=== PATIENT | male | born 1960 | race Hispanic/Latino ===

== ENCOUNTER 2017-07-08 11:55 | Inpatient (IN) | payer BC ==
[2017-07-08 12:07] VITALS: BMI 37.5
[2017-07-08 13:12] LABS: BASO # 0.02 K/mm3 (0.0-2.0); BASO % 0.4 % (0.0-3.0); EOS # 0.1 (0.0-0.7); EOS % 1.9 % (1.5-5.0); GRAN # 3.9 (1.4-6.5); GRAN % 72.6 % (50.0-68.0); HEMATOCRIT 33.8 % (42.0-52.0); LYMPH # 0.7 (1.2-3.4); LYMPH % 12.8 % (22.0-35.0); MEAN CELL VOLUME 90.1 fl (80.0-105.0); MEAN CORPUSCULAR HEMOGLOBIN 28.8 pg (25.0-35.0); MEAN PLATELET VOLUME 10.3 fl (7.0-11.0); MONO # 0.7 (0.1-0.6); MONO % 12.3 % (1.0-6.0); RED CELL DISTRIBUTION WIDTH 15.4 % (11.5-14.5); WHITE BLOOD COUNT 5.4 10^3/ul (4.5-11.0)
[2017-07-08 13:18] LABS: INR 1.24 (0.93-1.08); PARTIAL THROMBOPLASTIN TIME 30.9 Seconds (25.1-36.5)
[2017-07-08 13:22] LABS: ALB/GLOB RATIO 0.8 (1.1-1.8); ALKALINE PHOSPHATASE 95 U/L (38-126); ALT/SGPT 37 U/L (7-56); AST/SGOT 31 U/L (17-59); BILIRUBIN,TOTAL 0.4 mg/dL (0.2-1.3); BLOOD UREA NITROGEN 13 mg/dL (7-21); CALCIUM 8.8 mg/dL (8.4-10.5); CARBON DIOXIDE 28 mmol/L (21-33); CHLORIDE 97 mmol/L (98-107); GFR AFRICAN-AMERICAN > 60; GLUCOSE,RANDOM 161 mg/dL (70-110); POTASSIUM 4.6 mmol/L (3.6-5.0); SODIUM 134 mmol/L (132-148); TOTAL PROTEIN 7.9 g/dL (5.8-8.3)
[2017-07-08 13:33] LABS: TROPONIN I < 0.01 ng/mL
[2017-07-08] MEDS ORDERED: Lactated Ringer's 1,000 ML IV STA (14:41)
--- NOTE | 2017-07-08 15:41 | ED PDOC ---
Arrival/HPI - General Chief Complaint: Pain, Chronic Time Seen by Provider: 07/08/17 12:01 Historian: Patient, Spouse, Family - History of Present Illness Narrative History of Present Illness (Text): 57yoM, new dx of multiple myeloma, with recent pathologic fractures on radiation. now with generalized fatigue/myalgias. no fever/cough/n/v/wong/ dizziness/sob/chest pain/abdomen pain/numbness/pain with urination. had recent left back wound vac removed wo redness. 07/08/17 15:42 07/08/17 16:56 Time/Duration: 24 hours, Other (chronic) Symptom Onset: Gradual Symptom Course: Unchanged Activities at Onset: Rest Context: Sitting Past Medical History - Provider Review Nursing Documentation Reviewed: Yes - Travel History Have you recently traveled outside [place] w/in the past 3 mons?: No - Cardiac Hx Cardiac Disorders: No - Pulmonary Hx Respiratory Disorders: No - Neurological Hx Neurological Disorder: No - HEENT Hx HEENT Disorder: No - Renal Hx Renal Disorder: No - Endocrine/Metabolic Hx Endocrine Disorders: Yes Hx Diabetes Mellitus Type 2: Yes Hx Hypothyroidism: Yes - Hematological/Oncological Hx Blood Disorders: No - Integumentary Hx Dermatological Disorder: Yes Hx Melanoma: Yes Other/Comment: Multiple Melanoma Diagnosed April 2017 - Musculoskeletal/Rheumatological Hx Musculoskeletal Disorders: No - Gastrointestinal Hx Gastrointestinal Disorders: No - Genitourinary/Gynecological Hx Genitourinary Disorders: No - Psychiatric Hx Psychophysiologic Disorder: No Hx Substance Use: No - Surgical History Hx Orthopedic Surgery: Yes Other/Comment: Bilateral knee replacement, R hip replacement - Anesthesia Hx Anesthesia: Yes Family/Social History - Physician Review Nursing Documentation Reviewed: Yes Family/Social History: No Known Family HX Smoking Status: Never Smoked Hx Alcohol Use: No Hx Substance Use: No Allergies/Home Meds Allergies/Adverse Reactions: Allergies No Known Allergies Allergy (Verified 07/08/17 18:09) Home Medications: Home Meds Medication Instructions Recorded Confirmed ALPRAZolam [Xanax] 1.25 mg PO DAILY 07/08/17 07/08/17 Fentanyl [Fentanyl] 75 mg TOP PRN PRN 07/08/17 07/08/17 Review of Systems - Review of Systems Constitutional: Fatigue Eyes: Normal ENT: Normal Respiratory: Normal Cardiovascular: Normal Gastrointestinal: Normal Genitourinary Male: Normal Musculoskeletal: Myalgias Skin: Normal Neurological: Normal Endocrine: Normal Hemo/Lymphatic: Normal Psychiatric: Normal Physical Exam Vital Signs Reviewed: Yes Vital Signs Temp Pulse Resp BP Pulse Ox 07/08/17 17:20 90 18 101/64 98 07/08/17 16:53 86 18 125/63 98 07/08/17 15:13 91 H 18 127/65 98 07/08/17 13:56 99.3 F 124 H 18 104/71 95 07/08/17 12:06 99.7 F H 103 H 18 100/69 95 Temperature: Afebrile Blood Pressure: Hypertensive Pulse: Regular Respiratory Rate: Normal Appearance: Positive for: Well-Appearing Pain Distress: Mild Mental Status: Positive for: Alert and Oriented X 3 - Systems Exam Head: Present: Atraumatic, Normocephalic Pupils: Present: PERRL Extroacular Muscles: Present: EOMI Conjunctiva: Present: Normal Ears: Present: Normal Mouth: Present: Moist Mucous Membranes Pharnyx: Present: Normal Nose (External): Present: Atraumatic Nose (Internal): Present: Normal Inspection Neck: Present: Normal Range of Motion Respiratory/Chest: Present: Clear to Auscultation, Good Air Exchange Cardiovascular: Present: Regular Rate and Rhythm Abdomen: No: Tenderness, Distention, Normal Bowel Sounds, Peritoneal Signs, Rebound, Guarding, McBurney's Point Tender, Rovsing's Sign Present, Hernias, Feeding Tubes, Ostomy Tubes, Mass/Organomegaly, Scars, Other Upper Extremity: Present: Normal Inspection Lower Extremity: Present: Normal Inspection Neurological: Present: GCS=15, CN II-XII Intact, Speech Normal Skin: Present: Warm, Normal Color, Other (left lower back wound 8cm to muscle wo erythema;fluctuance/crepitus.) Psychiatric: Present: Alert, Oriented x 3, Normal Insight, Normal Concentration Medical Decision Making ED Course and Treatment: d/w Dr. Lafleur oncology who wants pt to be admitted. prior to admission for b/ l shoulder xrays, chest xray, and spinal thoracic and lumbar spinal to be followed by hospital/oncology team. 07/08/17 15:44 07/08/17 16:54 d/w Dr. Lafleur who had stated admit to hospitalist, d/w Dr. Sandhu and he stated he would consult if needed but if Dr. Lafleur wants hospitalist then can proceed. d/w Dr. Guzmán who will admit for pain, fatigue and plan for intravenous chemotherapy. CT Lumbar Spine without contrast Dictator : Bayron Olsen MD Report Date : 07/08/2017 17:11:03 IMPRESSION: Innumerable lytic lesions throughout the lumbar spine consistent with known multiple myeloma. There is a lesion in the right S2 sacral ala with cortical destruction but no neural foraminal encroachment. There is a lytic lesion in the posterior aspect of the T11 vertebra with cortical destruction but no clear epidural extension. There is a slightly atypical expansile lesion on the left side of the L1 vertebral body with associated cortical destruction. Degenerative disc disease and disc bulges as described. CT Thoracic Spine without contrast Dictator : Bayron Olsen MD Report Date : 07/08/2017 17:23:50 IMPRESSION: Extensive myelomatous change with lytic lesions throughout the thoracic spine and a confluent large expansile/destructive lytic lesion at T8-T9 with encroachment upon the central spinal canal from the left side and mild central spinal stenosis. Incidental 1.6 cm mass in the left lower lobe. Minor findings as above. Bilateral shoulders dated 07/08/2017 Creator : Bobby Botello MD Report Date : 07/08/2017 17:56:50 IMPRESSION: Old healed fracture deformities of the proximal and distal shaft left humerus. Degenerative changes both shoulder girdles. Multiple small lucencies seen throughout the osseous structures consistent with this patient's history multiple myeloma. 07/08/17 20:10 - Lab Interpretations Lab Results: 07/08/17 13:00 07/08/17 13:00 Lab Results 07/08/17 13:00: Sodium 134, Potassium 4.6, Chloride 97 L, Carbon Dioxide 28, Anion Gap 13, BUN 13, Creatinine 0.8, Est GFR ( Amer) > 60, Est GFR (Non- Af Amer) > 60, Random Glucose 161 H, Calcium 8.8, Total Bilirubin 0.4, AST 31, ALT 37, Alkaline Phosphatase 95, Total Creatine Kinase 30 L, Troponin I < 0.01, Total Protein 7.9, Albumin 3.6, Globulin 4.3, Albumin/Globulin Ratio 0.8 L 07/08/17 13:00: PT 13.7 H, INR 1.24 H, APTT 30.9 07/08/17 13:00: WBC 5.4, RBC 3.75, Hgb 10.8 L, Hct 33.8 L, MCV 90.1, MCH 28.8, MCHC 32.0, RDW 15.4 H, Plt Count 223, MPV 10.3, Gran % 72.6 H, Lymph % (Auto) 12.8 L, Jackson % (Auto) 12.3 H, Eos % (Auto) 1.9, Baso % (Auto) 0.4, Gran # 3.90, Lymph # 0.7 L, Jackson # 0.7 H, Eos # 0.1, Baso # 0.02 I have reviewed the lab results: Yes - RAD Interpretation Radiology Orders: 07/08/17 15:46 SHOULDER MIN 2 VIEWS BI [RAD] Stat 07/08/17 15:49 THORACIC SPINE W/O CONT [CT] Stat 07/08/17 15:50 LUMBAR SPINE W/O CONTRAST [CT] Stat - EKG Interpretation Interpreted by ED Physician: Yes (flipped t waves avr, v1, flattened avf) - Medication Orders Current Medication Orders: Acetaminophen (Tylenol 325mg Tab) 650 mg PO Q6H PRN PRN Reason: Fever >100.4 F Alprazolam (Xanax) 0.25 mg PO BID PRN; Protocol PRN Reason: Anxiety Stop: 07/15/17 18:22 Ascorbic Acid (Vitamin C 500 Mg Tab) 500 mg PO DAILY [facility] Diphenhydramine HCl (Benadryl) 25 mg PO Q6H PRN PRN Reason: Itching / Pruritus Docusate Sodium (Colace) 100 mg PO Q12 [facility] Enoxaparin Sodium (Lovenox) 40 mg SC DAILY [facility] PRN Reason: Protocol Famotidine (Pepcid) 20 mg IVP DAILY [facility] Fentanyl (Duragesic) 1 patch TD Q72H [facility] Insulin Human Lispro (Humalog Low) 0 units SC ACHS [facility] PRN Reason: Protocol Morphine Sulfate (Morphine) 2 mg IVP Q4H PRN PRN Reason: Pain, severe (8-10) Ondansetron HCl (Zofran Inj) 4 mg IVP Q4H PRN PRN Reason: Nausea/Vomiting Zinc Sulfate (Zinc Sulfate 220 Mg Cap) 220 mg PO DAILY [facility] Discontinued Medications Acetaminophen (Tylenol 325mg Tab) 650 mg PO Q6H PRN PRN Reason: Pain, Mild (1-3) Fentanyl (Duragesic) 1 patch TD Q72H [facility] Lactated Ringer's (Lactated Ringer's) 1,000 mls @ 999 mls/hr IV .Q1H1M STA Stop: 07/08/17 15:41 Last Admin: 07/08/17 14:51 Dose: 999 mls/hr eMAR Start Stop Document 07/08/17 14:51 OCS (Rec: 07/08/17 14:[address] [id number]) Intravenous Solution Start Date 07/08/17 Start Time 14:51 End Date 07/08/17 End time 15:52 Total Infusion Time 61 Multivitamins (Thera Tab) 1 tab PO STAT STA Stop: 07/08/17 17:51 Pneumococcal Polyvalent Vaccine (Pneumovax 23 Vaccine) 0.5 ml IM .ONCE ONE Stop: 07/08/17 19:43 Disposition/Present on Arrival - Present on Arrival Any Indicators Present on Arrival: No History of DVT/PE: No History of Uncontrolled Diabetes: No Urinary Catheter: No History of Decub. Ulcer: No History Surgical Site Infection Following: None - Disposition Have Diagnosis and Disposition been Completed?: Yes Diagnosis: Myalgia Disposition: HOSPITALIZED Disposition Time: 16:00 Patient Plan: Admission Condition: GOOD
--- NOTE | 2017-07-08 16:15 | CARD ---
APPROVED REPORT EKG Measurement Heart [id number] [id number] <Conclusion> Normal sinus rhythm Prolonged QT Abnormal ECG
--- NOTE | 2017-07-08 17:13 | CT ---
PROCEDURE: CT Lumbar Spine without contrast HISTORY: 57yoM, with multiple myeloma COMPARISON: None. TECHNIQUE: Axial computed tomography images were obtained of the lumbar spine without the use of intravenous contrast. Coronal and sagittal reformatted images were created and reviewed. Radiation dose: Total exam DLP = 1520.18 mGy-cm. This CT exam was performed using one or more of the following dose reduction techniques: Automated exposure control, adjustment of the mA and/or kV according to patient size, and/or use of iterative reconstruction technique. FINDINGS: VERTEBRAE: The vertebral bodies are maintained in height. There are innumerable lytic lesions seen throughout the lumbar spine, some of them sharply circumscribed and some ill-defined. There is a lytic lesion in the posterior aspect of the T11 vertebra with destruction of the cortex and no clear epidural extension of tumor. There is an expansile lesion in the left side of the L1 vertebral body with cortical destruction. Likely related to multiple myeloma both this is atypical behavior. There is a lytic lesion in the right S2 talar portion of the sacrum with cortical destruction but no evidence of encroachment upon the S2 neural foramen. DISCS/SPINAL CANAL/NEURAL FORAMINA: There is narrowing of the L1-2, L3-4, L4-5 and L5-S1 disc spaces consistent with degenerative disc disease. There is diffuse disc bulge at L3-4 and L4-5. There is moderate bilateral L3-4 neural foraminal stenosis. There is moderate right and severe left L4-5 neural foraminal stenosis. There is mild central spinal stenosis at L4-5. PARASPINAL SOFT TISSUES: Unremarkable. OTHER FINDINGS: None. IMPRESSION: Innumerable lytic lesions throughout the lumbar spine consistent with known multiple myeloma. There is a lesion in the right S2 sacral ala with cortical destruction but no neural foraminal encroachment. There is a lytic lesion in the posterior aspect of the T11 vertebra with cortical destruction but no clear epidural extension. There is a slightly atypical expansile lesion on the left side of the L1 vertebral body with associated cortical destruction. Degenerative disc disease and disc bulges as described.
--- NOTE | 2017-07-08 17:25 | CT ---
PROCEDURE: CT Thoracic Spine without contrast HISTORY: 57yoM, hx of multiple myeloma COMPARISON: None. TECHNIQUE: Axial computed tomography images were obtained of the thoracic spine without intravenous contrast. Coronal and sagittal reformatted images were created and reviewed. Radiation dose: Total exam DLP = 1496.47 mGy-cm. This CT exam was performed using one or more of the following dose reduction techniques: Automated exposure control, adjustment of the mA and/or kV according to patient size, and/or use of iterative reconstruction technique. FINDINGS: VERTEBRAE: There is mild anterior wedge compression deformity of the T8 vertebral body. The remaining vertebral bodies are maintained in height. There are innumerable small lytic lesions throughout thoracic spine, many of them ill-defined. There is a large expansile soft tissue mass with vertebral destruction extending into adjacent rib on the left side, at the T8 and T9 vertebral levels. There is epidural extension of soft tissue into the left anterior lateral aspect of the spinal canal at this level with mild spinal stenosis. There is gross destruction of the medial aspect of the posterior left 8th rib. There is a small circumscribed lesion with cortical destruction along the posterior aspect of the T11 vertebra with minimal epidural extension of soft tissue encroaching subtly upon the central spinal canal. This is difficult to gauge on the basis of this examination and if there is clinical concern regarding encroachment this level then evaluation with magnetic resonance imaging is advised.. DISCS/SPINAL CANAL/NEURAL FORAMINA: There is no evidence of disc herniation. There is mild narrowing of multiple intervertebral disc spaces in the thoracic spine, most prominently at T8-9 and T9-10.. PARASPINAL SOFT TISSUES: Unremarkable. OTHER FINDINGS: There is paraseptal emphysema in the lung apices. There is a bilobed soft tissue mass in the left lower lobe measuring roughly 0.9 x 1.6 cm.. IMPRESSION: Extensive myelomatous change with lytic lesions throughout the thoracic spine and a confluent large expansile/destructive lytic lesion at T8-T9 with encroachment upon the central spinal canal from the left side and mild central spinal stenosis. Incidental 1.6 cm mass in the left lower lobe. Minor findings as above.
[2017-07-08] MEDS ORDERED: Multivitamin Therapeutic Tab PO STA (17:50)
--- NOTE | 2017-07-08 17:58 | RAD ---
PROCEDURE: Bilateral shoulders dated 07/08/2017 HISTORY: Body pain in a patient with a history of multiple myeloma. Technologist notation indicates 7 fracture left humerus 4 months ago. COMPARISON: Correlation made with left shoulder radiograph dated 03/08/2015. FINDINGS: Left shoulder findings: Current study reveals a old healed fracture deformity of the proximal left humeral diaphysis. Additionally, there appears to be a 2nd old healed fracture deformity of the distal left humeral diaphysis as well. Clinical correlation recommended. Dedicated radiographs of the left humerus may be prudent to confirm. Degenerative changes left glenohumeral and acromioclavicular joints. Multiple of lucent changes are seen throughout the left humerus as well as the scapula and distal clavicle consistent with this patient's history of myeloma. There may also be changes in the left ribs. Right shoulder findings: No evidence of acute displaced fracture nor dislocation. The osseous structures appear intact. Degenerative changes right acromioclavicular joint. There are small calcific densities within the soft tissues adjacent to greater tuberosity consistent with calcific tendinitis. . Multiple tiny lucencies are seen within the proximal right humerus and probably within the scapula and ribs consistent with this patient's history of myeloma. There may also be lucent changes in the right clavicle as well. IMPRESSION: Old healed fracture deformities of the proximal and distal shaft left humerus. Degenerative changes both shoulder girdles. Multiple small lucencies seen throughout the osseous structures consistent with this patient's history multiple myeloma.
--- NOTE | 2017-07-08 17:58 | CP.PCM.HP ---
History of Present Illness - History of Present Illness History of Present Illness: 57 year old with a past medical history of tinnitus, new-onset diabetes mellitus , recently diagnosed multiple myeloma with pathologic fractures and immobility. On April 11, 2017 he underwent a bilateral knee replacement surgery that was followed by a left arm fracture, and right hip fracture, all within the span of a month. He was diagnosed with Multiple Myeloma and in th the past three months underwent orthopedic surgery for the right hip, left shoulder, and for debridement of a decubitus ulcer in his back with wound vacuum placement. He underwent 10 rounds of palliative radiation therapy and 3 round of chemotherapy. He has been living at home, bed-bound, since June 07 and requires assistance for nearly all of activities of daily living. [place] [facility] [place]ractable pain in below the knees, bilaterally, left shoulder and right hip. He admits to chills and fever, but denies, weight, loss, nausea, vomiting, diarrhea, weight loss, easy brusing or bleeding, night sweats or dyspnea on admission. He denies having any complications from his chemoradiation such as loss incontinence, diarrhea, changes in taste, dry mouth , etc. PMD: Listed as Dr. 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 Family History: Unremarkable Present on Admission - Present on Admission Any Indicators Present on Admission: Yes Decubitus Ulcer Present: Yes Review of Systems - EENT Eyes: absent: Change in Vision, Diplopia, Dry Eye Ears: Tinnitus Nose/Mouth/Throat: absent: Dry Mouth, Dysphagia, Sore Throat - Cardiovascular Cardiovascular: Pedal Edema. absent: Chest Pain at Rest, Dyspnea, Edema - Respiratory Respiratory: absent: Dyspnea, Pain on Inspiration, Excessive Mucous Production - Gastrointestinal Gastrointestinal: absent: Abdominal Pain, Belching, Constipation - Genitourinary Genitourinary: Change in Urinary Stream, Difficulty Urinating - Musculoskeletal Musculoskeletal: Arthralgias, Back Pain. absent: Abnormal Gait - Integumentary Integumentary: absent: Bleeding Lesions, Photosensitivity - Neurological Neurological: absent: Radicular Pain, Syncope, Weakness - Psychiatric Psychiatric: absent: Difficulty Concentrating, Irritability, Panic Attacks - Endocrine Endocrine: absent: Polydipsia, Polyphagia - Hematologic/Lymphatic Hematologic: absent: Easy Bleeding, Easy Bruising, Lymphadenopathy Past Patient History - Past Social History Smoking Status: Never Smoked - CARDIAC Hx Cardiac Disorders: No - PULMONARY Hx Respiratory Disorders: No - NEUROLOGICAL Hx Neurological Disorder: No - HEENT Hx HEENT Problems: No - RENAL Hx Chronic Kidney Disease: No - ENDOCRINE/METABOLIC Hx Endocrine Disorders: Yes Hx Diabetes Mellitus Type 2: Yes Hx Hypothyroidism: Yes - HEMATOLOGICAL/ONCOLOGICAL Hx Blood Disorders: No - INTEGUMENTARY Hx Dermatological Problems: Yes Hx Melanoma: Yes Other/Comment: Multiple Melanoma Diagnosed April 2017 - MUSCULOSKELETAL/RHEUMATOLOGICAL Hx Musculoskeletal Disorders: No - GASTROINTESTINAL Hx Gastrointestinal Disorders: No - GENITOURINARY/GYNECOLOGICAL Hx Genitourinary Disorders: No - PSYCHIATRIC Hx Psychophysiologic Disorder: No Hx Substance Use: No - SURGICAL HISTORY Hx Orthopedic Surgery: Yes Other/Comment: Bilateral knee replacement, R hip replacement - ANESTHESIA Hx Anesthesia: Yes Meds Allergies/Adverse Reactions: Allergies Allergy/AdvReac Type Severity Reaction Status Date / Time No Known Allergies Allergy Verified 07/08/17 18:09 Physical Exam - Constitutional Appears: Well, Non-toxic - Head Exam Head Exam: ATRAUMATIC, NORMOCEPHALIC - Eye Exam Eye Exam: EOMI, Normal appearance - ENT Exam ENT Exam: Mucous Membranes Moist, Normal Oropharynx - Neck Exam Neck exam: Positive for: Normal Inspection - Respiratory Exam Respiratory Exam: Clear to Auscultation Bilateral, NORMAL BREATHING PATTERN. absent: Wheezes - Cardiovascular Exam Cardiovascular Exam: RRR, +S1, +S2 - GI/Abdominal Exam GI & Abdominal Exam: Normal Bowel Sounds, Soft. absent: Guarding, Rebound - Extremities Exam Extremities exam: Positive for: pedal pulses present. Negative for: calf tenderness Additional comments: bilateral lower extremity swelling, non-pitting - Back Exam Back exam: absent: CVA tenderness (L), CVA tenderness (R) Additional comments: [id number] sacral decubitus ulcer. healthy granulations tissue present. no signs of necrosis. - Neurological Exam Neurological exam: Alert, CN II-XII Intact, Oriented x3 - Psychiatric Exam Psychiatric exam: Normal Affect, Normal Mood - Skin Skin Exam: Dry, Intact, Normal Color, Warm Results - Vital Signs Recent Vital Signs: Last Vital Signs Temp 99.3 F 07/08/17 13:56 Pulse 90 07/08/17 17:20 Resp 18 07/08/17 17:20 BP 101/64 07/08/17 17:20 Pulse Ox 98 07/08/17 17:20 - Labs Result Diagrams: 07/08/17 13:00 07/08/17 13:00 Assessment & Plan - Assessment and Plan (Free Text) Assessment: 57 year old with a multiple myeloma who presents with intractable pain, immobility, and fever. Plan: 1) Intractable pain secondary to Multiple Myeloma - Left shoulder X-ray, thoracic spine, lumbar spine show - Fentanyl patch 75 mcg/hr q72h - Morphine 2mg IVP q4h - Tylenol 650 mg for mild pain - Docusate 100 mg BID - Left shoulder X-ray, CT of the thoracic and lumbar spine shows stigmata of multiple myeloma, multiple lucencies and fractures (see reports for details). - Orthopedic consult, Dr. Varghese. - Hematology/Oncology consult, Dr. Lafleur. - Dr. Larsen 2) Fever - Blood culture - Wound culture of decubitus ulcer - Urine culture - Urine Analysis - Tylenol 650 mg PRN for fever greater than 100.4 F - Infectious disease consult to be considered 3) Anxiety - Xanax 0.25 mg BID 4) DM II - ISS Lispro (low) 5) Decubitus Ulcer - Wound culture consult - Zinc, Multivitamin, Vitamin C 6) Fluid, electrolytes, nutrition - Lactated Ringers - HHD and moderate consistency carbohydrates 7) Lower extremity swelling - Duplex US of bilateral lower extremities 8)DVT/GI prophylaxis - Lovenox 40 mg SC qday - pepcid 20 mg IVP daily - Date & Time Date: 07/08/17 Time: 19:41 Decision To Admit - Pt Status Changed To: Hospital Disposition Of: Inpatient Admission - Admit Certification Admit to Inpatient:: After my assessment, the patient will require hospitalization for at least two midnights. This is because of the severity of symptoms shown, intensity of services needed, and/or the medical risk in this patient being treated as an outpatient. - . Bed Request Type: Med/Surg Admitting Physician: Ranjit Guzmán
--- NOTE | 2017-07-08 18:47 | CP.PCM.CON ---
<Haroldo Bashir - Last Filed: 07/08/17 18:38> History of Present Illness - History of Present Illness History of Present Illness: Consult Note for Dr. William We are being consulted for a sacral decubitus ulcer HPI: Patient is a 57WM with a PMH of Multiple Myeloma who presents to the ED with a CC of whole body pain. In april of this year the patient went for bilateral knee replacements at [facility]. Further imaging revealed several lytic lesions consistent with a diagnoses of multiple myeloma for which he sees Dr. Lafleur. During his stay in rehab he developed a sacral decubitus ulcer. He has a visiting nurse that comes and takes care of the wound at home. He admits to having a wound vac on most days. He denies any fevers or chills. His only complaint is body pain. Denies nausea, vomiting, chest pain, SOB, Diarrhea, constipation. PMH: Multiple myeloma PSH: bilateral knee replacement, right hip ORIF, left shoulder ORIF FH: Unremarkable SH: Smoked 1 ppd for 30 years, quit 10 years ago; drank 6 beers per day for 10 years, quite 25 years ago Medications: Xanax 0.25 BID and Fentanyl patch 75 mcg/hr Q72h Allergies: NKDA Review of Systems - Review of Systems Review of Systems: per hpi Past Patient History - Past Social History Smoking Status: Never Smoked - CARDIAC Hx Cardiac Disorders: No - PULMONARY Hx Respiratory Disorders: No - NEUROLOGICAL Hx Neurological Disorder: No - HEENT Hx HEENT Problems: No - RENAL Hx Chronic Kidney Disease: No - ENDOCRINE/METABOLIC Hx Endocrine Disorders: Yes Hx Diabetes Mellitus Type 2: Yes Hx Hypothyroidism: Yes - HEMATOLOGICAL/ONCOLOGICAL Hx Blood Disorders: No - INTEGUMENTARY Hx Dermatological Problems: Yes Hx Melanoma: Yes Other/Comment: Multiple Melanoma Diagnosed April 2017 - MUSCULOSKELETAL/RHEUMATOLOGICAL Hx Musculoskeletal Disorders: No - GASTROINTESTINAL Hx Gastrointestinal Disorders: No - GENITOURINARY/GYNECOLOGICAL Hx Genitourinary Disorders: No - PSYCHIATRIC Hx Psychophysiologic Disorder: No Hx Substance Use: No - SURGICAL HISTORY Hx Orthopedic Surgery: Yes Other/Comment: Bilateral knee replacement, R hip replacement - ANESTHESIA Hx Anesthesia: Yes Meds Allergies/Adverse Reactions: Allergies Allergy/AdvReac Type Severity Reaction Status Date / Time No Known Allergies Allergy Verified 07/08/17 18:09 - Medications Medications: Current Medications Acetaminophen (Tylenol 325mg Tab) 650 mg PO Q6H PRN PRN Reason: Pain, Mild (1-3) Alprazolam (Xanax) 0.25 mg PO BID PRN; Protocol PRN Reason: Anxiety Stop: 07/15/17 18:22 Ascorbic Acid (Vitamin C 500 Mg Tab) 500 mg PO DAILY [facility] Diphenhydramine HCl (Benadryl) 25 mg PO Q6H PRN PRN Reason: Itching / Pruritus Docusate Sodium (Colace) 100 mg PO Q12 [facility] Enoxaparin Sodium (Lovenox) 40 mg SC DAILY [facility] PRN Reason: Protocol Famotidine (Pepcid) 20 mg IVP DAILY [facility] Fentanyl (Duragesic) 1 patch TD Q72H [facility] Insulin Human Lispro (Humalog Low) 0 units SC ACHS [facility] PRN Reason: Protocol Morphine Sulfate (Morphine) 2 mg IVP Q4H PRN PRN Reason: Pain, severe (8-10) Ondansetron HCl (Zofran Inj) 4 mg IVP Q4H PRN PRN Reason: Nausea/Vomiting Zinc Sulfate (Zinc Sulfate 220 Mg Cap) 220 mg PO DAILY [facility] Physical Exam - Constitutional Appears: Non-toxic, No Acute Distress - Head Exam Head Exam: ATRAUMATIC, NORMAL INSPECTION, NORMOCEPHALIC - Eye Exam Eye Exam: EOMI Pupil Exam: NORMAL ACCOMODATION - ENT Exam ENT Exam: Mucous Membranes Moist - Respiratory Exam Respiratory Exam: Clear to Auscultation Bilateral, NORMAL BREATHING PATTERN - Cardiovascular Exam Cardiovascular Exam: REGULAR RHYTHM - GI/Abdominal Exam GI & Abdominal Exam: Normal Bowel Sounds. absent: Distended, Soft, Tenderness - Extremities Exam Extremities exam: Negative for: joint swelling, tenderness - Back Exam Additional comments: [id number] sacral decubitus ulcer. healthy granulations tissue present. no signs of necrosis. Results - Vital Signs Recent Vital Signs: Last Vital Signs Temp 99.3 F 07/08/17 13:56 Pulse 90 07/08/17 17:20 Resp 18 07/08/17 17:20 BP 101/64 07/08/17 17:20 Pulse Ox 98 07/08/17 17:20 - Labs Result Diagrams: 07/08/17 13:00 07/08/17 13:00 Assessment & Plan - Assessment and Plan (Free Text) Assessment: 57M w/ sacral decubitus ulcer Plan: * turn q2 * wound care consult * possible wound vac * air mattress * medical management per primary team * further reccs per Dr. Nataliia Bashir PGY1 <Clay William - Last Filed: 07/11/17 00:22> Meds - Medications Medications: Current Medications Acetaminophen (Tylenol 325mg Tab) 650 mg PO Q6H PRN PRN Reason: Fever >100.4 F Last Admin: 07/09/17 21:57 Dose: 650 mg Alprazolam (Xanax) 0.25 mg PO BID PRN; Protocol PRN Reason: Anxiety Stop: 07/15/17 18:22 Ascorbic Acid (Vitamin C 500 Mg Tab) 500 mg PO DAILY [facility] Last Admin: 07/10/17 10:55 Dose: 500 mg Diphenhydramine HCl (Benadryl) 25 mg PO Q6H PRN PRN Reason: Itching / Pruritus Docusate Sodium (Colace) 100 mg PO Q12 [facility] Last Admin: 07/10/17 23:10 Dose: 100 mg Enoxaparin Sodium (Lovenox) 40 mg SC DAILY [facility] PRN Reason: Protocol Last Admin: 07/10/17 10:56 Dose: 40 mg Famotidine (Pepcid) 20 mg IVP DAILY [facility] Last Admin: 07/10/17 10:56 Dose: 20 mg Fentanyl (Duragesic) 1 patch TD Q72H [facility] Last Admin: 07/10/17 10:53 Dose: 1 patch Insulin Human Lispro (Humalog Low) 0 units SC [facility] PRN Reason: Protocol Last Admin: 07/10/17 22:19 Dose: Not Given Morphine Sulfate (Morphine) 2 mg IVP Q4H PRN PRN Reason: Pain, severe (8-10) Last Admin: 07/10/17 23:09 Dose: 2 mg Ondansetron HCl (Zofran Inj) 4 mg IVP Q4H PRN PRN Reason: Nausea/Vomiting Zinc Sulfate (Zinc Sulfate 220 Mg Cap) 220 mg PO DAILY [facility] Last Admin: 07/10/17 10:55 Dose: 220 mg Results - Vital Signs Recent Vital Signs: Last Vital Signs Temp 98.8 F 07/10/17 16:00 Pulse 107 H 07/10/17 16:00 Resp 20 07/10/17 16:00 BP 139/79 07/10/17 16:00 Pulse Ox 98 07/10/17 16:00 - Labs Result Diagrams: 07/10/17 07:00 07/10/17 07:00 Labs: Laboratory Results - last 24 hr 07/08/17 07/09/17 07/09/17 19:17 07:21 16:32 WBC RBC Hgb Hct MCV MCH MCHC RDW Plt Count MPV Gran % Lymph % (Auto) Isabela % (Auto) Eos % (Auto) Baso % (Auto) Gran # Lymph # Isabela # Eos # Baso # Sodium Potassium Chloride Carbon Dioxide Anion Gap BUN Creatinine Est GFR ( Amer) Est GFR (Non-Af Amer) POC Glucose (mg/dL) 101 183 H Random Glucose Hemoglobin A1c 6.7 H Calcium Total Bilirubin AST ALT Alkaline Phosphatase Total Protein Albumin Globulin Albumin/Globulin Ratio 07/10/17 07/10/17 07/10/17 07:00 07:00 07:43 WBC 4.0 L RBC 3.73 Hgb 10.5 L Hct 33.3 L MCV 89.3 MCH 28.2 MCHC 31.5 RDW 15.3 H Plt Count 236 MPV 10.9 Gran % 67.3 Lymph % (Auto) 17.1 L Isabela % (Auto) 11.7 H Eos % (Auto) 3.7 Baso % (Auto) 0.2 Gran # 2.71 Lymph # 0.7 L Isabela # 0.5 Eos # 0.2 Baso # 0.01 Sodium 138 Potassium 3.6 Chloride 103 Carbon Dioxide 25 Anion Gap 14 BUN 6 L Creatinine 0.6 L Est GFR ( Amer) > 60 Est GFR (Non-Af Amer) > 60 POC Glucose (mg/dL) 143 H Random Glucose 133 H Hemoglobin A1c Calcium 8.7 Total Bilirubin 0.4 AST 30 ALT 28 Alkaline Phosphatase 87 Total Protein 7.6 Albumin 3.5 Globulin 4.2 Albumin/Globulin Ratio 0.8 L 07/10/17 07/10/17 11:18 17:06 WBC RBC Hgb Hct MCV MCH MCHC RDW Plt Count MPV Gran % Lymph % (Auto) Isabela % (Auto) Eos % (Auto) Baso % (Auto) Gran # Lymph # Isabela # Eos # Baso # Sodium Potassium Chloride Carbon Dioxide Anion Gap BUN Creatinine Est GFR ( Amer) Est GFR (Non-Af Amer) POC Glucose (mg/dL) 124 H 124 H Random Glucose Hemoglobin A1c Calcium Total Bilirubin AST ALT Alkaline Phosphatase Total Protein Albumin Globulin Albumin/Globulin Ratio Assessment & Plan - Assessment and Plan (Free Text) Plan: Patient was seen and examined by me. I agree with assessment and plan as per resident's note. - Date & Time Date: 07/08/17 Time: 20:35
[2017-07-08 19:20] LABS: PH,URINE 6.5 (4.7-8.0); URINE BILIRUBIN NEGATIVE (NEGATIVE); URINE BLOOD NEGATIVE (NEGATIVE); URINE GLUCOSE (UA) NEGATIVE (NEGATIVE); URINE KETONE NEGATIVE (NEGATIVE); URINE LEUKOCYTE ESTERASE NEGATIVE Leu/uL (NEGATIVE); URINE PROTEIN NEGATIVE mg/dL (<30 mg/dL); URINE UROBILINOGEN 0.2 E.U./dL (<1 E.U./dL)
[2017-07-08 19:41] LABS: URINE APPEARANCE CLEAR (CLEAR); URINE COLOR YELLOW (YELLOW)
[2017-07-08] MEDS ORDERED: Pneumococcal 23-Valent Vaccine IM ONE (19:42)
[2017-07-08] MEDS ORDERED: Influenza Vaccine 60 mcg/0.5 mL SYR (4YR UP) IM ONE (19:42)
[2017-07-09] MEDS: Insulin Lispro (humaLOG) LOW Coverage SC SCH ×5 (00:33→21:55)
[2017-07-09 06:11] LABS: TOTAL PROTEIN, SERUM 7.3 g/dL (6.1-8.1)
[2017-07-09 07:58] LABS: BASO # 0.01 K/mm3 (0.0-2.0); BASO % 0.3 % (0.0-3.0); EOS # 0.1 (0.0-0.7); EOS % 3.3 % (1.5-5.0); GRAN # 2.53 (1.4-6.5); GRAN % 65.1 % (50.0-68.0); HEMATOCRIT 34.3 % (42.0-52.0); LYMPH # 0.7 (1.2-3.4); LYMPH % 17.2 % (22.0-35.0); MEAN CELL VOLUME 89.8 fl (80.0-105.0); MEAN CORPUSCULAR HGB CONC 31.2 g/dl (31.0-37.0); MEAN PLATELET VOLUME 10.6 fl (7.0-11.0); MONO # 0.6 (0.1-0.6); MONO % 14.1 % (1.0-6.0); RED CELL DISTRIBUTION WIDTH 15.6 % (11.5-14.5); WHITE BLOOD COUNT 3.9 10^3/ul (4.5-11.0)
[2017-07-09 08:25] LABS: ALB/GLOB RATIO 0.8 (1.1-1.8); ALKALINE PHOSPHATASE 82 U/L (38-126); ALT/SGPT 29 U/L (7-56); AST/SGOT 28 U/L (17-59); BILIRUBIN,TOTAL 0.5 mg/dL (0.2-1.3); BLOOD UREA NITROGEN 9 mg/dL (7-21); CALCIUM 8.8 mg/dL (8.4-10.5); CARBON DIOXIDE 27 mmol/L (21-33); CHLORIDE 102 mmol/L (98-107); CHOLESTEROL 136 mg/dL (130-200); GFR AFRICAN-AMERICAN > 60; GLUCOSE,RANDOM 117 mg/dL (70-110); MAGNESIUM 1.8 mg/dL (1.7-2.2); PHOSPHOROUS 3.9 mg/dL (2.5-4.5); POTASSIUM 3.8 mmol/L (3.6-5.0); SODIUM 137 mmol/L (132-148); TOTAL PROTEIN 7.6 g/dL (5.8-8.3)
--- NOTE | 2017-07-09 09:10 | CP.PCM.PN ---
Addendum entered and electronically signed by Vincent Canales DO 07/09/17 17:26 : A/P Patient cleans and packs wound by himself at home refused to have iodine wet to dry packing will call wound care no areas of debridement required no surgical intervention at this time Vincent Canales PGY1 Original Note: <Vincent Canales - Last Filed: 07/09/17 10:08> Subjective - Date & Time of Evaluation Date of Evaluation: 07/09/17 Time of Evaluation: 06:30 - Subjective Subjective: General Surgery- Dr. William Patient seen and examined at bedside this AM. Pt had 101 fever. has currently resolved. tolerating current diet. Denies Fevers, chills, chest pain, shortness of breath, nausea, vomiting, diarrhea Objective - Vital Signs/Intake and Output Vital Signs (last 24 hours): Temp Pulse Resp BP Pulse Ox 98.8 F 88 20 137/73 95 07/09/17 08:00 07/09/17 08:00 07/09/17 08:00 07/09/17 08:00 07/09/17 08:00 Intake and Output: 07/09/17 07/09/17 06:59 18:59 Intake Total 2000 Output Total 1800 Balance 200 - Medications Medications: Current Medications Acetaminophen (Tylenol 325mg Tab) 650 mg PO Q6H PRN PRN Reason: Fever >100.4 F Last Admin: 07/09/17 08:38 Dose: 650 mg Alprazolam (Xanax) 0.25 mg PO BID PRN; Protocol PRN Reason: Anxiety Stop: 07/15/17 18:22 Ascorbic Acid (Vitamin C 500 Mg Tab) 500 mg PO DAILY [facility] Diphenhydramine HCl (Benadryl) 25 mg PO Q6H PRN PRN Reason: Itching / Pruritus Docusate Sodium (Colace) 100 mg PO Q12 [facility] Last Admin: 07/08/17 22:53 Dose: 100 mg Enoxaparin Sodium (Lovenox) 40 mg SC DAILY [facility] PRN Reason: Protocol Famotidine (Pepcid) 20 mg IVP DAILY [facility] Fentanyl (Duragesic) 1 patch TD Q72H [facility] Insulin Human Lispro (Humalog Low) 0 units SC ACHS [facility] PRN Reason: Protocol Last Admin: 07/09/17 00:33 Dose: Not Given Morphine Sulfate (Morphine) 2 mg IVP Q4H PRN PRN Reason: Pain, severe (8-10) Ondansetron HCl (Zofran Inj) 4 mg IVP Q4H PRN PRN Reason: Nausea/Vomiting Zinc Sulfate (Zinc Sulfate 220 Mg Cap) 220 mg PO DAILY [facility] - Labs Labs: 07/09/17 07:30 07/09/17 07:30 PT 13.7 SECONDS (9.4-12.5) H 07/08/17 13:00 INR 1.24 (0.93-1.08) H 07/08/17 13:00 APTT 30.9 Seconds (25.1-36.5) 07/08/17 13:00 - Constitutional Appears: Non-toxic, No Acute Distress - Head Exam Head Exam: ATRAUMATIC - Eye Exam Eye Exam: EOMI. absent: Scleral icterus - ENT Exam ENT Exam: Mucous Membranes Moist - Respiratory Exam Respiratory Exam: NORMAL BREATHING PATTERN. absent: Accessory Muscle Use, Respiratory Distress - Cardiovascular Exam Cardiovascular Exam: +S1, +S2. absent: Bradycardia, Tachycardia - GI/Abdominal Exam GI & Abdominal Exam: Soft. absent: Firm, Guarding, Rigid, Tenderness - Rectal Exam Additional comments: stage 4 sacral decub. 6cm deep. no areas of necrosis - Neurological Exam Neurological Exam: Alert, Awake, Oriented x3 - Skin Skin Exam: Warm. absent: Intact Assessment and Plan - Assessment and Plan (Free Text) Assessment: 57M stage 4 sacral decub ulcer Plan: - wet to dry dressing w/ iodine - local wound care - will not put on wound vac due to patient seeing home wound care to place new wound vac on - discussed w/ Dr. William surgical attending Vincent Canales PGY1 <Clay William - Last Filed: 07/11/17 00:23> Objective - Vital Signs/Intake and Output Vital Signs (last 24 hours): Temp Pulse Resp BP Pulse Ox 98.8 F 107 H 20 139/79 98 07/10/17 16:00 07/10/17 16:00 07/10/17 16:00 07/10/17 16:00 07/10/17 16:00 Intake and Output: 07/10/17 07/11/17 18:59 06:59 Intake Total 480 680 Output Total 400 Balance 80 680 - Medications Medications: Current Medications Acetaminophen (Tylenol 325mg Tab) 650 mg PO Q6H PRN PRN Reason: Fever >100.4 F Last Admin: 07/09/17 21:57 Dose: 650 mg Alprazolam (Xanax) 0.25 mg PO BID PRN; Protocol PRN Reason: Anxiety Stop: 07/15/17 18:22 Ascorbic Acid (Vitamin C 500 Mg Tab) 500 mg PO DAILY [facility] Last Admin: 07/10/17 10:55 Dose: 500 mg Diphenhydramine HCl (Benadryl) 25 mg PO Q6H PRN PRN Reason: Itching / Pruritus Docusate Sodium (Colace) 100 mg PO Q12 [facility] Last Admin: 07/10/17 23:10 Dose: 100 mg Enoxaparin Sodium (Lovenox) 40 mg SC DAILY [facility] PRN Reason: Protocol Last Admin: 07/10/17 10:56 Dose: 40 mg Famotidine (Pepcid) 20 mg IVP DAILY [facility] Last Admin: 07/10/17 10:56 Dose: 20 mg Fentanyl (Duragesic) 1 patch TD Q72H [facility] Last Admin: 07/10/17 10:53 Dose: 1 patch Insulin Human Lispro (Humalog Low) [address] [facility] PRN Reason: Protocol Last Admin: 07/10/17 22:19 Dose: Not Given Morphine Sulfate (Morphine) 2 mg IVP Q4H PRN PRN Reason: Pain, severe (8-10) Last Admin: 07/10/17 23:09 Dose: 2 mg Ondansetron HCl (Zofran Inj) 4 mg IVP Q4H PRN PRN Reason: Nausea/Vomiting Zinc Sulfate (Zinc Sulfate 220 Mg Cap) 220 mg PO DAILY [facility] Last Admin: 07/10/17 10:55 Dose: 220 mg - Labs Labs: 07/10/17 07:00 07/10/17 07:00 PT 13.7 SECONDS (9.4-12.5) H 07/08/17 13:00 INR 1.24 (0.93-1.08) H 07/08/17 13:00 APTT 30.9 Seconds (25.1-36.5) 12/08/17 13:00 Assessment and Plan - Assessment and Plan (Free Text) Plan: Patient was seen and examined by me. I agree with assessment and plan as per resident's note.
--- NOTE | 2017-07-09 11:38 | CP.PCM.PN ---
<Ron Hong - Last Filed: 07/09/17 18:41> Subjective - Date & Time of Evaluation Date of Evaluation: 07/09/17 Time of Evaluation: 08:35 - Subjective Subjective: Patient seen and examined at bedside. Per nursing no acute events occurred overnight. The patient still reports lower back pain and bilateral lower extremity pain. The denies any chest pain, shortness of breath, nausea, vomiting, fevers, chills, lightheadedness, dizziness, changes in vision, abdominal pain, or any other complaints. Objective - Vital Signs/Intake and Output Vital Signs (last 24 hours): Temp Pulse Resp BP Pulse Ox 98.8 F 88 20 137/73 95 07/09/17 08:00 07/09/17 08:00 07/09/17 08:00 07/09/17 08:00 07/09/17 08:00 Intake and Output: 07/09/17 07/09/17 06:59 18:59 Intake Total 2000 Output Total 1800 Balance 200 - Medications Medications: Current Medications Acetaminophen (Tylenol 325mg Tab) 650 mg PO Q6H PRN PRN Reason: Fever >100.4 F Last Admin: 07/09/17 08:38 Dose: 650 mg Alprazolam (Xanax) 0.25 mg PO BID PRN; Protocol PRN Reason: Anxiety Stop: 07/15/17 18:22 Ascorbic Acid (Vitamin C 500 Mg Tab) 500 mg PO DAILY [facility] Last Admin: 07/09/17 10:39 Dose: 500 mg Diphenhydramine HCl (Benadryl) 25 mg PO Q6H PRN PRN Reason: Itching / Pruritus Docusate Sodium (Colace) 100 mg PO Q12 [facility] Last Admin: 07/09/17 10:38 Dose: 100 mg Enoxaparin Sodium (Lovenox) 40 mg SC DAILY [facility] PRN Reason: Protocol Famotidine (Pepcid) 20 mg IVP DAILY [facility] Last Admin: 07/09/17 10:39 Dose: 20 mg Fentanyl (Duragesic) 1 patch TD Q72H [facility] Insulin Human Lispro (Humalog Low) 0 units SC ACHS [facility] PRN Reason: Protocol Last Admin: 07/09/17 10:18 Dose: Not Given Morphine Sulfate (Morphine) 2 mg IVP Q4H PRN PRN Reason: Pain, severe (8-10) Ondansetron HCl (Zofran Inj) 4 mg IVP Q4H PRN PRN Reason: Nausea/Vomiting Zinc Sulfate (Zinc Sulfate 220 Mg Cap) 220 mg PO DAILY [facility] Last Admin: 07/09/17 10:39 Dose: 220 mg - Labs Labs: 07/09/17 07:30 07/09/17 07:30 PT 13.7 SECONDS (9.4-12.5) H 07/08/17 13:00 INR 1.24 (0.93-1.08) H 07/08/17 13:00 APTT 30.9 Seconds (25.1-36.5) 07/08/17 13:00 - Head Exam Head Exam: ATRAUMATIC, NORMAL INSPECTION, NORMOCEPHALIC - Eye Exam Eye Exam: EOMI, Normal appearance, PERRL. absent: Periorbital tenderness Pupil Exam: NORMAL ACCOMODATION, PERRL. absent: Irregular, Unequal - ENT Exam ENT Exam: Mucous Membranes Moist, Normal Oropharynx - Neck Exam Neck Exam: Normal Inspection. absent: Lymphadenopathy, Meningismus, Thyromegaly - Respiratory Exam Respiratory Exam: Clear to Ausculation Bilateral, NORMAL BREATHING PATTERN. absent: Chest Wall Tenderness, Prolonged Expiratory Phase, Respiratory Distress - Cardiovascular Exam Cardiovascular Exam: REGULAR RHYTHM, +S1, +S2. absent: Gallop, Rubs - GI/Abdominal Exam GI & Abdominal Exam: Soft, Normal Bowel Sounds. absent: Tenderness, Hyperactive Bowel Sounds - Extremities Exam Extremities Exam: absent: Pedal Edema, Tenderness - Back Exam Back Exam: NORMAL INSPECTION. absent: CVA tenderness (L), CVA tenderness (R), paraspinal tenderness Additional comments: sacral ulcer noted just above the kaylee cleft. - Neurological Exam Neurological Exam: Alert, Awake, Oriented x3 - Psychiatric Exam Psychiatric exam: Normal Affect, Normal Mood - Skin Skin Exam: Dry Assessment and Plan - Assessment and Plan (Free Text) Assessment: 57 year old with a multiple myeloma who presents with intractable pain, immobility, and fever. Plan: 1. Intractable pain secondary to Multiple Myeloma - Left shoulder X-ray shows old healed fracture deformities in the distal and proximal shaft left humerus and degenerative changes in both shoulder girdles and multiple small lucencies throughout the osseous structures consistent with history multiple myeloma. -Lumbar spine CT showed inumerable lytic lesions consistent with multiple myeloma. lesion in the right S2 sacral area with cortical destruction with no neural foraminal encroachment, lytic lesion of posterior aspect of T11, and atypical expansile lesion on the left side of L1 associated with cortical destruction. -Continue pain management. -Throracic spine Ct showed lytic lesions throughout thoracic spine, confluent large, expansile lytic lesions at T8-T9 with encroachment upon central spinal canal, and incidental 1.6mm mass in the left lower lobe found. - Orthopedic consult, Dr. Varghese. Rec's appreciated. - Hematology/Oncology consult, Dr. Lafleur. Will f/u with rec's - Dr. Larsen consulted. Rec's appreciated. -Patient expected to have debridement done at the ulcer site by the surgery team today. -Bone scan ordered. Will f/u with results. 2) Fever - Blood culture, Wound culture of decubitus ulcer, Urine culture still pending. Will f/u with results. - Urine Analysis negative. - Continue Tylenol 650 mg PRN for fever greater than 100.4 F - Infectious disease consult to be considered, Will f/u with rec's 3) Anxiety - Xanax 0.25 mg BID 4) DM II - ISS Lispro (low). Accuchecks. - Diabetic diet. 5) Decubitus Ulcer - Wound culture consult. Will f/u with rec's - ID consulted. Will f/u with rec's. - Zinc, Multivitamin, Vitamin C 6) Fluid, electrolytes, nutrition - Lactated Ringers - HHD and moderate consistency carbohydrates 7) Lower extremity swelling - Duplex US of bilateral lower extremities ordered. Will f/u with with results. 8)DVT/GI prophylaxis - Lovenox 40 mg SC qday - pepcid 20 mg IVP daily <Cristhian Mustafa - Last Filed: 07/10/17 12:56> Objective - Vital Signs/Intake and Output Vital Signs (last 24 hours): Temp Pulse Resp BP Pulse Ox 98.1 F 80 18 110/72 95 07/10/17 08:00 07/10/17 08:00 07/10/17 08:00 07/10/17 08:00 07/10/17 08:00 - Medications Medications: Current Medications Acetaminophen (Tylenol 325mg Tab) 650 mg PO Q6H PRN PRN Reason: Fever >100.4 F Last Admin: 07/09/17 21:57 Dose: 650 mg Alprazolam (Xanax) 0.25 mg PO BID PRN; Protocol PRN Reason: Anxiety Stop: 07/15/17 18:22 Ascorbic Acid (Vitamin C 500 Mg Tab) 500 mg PO DAILY [facility] Last Admin: 07/10/17 10:55 Dose: 500 mg Diphenhydramine HCl (Benadryl) 25 mg PO Q6H PRN PRN Reason: Itching / Pruritus Docusate Sodium (Colace) 100 mg PO Q12 [facility] Last Admin: 07/10/17 10:55 Dose: 100 mg Enoxaparin Sodium (Lovenox) 40 mg SC DAILY [facility] PRN Reason: Protocol Last Admin: 07/10/17 10:56 Dose: 40 mg Famotidine (Pepcid) 20 mg IVP DAILY [facility] Last Admin: 07/10/17 10:56 Dose: 20 mg Fentanyl (Duragesic) 1 patch TD Q72H [facility] Last Admin: 07/10/17 10:53 Dose: 1 patch Meropenem 250 mg/ Sodium (Chloride) 100 mls @ 100 mls/hr IVPB Q12H [facility] PRN Reason: Protocol Stop: 07/16/17 19:01 Last Admin: 07/10/17 08:23 Dose: 100 mls/hr Insulin Human Lispro (Humalog Low) 0 units SC ACHS [facility] PRN Reason: Protocol Last Admin: 07/10/17 12:31 Dose: Not Given Morphine Sulfate (Morphine) 2 mg IVP Q4H PRN PRN Reason: Pain, severe (8-10) Last Admin: 07/10/17 10:57 Dose: 2 mg Ondansetron HCl (Zofran Inj) 4 mg IVP Q4H PRN PRN Reason: Nausea/Vomiting Zinc Sulfate (Zinc Sulfate 220 Mg Cap) 220 mg PO DAILY [facility] Last Admin: 07/10/17 10:55 Dose: 220 mg - Labs Labs: 07/10/17 07:00 07/10/17 07:00 PT 13.7 SECONDS (9.4-12.5) H 07/08/17 13:00 INR 1.24 (0.93-1.08) H 07/08/17 13:00 APTT 30.9 Seconds (25.1-36.5) 07/08/17 13:00 Attending/Attestation - Attestation I have personally seen and examined this patient.: Yes I have fully participated in the care of the patient.: Yes I have reviewed all pertinent clinical information, including history, physical exam and plan: Yes Notes (Text): 07/10/17 12:42 attending note; Patient seen and examined With resident. Patient is a 57 year old with a past medical history of multiple myeloma with pathologic fractures, bilateral knee surgery, left arm pathological fracture, and right hip fracture, multiple lytic lesions in thoracic and lumbar spine, expansile withlytic lesion with mild encroachment at T8 and T9 level is admitted with intractable back pain. Patient was initially followed up at [facility]. Recently seen Dr. Lafleur oncologist as outpatient.Case discussed with Dr. Lafleur in detail. Patient had radiation and chemotherapy at [facility]. Current CT lumbar spine showed multiple lytic lesionsthroughout the lumbar spine , slightly atypical expansile lesion on the left side of L1 vertebrae. CT thoracic spine showed extensive myelomatous change with lytic lesions throughout the thoracic spine and confluent large expansile/distractive lytic lesion at T8-T9 with encroachment upon the central spinal canal from the left side. Incidental 1.6 cm mass in the left lower lobe. Patient was evaluated by orthopedics Dr. Amaya. Complete skeletal survey ordered. Neurology/neurosurgery evaluation requested. Currently no alarming symptoms. Patient was educated about alarming symptoms of spinal cord compression. Patient will need radiation oncology evaluation. Low-grade temperature; currently afebrile. Dc culture ordered. ID evaluation requested. Wound culture sent. sacral decubitus ulcer; patient had debridement done as outpatient. Patient uses Wound vac as outpatient. currently followed up by surgery/Wound Care. the diagnosis, follow-up plan discussed with patient and patient's in detail. Case discussed with neurology, oncology, infectious disease in detail. Upon discharge patient will follow-up with PMD of choice.
[2017-07-09] MEDS: Morphine 2 mg/ml ISec IVP PRN ×2 (12:11→18:15)
[2017-07-09] MEDS ORDERED: Vancomycin 1gm in NS 250ml 1 G/250 ML BAG IVPB SCH (12:15)
--- NOTE | 2017-07-09 16:40 | CON ---
DATE: 07/08/2017 HISTORY OF PRESENT ILLNESS: This is a 57-year-old white male, who was seen by us in the office on 07/06/2017. Initial presentation, the patient came into the office in the wheelchair with a diagnosis of advanced progressive multiple myeloma with multiple lytic lesions seen mainly in the long bones with recently operated hip fracture with total hip arthroplasty on the right hip and also noted to have a huge paraspinal mass in the T7 and T9 region while in the hospital at [facility], for which he had palliative radiation after the mass was biopsied and was consistent with multiple myeloma. The patient was in our office, at that time, he was complaining of significant pain, radiating on a pain scale of 0 to 10, being at least 9. He had run out of his Duragesic patches that had been given to him several weeks ago. Then, he was discharged from the hospital on 06/06/2017. The patient never had a chance to follow up with this local oncologist, who's office is 90 minutes away from where he lives in [place]. The patient was seen in the office and he advised admission soon after he was evaluated in the office. The patient had to make arrangements at home prior to admission and that is why he is admitted today on 07/08/2017 through the emergency room. PAST MEDICAL HISTORY: Significant for the fact in 04/11/2017, he had undergone bilateral knee replacement surgery, that was done at [facility]. Following the surgery while he was in the rehab, he developed left arm fracture, subsequent to that his right hip fracture requiring right hip arthroplasty. During the course of hospital events at that time, the patient was noted to have on workup multiple lytic lesions in the bones including lytic changes in the ribs, also showed changes in the femur, in the left iliac limb, left humerus, left femur, long bones, and multiple areas in the spine as well. The patient was seen by medical oncologist Dr. Hill at [facility] and she recommended the patient be started on a combination of Revlimid, Velcade, and dexamethasone. The patient was in the process of getting Revlimid as an outpatient, while they started on Velcade and dexamethasone. Unfortunately, after the second dose of the Velcade, which is usually given on day #1 and day #4, then day #8 and day #11, he had developed a reaction that was thought to be either the Velcade or the antibiotic vancomycin he was on and the treatments were interrupted. The patient did complete a palliative course of radiation through the past only. The patient during this hospital stay also developed a significant decubitus ulcer in the sacral area 10 x 7.5 x 7 cm, for which he had to undergo debridement and was sent home with a wound VAC with visiting nurses to follow up with him, and he was supposed to have followed up with his oncologist as an outpatient. The patient tells me he did not receive any radiation to the hip. He did not receive any bisphosphonate therapy, did not receive any radiation to the left femur or to the left humerus. The patient was told that he had a callus fracture secondary to the pathologic fracture and callus healing at the left humerus. The patient had been homebound since his discharge on 06/07/2017 and required assistance for all of his activities of daily living. He admits to chills and fever. Denies any history of weight loss, nausea, vomiting, diarrhea, easy bruising, night sweats, dyspnea on admission. He does not have any incontinence, any changes in his taste, no history of diarrhea as well. The pathology of the bone marrow is consistent with almost 90% replacement of the marrow with myeloma cells, it looks like we may be dealing with IgG myeloma based on the reports and a cytogenetic and hyperdiploidy, which is of a candid risk as far as myeloma is concerned and he may be a candidate for cytoreductive therapy followed by assessment of an autologous transplant. Past medical history is also significant for tinnitus, diabetes and hypertension. REVIEW OF SYSTEMS: Twelve-system review, all systems were done. All of them are negative except for what is mentioned in the HPI. PAST SURGICAL HISTORY: As I mentioned, the patient had bilateral knee replacement, then had to have right hip arthroplasty as per the patient. The information from the notes that I received do not indicate any surgery as far as the left shoulder is concerned. MEDICATIONS: The patient's medications currently just include Xanax and fentanyl patch, which is 25 mcg, it was increased to 75 mcg on the day I saw him as he was in a lot of pain. ALLERGIES: THE PATIENT HAS ALLERGIES TO ONE DRUG, WHICH HE LISTED DRUG CALLED AMRIX, WHICH APPEARS TO BE A PAIN MEDICATION. NO OTHER ALLERGIES ARE LISTED. SOCIAL HISTORY: The patient is . 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 According to him, he had fallen off a ladder 13 or 14 feet and since then has been on Worker's Comp Disability as he injured both his knees. He had arthroscopy that did not help him and that is why he had to go for a total knee replacement. Denies any history of alcohol or tobacco use or any illicit abuse. FAMILY HISTORY: Unremarkable. PHYSICAL EXAMINATION: VITAL SIGNS: Reveal T-max of 99, pulse is 90, respirations 18, blood pressure is 101/64, pulse ox is 98% on room air. GENERAL: Reveals the patient to be awake, alert and oriented, in no significant distress, but he is in a lot of pain, especially when he is sitting, more than when he is lying down. HEENT: Head is normocephalic, atraumatic. Conjunctivae pale. Sclerae are anicteric. Pupils are equally reactive to light and accommodation. Examination of the oropharynx reveals no oropharyngeal lesions. Tongue is moist. No ulcerations are noted. No lesions are noted. NECK: Supple. There is no adenopathy. No jugular venous distention noted. LUNGS: Clear to percussion and auscultation. CARDIOVASCULAR: Examination of the cardiovascular system reveals S1 and S2 to be normal. No gallop or murmur is heard. ABDOMEN: Soft, nontender. No rebound, rigidity, or guarding is noted. Liver and spleen are not palpable. EXTREMITIES: The patient definitely has a callus formation over the left upper humerus just below the shoulder, consistent with a pathologic fracture. The patient is unable to raise his arm significantly above the shoulder because of pain. He is able to raise his right shoulder; however, even though he has arthritic changes and may be even lytic changes in the right humerus as well. The patient is status post right hip arthroplasty and has bilateral lower extremity swelling, which is nonpitting. BACK: Reveals severe tenderness in the left lower side and severe tenderness in the right side as well, probably related to the multiple lytic lesions in the lumbar vertebrae as per the x-rays that were sent over with him from [facility]. The patient in addition to this, on examination of the sacral area, has a 10 x 6 x 5 sacral decubitus ulcer with healthy granulation tissue without any kind of necrosis. The patient has been using a wound VAC for the same with a visiting nurse seeing him. NEUROLOGIC EXAMINATION: Eye functions are normal. The patient is awake, alert and oriented, difficult to assess the strength of the right lower extremity because of the recent surgery. The patient is able to move the left leg, but again the movements were not tested to the fullest extent possible because of my concern of possible impending fracture till the x-rays are all done. PSYCHIATRIC: The patient has normal affect, and he is alert and oriented and very communicative and informative as far as his history is concerned. SKIN: Turgor is normal. No skin lesions are noted. LABORATORY DATA: Done in the emergency room reveals a white count of 5.4, hemoglobin 10.8, hematocrit 33.8, platelet count 223,000. Sodium is 134, K is 4.6, chloride is 97, CO2 is 28, BUN is 13, creatinine 0.8 and blood sugar is 161. ASSESSMENT NOTES AND PLAN: The patient has advanced multiple myeloma, who presents with intractable pain, immobility and low grade temperature and the background history of having had an arthroplasty on the right hip, lytic lesion with a hip fracture in the left humerus, paraspinal mass at T7 and T9 status post palliative radiation, large lytic lesion in the left iliac bone with multiple lytic lesions throughout the length of the left femur concerning for diffuse progressive multiple myeloma. The tumor burden based on just the x-rays alone looks like it is massive. It is unclear whether the myeloma was obvious prior to the knee replacement at this point in time. We will have to speak to the orthopedist who are involved in his care before making any judgment. In the meantime, I have spoken to the hospitalist Dr. Ranjit Guzmán, spoke to the ER physician as well and my recommendations are to get rapidly x-rays of the right hip, x-rays of the pelvis, left hip, both shoulders, get CAT scans of the thoracic, lumbar spine and sacral area as well so we have an idea of what we are doing at this point in time. Surgical consult with , Orthopedic consult with Dr. Varghese had been requested. We will get Infectious Disease consult as well to make further decisions. We will get Neurosurgical consult and opinion as well as far as the back is concerned once we have further delineation at this point in time. As far as the fever is concerned, blood cultures and wound cultures have already been done. We will get Infectious Disease consult as well. The patient's prognosis is guarded since the tumor burden is high once we have the issues with the orthopedic problems addressed to make sure there is nothing major going on. We will also make sure, as far as the back is concerned, there is no impending worsening of the pressure on the cord, specifically since he had pressure on the thecal sac on the prior x-rays. He may need to get an MRI and get radiation and Neurosurgical consult as well. Then, we will be on the safer side as far as initiation of chemotherapy is concerned. I believe with such a high tumor burden in order to cyto reduce the tumor before putting on standard therapy along with assessment of autologous transplant, it may be necessary in this young man with such extensive disease and such high tumor burden, to start off with a stronger combination such as DCEP chemotherapy regimen, which would be more appropriate at this point in time. The patient will also need IV bisphosphonate to control the disease in the bones as he has extensive areas whereas he can get more and more compression fractures or mechanical breaks in the weightbearing bones. I have discussed my findings in detail with the patient's , the patient, the patient's [id number]. I have also spoken to the treating Oncologist, Dr. Hill from [facility] as well. Time spent with the patient more than 2 hours in collating all the data, reviewing the papers, and also requesting various consultants and giving them the information as to what my concerns are in this patient. Seda Lafleur MD MTDD
--- NOTE | 2017-07-09 16:58 | CP.PCM.CON ---
History of Present Illness - History of Present Illness History of Present Illness: Mr. Harper is a 57-year-old man who was recently diagnosed with Multiple Myeloma and presented after being discharged from [facility] for bilateral knee replacements and sacral decubitus ulcer. He complained of body pains, and CT of the thoracic and lumbar spine showed relatively diffuse lytic lesions with some impingement on the central canal in the T9-T10 region. He now complains of back pain radiating to the buttocks, but is not sure if this is from the ulcer as well. He has difficulty in standing and states that he would like to have rehab to improve. Review of Systems - Review of Systems All systems: reviewed and no additional remarkable complaints except Past Patient History - Past Social History Smoking Status: Never Smoked - CARDIAC Hx Cardiac Disorders: No - PULMONARY Hx Respiratory Disorders: No - NEUROLOGICAL Hx Neurological Disorder: No - HEENT Hx HEENT Problems: No - RENAL Hx Chronic Kidney Disease: No - ENDOCRINE/METABOLIC Hx Endocrine Disorders: Yes Hx Diabetes Mellitus Type 2: Yes Hx Hypothyroidism: Yes - HEMATOLOGICAL/ONCOLOGICAL Hx Blood Disorders: No - INTEGUMENTARY Hx Dermatological Problems: Yes Hx Melanoma: Yes Other/Comment: Multiple Melanoma Diagnosed April 2017 - MUSCULOSKELETAL/RHEUMATOLOGICAL Hx Musculoskeletal Disorders: No - GASTROINTESTINAL Hx Gastrointestinal Disorders: No - GENITOURINARY/GYNECOLOGICAL Hx Genitourinary Disorders: No - PSYCHIATRIC Hx Psychophysiologic Disorder: No Hx Substance Use: No - SURGICAL HISTORY Hx Orthopedic Surgery: Yes Other/Comment: Bilateral knee replacement, R hip replacement - ANESTHESIA Hx Anesthesia: Yes Meds Allergies/Adverse Reactions: Allergies Allergy/AdvReac Type Severity Reaction Status Date / Time No Known Allergies Allergy Verified 07/08/17 18:09 - Medications Medications: Current Medications Acetaminophen (Tylenol 325mg Tab) 650 mg PO Q6H PRN PRN Reason: Fever >100.4 F Last Admin: 07/09/17 08:38 Dose: 650 mg Alprazolam (Xanax) 0.25 mg PO BID PRN; Protocol PRN Reason: Anxiety Stop: 07/15/17 18:22 Ascorbic Acid (Vitamin C 500 Mg Tab) 500 mg PO DAILY [facility] Last Admin: 07/09/17 10:39 Dose: 500 mg Diphenhydramine HCl (Benadryl) 25 mg PO Q6H PRN PRN Reason: Itching / Pruritus Docusate Sodium (Colace) 100 mg PO Q12 GOGO Last Admin: 07/09/17 10:38 Dose: 100 mg Enoxaparin Sodium (Lovenox) 40 mg SC DAILY [facility] PRN Reason: Protocol Famotidine (Pepcid) 20 mg IVP DAILY [facility] Last Admin: 07/09/17 10:39 Dose: 20 mg Fentanyl (Duragesic) 1 patch TD Q72H [facility] Piperacillin Sod/Tazobactam Sod (Zosyn 3.375 In Ns 100ml) 100 mls @ 200 mls/hr IVPB Q6 [facility] PRN Reason: Protocol Stop: 07/16/17 18:01 Insulin Human Lispro (Humalog Low) 0 units SC ACHS [facility] PRN Reason: Protocol Last Admin: 07/09/17 13:44 Dose: Not Given Morphine Sulfate (Morphine) 2 mg IVP Q4H PRN PRN Reason: Pain, severe (8-10) Last Admin: 07/09/17 12:11 Dose: 2 mg Ondansetron HCl (Zofran Inj) 4 mg IVP Q4H PRN PRN Reason: Nausea/Vomiting Zinc Sulfate (Zinc Sulfate 220 Mg Cap) 220 mg PO DAILY [facility] Last Admin: 07/09/17 10:39 Dose: 220 mg Physical Exam - Constitutional Appears: Well - Head Exam Head Exam: ATRAUMATIC, NORMAL INSPECTION, NORMOCEPHALIC - Eye Exam Eye Exam: EOMI, Normal appearance, PERRL - ENT Exam ENT Exam: Mucous Membranes Moist, Normal Exam - Neck Exam Neck exam: Positive for: Normal Inspection - Respiratory Exam Respiratory Exam: Clear to Auscultation Bilateral, NORMAL BREATHING PATTERN - Cardiovascular Exam Cardiovascular Exam: REGULAR RHYTHM - GI/Abdominal Exam GI & Abdominal Exam: Normal Bowel Sounds, Soft. absent: Tenderness - Rectal Exam Rectal Exam: Deferred - Extremities Exam Extremities exam: Positive for: normal inspection - Back Exam Back exam: NORMAL INSPECTION - Neurological Exam Neurological exam: Alert, CN II-XII Intact, Oriented x3, Reflexes Normal Additional comments: Unable to stand up without assistance. Strength is preserved in the upper extremities with no focal weakness or sensory changes. No sensory changes in the lower extremities. Reflexes were diminished possibly due to knee replacements at L4/L5. Hip flexors were 4/5 bilaterally, knee flexion was stronger than extension bilaterally. No focal weakness noted. Sensation was intact throughout. Plantar responses were down going. Results - Vital Signs Recent Vital Signs: Last Vital Signs Temp 98.8 F 07/09/17 08:00 Pulse 88 07/09/17 08:00 Resp 20 07/09/17 08:00 BP 137/73 07/09/17 08:00 Pulse Ox 95 07/09/17 08:00 - Labs Result Diagrams: 07/09/17 07:30 07/09/17 07:30 Labs: Laboratory Results - last 24 hr 07/08/17 07/08/17 07/09/17 19:10 19: 07:30 WBC 3.9 L D RBC 3.82 Hgb 10.7 L Hct 34.3 L MCV 89.8 MCH 28.0 MCHC 31.2 RDW 15.6 H Plt Count 213 MPV 10.6 Gran % 65.1 Lymph % (Auto) 17.2 L [place] % (Auto) 14.1 H Eos % (Auto) 3.3 Baso % (Auto) 0.3 Gran # 2.53 Lymph # 0.7 L [place] # 0.6 Eos # 0.1 Baso # 0.01 Sodium Potassium Chloride Carbon Dioxide Anion Gap BUN Creatinine Est GFR ( Amer) Est GFR (Non-Af Amer) Random Glucose Calcium Phosphorus Magnesium Total Bilirubin AST ALT Alkaline Phosphatase Total Protein Total Protein (PEP) 7.3 Albumin Globulin Albumin/Globulin Ratio Triglycerides Cholesterol LDL Cholesterol Direct HDL Cholesterol Urine Color Yellow Urine Appearance Clear Urine pH 6.5 Ur Specific [place] 1.010 Urine Protein Negative Urine Glucose (UA) Negative Urine Ketones Negative Urine Blood Negative Urine Nitrate Negative Urine Bilirubin Negative Urine Urobilinogen 0.2 Ur Leukocyte Esterase Negative 07/09/17 07:30 WBC RBC Hgb Hct MCV MCH MCHC RDW Plt Count MPV Gran % Lymph % (Auto) [place] % (Auto) Eos % (Auto) Baso % (Auto) Gran # Lymph # [place] # Eos # Baso # Sodium 137 Potassium 3.8 Chloride 102 Carbon Dioxide 27 Anion Gap 12 BUN 9 Creatinine 0.7 L Est GFR ( Amer) > 60 Est GFR (Non-Af Amer) > 60 Random Glucose 117 H Calcium 8.8 Phosphorus 3.9 Magnesium 1.8 Total Bilirubin 0.5 AST 28 ALT 29 Alkaline Phosphatase 82 Total Protein 7.6 Total Protein (PEP) Albumin 3.4 Globulin 4.2 Albumin/Globulin Ratio 0.8 L Triglycerides 84 Cholesterol 136 LDL Cholesterol Direct 83 HDL Cholesterol 33 Urine Color Urine Appearance Urine pH Ur Specific [place] Urine Protein Urine Glucose (UA) Urine Ketones Urine Blood Urine Nitrate Urine Bilirubin Urine Urobilinogen Ur Leukocyte Esterase Assessment & Plan (1) Spinal disease Assessment and Plan: There is radiographic evidence of instability that is most notable in the thoracic spine and could be a risk for compression fracture. The patient should undergo muscle strengthening exercises and a gradual rehab plan to avoid injury. However, he will need PT/OT for the recent knee replacements as well. Overall, his plan will need to be initiated by oncology and in collaboration with neurosurgery/spine surgery or neuroradiology for possible treatment to avoid compression fractures. Bone density test is recommended. MRI of the thoracic and lumbar spine with and without contrast may be more helpful than the CT. The pain he is having is bone pain, and not neuropathic pain. I do not recommend gabapentin at this time. Otherwise, continue conservative management and may initiate PT/OT slowly. Thank you. Status: Acute Priority: High
--- NOTE | 2017-07-09 17:04 | CON ---
DATE: 07/09/2017 ORTHOPEDIC CONSULTATION HISTORY OF PRESENT ILLNESS: Lucas Harper is a 57-year-old male in room 577, bed [address]leur. The patient was admitted to the hospital for weakness and pain. He has past history of multiple myeloma with recent past history of left proximal humerus fracture. His first fracture identified in April from the pathologic injury, which onto heal after radiation therapy. Many fractures in his right hip, he was in a bipolar hip prosthesis soon after that and he also had previous both of those instances of bilateral total knee replacement, which were doing fine and he is getting worked up at [facility] to make sure he does not have any pathologic fractures that are occult and not displaying itself, we are trying to catch him before they fracture. So Dr. Lafleur will be going over everything to see what has to be done. Usually, we will get a skeletal survey and physical therapy to ambulate with a walker and he has had a fall risk to protect him from any fall. we have to get a repeat x-ray to make sure there is no impending or pathologic fracture. He is on blood thinners right now, Lovenox for DVT prophylaxis and he should continue physical therapy to make his muscles as strong as possible if he does not all. FINAL DIAGNOSIS: Multiple myeloma with pathologic fractures of the left shoulder and the right hip. We will follow him closely. Carlin Varghese DO [id number]
[2017-07-09] MEDS: Enoxaparin 40 mg Syringe SC SCH (17:31)
--- NOTE | 2017-07-09 17:51 | CP.PCM.CON ---
History of Present Illness - History of Present Illness History of Present Illness: 57 year old male with PMH of DM, HTN, obesity with BM 38, multiple myeloma, S/P bilateral knee replacement 2016, S/P left arm fracture, S/P right hip fracture, decubitus ulcer on the back came in [place] [facility] [place] of pain in multiple parts of his body. He also developed fever and chills last night while admitted. He denies headache or dizziness, no chest pain, no SOB, no sore throat , no rhinorrhea, no abdominal pain, no dysuria, no diarrhea. Infectious Diseases consult is requested to further evaluate and manage. Review of Systems - Review of Systems All systems: reviewed and no additional remarkable complaints except (as per HPI ) Past Patient History - Past Social History Smoking Status: Never Smoked - CARDIAC Hx Cardiac Disorders: No - PULMONARY Hx Respiratory Disorders: No - NEUROLOGICAL Hx Neurological Disorder: No - HEENT Hx HEENT Problems: No - RENAL Hx Chronic Kidney Disease: No - ENDOCRINE/METABOLIC Hx Endocrine Disorders: Yes Hx Diabetes Mellitus Type 2: Yes Hx Hypothyroidism: Yes - HEMATOLOGICAL/ONCOLOGICAL Hx Blood Disorders: No - INTEGUMENTARY Hx Dermatological Problems: Yes Hx Melanoma: Yes Other/Comment: Multiple Melanoma Diagnosed April 2017 - MUSCULOSKELETAL/RHEUMATOLOGICAL Hx Musculoskeletal Disorders: No - GASTROINTESTINAL Hx Gastrointestinal Disorders: No - GENITOURINARY/GYNECOLOGICAL Hx Genitourinary Disorders: No - PSYCHIATRIC Hx Psychophysiologic Disorder: No Hx Substance Use: No - SURGICAL HISTORY Hx Orthopedic Surgery: Yes Other/Comment: Bilateral knee replacement, R hip replacement - ANESTHESIA Hx Anesthesia: Yes Meds Allergies/Adverse Reactions: Allergies Allergy/AdvReac Type Severity Reaction Status Date / Time No Known Allergies Allergy Verified 07/08/17 18:09 - Medications Medications: Current Medications Acetaminophen (Tylenol 325mg Tab) 650 mg PO Q6H PRN PRN Reason: Fever >100.4 F Last Admin: 07/09/17 08:38 Dose: 650 mg Alprazolam (Xanax) 0.25 mg PO BID PRN; Protocol PRN Reason: Anxiety Stop: 07/15/17 18:22 Ascorbic Acid (Vitamin C 500 Mg Tab) 500 mg PO DAILY [facility] Last Admin: 07/09/17 10:39 Dose: 500 mg Diphenhydramine HCl (Benadryl) 25 mg PO Q6H PRN PRN Reason: Itching / Pruritus Docusate Sodium (Colace) 100 mg PO Q12 [facility] Last Admin: 07/09/17 10:38 Dose: 100 mg Enoxaparin Sodium (Lovenox) 40 mg SC DAILY [facility] PRN Reason: Protocol Famotidine (Pepcid) 20 mg IVP DAILY [facility] Last Admin: 07/09/17 10:39 Dose: 20 mg Fentanyl (Duragesic) 1 patch TD Q72H [facility] Insulin Human Lispro (Humalog Low) 0 units SC ACHS [facility] PRN Reason: Protocol Last Admin: 07/09/17 10:18 Dose: Not Given Morphine Sulfate (Morphine) 2 mg IVP Q4H PRN PRN Reason: Pain, severe (8-10) Ondansetron HCl (Zofran Inj) 4 mg IVP Q4H PRN PRN Reason: Nausea/Vomiting Zinc Sulfate (Zinc Sulfate 220 Mg Cap) 220 mg PO DAILY [facility] Last Admin: 07/09/17 10:39 Dose: 220 mg Physical Exam - Constitutional Appears: Non-toxic - Head Exam Head Exam: NORMAL INSPECTION - Neck Exam Neck exam: Negative for: Meningismus - Respiratory Exam Respiratory Exam: Decreased Breath Sounds - Cardiovascular Exam Cardiovascular Exam: +S1, +S2 - GI/Abdominal Exam GI & Abdominal Exam: Soft. absent: Tenderness Results - Vital Signs Recent Vital Signs: Last Vital Signs Temp 98.8 F 07/09/17 08:00 Pulse 88 07/09/17 08:00 Resp 20 07/09/17 08:00 BP 137/73 07/09/17 08:00 Pulse Ox 95 07/09/17 08:00 - Labs Result Diagrams: 07/09/17 07:30 07/09/17 07:30 Labs: Laboratory Results - last 24 hr 07/08/17 07/08/17 07/09/17 19:10 19:17 07:30 WBC 3.9 L D RBC 3.82 Hgb 10.7 L Hct 34.3 L MCV 89.8 MCH 28.0 MCHC 31.2 RDW 15.6 H Plt Count 213 MPV 10.6 Gran % 65.1 Lymph % (Auto) 17.2 L [place] % (Auto) 14.1 H Eos % (Auto) 3.3 Baso % (Auto) 0.3 Gran # 2.53 Lymph # 0.7 L [place] # 0.6 Eos # 0.1 Baso # 0.01 Sodium Potassium Chloride Carbon Dioxide Anion Gap BUN Creatinine Est GFR ( Amer) Est GFR (Non-Af Amer) Random Glucose Calcium Phosphorus Magnesium Total Bilirubin AST ALT Alkaline Phosphatase Total Protein Total Protein (PEP) 7.3 Albumin Globulin Albumin/Globulin Ratio Triglycerides Cholesterol LDL Cholesterol Direct HDL Cholesterol Urine Color Yellow Urine Appearance Clear Urine pH 6.5 Ur Specific [place] 1.010 Urine Protein Negative Urine Glucose (UA) Negative Urine Ketones Negative Urine Blood Negative Urine Nitrate Negative Urine Bilirubin Negative Urine Urobilinogen 0.2 Ur Leukocyte Esterase Negative 07/09/17 07:30 WBC RBC Hgb Hct MCV MCH MCHC RDW Plt Count MPV Gran % Lymph % (Auto) [place] % (Auto) Eos % (Auto) Baso % (Auto) Gran # Lymph # [place] # Eos # Baso # Sodium 137 Potassium 3.8 Chloride 102 Carbon Dioxide 27 Anion Gap 12 BUN 9 Creatinine 0.7 L Est GFR ( Amer) > 60 Est GFR (Non-Af Amer) > 60 Random Glucose 117 H Calcium 8.8 Phosphorus 3.9 Magnesium 1.8 Total Bilirubin 0.5 AST 28 ALT 29 Alkaline Phosphatase 82 Total Protein 7.6 Total Protein (PEP) Albumin 3.4 Globulin 4.2 Albumin/Globulin Ratio 0.8 L Triglycerides 84 Cholesterol 136 LDL Cholesterol Direct 83 HDL Cholesterol 33 Urine Color Urine Appearance Urine pH Ur Specific [place] Urine Protein Urine Glucose (UA) Urine Ketones Urine Blood Urine Nitrate Urine Bilirubin Urine Urobilinogen Ur Leukocyte Esterase Assessment & Plan - Assessment and Plan (Free Text) Plan: Assessment Systemic Inflammatory response syndrome, R/O sepsis source to be determined DM HTN obesity with BM 38 multiple myeloma S/P bilateral knee replacement 2016 S/P left arm fracture S/P right hip fracture decubitus ulcer on the back Plan patient has had reactions to certain unrecalled antibiotics including Vancomycin - will check blood, urine cx, PCT, CXR and start low dose Merrem for now will monitor clinically
[2017-07-09] MEDS ORDERED: Piperacillin/Tazobact 3.375 gm 100 ML IVPB SCH (18:00)
[2017-07-10] MEDS: Morphine 2 mg/ml ISec IVP PRN ×5 (02:18→23:09)
--- NOTE | 2017-07-10 06:51 | CP.PCM.PN ---
Subjective - Date & Time of Evaluation Date of Evaluation: 07/10/17 Time of Evaluation: 06:47 - Subjective Subjective: Mr. Harper was seen and examined at the bedside. He is alert, oriented in all spheres. He denies any headache, but pain in the lumbar area radiating to his bilateral buttocks. He is currently on pain medication.He denies any nausea or vomiting. He states of inability to sleep last night due to roommates mental status. He is requesting to be transfer to another quiet room if possible. There was no untoward events overnight. Objective - Vital Signs/Intake and Output Vital Signs (last 24 hours): Temp Pulse Resp BP Pulse Ox 98.6 F 103 H 20 125/82 99 07/09/17 16:00 07/09/17 16:00 07/09/17 16:00 07/09/17 16:00 07/09/17 16:00 - Medications Medications: Current Medications Acetaminophen (Tylenol 325mg Tab) 650 mg PO Q6H PRN PRN Reason: Fever >100.4 F Last Admin: 07/09/17 21:57 Dose: 650 mg Alprazolam (Xanax) 0.25 mg PO BID PRN; Protocol PRN Reason: Anxiety Stop: 07/15/17 18:22 Ascorbic Acid (Vitamin C 500 Mg Tab) 500 mg PO DAILY [facility] Last Admin: 07/09/17 10:39 Dose: 500 mg Diphenhydramine HCl (Benadryl) 25 mg PO Q6H PRN PRN Reason: Itching / Pruritus Docusate Sodium (Colace) 100 mg PO Q12 [facility] Last Admin: 07/09/17 21:58 Dose: 100 mg Enoxaparin Sodium (Lovenox) 40 mg SC DAILY [facility] PRN Reason: Protocol Last Admin: 07/09/17 17:31 Dose: 40 mg Famotidine (Pepcid) 20 mg IVP DAILY [facility] Last Admin: 07/09/17 10:39 Dose: 20 mg Fentanyl (Duragesic) 1 patch TD Q72H [facility] Meropenem 250 mg/ Sodium (Chloride) 100 mls @ 100 mls/hr IVPB Q12H [facility] PRN Reason: Protocol Stop: 07/16/17 19:01 Last Admin: 07/09/17 19:06 Dose: 100 mls/hr Insulin Human Lispro (Humalog Low) 0 units SC ACHS [facility] PRN Reason: Protocol Last Admin: 07/09/17 21:55 Dose: Not Given Morphine Sulfate (Morphine) 2 mg IVP Q4H PRN PRN Reason: Pain, severe (8-10) Last Admin: 07/10/17 02:18 Dose: 2 mg Ondansetron HCl (Zofran Inj) 4 mg IVP Q4H PRN PRN Reason: Nausea/Vomiting Zinc Sulfate (Zinc Sulfate 220 Mg Cap) 220 mg PO DAILY [facility] Last Admin: 07/09/17 10:39 Dose: 220 mg - Labs Labs: 07/09/17 07:30 07/09/17 07:30 PT 13.7 SECONDS (9.4-12.5) H 07/08/17 13:00 INR 1.24 (0.93-1.08) H 07/08/17 13:00 APTT 30.9 Seconds (25.1-36.5) 07/08/17 13:00 - Constitutional Appears: No Acute Distress - Head Exam Head Exam: ATRAUMATIC - Neurological Exam Neurological Exam: Alert, Awake, Oriented x3 Neuro motor strength exam: Left Upper Extremity: 5, Right Upper Extremity: 5, Left Lower Extremity: 3, Right Lower Extremity: 3 Additional comments: Unable to stand up without assistance. Strength is preserved in the upper extremities with no focal weakness or sensory changes. No sensory changes in the lower extremities. Reflexes were diminished possibly due to knee replacements at L4/L5. Hip flexors were 4/5 bilaterally, knee flexion was stronger than extension bilaterally. No focal weakness noted. Sensation was intact throughout. Plantar responses were down going. Assessment and Plan (1) Spinal disease Assessment & Plan: Case discussed with Dr. Berry, continue all current medical regimen. Recommend slow PT/OT rehabilitation. Status: Acute
[2017-07-10 08:02] LABS: ALB/GLOB RATIO 0.8 (1.1-1.8); ALKALINE PHOSPHATASE 87 U/L (38-126); ALT/SGPT 28 U/L (7-56); AST/SGOT 30 U/L (17-59); BILIRUBIN,TOTAL 0.4 mg/dL (0.2-1.3); BLOOD UREA NITROGEN 6 mg/dL (7-21); CALCIUM 8.7 mg/dL (8.4-10.5); CARBON DIOXIDE 25 mmol/L (21-33); CHLORIDE 103 mmol/L (98-107); GFR AFRICAN-AMERICAN > 60; GLUCOSE,RANDOM 133 mg/dL (70-110); POTASSIUM 3.6 mmol/L (3.6-5.0); SODIUM 138 mmol/L (132-148); TOTAL PROTEIN 7.6 g/dL (5.8-8.3)
[2017-07-10] MEDS: Insulin Lispro (humaLOG) LOW Coverage SC SCH ×4 (08:03→22:19)
[2017-07-10 08:09] LABS: BASO # 0.01 K/mm3 (0.0-2.0); BASO % 0.2 % (0.0-3.0); EOS # 0.2 (0.0-0.7); EOS % 3.7 % (1.5-5.0); GRAN # 2.71 (1.4-6.5); GRAN % 67.3 % (50.0-68.0); HEMATOCRIT 33.3 % (42.0-52.0); LYMPH # 0.7 (1.2-3.4); LYMPH % 17.1 % (22.0-35.0); MEAN CELL VOLUME 89.3 fl (80.0-105.0); MEAN CORPUSCULAR HEMOGLOBIN 28.2 pg (25.0-35.0); MEAN CORPUSCULAR HGB CONC 31.5 g/dl (31.0-37.0); MEAN PLATELET VOLUME 10.9 fl (7.0-11.0); MONO # 0.5 (0.1-0.6); MONO % 11.7 % (1.0-6.0); RED CELL DISTRIBUTION WIDTH 15.3 % (11.5-14.5)
--- NOTE | 2017-07-10 10:55 | CP.PCM.CON ---
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 strongly recommend decompresion fixation and fusion Pt at high risk for spontaneous pathologic Fx/cord injury D/w PT and at length - understandedly hesistant should certainly have MRI will discus with Dr Velez Past Patient History - Past Social History Smoking Status: Never Smoked - CARDIAC Hx Cardiac Disorders: No - PULMONARY Hx Respiratory Disorders: No - NEUROLOGICAL Hx Neurological Disorder: No - HEENT Hx HEENT Problems: No - RENAL Hx Chronic Kidney Disease: No - ENDOCRINE/METABOLIC Hx Endocrine Disorders: Yes Hx Diabetes Mellitus Type 2: Yes Hx Hypothyroidism: Yes - HEMATOLOGICAL/ONCOLOGICAL Hx Blood Disorders: No - INTEGUMENTARY Hx Dermatological Problems: Yes Hx Melanoma: Yes Other/Comment: Multiple Melanoma Diagnosed April 2017 - MUSCULOSKELETAL/RHEUMATOLOGICAL Hx Musculoskeletal Disorders: No - GASTROINTESTINAL Hx Gastrointestinal Disorders: No - GENITOURINARY/GYNECOLOGICAL Hx Genitourinary Disorders: No - PSYCHIATRIC Hx Psychophysiologic Disorder: No Hx Substance Use: No - SURGICAL HISTORY Hx Orthopedic Surgery: Yes Other/Comment: Bilateral knee replacement, R hip replacement - ANESTHESIA Hx Anesthesia: Yes Meds Allergies/Adverse Reactions: Allergies Allergy/AdvReac Type Severity Reaction Status Date / Time No Known Allergies Allergy Verified 07/08/17 18:09 - Medications Medications: Current Medications Acetaminophen (Tylenol 325mg Tab) 650 mg PO Q6H PRN PRN Reason: Fever >100.4 F Last Admin: 07/09/17 21:57 Dose: 650 mg Alprazolam (Xanax) 0.25 mg PO BID PRN; Protocol PRN Reason: Anxiety Stop: 07/15/17 18:22 Ascorbic Acid (Vitamin C 500 Mg Tab) 500 mg PO DAILY [facility] Last Admin: 07/09/17 10:39 Dose: 500 mg Diphenhydramine HCl (Benadryl) 25 mg PO Q6H PRN PRN Reason: Itching / Pruritus Docusate Sodium (Colace) 100 mg PO Q12 [facility] Last Admin: 07/09/17 21:58 Dose: 100 mg Enoxaparin Sodium (Lovenox) 40 mg SC DAILY [facility] PRN Reason: Protocol Last Admin: 07/09/17 17:31 Dose: 40 mg Famotidine (Pepcid) 20 mg IVP DAILY [facility] Last Admin: 07/09/17 10:39 Dose: 20 mg Fentanyl (Duragesic) 1 patch TD Q72H [facility] Meropenem 250 mg/ Sodium (Chloride) 100 mls @ 100 mls/hr IVPB Q12H [facility] PRN Reason: Protocol Stop: 07/16/17 19:01 Last Admin: 07/10/17 08:23 Dose: 100 mls/hr Insulin Human Lispro (Humalog Low) 0 units SC ACHS [facility] PRN Reason: Protocol Last Admin: 07/10/17 08:03 Dose: Not Given Morphine Sulfate (Morphine) 2 mg IVP Q4H PRN PRN Reason: Pain, severe (8-10) Last Admin: 07/10/17 02:18 Dose: 2 mg Ondansetron HCl (Zofran Inj) 4 mg IVP Q4H PRN PRN Reason: Nausea/Vomiting Zinc Sulfate (Zinc Sulfate 220 Mg Cap) 220 mg PO DAILY [facility] Last Admin: 07/09/17 10:39 Dose: 220 mg Results - Vital Signs Recent Vital Signs: Last Vital Signs Temp 98.1 F 07/10/17 08:00 Pulse 80 07/10/17 08:00 Resp 18 07/10/17 08:00 BP 110/72 07/10/17 08:00 Pulse Ox 95 07/10/17 08:00 - Labs Result Diagrams: 07/10/17 07:00 07/10/17 07:00 Labs: Laboratory Results - last 24 hr 07/08/17 07/09/17 07/10/17 19:17 12:43 07:00 WBC 4.0 L RBC 3.73 Hgb 10.5 L Hct 33.3 L MCV 89.3 MCH 28.2 MCHC 31.5 RDW 15.3 H Plt Count 236 MPV 10.9 Gran % 67.3 Lymph % (Auto) 17.1 L [place] % (Auto) 11.7 H Eos % (Auto) 3.7 Baso % (Auto) 0.2 Gran # 2.71 Lymph # 0.7 L [place] # 0.5 Eos # 0.2 Baso # 0.01 Sodium Potassium Chloride Carbon Dioxide Anion Gap BUN Creatinine Est GFR ( Amer) Est GFR (Non-Af Amer) Random Glucose Hemoglobin A1c 6.7 H Calcium Total Bilirubin AST ALT Alkaline Phosphatase Total Protein Albumin Globulin Albumin/Globulin Ratio Procalcitonin < 0.05 L 07/10/17 07:00 WBC RBC Hgb Hct MCV MCH MCHC RDW Plt Count MPV Gran % Lymph % (Auto) [place] % (Auto) Eos % (Auto) Baso % (Auto) Gran # Lymph # [place] # Eos # Baso # Sodium 138 Potassium 3.6 Chloride 103 Carbon Dioxide 25 Anion Gap 14 BUN 6 L Creatinine 0.6 L Est GFR ( Amer) > 60 Est GFR (Non-Af Amer) > 60 Random Glucose 133 H Hemoglobin A1c Calcium 8.7 Total Bilirubin 0.4 AST 30 ALT 28 Alkaline Phosphatase 87 Total Protein 7.6 Albumin 3.5 Globulin 4.2 Albumin/Globulin Ratio 0.8 L Procalcitonin
[2017-07-10] MEDS: Enoxaparin 40 mg Syringe SC SCH (10:56)
--- NOTE | 2017-07-10 12:34 | CP.PCM.PN ---
<Jazzy Duran - Last Filed: 07/10/17 12:50> Subjective - Date & Time of Evaluation Date of Evaluation: 07/10/17 Time of Evaluation: 09:20 - Subjective Subjective: Jazzy Duran DO, PGY-1: Hospitalist Service Patient seen and examined at bedside. Patient denies having any fevers overnight. Patient states pain is well controlled. Nurse reports no events overnight. Patient's is at bedside. All questions answered satisfactorily. Objective - Vital Signs/Intake and Output Vital Signs (last 24 hours): Temp Pulse Resp BP Pulse Ox 98.1 F 80 18 110/72 95 07/10/17 08:00 07/10/17 08:00 07/10/17 08:00 07/10/17 08:00 07/10/17 08:00 - Medications Medications: Current Medications Acetaminophen (Tylenol 325mg Tab) 650 mg PO Q6H PRN PRN Reason: Fever >100.4 F Last Admin: 07/09/17 21:57 Dose: 650 mg Alprazolam (Xanax) 0.25 mg PO BID PRN; Protocol PRN Reason: Anxiety Stop: 07/15/17 18:22 Ascorbic Acid (Vitamin C 500 Mg Tab) 500 mg PO DAILY [facility] Last Admin: 07/10/17 10:55 Dose: 500 mg Diphenhydramine HCl (Benadryl) 25 mg PO Q6H PRN PRN Reason: Itching / Pruritus Docusate Sodium (Colace) 100 mg PO Q12 [facility] Last Admin: 07/10/17 10:55 Dose: 100 mg Enoxaparin Sodium (Lovenox) 40 mg SC DAILY [facility] PRN Reason: Protocol Last Admin: 07/10/17 10:56 Dose: 40 mg Famotidine (Pepcid) 20 mg IVP DAILY [facility] Last Admin: 07/10/17 10:56 Dose: 20 mg Fentanyl (Duragesic) 1 patch TD Q72H [facility] Last Admin: 07/10/17 10:53 Dose: 1 patch Meropenem 250 mg/ Sodium (Chloride) 100 mls @ 100 mls/hr IVPB Q12H [facility] PRN Reason: Protocol Stop: 07/16/17 19:01 Last Admin: 07/10/17 08:23 Dose: 100 mls/hr Insulin Human Lispro (Humalog Low) 0 units SC ACHS [facility] PRN Reason: Protocol Last Admin: 07/10/17 08:03 Dose: Not Given Morphine Sulfate (Morphine) 2 mg IVP Q4H PRN PRN Reason: Pain, severe (8-10) Last Admin: 07/10/17 10:57 Dose: 2 mg Ondansetron HCl (Zofran Inj) 4 mg IVP Q4H PRN PRN Reason: Nausea/Vomiting Zinc Sulfate (Zinc Sulfate 220 Mg Cap) 220 mg PO DAILY [facility] Last Admin: 07/10/17 10:55 Dose: 220 mg - Labs Labs: 07/10/17 07:00 07/10/17 07:00 PT 13.7 SECONDS (9.4-12.5) H 07/08/17 13:00 INR 1.24 (0.93-1.08) H 07/08/17 13:00 APTT 30.9 Seconds (25.1-36.5) 07/08/17 13:00 - Constitutional Appears: Well, No Acute Distress - Head Exam Head Exam: ATRAUMATIC, NORMOCEPHALIC - Eye Exam Eye Exam: EOMI - ENT Exam ENT Exam: Mucous Membranes Moist, Normal Oropharynx - Neck Exam Neck Exam: Normal Inspection - Respiratory Exam Respiratory Exam: NORMAL BREATHING PATTERN - Cardiovascular Exam Cardiovascular Exam: RRR, +S1, +S2 - GI/Abdominal Exam GI & Abdominal Exam: Soft, Normal Bowel Sounds - Extremities Exam Extremities Exam: Normal Capillary Refill, Normal Inspection - Back Exam Back Exam: NORMAL INSPECTION. absent: CVA tenderness (L), CVA tenderness (R) Additional comments: sacral decubitus ulcer noted, wound intact. - Neurological Exam Neurological Exam: Alert, CN II-XII Intact, Oriented x3 - Psychiatric Exam Psychiatric exam: Normal Affect, Normal Mood - Skin Skin Exam: Dry, Intact, Normal Color, Warm Assessment and Plan - Assessment and Plan (Free Text) Assessment: 57 year old with a multiple myeloma who presents with intractable pain, immobility, and fever. Plan: 1. Intractable pain secondary to Multiple Myeloma - Left shoulder X-ray shows old healed fracture deformities in the distal and proximal shaft left humerus and degenerative changes in both shoulder girdles and multiple small lucencies throughout the osseous structures consistent with history multiple myeloma. - Lumbar spine CT showed inumerable lytic lesions consistent with multiple myeloma. lesion in the right S2 sacral area with cortical destruction with no neural foraminal encroachment, lytic lesion of posterior aspect of T11, and atypical expansile lesion on the left side of L1 associated with cortical destruction. - Throracic spine Ct showed lytic lesions throughout thoracic spine, confluent large, expansile lytic lesions at T8-T9 with encroachment upon central spinal canal, and incidental 1.6mm mass in the left lower lobe found. - Fentanyl 75 mcg/hr and morphine 2 mg q4h for pain and break-through pain, respectively. - Orthopedic consult, Dr. Varghese recommends slow Physical and Occupational Therapy - Hematology/Oncology consult, Dr. Lafleur. - Dr. Larsen's and surgical team - Neurology and Neurosurgery both recommend MRI of thoracolumbar spine. - Bone scan performed, read pending 2) Fever - Preliminary blood culture negative x2 - Urine culture shows no growth. - Urine Analysis negative. - Continue Tylenol 650 mg PRN for fever greater than 100.4 F - Infectious disease consulted, low-dose Meropenem started empirically, patient afebrile without leukocytosis. 3) Anxiety - Xanax 0.25 mg BID 4) DM II - ISS Lispro (low). Accuchecks. - Diabetic diet. 5) Decubitus Ulcer - Wound culture consult - Preliminary wound culture shows few gram positive cocci - ID consulted - Zinc, Multivitamin, Vitamin C 6) Fluid, electrolytes, nutrition - HHD and moderate consistency carbohydrates 7) Lower extremity swelling - Duplex US of bilateral lower extremities negative. 8)DVT/GI prophylaxis - Lovenox 40 mg SC qday - Pepcid 20 mg IVP daily <Cristhian Mustafa - Last Filed: 07/11/17 15:55> Objective - Vital Signs/Intake and Output Vital Signs (last 24 hours): Temp Pulse Resp BP Pulse Ox 98.5 F 78 18 114/66 100 07/11/17 07:30 07/11/17 07:30 07/11/17 07:30 07/11/17 07:30 07/11/17 07:30 Intake and Output: 07/11/17 07/11/17 06:59 18:59 Intake Total 1120 480 Output Total 1100 175 Balance 20 305 - Medications Medications: Current Medications Acetaminophen (Tylenol 325mg Tab) 650 mg PO Q6H PRN PRN Reason: Fever >100.4 F Last Admin: 07/11/17 06:10 Dose: 650 mg Allopurinol (Zyloprim) 100 mg PO Q8 [facility] Last Admin: 07/11/17 14:18 Dose: Not Given Alprazolam (Xanax) 0.25 mg PO BID PRN; Protocol PRN Reason: Anxiety Stop: 07/15/17 18:22 Last Admin: 07/11/17 01:44 Dose: 0.25 mg Ascorbic Acid (Vitamin C 500 Mg Tab) 500 mg PO DAILY [facility] Last Admin: 07/11/17 12:36 Dose: 500 mg Diphenhydramine HCl (Benadryl) 25 mg PO Q6H PRN PRN Reason: Itching / Pruritus Docusate Sodium (Colace) 100 mg PO Q12 [facility] Last Admin: 07/11/17 12:37 Dose: 100 mg Enoxaparin Sodium (Lovenox) 40 mg SC DAILY [facility] PRN Reason: Protocol Last Admin: 07/11/17 12:35 Dose: 40 mg Famotidine (Pepcid) 20 mg PO HS [facility] Fentanyl (Duragesic) 1 patch TD Q72H [facility] Last Admin: 07/10/17 10:53 Dose: 1 patch Sodium Chloride (Sodium Chloride 0.9%) 1,000 mls @ 60 mls/hr IV .[id number] [facility] Stop: 07/12/17 02:24 Last Admin: 07/11/17 12:35 Dose: 60 mls/hr Insulin Human Lispro (Humalog Low) 0 units SC ACHS [facility] PRN Reason: Protocol Last Admin: 07/11/17 11:59 Dose: Not Given Levothyroxine Sodium (Synthroid) 25 mcg PO 0600 [facility] Morphine Sulfate (Morphine) 2 mg IVP Q4H PRN PRN Reason: Pain, severe (8-10) Last Admin: 07/10/17 23:09 Dose: 2 mg Ondansetron HCl (Zofran Inj) 4 mg IVP Q4H PRN PRN Reason: Nausea/Vomiting Zinc Sulfate (Zinc Sulfate 220 Mg Cap) 220 mg PO DAILY [facility] Last Admin: 07/11/17 12:46 Dose: 220 mg Zolpidem Tartrate (Ambien) 10 mg PO HS PRN; Protocol PRN Reason: Insomnia Zolpidem Tartrate (Ambien) 10 mg PO HS [facility] PRN Reason: Protocol - Labs Labs: 07/11/17 07:00 07/11/17 07:00 PT 13.7 SECONDS (9.4-12.5) H 07/08/17 13:00 INR 1.24 (0.93-1.08) H 07/08/17 13:00 APTT 30.9 Seconds (25.1-36.5) 07/08/17 13:00 Attending/Attestation - Attestation I have personally seen and examined this patient.: Yes I have fully participated in the care of the patient.: Yes I have reviewed all pertinent clinical information, including history, physical exam and plan: Yes Notes (Text): 07/11/17 15:53 attending note; Patient seen and examined With resident. Patient is a 57 year old with a past medical history of multiple myeloma with pathologic fractures, bilateral knee surgery, left arm pathological fracture, and right hip fracture, multiple lytic lesions in thoracic and lumbar spine, expansile withlytic lesion with mild encroachment at T8 and T9 level is admitted with intractable back pain. Patient was initially followed up at [facility]. Recently seen Dr. Lafleur oncologist as outpatient. Patient had palliative radiation and chemotherapy at [facility]. Current CT lumbar spine showed multiple lytic lesionsthroughout the lumbar spine , slightly atypical expansile lesion on the left side of L1 vertebrae. CT thoracic spine showed extensive myelomatous change with lytic lesions throughout the thoracic spine and confluent large expansile/distractive lytic lesion at T8-T9 with encroachment upon the central spinal canal from the left side. Incidental 1.6 cm mass in the left lower lobe. Patient was evaluated by orthopedics Dr. Amaya. Neurology/neurosurgery evaluation appreciated. Currently no alarming symptoms.denies any back pain. Patient will need radiation oncology evaluation. Low-grade temperature; currently afebrile. Dc culture is negative. ID evaluation appreciated. Off antibiotics. sacral decubitus ulcer; patient had debridement done as outpatient. Patient uses Wound vac as outpatient. currently followed up by surgery/Wound Care. MRI of the lumbar and thoracic spine ordered. Upon discharge patient will follow-up with PMD of choice.
[2017-07-10] MEDS ORDERED: Gadodiamide 287 MG/ML VIAL (15ML) IV ONE (15:27)
--- NOTE | 2017-07-10 15:56 | RAD ---
PROCEDURE: Bone survey dated 07/09/2017. HISTORY: Multiple myeloma. COMPARISON: Comparison made with prior CT scan thoracic and lumbar spine as well as both shoulders all dated 07/08/2017. TECHNIQUE: Standard bone survey of the axial and appendicular skeleton. FINDINGS: The current study reveals multiple varying sized lucencies scattered throughout the skull consistent with this patient's history of myeloma. Previously noted lytic lesions scattered throughout the thoracolumbar spine, the largest of which involves the T8 and T9 segments and multiple smaller lesions scattered throughout the remaining vertebral bodies less well seen on this study as compared to high-resolution CT scan. . Including. Lytic lesions are also seen scattered throughout the ribs bilaterally Diffuse small lytic lesions throughout the clavicles and both shoulders as well as both humeri. Old healed fracture deformity of the proximal left humeral shaft. . Multiple lytic lesions scattered throughout the pelvis and both femora. In situ right total hip and right total knee replacements. IMPRESSION: Diffuse lytic lesions scattered throughout all of the visualized osseous structures of the axial and appendicular skeleton. Note the lytic changes in the thoracic and lumbar spine however seen to much better advantage on prior CT scan of the thoracic and lumbar spine. Old healed fracture deformity proximal left humeral diaphysis. Right-sided total hip and total knee replacements.
--- NOTE | 2017-07-10 17:43 | CP.PCM.PN ---
Subjective - Date & Time of Evaluation Date of Evaluation: 07/10/17 Time of Evaluation: 12:25 - Subjective Subjective: Comfortable, no more fevers, still with pains all over. Objective - Vital Signs/Intake and Output Vital Signs (last 24 hours): Temp Pulse Resp BP Pulse Ox 98.1 F 80 18 110/72 95 07/10/17 08:00 07/10/17 08:00 07/10/17 08:00 07/10/17 08:00 07/10/17 08:00 Intake and Output: 07/10/17 07/10/17 06:59 18:59 Intake Total 480 Output Total 400 Balance 80 - Medications Medications: Current Medications Acetaminophen (Tylenol 325mg Tab) 650 mg PO Q6H PRN PRN Reason: Fever >100.4 F Last Admin: 07/09/17 21:57 Dose: 650 mg Alprazolam (Xanax) 0.25 mg PO BID PRN; Protocol PRN Reason: Anxiety Stop: 07/15/17 18:22 Ascorbic Acid (Vitamin C 500 Mg Tab) 500 mg PO DAILY [facility] Last Admin: 07/10/17 10:55 Dose: 500 mg Diphenhydramine HCl (Benadryl) 25 mg PO Q6H PRN PRN Reason: Itching / Pruritus Docusate Sodium (Colace) 100 mg PO Q12 [facility] Last Admin: 07/10/17 10:55 Dose: 100 mg Enoxaparin Sodium (Lovenox) 40 mg SC DAILY [facility] PRN Reason: Protocol Last Admin: 07/10/17 10:56 Dose: 40 mg Famotidine (Pepcid) 20 mg IVP DAILY [facility] Last Admin: 07/10/17 10:56 Dose: 20 mg Fentanyl (Duragesic) 1 patch TD Q72H [facility] Last Admin: 07/10/17 10:53 Dose: 1 patch Insulin Human Lispro (Humalog Low) 0 units SC ACHS [facility] PRN Reason: Protocol Last Admin: 07/10/17 12:31 Dose: Not Given Morphine Sulfate (Morphine) 2 mg IVP Q4H PRN PRN Reason: Pain, severe (8-10) Last Admin: 07/10/17 14:52 Dose: 2 mg Ondansetron HCl (Zofran Inj) 4 mg IVP Q4H PRN PRN Reason: Nausea/Vomiting Zinc Sulfate (Zinc Sulfate 220 Mg Cap) 220 mg PO DAILY [facility] Last Admin: 07/10/17 10:55 Dose: 220 mg - Labs Labs: 07/10/17 07:00 07/10/17 07:00 PT 13.7 SECONDS (9.4-12.5) H 07/08/17 13:00 INR 1.24 (0.93-1.08) H 07/08/17 13:00 APTT 30.9 Seconds (25.1-36.5) 07/08/17 13:00 - Constitutional Appears: Non-toxic, No Acute Distress - Head Exam Head Exam: NORMAL INSPECTION - ENT Exam ENT Exam: Mucous Membranes Moist - Neck Exam Neck Exam: absent: Meningismus - Respiratory Exam Respiratory Exam: Decreased Breath Sounds - Cardiovascular Exam Cardiovascular Exam: +S1, +S2 - GI/Abdominal Exam GI & Abdominal Exam: Soft. absent: Tenderness Assessment and Plan - Assessment and Plan (Free Text) Plan: Assessment Systemic Inflammatory response syndrome, R/O sepsis but so far no source has been identified DM HTN obesity with BM 38 multiple myeloma S/P bilateral knee replacement 2016 S/P left arm fracture S/P right hip fracture decubitus ulcer on the back Plan repeat blood cx are negative; urine cx are negative ; will d/c Merrem and observe
--- NOTE | 2017-07-10 17:47 | MRI ---
PROCEDURE: MRI of the lumbar spine dated 07/10/2017. HISTORY: Multiple myeloma COMPARISON: Comparison made with prior CT scan of the lumbar spine dated 07/08/2017. TECHNIQUE: Multiecho multiplanar sequences were performed through the lumbar spine without the use of intravenous contrast. Note that the patient refused intravenous contrast material and therefore postcontrast images not obtained. FINDINGS: The current study reveals no acute compression fractures no retropulsed fragments. Significant heterogeneous signal changes scattered throughout the lumbar and sacral segments consistent myelomatous infiltration and this patient's history of same. More discrete larger lytic lesions are seen to better advantage on prior CT scan. . There are no acute compression fractures nor retropulsed fragments. No evidence of epidural tumor extension. Multilevel degenerative spondylosis again noted. At the L5-S1 level, there is disc desiccation and disc space narrowing with cortical endplate irregularity and type 2 discogenic sclerosis involving L5 and to a lesser degree S1 endplates. Small broad-based though slightly asymmetric disc ridge complex larger on the left than right is seen extending into the proximal inferior margins of both exit foramina more so on the left side. There is flattening of the ventral surface of the thecal sac. Central canal appears adequate however. Facets are hypertrophic and flavum buckled. The exit foramina are marginal to slightly narrowed more so on the bilaterally left greater than right. At the L4-L5 level, there is mild age related disc desiccation and minor posterior disc space narrowing. Small asymmetric disc ridge complex extends into the proximal inferior margins of both exit foramina where on the left side there appears to be a proximal left foraminal herniation component. The disc flattens the ventral surface of the thecal sac. Central canal appears adequate despite encroaching disc. Facets are hypertrophic. Left-sided exit foraminal narrowing with mild compression of the left L4 foraminal nerve root. Right exit foramen is minimally narrowed. At the L3-L4 level, there is now more significant disc space narrowing. . There is disc desiccation and small osteophytic ridge disc complex that results in some flattening of the ventral surface of the thecal sac. The disc ridge complex also extends into the proximal inferior margins of both exit foramina more so on the left side where there appear to be tiny bilateral foraminal protrusion components. The facet joints are hypertrophic. Exit foramina are marginal to adequate despite encroaching disc and facet joint changes. At the L2-L3 level, there is mild age related disc desiccation. Disc space height maintained. No disc herniation however there is a small central and right parasagittal disc bulge larger . Facets are slightly hypertrophic. Exit foramina appear adequate. At the L1-L2 level, there is disc desiccation, disc space narrowing with small chronic appearing Schmorl's node formation. Small broad-based disc ridge complex minimally flattens the ventral surface of the thecal sac. The overall central canal appears adequate. Facets are mildly hypertrophic. Exit foramina also appear adequate IMPRESSION: Significant heterogeneous signal changes throughout the lumbosacral segments consistent with myelomatous infiltration and this patient's history of same. . Much more discrete larger lytic lesions are seen to better advantage on prior CT scan. No acute compression fractures no retropulsed fragments. No significant epidural tumor extension is identified at this time. Overall central bony canal and exit foramina appear adequate throughout. Multilevel degenerative spondylosis most notably affecting the L4-L5 level and in particular the exit foramina as detailed above.
--- NOTE | 2017-07-10 17:53 | MRI ---
PROCEDURE: MRI of the thoracic spine 07/10/2017. HISTORY: Multiple myeloma. COMPARISON: Correlation made with prior CT scan thoracic spine dated 07/08/2017 and prior MRI of the thoracic spine 01/30/2015. TECHNIQUE: Multiecho multiplanar sequences were performed through the thoracic spine without the use of intravenous contrast. Note that the patient refused to continue for the postcontrast sequences. Findings: The current study reveals marked heterogeneous signal change throughout all the thoracic vertebral bodies with numerous of small focal areas of increased T2 signal the scattered throughout the marrow consistent with myelomatous infiltration. Again noted are large infiltrating lesions within left lateral margins of the T8 and T9 vertebral body segments (that are lytic on CT scan) that extend into the left posterior elements at and adjacent left proximal ribs. The involve posterolateral cortices of both of these vertebral bodies appear intact. No significant cord compression seen at either of these 2 levels at this time. Mild chronic anterior stature loss of both of these segments T8 more so than T9 with mild chronic anterior wedging of the T10 segment. Multilevel degenerative spondylosis. There are varying degrees of disc desiccation and disc space narrowing with cortical endplate irregularity/subchondral cystic changes with small Schmorl's nodes. Small broad-based disc bulge ridge complexes are seen at the at T3-T4, T4-T5, T5-T6, T8-T9 and T9-T10 levels. Smaller disc bulge ridge complexes seen at the T10-T11 through the T12-L1 levels. No evidence of significant cord compression of. No definitive intrinsic signal changes are seen within the visualized spinal cord. Impression: Note this patient refused to continue the study and therefore postcontrast images not obtained as a result. . There are mild diffuse infiltration changes are seen throughout wall of the thoracic vertebral body segments consistent with this patient's history of multiple myeloma. Seen to better advantage are 2 large infiltrating lesions involving the left lateral margins of the T8 and T9 segments with extension into the posterior elements extending into the adjoining posterior ribs. No evidence of definitive epidural tumor extension seen. The posterior cortices of both of these segments do appear thin but intact. Mild chronic anterior stature loss of the T8, T9 and to a lesser degree T7 segments. Multilevel degenerative spondylosis of the thoracic spine as above.
--- NOTE | 2017-07-11 05:05 | PN ---
DATE: LOCATION: The patient is in room 577, bed 2. PROBLEM: This is a 57-year-old white male with progressive multiple myeloma, who is admitted to the hospital with progressively worsening pain with recent findings of multiple lytic lesions affecting the long bones and also several areas of the spine, status post fracture of the left humerus, status post arthroplasty and fracture of the neck of the right femur, status post discovery of a paraspinal mass between T7 and T9 region secondary to progressive multiple myeloma diagnosed by paraspinal biopsy, followed by palliative radiation, he is now admitted to the hospital with progressively worsening pain of the lower extremities. Pain scale is 0 to 10 being 8 to 9 upon admission. Concern was the patient could be having progressive pain from not just progressive disease in the long bones, but also from the paraspinal disease. He has not been treated for several weeks since 06/06/2017, he was discharged from [facility] [place]. PAST MEDICAL HISTORY: Significant for the fact that the patient had bilateral knee replacement for progressively worsening joint disease related to old injuries and subsequent to the knee replacement, the patient was noted to have spontaneous fracture of the left humerus and then developed fracture of the right femur, following which he had exhaustive evaluation and found to have paraspinal mass extending from T7 to T9 region along with multiple other lytic bone changes on the x-rays for which he was started 2 doses of systemic therapy with Velcade and dexamethasone. The patient had to be kept on hold because of the rash that developed secondary to high dose of drug or antibiotic vancomycin that he was on simultaneously for his infected decubitus ulcer. The patient has a large sacral decubitus ulcer, which is being treated with wound VAC and wound care at home prior to the admission. Currently, the patient is admitted to the hospital for failure to thrive, being bedridden, and progressively worsening pain with a plan to treat him once we establish the status of the spine disease, status of his hip disease and status of his left femoral fractures. The patient has been seen in the interim while in the hospital by ID, by Orthopedic, by Neurology, and this morning by Neurosurgery as well. SUBJECTIVE: The patient did not have any fevers overnight. He states his pain is reasonably well controlled and no acute events were noted at night. The patient is quite concerned about his discussion with Dr. Robbie Solano, the neurosurgeon that we have this morning along with his as Dr. Solano is quite concerned about the stability of the spine based on the CAT scan findings that he felt all these 3 columns as responsible for the stability this time could be affected by the myeloma and he was concerned that even though he has no issues right now, neurologically it could be prone for neurosurgical compromise in the near future as a threat for cord compression. The patient tells me that while he was in [facility], they were planning to do planned surgery on his spine, but they had to back off because of issues with his sacral decubitus and they planned to give him palliative radiation to see how he did on that. PHYSICAL EXAMINATION: GENERAL: The patient is awake and alert, sitting out of bed in the chair. The patient is examined by the bedside. VITAL SIGNS: T-max is 98.4, pulse is 80, respirations 18, blood pressure is 110/70, and pulse ox is 95%. HEENT: Head is normocephalic, atraumatic. Conjunctivae pale. Sclerae anicteric. Pupils are equally reactive to light and accommodation. Examination of the oropharynx reveals no oropharyngeal lesions. NECK: Supple. There is no adenopathy. LUNGS: Clear to percussion and auscultation. CARDIOVASCULAR: Reveals S1 and S2 to be normal. No gallop or murmur is heard. ABDOMEN: Soft, protuberant. No masses are felt. No rebound, rigidity or guarding is noted. EXTREMITIES: Reveals callus deformity of the upper aspect of his left arm where he has a fracture of the femur. The patient is able to raise both arms, but he has limited range of motion with the left arm because he is not able to raise his arm above the shoulder because of pain. The patient's right hip status post arthroplasty and left hip seems to okay at this time. The patient is able to move both lower extremities without significant discomfort at this point in time. The patient has non-pitting edema of both lower extremities. Venous Doppler done yesterday was negative. NEUROLOGIC: There are no gross focal deficits are discernable. The full neurologic examination could not be done because the patient was sitting, but from neurologic assessment by the neurologist, no major changes had been noted. GENITOURINARY AND RECTAL: Deferred. There is no evidence of adenopathy in the neck, axilla, or groin. MEDICATIONS: The patient's current medications include were reviewed. He is on Tylenol, he is on Xanax, he is on ascorbic acid, diphenhydramine 25 mg q. 6 h. p.r.n., Colace 100 q.12 hours, Lovenox 40 mg subcutaneous daily, 20 mg of famotidine IV piggyback daily, he is on fentanyl 75 mcg q. 72 hours, he is on meropenem 250 mg IV q.12 hours, he is on insulin coverage, morphine sulfate 2 mg IV q. 4 h. p.r.n. for pain, Zofran p.r.n. for nausea, and zinc sulfate p.o. daily. LABORATORY DATA: Reveals a white count of 4, hemoglobin 10.5, hematocrit 33.3, and platelet count 236. Sodium is 138, K is 3.6, chloride is 103, CO2 is 25, BUN is 6, creatinine is 0.6, and blood sugar is 133. PT/INR is within normal limits. ASSESSMENT NOTES AND PLAN: The patient's CAT scan of the thoracic and lumbar spine plus the x-rays were reviewed. They are all consistent with progressive metastatic disease with extensive disease in the paraspinal area at T8, T9, and T11 regions with extension into the canal for which MRI of the thoracic and lumbar spine were requested. The patient wanted to wait to discuss with me, so Dr. Mustafa, the hospitalist and I discussed with the patient the need for MRI, even though he was reluctant to go for any possible surgery as the surgeon had recommended earlier on when he had seen here this morning. I told the patient MRI, then I have a further discussion whether it is absolutely or imperatively necessary for him to undergo surgery that will put a stop on our plans for treatment. My information would be if the MRI does not show anything significant, I told him that he would have an Interventional Radiology also take a look at him to see there is role for any kyphoplasty. In the meantime, we will plan on initiating chemotherapy and bisphosphonate therapy regimen called DCEP along with IV Aredia as soon as it is feasible, so that the patient could benefit from the effects of steroid therapy. We could also try to see if we could get a thoracolumbar support with spinal support, with some sort of a belt so that could protect him while we are planning to give him systemic therapy, so that his back is protected while in the process of giving some form of modified physical therapy. We will get physiatry also on board to make some comments on this. In the meantime, we will get neurosurgical input after they had reviewed the MRI of the spine. I told the patient that if need be, we will get another surgical opinion as well. In the meantime, we are going to get surgical input for the sacral decubitus concern as it will be safe for us to continue systemic therapy. We are also going to check with Infectious Disease, so if patient's cultures are negative, we can proceed with systemic therapy. We have already given the clearance and we have cardiac workup within reasonable limits. Our plan is to start him on DCEP chemotherapy as soon as it is feasible as that is the only salvation the patient has in view of the extensive progressive myeloma that seems to be affecting every inch of his bone at this time. Fortunately, the kidney functions are stable and that is a good sign for the patient. I have spent a lot of time with the patient discussing with him my pros and cons. I asked him if I should speak to his . He said his is already scared after discussion with the neurosurgeon and that he would try to relay the message to her. He agreed to go for the MRI with and without contrast and depending on that we will decide further. Already put a call into Dr. Bayron Atkins to discuss with him the findings on the scans and get his input as far as one placement of a venous port and two is go for any form of kyphoplasty or Interventional Radiology at this point in time. Time spent with the patient is greater than 45 minutes. Discussed my findings in detail with the hospitalist under whose care the patient has been admitted. I answered all the questions of the patient has had. The patient's prognosis is guarded, but with the fact that we have on hand, it is best to start him on systemic therapy as soon as it is found feasible along with bisphosphonate therapy as well. The patient is fully cognizant of what we are involved with and we are going to proceed with the treatment as soon as it is feasible. Seda Lafleur MD
[2017-07-11 07:41] LABS: BASO # 0.01 K/mm3 (0.0-2.0); BASO % 0.2 % (0.0-3.0); EOS # 0.2 (0.0-0.7); EOS % 3.9 % (1.5-5.0); GRAN # 2.85 (1.4-6.5); GRAN % 68.7 % (50.0-68.0); HEMATOCRIT 34.3 % (42.0-52.0); LYMPH # 0.7 (1.2-3.4); LYMPH % 17.1 % (22.0-35.0); MEAN CELL VOLUME 89.8 fl (80.0-105.0); MEAN CORPUSCULAR HEMOGLOBIN 27.7 pg (25.0-35.0); MEAN CORPUSCULAR HGB CONC 30.9 g/dl (31.0-37.0); MEAN PLATELET VOLUME 10.5 fl (7.0-11.0); MONO # 0.4 (0.1-0.6); MONO % 10.1 % (1.0-6.0); RED CELL DISTRIBUTION WIDTH 15.3 % (11.5-14.5); WHITE BLOOD COUNT 4.2 10^3/ul (4.5-11.0)
[2017-07-11 08:03] LABS: ALB/GLOB RATIO 0.9 (1.1-1.8); ALKALINE PHOSPHATASE 85 U/L (38-126); ALT/SGPT 27 U/L (7-56); AST/SGOT 29 U/L (17-59); BILIRUBIN,TOTAL 0.4 mg/dL (0.2-1.3); BLOOD UREA NITROGEN 7 mg/dL (7-21); CALCIUM 9.1 mg/dL (8.4-10.5); CARBON DIOXIDE 28 mmol/L (21-33); CHLORIDE 100 mmol/L (98-107); GFR AFRICAN-AMERICAN > 60; GLUCOSE,RANDOM 133 mg/dL (70-110); POTASSIUM 4.4 mmol/L (3.6-5.0); SODIUM 137 mmol/L (132-148); TOTAL PROTEIN 7.8 g/dL (5.8-8.3)
[2017-07-11] MEDS: Insulin Lispro (humaLOG) LOW Coverage SC SCH ×3 (08:03→16:39)
--- NOTE | 2017-07-11 08:41 | CON ---
DATE; 07/10/2017 HISTORY OF PRESENT ILLNESS: This is a very unfortunate 57-year-old gentleman, who had a markedly stormy recent history. Apparently, back in the fall, he had work related bilateral knee replacement being performed down at [facility]. He was noted to have fractured his arm; subsequently, fractured his right hip. Ultimately, workup revealed that he was suffering with multiple myeloma. It appears that also at this time he was noted to have a very large left-sided thoracic mass. This was treated with 10 radiation therapy sessions, he has been on various chemo. He was recently discharged. [facility] did not really have much in the way of rehab. He was admitted here, it seems, for further treatment and predominantly treatment of low back pain and pain radiating in and around his knees. Interestingly, interviewing him today, he really complained only of some scattered low back pain as well as bilateral knee pain. He has difficulty walking, he felt, secondary to the knee problem. He very specifically denied any overt weakness, numbness, dysesthesias. Denies any bowel or bladder problem. He also denies actually pain in the thoracic area. PAST MEDICAL HISTORY: Basically, as above. Rest of his history, medications, allergies, social history reviewed in the chart. PHYSICAL EXAMINATION: EXTREMITIES: The patient does demonstrate 5/5 strength in all groups in the lower extremities. Sensory exam is intact to light touch and proprioception. Reflexes are muted in the feet and ankles. Plantars are mute bilaterally. I specifically did not test his gait. He did not really have any tenderness to palpation along the thoracic spine, very minimal down at the lumbosacral junction. LABORATORY DATA: Films of thoracolumbar spine demonstrate multiple areas of lytic involvement consistent with multiple myeloma. Far away, the most concerning is at the T9 level where there is a huge mass that has essentially eaten away the entire left hemivertebrae, pedicle, and lamina encroaching into the canal from the left side causing spinal cord compression. IMPRESSION AND PLAN: A very unusual case is that the patient is relatively asymptomatic; however, this is biomechanically a grossly unstable spine. It is, by definition, a three column injury, the entire left side of his spine has been eaten away at this level. He is at high risk for sudden fracture with neurologic compromise. He is obviously also at risk for more slowly progressive myelopathy as well. I had a long discussion with the patient and his . Unequivocally, the proper medical thing and the safest course would be a decompression, fixation, and fusion procedure. I explained to them what it would entail the rationale behind it, the details of the procedure itself. Understandably, he went through a lot including a fair amount of surgery very recently and on top of that, relatively asymptomatic, he is quite hesitant to consider this. I relayed to him the risk of not treating his unstable spine which he seems to understand. He is somewhat concerned about delaying chemotherapy which is something I can speak with Dr. Lafleur about. that he will consider it, I would certainly recommend obtaining an MRI which would give him a much better look at the extensive degree of his spinal cord compression as well as the degree of involvement of the vertebrae adjacent above and below, and I and the patient will speak with Dr. Lafleur. Robbie Solano MD
--- NOTE | 2017-07-11 08:56 | CP.PCM.PN ---
Subjective - Date & Time of Evaluation Date of Evaluation: 07/11/17 Time of Evaluation: 06:45 - Subjective Subjective: Heme/Onc consult note for Dr Lafleur's service. Patient in no acute distress. Patient admits to generalized pain, and fatigue. Denies fever, chills, nausea, vomiting or diarrhea. No overnight acute events. Objective - Vital Signs/Intake and Output Vital Signs (last 24 hours): Temp Pulse Resp BP Pulse Ox 98.5 F 78 18 114/66 100 07/11/17 07:30 07/11/17 07:30 07/11/17 07:30 07/11/17 07:30 07/11/17 07:30 Intake and Output: 07/11/17 07/11/17 06:59 18:59 Intake Total 1120 Output Total 1100 Balance 20 - Medications Medications: Current Medications Acetaminophen (Tylenol 325mg Tab) 650 mg PO Q6H PRN PRN Reason: Fever >100.4 F Last Admin: 07/11/17 06:10 Dose: 650 mg Alprazolam (Xanax) 0.25 mg PO BID PRN; Protocol PRN Reason: Anxiety Stop: 07/15/17 18:22 Last Admin: 07/11/17 01:44 Dose: 0.25 mg Ascorbic Acid (Vitamin C 500 Mg Tab) 500 mg PO DAILY [facility] Last Admin: 07/10/17 10:55 Dose: 500 mg Diphenhydramine HCl (Benadryl) 25 mg PO Q6H PRN PRN Reason: Itching / Pruritus Docusate Sodium (Colace) 100 mg PO Q12 [facility] Last Admin: 07/10/17 23:10 Dose: 100 mg Enoxaparin Sodium (Lovenox) 40 mg SC DAILY [facility] PRN Reason: Protocol Last Admin: 07/10/17 10:56 Dose: 40 mg Famotidine (Pepcid) 20 mg PO HS [facility] Fentanyl (Duragesic) 1 patch TD Q72H [facility] Last Admin: 07/10/17 10:53 Dose: 1 patch Insulin Human Lispro (Humalog Low) 0 units SC ACHS [facility] PRN Reason: Protocol Last Admin: 07/11/17 08:03 Dose: Not Given Morphine Sulfate (Morphine) 2 mg IVP Q4H PRN PRN Reason: Pain, severe (8-10) Last Admin: 07/10/17 23:09 Dose: 2 mg Ondansetron HCl (Zofran Inj) 4 mg IVP Q4H PRN PRN Reason: Nausea/Vomiting Zinc Sulfate (Zinc Sulfate 220 Mg Cap) 220 mg PO DAILY [facility] Last Admin: 07/10/17 10:55 Dose: 220 mg - Labs Labs: 07/11/17 07:00 07/11/17 07:00 PT 13.7 SECONDS (9.4-12.5) H 07/08/17 13:00 INR 1.24 (0.93-1.08) H 07/08/17 13:00 APTT 30.9 Seconds (25.1-36.5) 07/08/17 13:00 - Constitutional Appears: No Acute Distress, Older Than Stated Age, Chronically Ill - Head Exam Head Exam: ATRAUMATIC, NORMAL INSPECTION, NORMOCEPHALIC - Eye Exam Eye Exam: Normal appearance - ENT Exam ENT Exam: Mucous Membranes Moist - Neck Exam Neck Exam: Normal Inspection - Respiratory Exam Respiratory Exam: Clear to Ausculation Bilateral, NORMAL BREATHING PATTERN. absent: Rales, Rhonchi, Wheezes, Respiratory Distress, Stridor - Cardiovascular Exam Cardiovascular Exam: REGULAR RHYTHM, RRR, +S1, +S2. absent: Murmur - GI/Abdominal Exam GI & Abdominal Exam: Soft, Normal Bowel Sounds. absent: Distended, Firm, Guarding, Rigid, Tenderness - Extremities Exam Extremities Exam: Pedal Edema (+3). absent: Tenderness - Back Exam Back Exam: NORMAL INSPECTION - Neurological Exam Neurological Exam: Alert, Awake, Oriented x3 - Psychiatric Exam Psychiatric exam: Normal Affect, Normal Mood - Skin Skin Exam: Dry, Warm Additional comments: + Sacral decubitus ulcer, sherrell knee incision clean and intact. Assessment and Plan - Assessment and Plan (Free Text) Assessment: Patient is a 57 y/o with pmh of progressive multiple myeloma, hypothyroidism, anxiety, multiple lytic lesions of the spine, with fractures of the sherrell knees from old injuries s/p sherrell knee replacement, with spontaneous fractures of the left humerus and right hip, paraspinal mass extending from T7-19 region along with lytic lesions, was on velcade and dexamethasone while at [facility] , which was stopped due to large sacral decubitus ulcers requiring antibiotics. Patient is currently admitted due to failure to thrive, gait instability and worsening of the pain. Plan: 1) Extensive multiple myeloma lesions causing intractable generalized pain - Patient had X-rays, CT and MRI of the spine, consistent with lytic lesions with mass at the T9 region, with left humeral fracture, no cord compression - Patient was seen by Neurology, neurosurgery and orthopedic. - Neurosurgery recommending surgery, however patient is concerned this might delay his chemo. - Will consult PT for possibility of back brace - Continue with fentanyl patch for pain, and morphine prn - Will give a dose of aredia 90 mg IVPB once, will give NS while infusing the aredia. - Will start allopurinol 100 mg tid in preparation for chemo - Pending cardiac echo to evaluate LVF - Patient to likely be started on chemo tomorrow - Radiation oncology consulted for input - IR consulted for chemo port and possibility of kyphoplasty. 2) SIRS likely due to sacral decubitus ulcer and wound infection. - afebrile and no leukocytosis - Patient was on antibiotics for brief period - Wound culture growing corenybacterium, pending - Surgery is following for wound care - air mattress - ID is also following. - Patient is also on zinc for wound healing. 3) DM- on insulin sliding scale, on moderate carb diet. 4) Lower extremities edema- LE u/s negative for DVT. Continue with leg elevation. 5) DVT and Gi prophylaxis: Lovenox sc and Pepcid. Patient seen, examined and case discussed with Dr Lafleur.
[2017-07-11] MEDS ORDERED: Sodium Chloride 0.9% 1,000 ML IV SCH (09:45)
--- NOTE | 2017-07-11 10:37 | CP.PCM.PN ---
Subjective - Date & Time of Evaluation Date of Evaluation: 07/11/17 Time of Evaluation: 10:33 - Subjective Subjective: SPINE Pt seen on stretcher waiting for RT. Discussed his case again, as Dr. Solano had yesterday. Concern is for collapse at site of involvement in thoracic spine resulting in injury to spinal cord. However, pt is adamant at having treatment done first "for the areas that hurt" and then will revisit his back. Therefore will see again as needed. Thanks. Objective - Vital Signs/Intake and Output Vital Signs (last 24 hours): Temp Pulse Resp BP Pulse Ox 98.5 F 78 18 114/66 100 07/11/17 07:30 07/11/17 07:30 07/11/17 07:30 07/11/17 07:30 07/11/17 07:30 Intake and Output: 07/11/17 07/11/17 06:59 18:59 Intake Total 1120 Output Total 1100 Balance 20 - Medications Medications: Current Medications Acetaminophen (Tylenol 325mg Tab) 650 mg PO Q6H PRN PRN Reason: Fever >100.4 F Last Admin: 07/11/17 06:10 Dose: 650 mg Allopurinol (Zyloprim) 100 mg PO Q8 [facility] Alprazolam (Xanax) 0.25 mg PO BID PRN; Protocol PRN Reason: Anxiety Stop: 07/15/17 18:22 Last Admin: 07/11/17 01:44 Dose: 0.25 mg Ascorbic Acid (Vitamin C 500 Mg Tab) 500 mg PO DAILY [facility] Last Admin: 07/10/17 10:55 Dose: 500 mg Diphenhydramine HCl (Benadryl) 25 mg PO Q6H PRN PRN Reason: Itching / Pruritus Docusate Sodium (Colace) 100 mg PO Q12 [facility] Last Admin: 07/10/17 23:10 Dose: 100 mg Enoxaparin Sodium (Lovenox) 40 mg SC DAILY [facility] PRN Reason: Protocol Last Admin: 07/10/17 10:56 Dose: 40 mg Famotidine (Pepcid) 20 mg PO HS [facility] Fentanyl (Duragesic) 1 patch TD Q72H [facility] Last Admin: 07/10/17 10:53 Dose: 1 patch Pamidronate Disodium 90 mg/ (Sodium Chloride) 510 mls @ 127.5 mls/hr IVPB ONCE ONE Stop: 07/11/17 13:31 Sodium Chloride (Sodium Chloride 0.9%) 1,000 mls @ 60 mls/hr IV .[id number] [facility] Stop: 07/12/17 02:24 Insulin Human Lispro (Humalog Low) 0 units SC ACHS [facility] PRN Reason: Protocol Last Admin: 07/11/17 08:03 Dose: Not Given Morphine Sulfate (Morphine) 2 mg IVP Q4H PRN PRN Reason: Pain, severe (8-10) Last Admin: 07/10/17 23:09 Dose: 2 mg Ondansetron HCl (Zofran Inj) 4 mg IVP Q4H PRN PRN Reason: Nausea/Vomiting Zinc Sulfate (Zinc Sulfate 220 Mg Cap) 220 mg PO DAILY [facility] Last Admin: 07/10/17 10:55 Dose: 220 mg - Labs Labs: 07/11/17 07:00 07/11/17 07:00 PT 13.7 SECONDS (9.4-12.5) H 07/08/17 13:00 INR 1.24 (0.93-1.08) H 07/08/17 13:00 APTT 30.9 Seconds (25.1-36.5) 07/08/17 13:00
--- NOTE | 2017-07-11 10:48 | PN ---
DATE: LOCATION: The patient is in room 577, bed 2. PROBLEM: This is a 57-year-old male with advanced multiple myeloma with multiple lytic lesions involving the axial skeleton and the recurring long bones and multiple lytic lesions, status post parasternal biopsy for huge paraspinal mass affecting T7-T9 vertebral bodies with encroachment on thecal sac, status post right hip arthroplasty for right hip fracture, status post fracture of the left humerus, which has healed with a callus without any operative intervention, status post bilateral knee replacement, which triggered off this whole process of the patient being discovered to have advanced multiple myeloma, was in and out of [facility] and the acute rehab for about 2 months between April and June, discharged from that hospital in June around 06/07/2017, was at home for about a month, seen by us on 07/06/2017 and advised admission. The patient was in a wheelchair and was in a considerable amount of pain on pain scale of 0-10 was around 9, and the patient was advised to come to the ER, came to the emergency room, had a low-grade temperature, was up to 101 while in the ER and based on the evaluation, which was done rapidly including x-rays of the left humerus, chest x-ray, right humerus, pelvis. X-rays of the spine including CAT scans of the lumbar and thoracic spine. The evidence is clear-cut for severe and extensive lytic lesions throughout the imaged bone, but concern for what could be still pressure on the spinal cord and concern for whether the patient could be weightbearing at this point in time. Orthopedic evaluation has already been called. Dr. Varghese saw the patient early this morning and I have spoken to him and be dictated in my assessment and plan. The patient already has gone early this morning for tests on his lower extremities for venous Doppler and additional x-rays have been ordered at this point in time directed towards the lower back. SUBJECTIVE: The patient was examined at the bedside, he is sitting out of bed and no acute events were noted overnight. The patient states he is still having lower back pain, bilateral lower extremity pain, scale of 0-10, it is about 7.5. I checked with the nurse, he has not been getting his IV morphine, told her that he must get his IV morphine along with the past that he has been getting as the intensity of pain once the medication to be titrated as evidence on the x-rays. The patient is complaining of pain in the back and also pain in bilateral lower extremities as well. These pains are related to pain from the long bones and not necessarily neuropathy. He denies any chest pain, shortness of breath, nausea, vomiting, fever, chills, lightheadedness, dizziness, changes in the vision, abdominal pain, or any other complaints. PHYSICAL EXAMINATION: GENERAL: The patient is examined by the bedside. VITAL SIGNS: T-max is 98.8, pulse is 88, respirations 20, blood pressure 137/73, and pulse ox is 95% on room air. HEENT: Head is normocephalic and atraumatic. Conjunctivae pale. Sclerae are anicteric. Pupils are equally reactive to light and accommodation. Examination of the oropharynx reveals no oropharyngeal lesions. Tongue is moist. No ulcerations are noted. No other lesions are noted. NECK: Supple. There is no adenopathy. No jugular venous distention noted. LUNGS: Clear to percussion and auscultation. CARDIOVASCULAR SYSTEM: Reveals PMI to be in the fifth intercostal space inside the midclavicular line. S1 and S2 are normal. No gallop or murmur is heard. ABDOMEN: Protuberant. Liver and spleen not palpable. No other masses are felt. BACK: The patient has tenderness in the lower lumbar spine with paraspinal tenderness. The patient has a sacral ulcer, which is rather significant measuring 10 x 6.5 at least 7 cm with clear margins and healed healthy granulation tissue. The patient has been on wound VAC, but at this point in time *------* the wound VAC has been off. He is being followed by Surgery and will need to get input from them before prior initiation of therapy. NEUROLOGIC: The patient is awake, alert, and oriented. There are no gross focal deficits are discernible. The patient tells me that the orthopedic MD, Dr. Varghese had seen him and told him that he had reviewed the x-rays and said he could do at least exercises with physical therapy and weightbearing to see how he does. In the meantime, we want to make sure from the paraspinal point of view everything is okay before we let him go on to active physical therapy. There is no evidence of any neuropathy at this point in time. The patient is able to move all his four limbs without any significant issues, but he has considerable amount of pain involving his left shoulder. Also, he has considerable pain in both lower extremities involving the longer bones. PSYCHIATRIC: The patient has normal affect and had an intelligent conversation with him. SKIN: Dry. No skin lesions are noted. MEDICATIONS: The patient's medications were reviewed. He is on Tylenol, Xanax, ascorbic acid, Benadryl, Colace, Lovenox, Pepcid, Duragesic patch 75 mcg every 72 hours, insulin coverage, morphine sulfate, Zofran p.r.n., and zinc sulfate p.o. daily. LABORATORY DATA: Reviewed. Today, his white count is 3.9, hemoglobin 10.7, hematocrit 34.3, and platelet count is 213,000. Sodium is 137, K is 3.8, chloride 102, CO2 of 27, BUN is 9, creatinine is 0.7, and sugar is 117. ASSESSMENT NOTES AND PLAN: The patient has advanced myeloma with multiple lytic lesions involving the axial skeleton and the *------* long bones, will require intensive therapy initially to dig off the tumor before going on to regimen such as Revlimid, Velcade, and dexamethasone. There is a question of whether rash related to Velcade, I believe probably was interaction with the antibiotics and Velcade per se. We will have to re-challenge him to see how he does. Currently, we feel or at least I feel that the patient should be tried to reduce with a much stronger regimen such as TCEP. In the meantime, I have discussed my findings with the hospitalist, Dr. Mustafa. Plan is to get ID involved in view of the temperature, blood cultures have been drawn that the patient should empirically be given antibiotics. There is a question that we will leave it up to Infectious Disease specialist. The patient is also going to be seen by a neurologist to comment on the status of the back, but additional testing needs to be done prior to initiation of his chemotherapy. Also encouraged the doctor to get neurosurgical evaluation so that we know that the back is not having any issues at this point in time, may be we need to get Interventional Radiology also as the patient appears to have compression fractures of his thoracic spine that the patient would benefit from procedure such as hypoplasty in addition to getting the chemotherapy. This would stabilize the spine when the patient starts moving around. We will get radiation oncologist report as well to see if there is any targeted areas of radiation that may be necessary in conjunction with the chemotherapy. In fact, the patient on IV bisphosphonate therapy as soon as is feasible. Opinions from these doctors would have to be obtained prior to my initiation of any therapy. We are waiting input from all these doctors. In the meantime, I did speak to Dr. Varghese and I felt comfortable that the patient should be able to do weightbearing with caution and at least we can start rehabbing him while we are starting his chemotherapy most importantly to help him with his pressure ulcers in the sacrum, which had been caused by the fact that he has been almost bedbound or wheelchair-bound for the last six weeks. We will speak to the appropriate consultants as well in the meantime. Time spent with the patient is greater than 45 minutes. Seda Lafleur MD
--- NOTE | 2017-07-11 12:20 | CP.PCM.PN ---
Subjective - Date & Time of Evaluation Date of Evaluation: 07/11/17 Time of Evaluation: 12:16 - Subjective Subjective: Mr. Harper was seen and examined at the bedside. He is alert, oriented in all spheres. He states of experiencing continuous dull pain in the lumbar area. He states of able to stand up with assistance of any steady object/assistance. He also states of able to ambulate slowly to the bathroom with steady gait but wide base. He also states of inability to sleep for 2 nights in a row. There was no untoward events overnight. Objective - Vital Signs/Intake and Output Vital Signs (last 24 hours): Temp Pulse Resp BP Pulse Ox 98.5 F 78 18 114/66 100 07/11/17 07:30 07/11/17 07:30 07/11/17 07:30 07/11/17 07:30 07/11/17 07:30 Intake and Output: 07/11/17 07/11/17 06:59 18:59 Intake Total 1120 Output Total 1100 Balance 20 - Medications Medications: Current Medications Acetaminophen (Tylenol 325mg Tab) 650 mg PO Q6H PRN PRN Reason: Fever >100.4 F Last Admin: 07/11/17 06:10 Dose: 650 mg Allopurinol (Zyloprim) 100 mg PO Q8 [facility] Alprazolam (Xanax) 0.25 mg PO BID PRN; Protocol PRN Reason: Anxiety Stop: 07/15/17 18:22 Last Admin: 07/11/17 01:44 Dose: 0.25 mg Ascorbic Acid (Vitamin C 500 Mg Tab) 500 mg PO DAILY [facility] Last Admin: 07/10/17 10:55 Dose: 500 mg Diphenhydramine HCl (Benadryl) 25 mg PO Q6H PRN PRN Reason: Itching / Pruritus Docusate Sodium (Colace) 100 mg PO Q12 [facility] Last Admin: 07/10/17 23:10 Dose: 100 mg Enoxaparin Sodium (Lovenox) 40 mg SC DAILY [facility] PRN Reason: Protocol Last Admin: 07/10/17 10:56 Dose: 40 mg Famotidine (Pepcid) 20 mg PO HS [facility] Fentanyl (Duragesic) 1 patch TD Q72H [facility] Last Admin: 07/10/17 10:53 Dose: 1 patch Pamidronate Disodium 90 mg/ (Sodium Chloride) 510 mls @ 127.5 mls/hr IVPB ONCE ONE Stop: 07/11/17 13:31 Sodium Chloride (Sodium Chloride 0.9%) 1,000 mls @ 60 mls/hr IV .[id number] [facility] Stop: 07/12/17 02:24 Insulin Human Lispro (Humalog Low) 0 units SC ACHS [facility] PRN Reason: Protocol Last Admin: 07/11/17 11:59 Dose: Not Given Morphine Sulfate (Morphine) 2 mg IVP Q4H PRN PRN Reason: Pain, severe (8-10) Last Admin: 07/10/17 23:09 Dose: 2 mg Ondansetron HCl (Zofran Inj) 4 mg IVP Q4H PRN PRN Reason: Nausea/Vomiting Zinc Sulfate (Zinc Sulfate 220 Mg Cap) 220 mg PO DAILY [facility] Last Admin: 07/10/17 10:55 Dose: 220 mg Zolpidem Tartrate (Ambien) 10 mg PO HS PRN; Protocol PRN Reason: Insomnia - Labs Labs: 07/11/17 07:00 07/11/17 07:00 PT 13.7 SECONDS (9.4-12.5) H 07/08/17 13:00 INR 1.24 (0.93-1.08) H 07/08/17 13:00 APTT 30.9 Seconds (25.1-36.5) 07/08/17 13:00 - Constitutional Appears: No Acute Distress - Head Exam Head Exam: ATRAUMATIC - Neurological Exam Neurological Exam: Alert, Awake, Oriented x3 Neuro motor strength exam: Left Upper Extremity: 5, Right Upper Extremity: 5, Left Lower Extremity: 3, Right Lower Extremity: 3 Additional comments: neurological unchanged from previous examination. Assessment and Plan (1) Spinal disease Assessment & Plan: Case discussed with Dr. Carroll, continue all current medical regimen. PT eval and treat pending for the special brace. Recommend ambien 10 mg PO HS PRN for insomnia. Status: Acute
--- NOTE | 2017-07-11 12:28 | CP.PCM.CON ---
History of Present Illness - History of Present Illness History of Present Illness: Mr Harper is a 57 year old male with a newly diagnosed multiple myeloma. He was recently diagnosed with myeloma back in the fall of 2016. He had bilateral knee replacements on April 11. He was getting physical therapy when he developed a left humeral fracture. During his hospitalization, he stated that he then developed a decubitus ulcer which they ultimately had to treat with debridement. A few days after his debridement, he stated that he had severe pain in the right hip and told the inpatient nurse, however he did not have any further work-up. He was transferred to a subacute rehab and then sent to [facility] when they noticed a disfigured right hip. During his admission, he had an extensive work-up including a CT of the chest, abdomen and pelvis on April 19, 2017 which revealed a left proximal humeral fracture. There was a lesion in the right anterolateral 6th rib. There was destruction of the left 9th rib. There was cortical destruction of the T9-10 vertebral bodies on the left side. There was a large soft tissue mass encroaching in the thecal sac. The mass measured 8.4 x 3.8cm. There was lytic lesion in the left iliac wing. There was a lesion in the right proximal femur, left 5th rib, left lateral 11th rib, left anterolateral L1 and left lateral 9-10th rib. He had a bone scan which revealed diffuse lytic lesions throughout the skeleton. A bone marrow biopsy confirmed multiple myeloma. During his hospitalization there, he was also found to have an infected sacral decubitus. He had a right hip replacement. Byron received palliative radiation to the left paraspinal mass at [facility] as well as started on chemotherapy. He only received two doses of the chemotherapy due to a reaction. He was discharged on June 07. He then decided to transfer his oncologic care to [place] [facility]. He saw Dr Lafleur in consultation on July 06 as an outpatient, and was admitted to [facility] on July 08 with fevers and chills and bone pain. A CT of the thoracic and lumbar spine on July 08, 2017 revealed innumerable lesion in the lumbar spine with a lesion at the right S2 sacral ala. There was a lytic lesion At T11 with cortical destruction. There was a slight atypical lesion on the left L1 A MRI of the thoracic and lumbar spine on July 10, 2017 revealed extensive lytic lesions in the thoracic spine. There was a largeexpansile lesion at T8-9 with no definitive epidural tumor extension. He is referred to us for our input regarding palliative radiation therapy Review of Systems - Musculoskeletal Musculoskeletal: Back Pain Additional comments: lower lumbar back pain as well as left shoulder pain and stiffness in both knees Past Patient History - Past Social History Smoking Status: Former Smoker Alcohol: None Home Situation {Lives}: With Family - CARDIAC Hx Cardiac Disorders: No - PULMONARY Hx Respiratory Disorders: No - NEUROLOGICAL Hx Neurological Disorder: No - HEENT Hx HEENT Problems: No - RENAL Hx Chronic Kidney Disease: No - ENDOCRINE/METABOLIC Hx Endocrine Disorders: Yes Hx Diabetes Mellitus Type 2: Yes (borderline) Hx Hypothyroidism: Yes - HEMATOLOGICAL/ONCOLOGICAL Hx Blood Disorders: No Hx Cancer: Yes (Multiple Myeloma Diagnosed April 2017) - MUSCULOSKELETAL/RHEUMATOLOGICAL Hx Musculoskeletal Disorders: No - GASTROINTESTINAL Hx Gastrointestinal Disorders: No - GENITOURINARY/GYNECOLOGICAL Hx Genitourinary Disorders: No - PSYCHIATRIC Hx Psychophysiologic Disorder: No Hx Substance Use: No - SURGICAL HISTORY Hx Orthopedic Surgery: Yes Other/Comment: Bilateral knee replacement, R hip replacement - ANESTHESIA Hx Anesthesia: Yes Meds Allergies/Adverse Reactions: Allergies Allergy/AdvReac Type Severity Reaction Status Date / Time No Known Allergies Allergy Verified 07/08/17 18:09 - Medications Medications: Current Medications Acetaminophen (Tylenol 325mg Tab) 650 mg PO Q6H PRN PRN Reason: Fever >100.4 F Last Admin: 07/11/17 06:10 Dose: 650 mg Allopurinol (Zyloprim) 100 mg PO Q8 [facility] Alprazolam (Xanax) 0.25 mg PO BID PRN; Protocol PRN Reason: Anxiety Stop: 07/15/17 18:22 Last Admin: 07/11/17 01:44 Dose: 0.25 mg Ascorbic Acid (Vitamin C 500 Mg Tab) 500 mg PO DAILY [facility] Last Admin: 07/10/17 10:55 Dose: 500 mg Diphenhydramine HCl (Benadryl) 25 mg PO Q6H PRN PRN Reason: Itching / Pruritus Docusate Sodium (Colace) 100 mg PO Q12 [facility] Last Admin: 07/10/17 23:10 Dose: 100 mg Enoxaparin Sodium (Lovenox) 40 mg SC DAILY [facility] PRN Reason: Protocol Last Admin: 07/10/17 10:56 Dose: 40 mg Famotidine (Pepcid) 20 mg PO HS [facility] Fentanyl (Duragesic) 1 patch TD Q72H [facility] Last Admin: 07/10/17 10:53 Dose: 1 patch Pamidronate Disodium 90 mg/ (Sodium Chloride) 510 mls @ 127.5 mls/hr IVPB ONCE ONE Stop: 07/11/17 13:31 Sodium Chloride (Sodium Chloride 0.9%) 1,000 mls @ 60 mls/hr IV .[id number] [facility] Stop: 07/12/17 02:24 Insulin Human Lispro (Humalog Low) 0 units SC ACHS [facility] PRN Reason: Protocol Last Admin: 07/11/17 11:59 Dose: Not Given Morphine Sulfate (Morphine) 2 mg IVP Q4H PRN PRN Reason: Pain, severe (8-10) Last Admin: 07/10/17 23:09 Dose: 2 mg Ondansetron HCl (Zofran Inj) 4 mg IVP Q4H PRN PRN Reason: Nausea/Vomiting Zinc Sulfate (Zinc Sulfate 220 Mg Cap) 220 mg PO DAILY [facility] Last Admin: 07/10/17 10:55 Dose: 220 mg Zolpidem Tartrate (Ambien) 10 mg PO HS PRN; Protocol PRN Reason: Insomnia Physical Exam - Head Exam Head Exam: NORMAL INSPECTION - Eye Exam Eye Exam: EOMI - Respiratory Exam Respiratory Exam: Clear to Auscultation Bilateral - Cardiovascular Exam Cardiovascular Exam: REGULAR RHYTHM - GI/Abdominal Exam GI & Abdominal Exam: Normal Bowel Sounds - Back Exam Back exam: vertebral tenderness Additional comments: tenderness in the lower lumbar/sacral region - Neurological Exam Neurological exam: CN II-XII Intact, Oriented x3 Additional comments: left upper extremity strength is 4/5. Remainder of motor examination was 5/5 Results - Vital Signs Recent Vital Signs: Last Vital Signs Temp 98.5 F 07/11/17 07:30 Pulse 78 07/11/17 07:30 Resp 18 07/11/17 07:30 BP 114/66 07/11/17 07:30 Pulse Ox 100 07/11/17 07:30 - Labs Result Diagrams: 07/11/17 07:00 07/11/17 07:00 Labs: Laboratory Results - last 24 hr 07/09/17 07/09/17 07/10/17 07:21 16:32 07:43 WBC RBC Hgb Hct MCV MCH MCHC RDW Plt Count MPV Gran % Lymph % (Auto) [place] % (Auto) Eos % (Auto) Baso % (Auto) Gran # Lymph # [place] # Eos # Baso # Sodium Potassium Chloride Carbon Dioxide Anion Gap BUN Creatinine Est GFR ( Amer) Est GFR (Non-Af Amer) POC Glucose (mg/dL) 101 183 H 143 H Random Glucose Uric Acid Calcium Total Bilirubin AST ALT Alkaline Phosphatase Total Protein Albumin Globulin Albumin/Globulin Ratio 07/10/17 07/10/17 07/11/17 11:18 17:06 07:00 WBC 4.2 L RBC 3.82 Hgb 10.6 L Hct 34.3 L MCV 89.8 MCH 27.7 MCHC 30.9 L RDW 15.3 H Plt Count 247 MPV 10.5 Gran % 68.7 H Lymph % (Auto) 17.1 L [place] % (Auto) 10.1 H Eos % (Auto) 3.9 Baso % (Auto) 0.2 Gran # 2.85 Lymph # 0.7 L [place] # 0.4 Eos # 0.2 Baso # 0.01 Sodium Potassium Chloride Carbon Dioxide Anion Gap BUN Creatinine Est GFR ( Amer) Est GFR (Non-Af Amer) POC Glucose (mg/dL) 124 H 124 H Random Glucose Uric Acid Calcium Total Bilirubin AST ALT Alkaline Phosphatase Total Protein Albumin Globulin Albumin/Globulin Ratio 07/11/17 07/11/17 07:00 07:00 WBC RBC Hgb Hct MCV MCH MCHC RDW Plt Count MPV Gran % Lymph % (Auto) [place] % (Auto) Eos % (Auto) Baso % (Auto) Gran # Lymph # [place] # Eos # Baso # Sodium 137 Potassium 4.4 Chloride 100 Carbon Dioxide 28 Anion Gap 13 BUN 7 Creatinine 0.7 L Est GFR ( Amer) > 60 Est GFR (Non-Af Amer) > 60 POC Glucose (mg/dL) Random Glucose 133 H Uric Acid 6.0 Calcium 9.1 Total Bilirubin 0.4 AST 29 ALT 27 Alkaline Phosphatase 85 Total Protein 7.8 Albumin 3.6 Globulin 4.2 Albumin/Globulin Ratio 0.9 L Assessment & Plan - Assessment and Plan (Free Text) Assessment: Mr Harper is a 57 year old male with a newly diagnosed multiple myeloma. He had palliative radiatin therapy to the left paraspinal mass at [facility] at the end of May. He is scheduled to begin chemotherapy. We let him know that we would like to get a CT of the chest, abdomen and pelvis for better visualization of his disease. We would agree that he would benefit from palliative radiation to the left shoulder and right hip, however he does also have pain in the lower lumbar/sacral region which he could possible benefit from radiation. We will finalize a plan with him after the CT imaging studies.
[2017-07-11] MEDS: Enoxaparin 40 mg Syringe SC SCH (12:35)
--- NOTE | 2017-07-11 13:24 | CP.PCM.PN ---
<Ron Hong - Last Filed: 07/11/17 15:59> Subjective - Date & Time of Evaluation Date of Evaluation: 07/11/17 Time of Evaluation: 08:21 - Subjective Subjective: Patient seen and examined at bedside. Per nursing no acute events occurred overnight. Today the patient reports being tired and difficulty sleeping. The patient also reports lower back pain. The patient had one bowel movement yesterday and is tolerating the diet. The patient denies any chest pain, abdominal pain, nausea, vomiting, fevers, chills, or any other complaints. Objective - Vital Signs/Intake and Output Vital Signs (last 24 hours): Temp Pulse Resp BP Pulse Ox 98.5 F 78 18 114/66 100 07/11/17 07:30 07/11/17 07:30 07/11/17 07:30 07/11/17 07:30 07/11/17 07:30 Intake and Output: 07/11/17 07/11/17 06:59 18:59 Intake Total 1120 Output Total 1100 Balance 20 - Medications Medications: Current Medications Acetaminophen (Tylenol 325mg Tab) 650 mg PO Q6H PRN PRN Reason: Fever >100.4 F Last Admin: 07/11/17 06:10 Dose: 650 mg Allopurinol (Zyloprim) 100 mg PO Q8 [facility] Last Admin: 07/11/17 12:36 Dose: 100 mg Alprazolam (Xanax) 0.25 mg PO BID PRN; Protocol PRN Reason: Anxiety Stop: 07/15/17 18:22 Last Admin: 07/11/17 01:44 Dose: 0.25 mg Ascorbic Acid (Vitamin C 500 Mg Tab) 500 mg PO DAILY [facility] Last Admin: 07/11/17 12:36 Dose: 500 mg Diphenhydramine HCl (Benadryl) 25 mg PO Q6H PRN PRN Reason: Itching / Pruritus Docusate Sodium (Colace) 100 mg PO Q12 [facility] Last Admin: 07/11/17 12:37 Dose: 100 mg Enoxaparin Sodium (Lovenox) 40 mg SC DAILY [facility] PRN Reason: Protocol Last Admin: 07/11/17 12:35 Dose: 40 mg Famotidine (Pepcid) 20 mg PO HS [facility] Fentanyl (Duragesic) 1 patch TD Q72H [facility] Last Admin: 07/10/17 10:53 Dose: 1 patch Pamidronate Disodium 90 mg/ (Sodium Chloride) 510 mls @ 127.5 mls/hr IVPB ONCE ONE Stop: 07/11/17 13:31 Last Admin: 07/11/17 12:34 Dose: 127.5 mls/hr Sodium Chloride (Sodium Chloride 0.9%) 1,000 mls @ 60 mls/hr IV .[id number] [facility] Stop: 07/12/17 02:24 Last Admin: 07/11/17 12:35 Dose: 60 mls/hr Insulin Human Lispro (Humalog Low) 0 units SC ACHS [facility] PRN Reason: Protocol Last Admin: 07/11/17 11:59 Dose: Not Given Morphine Sulfate (Morphine) 2 mg IVP Q4H PRN PRN Reason: Pain, severe (8-10) Last Admin: 07/10/17 23:09 Dose: 2 mg Ondansetron HCl (Zofran Inj) 4 mg IVP Q4H PRN PRN Reason: Nausea/Vomiting Zinc Sulfate (Zinc Sulfate 220 Mg Cap) 220 mg PO DAILY [facility] Last Admin: 07/11/17 12:46 Dose: 220 mg Zolpidem Tartrate (Ambien) 10 mg PO HS PRN; Protocol PRN Reason: Insomnia - Labs Labs: 07/11/17 07:00 07/11/17 07:00 PT 13.7 SECONDS (9.4-12.5) H 07/08/17 13:00 INR 1.24 (0.93-1.08) H 07/08/17 13:00 APTT 30.9 Seconds (25.1-36.5) 07/08/17 13:00 - Head Exam Head Exam: ATRAUMATIC, NORMAL INSPECTION, NORMOCEPHALIC - Eye Exam Eye Exam: EOMI, Normal appearance, PERRL. absent: Periorbital tenderness Pupil Exam: NORMAL ACCOMODATION, PERRL. absent: Irregular, Unequal - ENT Exam ENT Exam: Mucous Membranes Moist, Normal Exam, Normal Oropharynx - Neck Exam Neck Exam: Normal Inspection. absent: Lymphadenopathy, Meningismus, Thyromegaly - Respiratory Exam Respiratory Exam: Clear to Ausculation Bilateral, NORMAL BREATHING PATTERN. absent: Chest Wall Tenderness, Prolonged Expiratory Phase, Respiratory Distress - Cardiovascular Exam Cardiovascular Exam: REGULAR RHYTHM, RRR, +S1, +S2. absent: Gallop, Rubs - GI/Abdominal Exam GI & Abdominal Exam: Soft, Normal Bowel Sounds. absent: Guarding, Rigid, Hernia , Hyperactive Bowel Sounds, Mass - Extremities Exam Extremities Exam: Full ROM. absent: Joint Swelling, Pedal Edema, Tenderness - Back Exam Back Exam: NORMAL INSPECTION. absent: CVA tenderness (L), CVA tenderness (R), paraspinal tenderness - Neurological Exam Neurological Exam: Alert, Awake, CN II-XII Intact, Normal Gait, Oriented x3 - Psychiatric Exam Psychiatric exam: Normal Affect, Normal Mood - Skin Skin Exam: Dry, Intact Additional comments: sacral ulcer just superior to the kaylee cleft. Assessment and Plan - Assessment and Plan (Free Text) Assessment: 57 year old with a multiple myeloma who presents with intractable pain, immobility, and fever. Plan: 1. Intractable pain secondary to Multiple Myeloma - Left shoulder X-ray shows old healed fracture deformities in the distal and proximal shaft left humerus and degenerative changes in both shoulder girdles and multiple small lucencies throughout the osseous structures consistent with history multiple myeloma. -Lumbar spine CT showed inumerable lytic lesions consistent with multiple myeloma. lesion in the right S2 sacral area with cortical destruction with no neural foraminal encroachment, lytic lesion of posterior aspect of T11, and atypical expansile lesion on the left side of L1 associated with cortical destruction. -Continue pain management. -Throracic spine Ct showed lytic lesions throughout thoracic spine, confluent large, expansile lytic lesions at T8-T9 with encroachment upon central spinal canal, and incidental 1.6mm mass in the left lower lobe found. -Lumbar spine MRI showed multiple myelomatous infiltration, large lytic lesions , central bony canal and exit foramina adequate, spondylosis at L4-L5, and heterogenous signal changes throughout lumboscaral segments -Thoracic MRI: mild diffuse infiltration changes throughout wall of thoracic and vertebral body, and 2 large infiltration lesions in left lateral margins of T8-T9. -Bone density showed diffuse lytic lesions throughout all osseous structures of the axial and appendicular skeleton. - Orthopedic consult, Dr. Varghese. Rec's appreciated. - Hematology/Oncology consult, Dr. Lafleur. Rec's appreciated. -Russ consulted. Rec's appreciated. - Dr. Larsen consulted. Rec's appreciated. -Patient expected to undergo chemotherapy tomorrow per Dr. Yanes's resident. 2) Fever 2/2 likely due to sacral ulcer. -SIRS upon admission.Resolved. - Blood culture (-)x48 hours, Urine culture negative. - Urine Analysis negative. -Rapid flu pending. Will f/u with results. - Continue Tylenol 650 mg PRN for fever greater than 100.4 F - Infectious disease consulted. Rec's appreciated. 3) Anxiety - Continue Xanax 0.25 mg BID 4) DM II - ISS Lispro (low). Accuchecks. - Diabetic diet. 5) Decubitus Ulcer - Wound culture grew Strep Agalactiae Group B and Corneybacterium species. - ID consulted. Rec's appreciated. - Continue Zinc, Vitamin C 6) Lower extremity swelling - Duplex US of bilateral lower extremities ordered. Will f/u with with results. 7) h/o Hypothyroidism -confirmed med's with Pharmacy. Restarted Levothyroxine 25mg Daily. DVT/GI prophylaxis - Lovenox 40 mg SC qday - pepcid 20 mg IVP daily <Cristhian Mustafa - Last Filed: 07/12/17 16:32> Objective - Vital Signs/Intake and Output Vital Signs (last 24 hours): Temp Pulse Resp BP Pulse Ox 98.0 F 98 H 20 141/74 96 07/12/17 12:58 07/12/17 12:58 07/12/17 12:58 07/12/17 12:58 07/12/17 12:58 Intake and Output: 07/12/17 07/12/17 06:59 18:59 Intake Total 720 1115 Output Total 1650 200 Balance -930 915 - Medications Medications: Current Medications Acetaminophen (Tylenol 325mg Tab) 650 mg PO Q6H PRN PRN Reason: Fever >100.4 F Last Admin: 07/12/17 16:06 Dose: 650 mg Allopurinol (Zyloprim) 100 mg PO Q8 [facility] Last Admin: 07/12/17 14:37 Dose: 100 mg Alprazolam (Xanax) 0.25 mg PO BID PRN; Protocol PRN Reason: Anxiety Stop: 07/15/17 18:22 Last Admin: 07/12/17 00:56 Dose: 0.25 mg Ascorbic Acid (Vitamin C 500 Mg Tab) 500 mg PO DAILY [facility] Last Admin: 07/12/17 11:21 Dose: Not Given Diphenhydramine HCl (Benadryl) 25 mg PO Q6H PRN PRN Reason: Itching / Pruritus Last Admin: 07/12/17 02:55 Dose: 25 mg Docusate Sodium (Colace) 100 mg PO Q12 [facility] Last Admin: 07/12/17 11:20 Dose: Not Given Enoxaparin Sodium (Lovenox) 40 mg SC DAILY [facility] PRN Reason: Protocol Last Admin: 07/12/17 11:20 Dose: Not Given Famotidine (Pepcid) 20 mg PO HS [facility] Last Admin: 07/11/17 22:26 Dose: 20 mg Sodium Chloride (Sodium Chloride 0.45%) 1,000 mls @ 80 mls/hr IV .[id number] [facility] Stop: 07/12/17 22:00 Insulin Human Lispro (Humalog Low) 0 units SC ACHS [facility] PRN Reason: Protocol Last Admin: 07/12/17 07:59 Dose: Not Given Levothyroxine Sodium (Synthroid) 25 mcg PO 0600 [facility] Last Admin: 07/12/17 05:46 Dose: 25 mcg Morphine Sulfate (Morphine) 2 mg IVP Q4H PRN PRN Reason: Pain, severe (8-10) Last Admin: 07/12/17 16:06 Dose: 2 mg Ondansetron HCl (Zofran Inj) 4 mg IVP Q4H PRN PRN Reason: Nausea/Vomiting Zinc Sulfate (Zinc Sulfate 220 Mg Cap) 220 mg PO DAILY [facility] Last Admin: 07/12/17 11:21 Dose: Not Given Zolpidem Tartrate (Ambien) 10 mg PO HS [facility] PRN Reason: Protocol Last Admin: 07/11/17 22:25 Dose: 10 mg - Labs Labs: 07/12/17 06:47 07/12/17 06:47 PT 13.7 SECONDS (9.4-12.5) H 07/08/17 13:00 INR 1.24 (0.93-1.08) H 07/08/17 13:00 APTT 30.9 Seconds (25.1-36.5) 07/08/17 13:00 Attending/Attestation - Attestation I have personally seen and examined this patient.: Yes I have fully participated in the care of the patient.: Yes I have reviewed all pertinent clinical information, including history, physical exam and plan: Yes Notes (Text): 07/12/17 16:30 attending note; Patient seen and examined With resident. Patient is a 57 year old with a past medical history of multiple myeloma with pathologic fractures, bilateral knee surgery, left arm pathological fracture, and right hip fracture, multiple lytic lesions in thoracic and lumbar spine, expansile withlytic lesion with mild encroachment at T8 and T9 level is admitted with intractable back pain. Patient was initially followed up at [facility]. Recently seen Dr. Lafleur oncologist as outpatient. Patient had palliative radiation and chemotherapy at [facility]. Current CT lumbar spine showed multiple lytic lesionsthroughout the lumbar spine , slightly atypical expansile lesion on the left side of L1 vertebrae. CT thoracic spine showed extensive myelomatous change with lytic lesions throughout the thoracic spine and confluent large expansile/distractive lytic lesion at T8-T9 with encroachment upon the central spinal canal from the left side. Incidental 1.6 cm mass in the left lower lobe. MRI of the thoracic and lumbar spine showed multiple myelomatous lesions. No compression. Acute fracture. Patient was evaluated by orthopedics Dr. Amaya. neurosurgery evaluation appreciated. patient refused neurosurgery. Patient will prefer chemotherapy first. Patient will get Port-A-Cath tomorrow by Dr. Bayron Atkins. radiation oncology evaluation appreciated. we will get outpatient radiation therapy. fever; resolved. currently afebrile. Dc culture is negative. ID evaluation appreciated. Off antibiotics. sacral decubitus ulcer; patient had debridement done as outpatient. Patient uses Wound vac as outpatient. currently followed up by surgery/Wound Care. Upon discharge patient will follow-up with PMD of choice.
--- NOTE | 2017-07-11 15:17 | CT ---
PROCEDURE: CT Chest, Abdomen and Pelvis with intravenous contrast HISTORY: newly diagnosed multiple myeloma w/ diffuse bone COMPARISON: None. TECHNIQUE: IV dose administered: 150 cc of Omni 350 Radiation dose: Total exam DLP = 1341 mGy-cm. This CT exam was performed using one or more of the following dose reduction techniques: Automated exposure control, adjustment of the mA and/or kV according to patient size, and/or use of iterative reconstruction technique. FINDINGS: CT CHEST WITH CONTRAST: LUNGS: Interstitial changes and multiple small bulla are seen at the periphery of both upper lobes. MEDIASTINUM: Unremarkable. Normal caliber aorta and pulmonary arterial trunk. No aortic dissection. Normal size heart. LYMPH NODES: Unremarkable. PLEURA: Unremarkable. No pneumothorax. No pleural fluid. BONES: Destructive bony lesions are seen on the left side of the T8 and T9 vertebral bodies. This also involves the adjacent ribs. This does not appear to invade the spinal canal. A small lesion is also seen on the left side of L1. There is a large lesion in the left iliac bone. OTHER FINDINGS: None. CT ABDOMEN AND PELVIS: LIVER: Unremarkable. No gross lesion or ductal dilatation. GALLBLADDER AND BILE DUCTS: Unremarkable. PANCREAS: Unremarkable. No gross lesion or ductal dilatation. SPLEEN: Unremarkable. ADRENALS: Unremarkable. No mass. KIDNEYS AND URETERS: Unremarkable. No hydronephrosis. No solid mass. VASCULATURE: Unremarkable. No aortic aneurysm. BOWEL: Unremarkable. No obstruction. No gross mural thickening. APPENDIX: Normal appendix. PERITONEUM: Unremarkable. No free fluid. No free air. LYMPH NODES: Unremarkable. No enlarged lymph nodes. BLADDER: Unremarkable. REPRODUCTIVE: Unremarkable. BONES: No acute fracture. OTHER FINDINGS: There is a collection of air adjacent to the sacrum consistent with a decubitus ulcer. There is also a fluid collection in the right gluteal region. These findings can be seen on image 220 of series 2 IMPRESSION: Destructive bony lesions are seen on the left side of the T8 and T9 vertebral bodies. This also involves the adjacent ribs. This does not appear to invade the spinal canal. A small lesion is also seen on the left side of L1. There is a large lesion in the left iliac bone.
--- NOTE | 2017-07-11 16:23 | CP.PCM.PN ---
Subjective - Date & Time of Evaluation Date of Evaluation: 07/11/17 Time of Evaluation: 11:55 - Subjective Subjective: Comfortable, no fevers, not in distress. Objective - Vital Signs/Intake and Output Vital Signs (last 24 hours): Temp Pulse Resp BP Pulse Ox 98.5 F 78 18 114/66 100 07/11/17 07:30 07/11/17 07:30 07/11/17 07:30 07/11/17 07:30 07/11/17 07:30 Intake and Output: 07/11/17 07/11/17 06:59 18:59 Intake Total 1120 Output Total 1100 Balance 20 - Medications Medications: Current Medications Acetaminophen (Tylenol 325mg Tab) 650 mg PO Q6H PRN PRN Reason: Fever >100.4 F Last Admin: 07/11/17 06:10 Dose: 650 mg Allopurinol (Zyloprim) 100 mg PO Q8 [facility] Alprazolam (Xanax) 0.25 mg PO BID PRN; Protocol PRN Reason: Anxiety Stop: 07/15/17 18:22 Last Admin: 07/11/17 01:44 Dose: 0.25 mg Ascorbic Acid (Vitamin C 500 Mg Tab) 500 mg PO DAILY [facility] Last Admin: 07/10/17 10:55 Dose: 500 mg Diphenhydramine HCl (Benadryl) 25 mg PO Q6H PRN PRN Reason: Itching / Pruritus Docusate Sodium (Colace) 100 mg PO Q12 [facility] Last Admin: 07/10/17 23:10 Dose: 100 mg Enoxaparin Sodium (Lovenox) 40 mg SC DAILY [facility] PRN Reason: Protocol Last Admin: 07/10/17 10:56 Dose: 40 mg Famotidine (Pepcid) 20 mg PO HS [facility] Fentanyl (Duragesic) 1 patch TD Q72H [facility] Last Admin: 07/10/17 10:53 Dose: 1 patch Pamidronate Disodium 90 mg/ (Sodium Chloride) 510 mls @ 127.5 mls/hr IVPB ONCE ONE Stop: 07/11/17 13:31 Sodium Chloride (Sodium Chloride 0.9%) 1,000 mls @ 60 mls/hr IV .[id number] [facility] Stop: 07/12/17 02:24 Insulin Human Lispro (Humalog Low) 0 units SC ACHS [facility] PRN Reason: Protocol Last Admin: 07/11/17 08:03 Dose: Not Given Morphine Sulfate (Morphine) 2 mg IVP Q4H PRN PRN Reason: Pain, severe (8-10) Last Admin: 07/10/17 23:09 Dose: 2 mg Ondansetron HCl (Zofran Inj) 4 mg IVP Q4H PRN PRN Reason: Nausea/Vomiting Zinc Sulfate (Zinc Sulfate 220 Mg Cap) 220 mg PO DAILY [facility] Last Admin: 07/10/17 10:55 Dose: 220 mg - Labs Labs: 07/11/17 07:00 07/11/17 07:00 PT 13.7 SECONDS (9.4-12.5) H 07/08/17 13:00 INR 1.24 (0.93-1.08) H 07/08/17 13:00 APTT 30.9 Seconds (25.1-36.5) 07/08/17 13:00 - Constitutional Appears: Non-toxic - Head Exam Head Exam: NORMAL INSPECTION - ENT Exam ENT Exam: Mucous Membranes Moist - Neck Exam Neck Exam: absent: Meningismus - Respiratory Exam Respiratory Exam: Decreased Breath Sounds - Cardiovascular Exam Cardiovascular Exam: +S1, +S2 - GI/Abdominal Exam GI & Abdominal Exam: Soft. absent: Tenderness Assessment and Plan - Assessment and Plan (Free Text) Plan: Assessment Systemic Inflammatory response syndrome, so far no source of sepsis identified; consider due to multiple myeloma DM HTN obesity with BM 38 multiple myeloma S/P bilateral knee replacement 2016 S/P left arm fracture S/P right hip fracture decubitus ulcer on the back Plan repeat blood cx are negative; urine cx are negative ; follow up CT C/A/P; will continue to monitor off antibiotics
[2017-07-11] MEDS: Morphine 2 mg/ml ISec IVP PRN (18:54)
--- NOTE | 2017-07-11 19:03 | US ---
HISTORY: Leg pain and swelling. Evaluate for DVT PHYSICIAN(S): Bayron Atkins MD. TECHNIQUE: Duplex sonography and color-flow Doppler with graded compression were used to evaluate the deep venous systems of both lower extremities. FINDINGS: The visualized deep venous systems of both lower extremities are sonographically normal and compressible. Normal wave forms and augmentation are seen. There is no sonographic evidence for deep venous thrombosis in the visualized segments of both lower extremities. IMPRESSION: No sonographic evidence for deep venous thrombosis in the visualized segments of both lower extremities.
[2017-07-11 19:10] LABS: ABNORMAL PROTEIN BAND 1 1.66 g/dL (None Detected); BETA 1 GLOBULIN 0.4 g/dL (0.4-0.6); BETA 2 GLOBULIN 1.9 g/dL (0.2-0.5); GAMMA GLOBULIN 0.5 g/dL (0.8-1.7)
--- NOTE | 2017-07-11 23:08 | CARD ---
APPROVED REPORT EXAM: Two-dimensional and M-mode echocardiogram with Doppler and color Doppler. INDICATION LV Function:SystolicDiastolic 2D DIMENSIONS Left Atrium (2D)4.9 (1.6-4.0cm)IVSd0.9 (0.7-1.1cm) LVDd5.9 (3.9-5.9cm)PWd1.2 (0.7-1.1cm) LVDs4.3 (2.5-4.0cm)FS (%) 26.6 % LVEF (%)51.4 (>50%) M-Mode DIMENSIONS Aortic Root3.50 (2.2-3.7cm)Aortic Cusp Exc.1.70 (1.5-2.0cm) Aortic Valve AoV Peak Rejbzbqq961.0cm/sAoV VTI55.7cmAO Peak GR.36mmHg LVOT Peak Hpzuwnvc274.0cm/sLVOT VTI24.90cmAO Mean GR.17mmHg AI P 1/2 Lyds507kk Mitral Valve MV E Lnelxlyg12.0cm/sMV A Myfwhmrz47.7cm/sE/A ratio0.8 TDI Lateral E' Peak V10.50cm/sMedial E' Peak V7.21cm/sE/Lateral E'7.4 E/Medial E'10.8 Pulmonary Valve PV Peak Ttrdpcdn87.3cm/sPV Peak Grad.3mmHg Tricuspid Valve TR Peak Cikjrkvm396fz/sRAP VDHHHGIU18aqUhFK Peak Gr.27mmHg PMOL43tdFb LEFT VENTRICLE The Left Ventricle is borderline dilated. There is normal left ventricular wall thickness. Left ventricle systolic function is borderline. There is normal LV segmental wall motion. Transmitral Doppler flow pattern is Grade I-abnormal relaxation pattern. RIGHT VENTRICLE The right ventricle is normal size. There is normal right ventricular wall thickness. The right ventricular systolic function is normal. ATRIA The left atrium is mildly dilated. The right atrium is mildly dilated. AORTIC VALVE The aortic valve is moderately thickened. There is moderate aortic regurgitation. MITRAL VALVE The mitral valve is mildly thickened. There is no mitral valve regurgitation noted. There is no mitral valve stenosis. TRICUSPID VALVE There is mild tricuspid regurgitation. There is mild pulmonary hypertension. GREAT VESSELS The aortic root is normal in size. The IVC is normal in size and collapses >50% with inspiration. PERICARDIAL EFFUSION There is no pericardial effusion. <Conclusion> The Left Ventricle is borderline dilated. There is normal left ventricular wall thickness. Left ventricle systolic function is borderline. There is normal LV segmental wall motion. Transmitral Doppler flow pattern is Grade I-abnormal relaxation pattern. There is moderate aortic regurgitation. There is mild pulmonary hypertension.
[2017-07-12] MEDS: Insulin Lispro (humaLOG) LOW Coverage SC SCH ×4 (03:50→21:30)
[2017-07-12] MEDS: Levothyroxine 25 MCG TAB PO SCH (05:46)
--- NOTE | 2017-07-12 06:53 | CP.PCM.PN ---
Subjective - Date & Time of Evaluation Date of Evaluation: 07/12/17 Time of Evaluation: 08:05 - Subjective Subjective: Heme/onc progress note for Dr Lafleur's service Patient with no events overnight. Patient was not able to get the port cath yesterday, scheduled for today. Patient admits to chronic fatigue. Able to ambulate from bed to chair using the chair as a walker. Denies fever, chills, n/ v/d. Denies abdominal pain. Admits to chronic body aches and pain. Objective - Vital Signs/Intake and Output Vital Signs (last 24 hours): Temp Pulse Resp BP Pulse Ox 98.5 F 93 H 20 92/66 L 97 07/11/17 16:00 07/11/17 16:00 07/11/17 16:00 07/11/17 16:00 07/11/17 16:00 Intake and Output: 07/11/17 07/12/17 18:59 06:59 Intake Total 480 720 Output Total 175 1650 Balance 305 -930 - Medications Medications: Current Medications Acetaminophen (Tylenol 325mg Tab) 650 mg PO Q6H PRN PRN Reason: Fever >100.4 F Last Admin: 07/12/17 02:55 Dose: 650 mg Allopurinol (Zyloprim) 100 mg PO Q8 [facility] Last Admin: 07/12/17 05:46 Dose: 100 mg Alprazolam (Xanax) 0.25 mg PO BID PRN; Protocol PRN Reason: Anxiety Stop: 07/15/17 18:22 Last Admin: 07/12/17 00:56 Dose: 0.25 mg Ascorbic Acid (Vitamin C 500 Mg Tab) 500 mg PO DAILY [facility] Last Admin: 07/11/17 12:36 Dose: 500 mg Diphenhydramine HCl (Benadryl) 25 mg PO Q6H PRN PRN Reason: Itching / Pruritus Last Admin: 07/12/17 02:55 Dose: 25 mg Docusate Sodium (Colace) 100 mg PO Q12 [facility] Last Admin: 07/11/17 22:25 Dose: 100 mg Enoxaparin Sodium (Lovenox) 40 mg SC DAILY [facility] PRN Reason: Protocol Last Admin: 07/11/17 12:35 Dose: 40 mg Famotidine (Pepcid) 20 mg PO HS [facility] Last Admin: 07/11/17 22:26 Dose: 20 mg Fentanyl (Duragesic) 1 patch TD Q72H [facility] Last Admin: 07/10/17 10:53 Dose: 1 patch Insulin Human Lispro (Humalog Low) 0 units SC ACHS [facility] PRN Reason: Protocol Last Admin: 07/12/17 03:50 Dose: Not Given Levothyroxine Sodium (Synthroid) 25 mcg PO 0600 [facility] Last Admin: 07/12/17 05:46 Dose: 25 mcg Morphine Sulfate (Morphine) 2 mg IVP Q4H PRN PRN Reason: Pain, severe (8-10) Last Admin: 07/11/17 18:54 Dose: 2 mg Ondansetron HCl (Zofran Inj) 4 mg IVP Q4H PRN PRN Reason: Nausea/Vomiting Zinc Sulfate (Zinc Sulfate 220 Mg Cap) 220 mg PO DAILY [facility] Last Admin: 07/11/17 12:46 Dose: 220 mg Zolpidem Tartrate (Ambien) 10 mg PO HS [facility] PRN Reason: Protocol Last Admin: 07/11/17 22:25 Dose: 10 mg - Labs Labs: 07/11/17 07:00 07/11/17 07:00 PT 13.7 SECONDS (9.4-12.5) H 07/08/17 13:00 INR 1.24 (0.93-1.08) H 07/08/17 13:00 APTT 30.9 Seconds (25.1-36.5) 07/08/17 13:00 - Constitutional Appears: No Acute Distress, Older Than Stated Age, Chronically Ill - Head Exam Head Exam: ATRAUMATIC, NORMAL INSPECTION, NORMOCEPHALIC - Eye Exam Eye Exam: Normal appearance Pupil Exam: NORMAL ACCOMODATION - ENT Exam ENT Exam: Normal Exam - Neck Exam Neck Exam: Normal Inspection - Respiratory Exam Respiratory Exam: Clear to Ausculation Bilateral, NORMAL BREATHING PATTERN. absent: Prolonged Expiratory Phase, Rales, Rhonchi, Wheezes, Respiratory Distress, Stridor - Cardiovascular Exam Cardiovascular Exam: REGULAR RHYTHM, +S1, +S2. absent: Bradycardia, Tachycardia - GI/Abdominal Exam GI & Abdominal Exam: Soft, Normal Bowel Sounds. absent: Distended, Firm, Guarding, Rigid, Tenderness, Diminished Bowel Sounds Additional comments: Obese abdomen. - Extremities Exam Extremities Exam: Pedal Edema (+2). absent: Tenderness - Back Exam Back Exam: NORMAL INSPECTION - Neurological Exam Neurological Exam: Alert, Awake - Psychiatric Exam Psychiatric exam: Flat Affect, Normal Mood - Skin Skin Exam: Dry Additional comments: + sacral wound with clean dressing. Healing sherrell knee old surgical scar. Assessment and Plan - Assessment and Plan (Free Text) Assessment: Patient is a 57 y/o with pmh of progressive multiple myeloma, hypothyroidism, anxiety, multiple lytic lesions of the spine, with fractures of the bilateral knees s/p sherrell knee replacement, with spontaneous fractures of the left humerus and right hip while getting physical therapy. 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 Patient also had radiation while at [facility] During hospitalization, patient developed large sacral decubitus ulcers requiring antibiotics. Patient also had replacement of his right hip. Patient saw Dr Lafleur in the office for the first time on 07/06/17 to establish care. Patient presented with worsening pain and is currently admitted with failure to thrive, gait instability and worsening of the pain. Plan: 1) Extensive multiple myeloma lesions causing intractable generalized pain - Patient had X-rays, CT and MRI of the spine, consistent with lytic lesions with mass at the T9 region, with left humeral fracture, no cord compression - Patient was seen by Neurology, neurosurgery and orthopedic. - Neurosurgery recommending surgery, however patient is concerned this might delay his chemo. - Patient to get fitted for bracing. - Continue with fentanyl patch for pain, and morphine prn - Patient was giving a dose of aredia yesterday - Continue with allopurinol 100 mg tid in preparation for chemo - cardiac echo done with borderline dilated LV and grade 1 diastolic disfunction. - Patient to get chemo port inserted today for possible chemo tomorrow - Myeloma work up pending for staging. - Will obtain bone marrow biopsy reports from [facility] - Pending for radiation oncology plan. -Will follow up with IR for possibility of kyphoplasty. 2) SIRS likely due to sacral decubitus ulcer and wound infection. - afebrile and no leukocytosis-> sirs resolved. - Patient was on antibiotics for brief period - Wound culture growing corenybacterium, and strep agalactea grp B. - Surgery is following for wound care - air mattress - ID is also following. - Patient is also on zinc for wound healing. 3) DM- on insulin sliding scale, on moderate carb diet. 4) Lower extremities edema- LE u/s negative for DVT. Continue with leg elevation. 5) DVT and Gi prophylaxis: Lovenox sc and Pepcid. Patient seen, examined and case discussed with Dr Lafleur.
[2017-07-12 07:59] LABS: BASO # 0.02 K/mm3 (0.0-2.0); BASO % 0.5 % (0.0-3.0); EOS # 0.2 (0.0-0.7); GRAN # 2.89 (1.4-6.5); GRAN % 71.7 % (50.0-68.0); HEMATOCRIT 33.7 % (42.0-52.0); LYMPH # 0.5 (1.2-3.4); LYMPH % 12.9 % (22.0-35.0); MEAN CELL VOLUME 89.6 fl (80.0-105.0); MEAN CORPUSCULAR HEMOGLOBIN 27.9 pg (25.0-35.0); MEAN CORPUSCULAR HGB CONC 31.2 g/dl (31.0-37.0); MEAN PLATELET VOLUME 10.3 fl (7.0-11.0); MONO # 0.4 (0.1-0.6); MONO % 9.9 % (1.0-6.0); RED CELL DISTRIBUTION WIDTH 15.4 % (11.5-14.5)
[2017-07-12] MEDS: Morphine 2 mg/ml ISec IVP PRN ×3 (07:59→20:21)
[2017-07-12 08:07] LABS: ALB/GLOB RATIO 0.8 (1.1-1.8); ALKALINE PHOSPHATASE 91 U/L (38-126); ALT/SGPT 30 U/L (7-56); AST/SGOT 33 U/L (17-59); BILIRUBIN,TOTAL 0.4 mg/dL (0.2-1.3); BLOOD UREA NITROGEN 6 mg/dL (7-21); CALCIUM 8.7 mg/dL (8.4-10.5); CARBON DIOXIDE 29 mmol/L (21-33); CHLORIDE 101 mmol/L (98-107); GFR AFRICAN-AMERICAN > 60; GLUCOSE,RANDOM 123 mg/dL (70-110); POTASSIUM 4.1 mmol/L (3.6-5.0); SODIUM 139 mmol/L (132-148)
--- NOTE | 2017-07-12 09:16 | PN ---
DATE: SUBJECTIVE: A 57-year-old male in room 577, bed 2. He feels better today and no bone pain after the bone survey was done. There is no evidence of impending fractures. At home, he could safely walk with help, but avoid any falls at home and can be followed up by Dr. Lafleur as an outpatient. If I need to see him, they could call me for any problems. Carlin Varghese DO
[2017-07-12] MEDS ORDERED: HEPARIN SODIUM/NS 1,000 ML IV ONE (09:20)
[2017-07-12] MEDS ORDERED: Lidocaine 2% Inj (20ml) ONE ×2 (09:20→09:25)
[2017-07-12] MEDS ORDERED: Midazolam 2 MG/2 ML VIAL ONE ×2 (10:08→10:28)
[2017-07-12] MEDS: Enoxaparin 40 mg Syringe SC SCH (11:20)
[2017-07-12 11:35] LABS: IMMUNOGLOBULIN A 61.7 mg/dL (70.0-400.0); IMMUNOGLOBULIN M < 25.0 mg/dL (40.0-230.0)
[2017-07-12 11:38] LABS: IMMUNOGLOBULIN G 2242.1 mg/dL (700.0-1600.0)
[2017-07-12] MEDS ORDERED: Sodium Chloride 0.45% 1,000 ML IV SCH (11:45)
--- NOTE | 2017-07-12 14:18 | PN ---
DATE: 07/12/2017 SUBJECTIVE: The patient is in bed, was seen early this morning. No fevers and no chills. PHYSICAL EXAMINATION: VITAL SIGNS: Temperature is 98, blood pressure is 102/60, respiratory rate of 18. HEENT: Unremarkable. NECK: Supple. LUNGS: Have decreased breath sounds. HEART: Normal S1, S2. ABDOMEN: Soft, nontender. No rebound. No guarding. LABORATORY DATA: Reveals a white count of 4, hemoglobin of 10, platelets of 249. Chemistries reveals a BUN of 6, creatinine of 0.7. Urinalysis noted. Influenza serology is negative. Microbiology reveals sacral cultures and group B strep agalactiae, Corynebacterium, the blood cultures are negative. Urine cultures are no growth. ASSESSMENT/PLAN: This is a 57-year-old male who was seen early this morning in room 577, bed 2 with a history of morbid obesity, BMI of 39.9, with SIRS (systemic inflammatory response syndrome) and the patient with multiple myeloma, diabetes mellitus, hypertension, obesity, status post bilateral knee replacements and decubitus ulcer on the back with cultures negative. Currently, off of antibiotics. The patient is at risk for developing nosocomial infections. Wilfredo Caraballo MD
--- NOTE | 2017-07-12 14:26 | CP.PCM.CON ---
History of Present Illness - History of Present Illness History of Present Illness: Palliative consult requested by Dr Neetu Lafleur Reason: Goals of care/advance care planning HPI: 57 year old male with history of progressive multiple myeloma who presented with body aches and back pain. The patient has multiple lytic lesions of the long bones,spine and is s/p ORIF's for fracture of the left humerus and right hip. He has difficulty standing and ambulating but attributes this to his recent knee replacement. He developed fever and chills on admission. He denies nausea, vomiting, diarrhea, constipation or headache. PMHx: advanced Multiple Myeloma,fracture of left humerus and right femur s/p OROF's, mass extending from T7 through T9, s/p chemo and radiation therapy, sacral decubiti,s/p bilateral knee replacement,DM. Social History: Former smoker and daily alcohol use but quit 25 years ago. Denies drug use. , lives with spouse. Family History:Non contributory Advance Care Planning: The patient does not have an Advanced Directive. Review of Systems: As per HPI, 12 point review negative. Past Patient History - Past Social History Smoking Status: Former Smoker Alcohol: None Home Situation {Lives}: With Family - CARDIAC Hx Cardiac Disorders: No - PULMONARY Hx Respiratory Disorders: No - NEUROLOGICAL Hx Neurological Disorder: No - HEENT Hx HEENT Problems: No - RENAL Hx Chronic Kidney Disease: No - ENDOCRINE/METABOLIC Hx Endocrine Disorders: Yes Hx Diabetes Mellitus Type 2: Yes (borderline) Hx Hypothyroidism: Yes - HEMATOLOGICAL/ONCOLOGICAL Hx Blood Disorders: No Hx Cancer: Yes (Multiple Myeloma Diagnosed April 2017) - INTEGUMENTARY Hx Dermatological Problems: Yes Hx Melanoma: Yes Other/Comment: Multiple Melanoma Diagnosed April 2017 - MUSCULOSKELETAL/RHEUMATOLOGICAL Hx Musculoskeletal Disorders: No - GASTROINTESTINAL Hx Gastrointestinal Disorders: No - GENITOURINARY/GYNECOLOGICAL Hx Genitourinary Disorders: No - PSYCHIATRIC Hx Psychophysiologic Disorder: No Hx Substance Use: No - SURGICAL HISTORY Hx Orthopedic Surgery: Yes Other/Comment: Bilateral knee replacement, R hip replacement - ANESTHESIA Hx Anesthesia: Yes Meds Allergies/Adverse Reactions: Allergies Allergy/AdvReac Type Severity Reaction Status Date / Time No Known Allergies Allergy Verified 07/08/17 18:09 - Medications Medications: Current Medications Acetaminophen (Tylenol 325mg Tab) 650 mg PO Q6H PRN PRN Reason: Fever >100.4 F Last Admin: 07/12/17 02:55 Dose: 650 mg Allopurinol (Zyloprim) 100 mg PO Q8 [facility] Last Admin: 07/12/17 05:46 Dose: 100 mg Alprazolam (Xanax) 0.25 mg PO BID PRN; Protocol PRN Reason: Anxiety Stop: 07/15/17 18:22 Last Admin: 07/12/17 00:56 Dose: 0.25 mg Ascorbic Acid (Vitamin C 500 Mg Tab) 500 mg PO DAILY [facility] Last Admin: 07/12/17 11:21 Dose: Not Given Diphenhydramine HCl (Benadryl) 25 mg PO Q6H PRN PRN Reason: Itching / Pruritus Last Admin: 07/12/17 02:55 Dose: 25 mg Docusate Sodium (Colace) 100 mg PO Q12 [facility] Last Admin: 07/12/17 11:20 Dose: Not Given Enoxaparin Sodium (Lovenox) 40 mg SC DAILY [facility] PRN Reason: Protocol Last Admin: 07/12/17 11:20 Dose: Not Given Famotidine (Pepcid) 20 mg PO HS [facility] Last Admin: 07/11/17 22:26 Dose: 20 mg Sodium Chloride (Sodium Chloride 0.45%) 1,000 mls @ 80 mls/hr IV .[id number] [facility] Stop: 07/12/17 22:00 Insulin Human Lispro (Humalog Low) 0 units SC ACHS [facility] PRN Reason: Protocol Last Admin: 07/12/17 07:59 Dose: Not Given Levothyroxine Sodium (Synthroid) 25 mcg PO 0600 [facility] Last Admin: 07/12/17 05:46 Dose: 25 mcg Morphine Sulfate (Morphine) 2 mg IVP Q4H PRN PRN Reason: Pain, severe (8-10) Last Admin: 07/12/17 07:59 Dose: 2 mg Ondansetron HCl (Zofran Inj) 4 mg IVP Q4H PRN PRN Reason: Nausea/Vomiting Zinc Sulfate (Zinc Sulfate 220 Mg Cap) 220 mg PO DAILY [facility] Last Admin: 07/12/17 11:21 Dose: Not Given Zolpidem Tartrate (Ambien) 10 mg PO HS [facility] PRN Reason: Protocol Last Admin: 07/11/17 22:25 Dose: 10 mg Physical Exam - Constitutional Appears: Chronically Ill - Head Exam Head Exam: NORMAL INSPECTION - Eye Exam Eye Exam: Normal appearance, PERRL - ENT Exam ENT Exam: Mucous Membranes Moist, Normal Oropharynx - Neck Exam Neck exam: Positive for: Normal Inspection - Respiratory Exam Respiratory Exam: Clear to Auscultation Bilateral, NORMAL BREATHING PATTERN - Cardiovascular Exam Cardiovascular Exam: REGULAR RHYTHM, +S1, +S2 - GI/Abdominal Exam GI & Abdominal Exam: Normal Bowel Sounds, Soft - Extremities Exam Extremities exam: Positive for: pedal edema, pedal pulses present - Back Exam Back exam: vertebral tenderness Additional comments: unstageable sacral decubiti - Neurological Exam Neurological exam: Alert, Oriented x3 - Skin Skin Exam: Dry, Warm - Additional Findings Additional findings: Palliative performance scale rating 60% Results - Vital Signs Recent Vital Signs: Last Vital Signs Temp 98.0 F 07/12/17 12:58 Pulse 98 H 07/12/17 12:58 Resp 20 07/12/17 12:58 BP 141/74 07/12/17 12:58 Pulse Ox 96 07/12/17 12:58 - Labs Result Diagrams: 07/12/17 06:47 07/12/17 06:47 Labs: Laboratory Results - last 24 hr 07/08/17 07/10/17 07/11/17 19:17 21:06 06:00 WBC RBC Hgb Hct MCV MCH MCHC RDW Plt Count MPV Gran % Lymph % (Auto) Jessamine % (Auto) Eos % (Auto) Baso % (Auto) Gran # Lymph # Jessamine # Eos # Baso # Sodium Potassium Chloride Carbon Dioxide Anion Gap BUN Creatinine Est GFR ( Amer) Est GFR (Non-Af Amer) POC Glucose (mg/dL) 158 H Random Glucose Calcium Total Bilirubin AST ALT Alkaline Phosphatase Total Protein Albumin Albumin (PEP) 2.9 L Globulin Albumin/Globulin Ratio Wamfl-7-Hjjauqwwj 0.5 H Kdbir-2-Kdallotme 1.0 H Feyy-4-Efqjukyq 0.4 Iywq-2-Nztfiedj 1.9 H Tque-0-Dpurfvjehhdrk 3.81 H Gamma Globulins 0.5 L Abnorm Protein Band 1 1.66 H Abnorm Protein Band 2 TEST NOT PERFORMED Abnorm Protein Band 3 TEST NOT PERFORMED IgG IgA IgM WHITNEY & SPEP Interp See note WB Flow Cytometry 07/11/17 07/11/17 07/11/17 07:10 11:31 16:31 WBC RBC Hgb Hct MCV MCH MCHC RDW Plt Count MPV Gran % Lymph % (Auto) Jessamine % (Auto) Eos % (Auto) Baso % (Auto) Gran # Lymph # Jessamine # Eos # Baso # Sodium Potassium Chloride Carbon Dioxide Anion Gap BUN Creatinine Est GFR ( Amer) Est GFR (Non-Af Amer) POC Glucose (mg/dL) 117 H 117 H 126 H Random Glucose Calcium Total Bilirubin AST ALT Alkaline Phosphatase Total Protein Albumin Albumin (PEP) Globulin Albumin/Globulin Ratio Jzgza-9-Opfwkowqb Ydavg-4-Obcurixls Fjcg-1-Echdmzoj Mjwo-1-Agcoleyl Qnlo-6-Jzookkotbuxgi Gamma Globulins Abnorm Protein Band 1 Abnorm Protein Band 2 Abnorm Protein Band 3 IgG IgA IgM WHITNEY & SPEP Interp WB Flow Cytometry 07/11/17 07/12/17 07/12/17 21:33 06:47 06:47 WBC 4.0 L RBC 3.76 Hgb 10.5 L Hct 33.7 L MCV 89.6 MCH 27.9 MCHC 31.2 RDW 15.4 H Plt Count 249 MPV 10.3 Gran % 71.7 H Lymph % (Auto) 12.9 L Jessamine % (Auto) 9.9 H Eos % (Auto) 5.0 Baso % (Auto) 0.5 Gran # 2.89 Lymph # 0.5 L Jessamine # 0.4 Eos # 0.2 Baso # 0.02 Sodium 139 Potassium 4.1 Chloride 101 Carbon Dioxide 29 Anion Gap 13 BUN 6 L Creatinine 0.7 L Est GFR ( Amer) > 60 Est GFR (Non-Af Amer) > 60 POC Glucose (mg/dL) 141 H Random Glucose 123 H Calcium 8.7 Total Bilirubin 0.4 AST 33 ALT 30 Alkaline Phosphatase 91 Total Protein 8.0 Albumin 3.7 Albumin (PEP) Globulin 4.3 Albumin/Globulin Ratio 0.8 L Giqko-3-Pldstsdfh Opxta-7-Buxffiriz Tzer-5-Idkjjhar Yheg-1-Mcttfusj Zqbv-9-Ggxuhmztzfzza Gamma Globulins Abnorm Protein Band 1 Abnorm Protein Band 2 Abnorm Protein Band 3 IgG IgA IgM WHITNEY & SPEP Interp WB Flow Cytometry 07/12/17 07/12/17 07/12/17 07:00 07:00 07:05 WBC RBC Hgb Hct MCV MCH MCHC RDW Plt Count MPV Gran % Lymph % (Auto) Jessamine % (Auto) Eos % (Auto) Baso % (Auto) Gran # Lymph # Jessamine # Eos # Baso # Sodium Potassium Chloride Carbon Dioxide Anion Gap BUN Creatinine Est GFR ( Amer) Est GFR (Non-Af Amer) POC Glucose (mg/dL) 104 Random Glucose Calcium Total Bilirubin AST ALT Alkaline Phosphatase Total Protein Albumin Albumin (PEP) Globulin Albumin/Globulin Ratio Ketea-8-Sfrpctfnr Gbxiv-8-Qhgckvtcc Oeqc-9-Zesceksx Djiw-5-Jzpsxeny Vobx-7-Mfjcsuqjrsuok Gamma Globulins Abnorm Protein Band 1 Abnorm Protein Band 2 Abnorm Protein Band 3 IgG 2242.1 H IgA 61.7 L IgM < 25.0 L WHITNEY & SPEP Interp WB Flow Cytometry Reference test Assessment & Plan - Assessment and Plan (Free Text) Assessment: 57 year old male with history of advanced multiple myeloma, s/p LISA of right hip and left humerus, s/p bilateral knee replacement who was admitted with back pain, The patient is alert and oriented. He complains of difficulty standing and walking and attributes this to recent bilateral knee replacement. He denies difficulty with having bowel movements or urinating. He also denies numbness in his extremities or pain. Mr. Harper is somewhat agitated, he feels that there is a constant barrage of "medical people" in and out of his room. He is frustrated because he is asked the same questions repeatedly and feels there is a lack of communication on the part of the medical team. Palliative services introduced as supportive resource for patients with serious illness. Mr. Harper states he understands but is not feeling open to much discussion at this time. He has just had a port placed and intends to start radiation and chemotherapy in the near future. Acknowledged patients feeling of frustration. Reassured that I will continue to follow along with him so that we can continue conversations regarding goals of care and advance care planning. Patient is agreeable to further visits. Psychosocial support given. Plan: Psychosocial distress. Palliative support in establishing goals of care and advance care planning
--- NOTE | 2017-07-12 14:53 | CP.PCM.PN ---
<Ron Hogn - Last Filed: 07/12/17 16:28> Subjective - Date & Time of Evaluation Date of Evaluation: 07/12/17 Time of Evaluation: 14:53 - Subjective Subjective: Patient seen and examined at bedside. Per nursing no acute events occurred overnight. The patient still reports some lower back pain. The patient reports tolerating the food and had one normal bowel movement yesterday. The patient denies any chest pain, shortness of breath, fevers, chills, nausea, vomiting, or any other complaints. Objective - Vital Signs/Intake and Output Vital Signs (last 24 hours): Temp Pulse Resp BP Pulse Ox 98.0 F 98 H 20 141/74 96 07/12/17 12:58 07/12/17 12:58 07/12/17 12:58 07/12/17 12:58 07/12/17 12:58 Intake and Output: 07/12/17 07/12/17 06:59 18:59 Intake Total 720 240 Output Total 1650 200 Balance -930 40 - Medications Medications: Current Medications Acetaminophen (Tylenol 325mg Tab) 650 mg PO Q6H PRN PRN Reason: Fever >100.4 F Last Admin: 07/12/17 02:55 Dose: 650 mg Allopurinol (Zyloprim) 100 mg PO Q8 [facility] Last Admin: 07/12/17 14:37 Dose: 100 mg Alprazolam (Xanax) 0.25 mg PO BID PRN; Protocol PRN Reason: Anxiety Stop: 07/15/17 18:22 Last Admin: 07/12/17 00:56 Dose: 0.25 mg Ascorbic Acid (Vitamin C 500 Mg Tab) 500 mg PO DAILY [facility] Last Admin: 07/12/17 11:21 Dose: Not Given Diphenhydramine HCl (Benadryl) 25 mg PO Q6H PRN PRN Reason: Itching / Pruritus Last Admin: 07/12/17 02:55 Dose: 25 mg Docusate Sodium (Colace) 100 mg PO Q12 [facility] Last Admin: 07/12/17 11:20 Dose: Not Given Enoxaparin Sodium (Lovenox) 40 mg SC DAILY [facility] PRN Reason: Protocol Last Admin: 07/12/17 11:20 Dose: Not Given Famotidine (Pepcid) 20 mg PO HS [facility] Last Admin: 07/11/17 22:26 Dose: 20 mg Sodium Chloride (Sodium Chloride 0.45%) 1,000 mls @ 80 mls/hr IV .[id number] [facility] Stop: 07/12/17 22:00 Insulin Human Lispro (Humalog Low) 0 units SC ACHS [facility] PRN Reason: Protocol Last Admin: 07/12/17 07:59 Dose: Not Given Levothyroxine Sodium (Synthroid) 25 mcg PO 0600 [facility] Last Admin: 07/12/17 05:46 Dose: 25 mcg Morphine Sulfate (Morphine) 2 mg IVP Q4H PRN PRN Reason: Pain, severe (8-10) Last Admin: 07/12/17 07:59 Dose: 2 mg Ondansetron HCl (Zofran Inj) 4 mg IVP Q4H PRN PRN Reason: Nausea/Vomiting Zinc Sulfate (Zinc Sulfate 220 Mg Cap) 220 mg PO DAILY [facility] Last Admin: 07/12/17 11:21 Dose: Not Given Zolpidem Tartrate (Ambien) 10 mg PO [facility] PRN Reason: Protocol Last Admin: 07/11/17 22:25 Dose: 10 mg - Labs Labs: 07/12/17 06:47 07/12/17 06:47 PT 13.7 SECONDS (9.4-12.5) H 07/08/17 13:00 INR 1.24 (0.93-1.08) H 07/08/17 13:00 APTT 30.9 Seconds (25.1-36.5) 07/08/17 13:00 - Head Exam Head Exam: ATRAUMATIC, NORMAL INSPECTION, NORMOCEPHALIC - Eye Exam Eye Exam: EOMI, Normal appearance, PERRL. absent: Periorbital tenderness Pupil Exam: NORMAL ACCOMODATION, PERRL. absent: Irregular, Unequal - ENT Exam ENT Exam: Mucous Membranes Moist, Normal Exam, Normal Oropharynx. absent: TM's Normal Bilaterally - Neck Exam Neck Exam: Normal Inspection. absent: Lymphadenopathy, Meningismus, Thyromegaly - Respiratory Exam Respiratory Exam: Clear to Ausculation Bilateral, NORMAL BREATHING PATTERN. absent: Chest Wall Tenderness, Prolonged Expiratory Phase, Respiratory Distress - Cardiovascular Exam Cardiovascular Exam: REGULAR RHYTHM, +S1, +S2. absent: RRR, Rubs - GI/Abdominal Exam GI & Abdominal Exam: Soft, Normal Bowel Sounds. absent: Tenderness, Hyperactive Bowel Sounds, Organomegaly - Extremities Exam Extremities Exam: Full ROM. absent: Joint Swelling, Pedal Edema, Tenderness - Back Exam Back Exam: NORMAL INSPECTION. absent: CVA tenderness (L), CVA tenderness (R), paraspinal tenderness - Neurological Exam Neurological Exam: Abnormal Gait, Alert, Awake, CN II-XII Intact - Psychiatric Exam Psychiatric exam: Normal Affect, Normal Mood. absent: Anxious, Depressed - Skin Skin Exam: Dry Additional comments: sacral ulcer just superior to the kaylee cleft. Assessment and Plan - Assessment and Plan (Free Text) Assessment: 57 year old with a multiple myeloma who presents with intractable pain, immobility, and fever Plan: 1. Intractable pain secondary to Multiple Myeloma Imaging: - Left shoulder X-ray shows old healed fracture deformities in the distal and proximal shaft left humerus and degenerative changes in both shoulder girdles and multiple small lucencies throughout the osseous structures consistent with history multiple myeloma. -Lumbar spine CT showed inumerable lytic lesions consistent with multiple myeloma. lesion in the right S2 sacral area with cortical destruction with no neural foraminal encroachment, lytic lesion of posterior aspect of T11, and atypical expansile lesion on the left side of L1 associated with cortical destruction. -Continue pain management. -Throracic spine Ct showed lytic lesions throughout thoracic spine, confluent large, expansile lytic lesions at T8-T9 with encroachment upon central spinal canal, and incidental 1.6mm mass in the left lower lobe found. -Lumbar spine MRI showed multiple myelomatous infiltration, large lytic lesions , central bony canal and exit foramina adequate, spondylosis at L4-L5, and heterogenous signal changes throughout lumboscaral segments -Thoracic MRI: mild diffuse infiltration changes throughout wall of thoracic and vertebral body, and 2 large infiltration lesions in left lateral margins of T8-T9. -Bone density showed diffuse lytic lesions throughout all osseous structures of the axial and appendicular skeleton. -Chest abdomen and pelvis CT: showed destructive bony lesion of T8 &t9 and involves the adjacent ribs, small lesion on left side of L1, and large lesion of left ilac bone. - Orthopedic consult, Dr. Varghese. Rec's appreciated. - Hematology/Oncology consult, Dr. Lafleur. Rec's appreciated. -Russ consulted. Rec's appreciated. - Dr. Larsen consulted. Rec's appreciated. -Palliative care consulted. Rec's appreciated. -Patient had Port cath placed. today. Will f/u with IR and [facility] for upcoming chemotherapy. 2) Fever 2/2 likely due to sacral ulcer. -SIRS upon admission.Resolved. - Blood culture (-)x72 hours, Urine culture negative. - Urine Analysis negative. -Rapid flu negative - Continue Tylenol 650 mg PRN for fever greater than 100.4 F - Infectious disease consulted. Rec's appreciated. 3) Anxiety - Continue Xanax 0.25 mg BID 4) DM II - ISS Lispro (low). Accuchecks. - Diabetic diet. 5) Decubitus Ulcer - Wound culture grew Strep Agalactiae Group B and Corneybacterium species. - ID consulted. Rec's appreciated. - Continue Zinc, Vitamin C 6) Lower extremity swelling - Duplex US of bilateral lower extremities ordered. Will f/u with with results. 7) h/o Hypothyroidism -continue Levothyroxine 25mg Daily. DVT/GI prophylaxis - Lovenox 40 mg SC qday - pepcid 20 mg IVP daily <Cristhian Mustafa - Last Filed: 07/12/17 16:35> Objective - Vital Signs/Intake and Output Vital Signs (last 24 hours): Temp Pulse Resp BP Pulse Ox 98.0 F 98 H 20 141/74 96 07/12/17 12:58 07/12/17 12:58 07/12/17 12:58 07/12/17 12:58 07/12/17 12:58 Intake and Output: 07/12/17 07/12/17 06:59 18:59 Intake Total 720 1115 Output Total 1650 200 Balance -930 915 - Medications Medications: Current Medications Acetaminophen (Tylenol 325mg Tab) 650 mg PO Q6H PRN PRN Reason: Fever >100.4 F Last Admin: 07/12/17 16:06 Dose: 650 mg Allopurinol (Zyloprim) 100 mg PO Q8 [facility] Last Admin: 07/12/17 14:37 Dose: 100 mg Alprazolam (Xanax) 0.25 mg PO BID PRN; Protocol PRN Reason: Anxiety Stop: 07/15/17 18:22 Last Admin: 07/12/17 00:56 Dose: 0.25 mg Ascorbic Acid (Vitamin C 500 Mg Tab) 500 mg PO DAILY [facility] Last Admin: 07/12/17 11:21 Dose: Not Given Diphenhydramine HCl (Benadryl) 25 mg PO Q6H PRN PRN Reason: Itching / Pruritus Last Admin: 07/12/17 02:55 Dose: 25 mg Docusate Sodium (Colace) 100 mg PO Q12 [facility] Last Admin: 07/12/17 11:20 Dose: Not Given Enoxaparin Sodium (Lovenox) 40 mg SC DAILY [facility] PRN Reason: Protocol Last Admin: 07/12/17 11:20 Dose: Not Given Famotidine (Pepcid) 20 mg PO HS [facility] Last Admin: 07/11/17 22:26 Dose: 20 mg Sodium Chloride (Sodium Chloride 0.45%) 1,000 mls @ 80 mls/hr IV .[id number] [facility] Stop: 07/12/17 22:00 Insulin Human Lispro (Humalog Low) 0 units SC ACHS [facility] PRN Reason: Protocol Last Admin: 07/12/17 07:59 Dose: Not Given Levothyroxine Sodium (Synthroid) 25 mcg PO 0600 [facility] Last Admin: 07/12/17 05:46 Dose: 25 mcg Morphine Sulfate (Morphine) 2 mg IVP Q4H PRN PRN Reason: Pain, severe (8-10) Last Admin: 07/12/17 16:06 Dose: 2 mg Ondansetron HCl (Zofran Inj) 4 mg IVP Q4H PRN PRN Reason: Nausea/Vomiting Zinc Sulfate (Zinc Sulfate 220 Mg Cap) 220 mg PO DAILY [facility] Last Admin: 07/12/17 11:21 Dose: Not Given Zolpidem Tartrate (Ambien) 10 mg PO HS [facility] PRN Reason: Protocol Last Admin: 07/11/17 22:25 Dose: 10 mg - Labs Labs: 07/12/17 06:47 07/12/17 06:47 PT 13.7 SECONDS (9.4-12.5) H 07/08/17 13:00 INR 1.24 (0.93-1.08) H 07/08/17 13:00 APTT 30.9 Seconds (25.1-36.5) 07/08/17 13:00 Attending/Attestation - Attestation I have personally seen and examined this patient.: Yes I have fully participated in the care of the patient.: Yes I have reviewed all pertinent clinical information, including history, physical exam and plan: Yes Notes (Text): 07/12/17 16:33 attending note; Patient seen and examined With resident. Patient is a 57 year old with a past medical history of multiple myeloma with pathologic fractures, bilateral knee surgery, left arm pathological fracture, and right hip fracture, multiple lytic lesions in thoracic and lumbar spine, expansile withlytic lesion with mild encroachment at T8 and T9 level is admitted with intractable back pain. Patient was initially followed up at [facility]. Recently seen Dr. Lafleur oncologist as outpatient. Patient had palliative radiation and chemotherapy at [facility] Current CT lumbar spine showed multiple lytic lesionsthroughout the lumbar spine , slightly atypical expansile lesion on the left side of L1 vertebrae. CT thoracic spine showed extensive myelomatous change with lytic lesions throughout the thoracic spine and confluent large expansile/distractive lytic lesion at T8-T9 with encroachment upon the central spinal canal from the left side. Incidental 1.6 cm mass in the left lower lobe. MRI of the thoracic and lumbar spine showed multiple myelomatous lesions. No compression. Acute fracture. and had Port-A-Cath placement today. plan for chemotherapy tomorrow. Patient already got IV Aredia 1 dose yesterday. Started on allopurinol. radiation oncology evaluation appreciated. we will get outpatient radiation therapy. sacral decubitus ulcer; patient had debridement done as outpatient. Patient uses Wound vac as outpatient. currently followed up by surgery/Wound Care. Upon discharge patient will follow-up with PMD of choice.
--- NOTE | 2017-07-12 15:34 | VASCULAR ---
PROCEDURE: Ultrasound and fluoroscopic right internal jugular venous access port. CLINICAL HISTORY: Multiple myeloma.Venous port for chemotherapy. PHYSICIAN(S): Bayron Atkins M.D. TECHNIQUE: The relative risks and indications of the procedure were explained to the patient and consent obtained. The patient was placed supine on the arteriogram table and the right neck and chest prepped and draped in the usual sterile fashion. Conscious sedation monitoring was provided throughout the procedure by a nurse. Antibiotics were given prior to the procedure. Under direct ultrasound guidance, the right internal jugular vein was punctured with a micro-puncture set. A 0.035 angled Glidewire was advanced into the IVC. A 4 cm incision was made below the right clavicle and the pocket blunted dissected. A 8 Micronesian single-lumen catheter, 26 cm long, was advanced to the SVC/RA junction. The catheter was trimmed and attached to the port. The port aspirates and injects easily. The port was placed in the pocket and closed in 2 layers. The patient tolerated the procedure well. IMPRESSION: Ultrasound and fluoroscopically placed right internal jugular venous access port.
[2017-07-13] MEDS: Morphine 2 mg/ml ISec IVP PRN ×3 (05:23→14:54)
[2017-07-13] MEDS: Levothyroxine 25 MCG TAB PO SCH (05:23)
[2017-07-13 06:22] LABS: BASO # 0.01 K/mm3 (0.0-2.0); BASO % 0.2 % (0.0-3.0); EOS # 0.2 (0.0-0.7); EOS % 3.7 % (1.5-5.0); GRAN # 3.01 (1.4-6.5); GRAN % 69.7 % (50.0-68.0); HEMATOCRIT 32.8 % (42.0-52.0); LYMPH # 0.7 (1.2-3.4); LYMPH % 16.7 % (22.0-35.0); MEAN CELL VOLUME 89.6 fl (80.0-105.0); MEAN CORPUSCULAR HEMOGLOBIN 27.9 pg (25.0-35.0); MEAN CORPUSCULAR HGB CONC 31.1 g/dl (31.0-37.0); MEAN PLATELET VOLUME 10.2 fl (7.0-11.0); MONO # 0.4 (0.1-0.6); MONO % 9.7 % (1.0-6.0); RED CELL DISTRIBUTION WIDTH 15.6 % (11.5-14.5); WHITE BLOOD COUNT 4.3 10^3/ul (4.5-11.0)
[2017-07-13 06:42] LABS: ALB/GLOB RATIO 0.8 (1.1-1.8); ALKALINE PHOSPHATASE 92 U/L (38-126); ALT/SGPT 24 U/L (7-56); AST/SGOT 27 U/L (17-59); BILIRUBIN,TOTAL 0.5 mg/dL (0.2-1.3); BLOOD UREA NITROGEN 5 mg/dL (7-21); CALCIUM 8.4 mg/dL (8.4-10.5); CARBON DIOXIDE 30 mmol/L (21-33); CHLORIDE 102 mmol/L (98-107); GFR AFRICAN-AMERICAN > 60; GLUCOSE,RANDOM 120 mg/dL (70-110); POTASSIUM 3.9 mmol/L (3.6-5.0); SODIUM 138 mmol/L (132-148); TOTAL PROTEIN 7.7 g/dL (5.8-8.3)
--- NOTE | 2017-07-13 06:45 | CP.PCM.PN ---
Subjective - Date & Time of Evaluation Date of Evaluation: 07/13/17 Time of Evaluation: 06:42 - Subjective Subjective: Mr. Harper was seen and examined at the bedside. He is alert, but sleepy. He remains oriented in all spheres. He denies any headache, dizziness, lightheadedness, nausea, or vomiting. He states of being uncomfortable in any position. However, he states of changing position alleviates some of his back pain. There was no untoward events overnight. Objective - Vital Signs/Intake and Output Vital Signs (last 24 hours): Temp Pulse Resp BP Pulse Ox 98.4 F 93 H 20 117/78 98 07/12/17 16:01 07/12/17 16:01 07/12/17 16:01 07/12/17 16:01 07/12/17 16:01 Intake and Output: 07/12/17 07/13/17 18:59 06:59 Intake Total 1115 1320 Output Total 200 2100 Balance 915 -780 - Medications Medications: Current Medications Acetaminophen (Tylenol 325mg Tab) 650 mg PO Q6H PRN PRN Reason: Fever >100.4 F Last Admin: 07/12/17 16:06 Dose: 650 mg Allopurinol (Zyloprim) 100 mg PO Q8 [facility] Last Admin: 07/13/17 05:23 Dose: 100 mg Alprazolam (Xanax) 0.25 mg PO BID PRN; Protocol PRN Reason: Anxiety Stop: 07/15/17 18:22 Last Admin: 07/12/17 00:56 Dose: 0.25 mg Ascorbic Acid (Vitamin C 500 Mg Tab) 500 mg PO DAILY [facility] Last Admin: 07/12/17 11:21 Dose: Not Given Diphenhydramine HCl (Benadryl) 25 mg PO Q6H PRN PRN Reason: Itching / Pruritus Last Admin: 07/12/17 02:55 Dose: 25 mg Docusate Sodium (Colace) 100 mg PO Q12 [facility] Last Admin: 07/12/17 21:27 Dose: 100 mg Enoxaparin Sodium (Lovenox) 40 mg SC DAILY [facility] PRN Reason: Protocol Last Admin: 07/12/17 11:20 Dose: Not Given Famotidine (Pepcid) 20 mg PO HS [facility] Last Admin: 12/12/17 21:28 Dose: 20 mg Insulin Human Lispro (Humalog Low) 0 units SC ACHS [facility] PRN Reason: Protocol Last Admin: 07/12/17 21:30 Dose: Not Given Levothyroxine Sodium (Synthroid) 25 mcg PO 0600 [facility] Last Admin: 07/13/17 05:23 Dose: 25 mcg Morphine Sulfate (Morphine) 2 mg IVP Q4H PRN PRN Reason: Pain, severe (8-10) Last Admin: 07/13/17 05:23 Dose: 2 mg Ondansetron HCl (Zofran Inj) 4 mg IVP Q4H PRN PRN Reason: Nausea/Vomiting Zinc Sulfate (Zinc Sulfate 220 Mg Cap) 220 mg PO DAILY [facility] Last Admin: 07/12/17 11:21 Dose: Not Given Zolpidem Tartrate (Ambien) 10 mg PO HS [facility] PRN Reason: Protocol Last Admin: 07/12/17 23:30 Dose: 10 mg - Labs Labs: 07/13/17 05:40 07/13/17 05:40 PT 13.7 SECONDS (9.4-12.5) H 07/08/17 13:00 INR 1.24 (0.93-1.08) H 07/08/17 13:00 APTT 30.9 Seconds (25.1-36.5) 07/08/17 13:00 - Constitutional Appears: No Acute Distress - Head Exam Head Exam: ATRAUMATIC - Neurological Exam Neurological Exam: Alert, Awake Neuro motor strength exam: Left Upper Extremity: 5, Right Upper Extremity: 5, Left Lower Extremity: 3, Right Lower Extremity: 3 Additional comments: Neurological unchanged from previous examination. Assessment and Plan (1) Spinal disease Assessment & Plan: Case discussed with Dr. Carroll, continue all current medical regimen. Pending the arrival of back brace for physical therapy to start. The patient should undergo muscle strengthening exercises and a gradual rehab plan to avoid injury. However, he will need PT/OT for the recent knee replacements as well. Status: Acute
--- NOTE | 2017-07-13 07:06 | CP.PCM.PN ---
Subjective - Date & Time of Evaluation Date of Evaluation: 07/13/17 Time of Evaluation: 07:20 - Subjective Subjective: Heme/onc progress note for Dr Lafleur's service Patient with no acute events overnight. Had chemo port placed by Dr Bayron Atkins yesterday. Remains afebrile. Patient denies fever, chills, nausea, vomiting or diarrhea. Admits to chronic body aches and pain. Objective - Vital Signs/Intake and Output Vital Signs (last 24 hours): Temp Pulse Resp BP Pulse Ox 98.4 F 93 H 20 117/78 98 07/12/17 16:01 07/12/17 16:01 07/12/17 16:01 07/12/17 16:01 07/12/17 16:01 Intake and Output: 07/13/17 07/13/17 06:59 18:59 Intake Total 1320 Output Total 2100 Balance -780 - Medications Medications: Current Medications Acetaminophen (Tylenol 325mg Tab) 650 mg PO Q6H PRN PRN Reason: Fever >100.4 F Last Admin: 07/12/17 16:06 Dose: 650 mg Allopurinol (Zyloprim) 100 mg PO Q8 [facility] Last Admin: 07/13/17 05:23 Dose: 100 mg Alprazolam (Xanax) 0.25 mg PO BID PRN; Protocol PRN Reason: Anxiety Stop: 07/15/17 18:22 Last Admin: 07/12/17 00:56 Dose: 0.25 mg Ascorbic Acid (Vitamin C 500 Mg Tab) 500 mg PO DAILY [facility] Last Admin: 07/12/17 11:21 Dose: Not Given Diphenhydramine HCl (Benadryl) 25 mg PO Q6H PRN PRN Reason: Itching / Pruritus Last Admin: 07/12/17 02:55 Dose: 25 mg Docusate Sodium (Colace) 100 mg PO Q12 [facility] Last Admin: 07/12/17 21:27 Dose: 100 mg Enoxaparin Sodium (Lovenox) 40 mg SC DAILY [facility] PRN Reason: Protocol Last Admin: 07/12/17 11:20 Dose: Not Given Famotidine (Pepcid) 20 mg PO HS [facility] Last Admin: 07/12/17 21:28 Dose: 20 mg Insulin Human Lispro (Humalog Low) 0 units SC ACHS [facility] PRN Reason: Protocol Last Admin: 07/12/17 21:30 Dose: Not Given Levothyroxine Sodium (Synthroid) 25 mcg PO 0600 [facility] Last Admin: 07/13/17 05:23 Dose: 25 mcg Morphine Sulfate (Morphine) 2 mg IVP Q4H PRN PRN Reason: Pain, severe (8-10) Last Admin: 07/13/17 05:23 Dose: 2 mg Ondansetron HCl (Zofran Inj) 4 mg IVP Q4H PRN PRN Reason: Nausea/Vomiting Zinc Sulfate (Zinc Sulfate 220 Mg Cap) 220 mg PO DAILY [facility] Last Admin: 07/12/17 11:21 Dose: Not Given Zolpidem Tartrate (Ambien) 10 mg PO HS [facility] PRN Reason: Protocol Last Admin: 07/12/17 23:30 Dose: 10 mg - Labs Labs: 07/13/17 05:40 07/13/17 05:40 PT 13.7 SECONDS (9.4-12.5) H 07/08/17 13:00 INR 1.24 (0.93-1.08) H 07/08/17 13:00 APTT 30.9 Seconds (25.1-36.5) 07/08/17 13:00 - Constitutional Appears: No Acute Distress, Older Than Stated Age, Chronically Ill - Head Exam Head Exam: ATRAUMATIC, NORMAL INSPECTION, NORMOCEPHALIC - Eye Exam Eye Exam: Normal appearance - ENT Exam ENT Exam: Mucous Membranes Moist - Neck Exam Neck Exam: Normal Inspection - Respiratory Exam Respiratory Exam: Clear to Ausculation Bilateral, NORMAL BREATHING PATTERN. absent: Rales, Rhonchi, Wheezes, Respiratory Distress, Stridor - Cardiovascular Exam Cardiovascular Exam: REGULAR RHYTHM, +S1, +S2. absent: Bradycardia, Tachycardia , Murmur - GI/Abdominal Exam GI & Abdominal Exam: Soft, Normal Bowel Sounds. absent: Distended, Firm, Guarding, Rigid, Tenderness - Extremities Exam Extremities Exam: Pedal Edema (+3). absent: Tenderness - Back Exam Back Exam: NORMAL INSPECTION - Neurological Exam Neurological Exam: Alert, Awake, Oriented x3 - Psychiatric Exam Psychiatric exam: Normal Affect, Normal Mood - Skin Skin Exam: Dry, Normal Color, Warm Additional comments: + surgical in sherrell knees intact. Assessment and Plan - Assessment and Plan (Free Text) Assessment: Patient is a 57 y/o with pmh of progressive multiple myeloma, hypothyroidism, anxiety, multiple lytic lesions of the spine, with fractures of the bilateral knees s/p sherrell knee replacement, with spontaneous fractures of the left humerus and right hip while getting physical therapy. Patient had extensive work up while at [facility] and was found to have paraspinal mass extending from T7-19 region along with lytic lesions on the ribs, was on velcade and dexamethasone, which was discontinued due to development of rash from the chemo. Patient also had radiation while at [facility]. During hospitalization, patient developed large sacral decubitus ulcers requiring antibiotics. Patient also had replacement of his right hip. Patient saw Dr Lafleur in the office for the first time on 07/06/17 to establish care. Patient presented with worsening pain and is currently admitted with failure to thrive, gait instability and worsening of the pain. On admission, patient underwent extensive work up, including x-rays, CT and MRI which were consistent with sherrell knees replacement and right hip replacement, left humeral fractures, Innumerable lytic lesions throughout the lumbar spine consistent with known multiple myeloma, in addition to lesions in the thoracic spine and mass in the S2 region. Patient was evaluated by neurosurgery, recommended patient have surgery to repair the bony destruction at the thoracic spine, however patient opted not to have surgery at this moment to avoid delaying his chemo. Spoke to neurosurgeron Dr Solano on Tuesday, recommended although the best plan for the patient is to have surgery, its ok for the patient to get TLSO brace. Patient was also seen by ID due to transient SIRS, patient had antibiotics for brief period of time which was discontinued. Patient was seen by surgery for sacral decubitus wound care, recommended no wound vac, and to continue routine wound care. Patient was evaluated by radiation oncologist, recommended radiation to the left humerus, right femur and pelvis starting 07/13/17 to July 28. Patient had his chemo port inserted. Patient is consented to began chemotherapy today. Will be getting velcade injection and cytoxan infusion. Patient will be pre medicated with dexamethasone, zofran, Benadryl and Tylenol. Plan: - Will increase insulin sliding scale dose to high dose. - Endocrinology consulted as we anticipate fingerstick to worsen. - Will need to monitor for tumor lysis syndrome. - daily LDH and uric acid level, liver and renal function. - Nephrology consulted - Will hydrate with NS@ 100cc/hr to avoid hemorrhagic cystitis. - Monitor for any reaction to chemo - Will start IVP protonix, continue allopurinol 100 mg tid - Since patient will be getting velcade, started Prophylaxis against HSV and pcp with acyclovir 400 mg bid, and bactrim 1 tab M,W,. - Continue with morphine prn for pain and fentanyl patch. - Flow cytometry pending, beta 2 microglobulin 3.81, free light chain pending. Patient seen, examined and case discussed with Dr Lafleur.
[2017-07-13] MEDS: Insulin Lispro (humaLOG) LOW Coverage SC SCH (08:35)
[2017-07-13] MEDS: Enoxaparin 40 mg Syringe SC SCH (10:26)
--- NOTE | 2017-07-13 10:47 | PN ---
DATE: 07/13/2017 SUBJECTIVE: The patient is in bed, in no acute distress, nontoxic. No fevers or chills. PHYSICAL EXAMINATION: VITAL SIGNS: Temperature is 98, blood pressure is 117/70, respiratory rate of 18. HEENT: Unremarkable. NECK: Supple. LUNGS: Decreased breath sounds. HEART: Normal S1 and S2. ABDOMEN: Soft, nontender. LABORATORY DATA: Reveals a white count of 4.3, hemoglobin of 10. BUN of 5, creatinine of 0.6. Sacral cultures are noted. Review of orders, reveals the patient to be off of antibiotics. The blood cultures are no growth. ASSESSMENT AND PLAN: A 57-year-old male, history of morbid obesity with body mass index of 40 with systemic inflammatory response syndrome with multiple myeloma, diabetes mellitus, hypertension, obesity, status post bilateral knee replacements and decubitus ulcer on the back with cultures . Currently, off of antibiotics, afebrile. The patient is at risk for developing nosocomial infections. Any Ferguson's consultation is appreciated. We will follow with you. Wilfredo Caraballo MD
[2017-07-13 12:45] LABS: FREE KAPPA SERUM 54.9 mg/L (3.3-19.4)
[2017-07-13] MEDS ORDERED: [UNRECOGNIZED DRUG - OTHER] IVPB ONE (13:15)
[2017-07-13] MEDS ORDERED: SODIUM CHLORIDE 0.9% IV ONE (13:15)
[2017-07-13] MEDS ORDERED: ONDANSETRON IVPB ONE (13:15)
[2017-07-13] MEDS ORDERED: CYCLOPHOSPHAMIDE IV ONE (13:15)
[2017-07-13] MEDS ORDERED: FAMOTIDINE IVPB ONE (13:15)
[2017-07-13] MEDS ORDERED: DEXAMETHASONE IVPB ONE (13:15)
[2017-07-13] MEDS ORDERED: DIPHENHYDRAMINE IVPB ONE (13:15)
[2017-07-13 13:27] LABS: PHOSPHOROUS 3.3 mg/dL (2.5-4.5); URIC ACID 4.6 mg/dL (3.5-8.5)
[2017-07-13] MEDS: Tmp-Smz 800 mg-160 mg DS Tab PO SCH (14:01)
[2017-07-13] MEDS: Sodium Chloride 0.9% 1,000 ML IV SCH (14:39)
--- NOTE | 2017-07-13 14:57 | CP.PCM.PN ---
<Ron Hong - Last Filed: 07/13/17 20:29> Subjective - Date & Time of Evaluation Date of Evaluation: 07/13/17 Time of Evaluation: 06:56 - Subjective Subjective: Patient seen and examined at bedside. Per nursing no acute events occurred overnight. The patient reports lower extremity pain bilaterally from the knees down. The patient denies any chest pain, lightheadedness, dizziness, fevers, chills, abdominal pain, nausea, vomiting, syncopal episodes, or any other complaints. Objective - Vital Signs/Intake and Output Vital Signs (last 24 hours): Temp Pulse Resp BP Pulse Ox 98.7 F 97 H 18 113/77 95 07/13/17 06:00 07/13/17 06:00 07/13/17 06:00 07/13/17 06:00 07/13/17 06:00 Intake and Output: 07/13/17 07/13/17 06:59 18:59 Intake Total 1320 Output Total 2100 Balance -780 - Medications Medications: Current Medications Acetaminophen (Tylenol 325mg Tab) 650 mg PO Q6H PRN PRN Reason: Fever >100.4 F Last Admin: 07/13/17 14:01 Dose: 650 mg Acyclovir (Zovirax) 400 mg PO BID [facility] PRN Reason: Protocol Allopurinol (Zyloprim) 100 mg PO Q8 [facility] Last Admin: 07/13/17 05:23 Dose: 100 mg Alprazolam (Xanax) 0.25 mg PO BID PRN; Protocol PRN Reason: Anxiety Stop: 07/15/17 18:22 Last Admin: 07/12/17 00:56 Dose: 0.25 mg Ascorbic Acid (Vitamin C 500 Mg Tab) 500 mg PO DAILY [facility] Last Admin: 07/13/17 10:25 Dose: 500 mg Diphenhydramine HCl (Benadryl) 25 mg PO Q6H PRN PRN Reason: Itching / Pruritus Last Admin: 07/12/17 02:55 Dose: 25 mg Docusate Sodium (Colace) 100 mg PO Q12 [facility] Last Admin: 07/13/17 10:25 Dose: 100 mg Enoxaparin Sodium (Lovenox) 40 mg SC DAILY [facility] PRN Reason: Protocol Last Admin: 07/13/17 10:26 Dose: 40 mg Cyclophosphamide 669 mg/ (Sodium Chloride) 500 mls @ 250 mls/hr IV ONCE ONE Stop: 07/13/17 15:14 Sodium Chloride (Sodium Chloride 0.9%) 1,000 mls @ 100 mls/hr IV .Q10H [facility] Stop: 07/16/17 14:31 Last Admin: 07/13/17 14:39 Dose: 100 mls/hr Insulin Human Lispro (Humalog High) 0 units SC ACHS [facility] PRN Reason: Protocol Levothyroxine Sodium (Synthroid) 25 mcg PO 0600 [facility] Last Admin: 07/13/17 05:23 Dose: 25 mcg Morphine Sulfate (Morphine) 2 mg IVP Q4H PRN PRN Reason: Pain, severe (8-10) Last Admin: 07/13/17 10:25 Dose: 2 mg Ondansetron HCl (Zofran Inj) 4 mg IVP Q4H PRN PRN Reason: Nausea/Vomiting Pantoprazole Sodium (Protonix Inj) 40 mg IVP DAILY [facility] Trimethoprim/Sulfamethoxazole (Bactrim Ds Tab) 1 tab PO MWF@1000 [facility] PRN Reason: Protocol Last Admin: 07/13/17 14:01 Dose: 1 tab Zinc Sulfate (Zinc Sulfate 220 Mg Cap) 220 mg PO DAILY [facility] Last Admin: 07/13/17 10:25 Dose: 220 mg Zolpidem Tartrate (Ambien) 10 mg PO HS [facility] PRN Reason: Protocol Last Admin: 07/12/17 23:30 Dose: 10 mg - Labs Labs: 07/13/17 05:40 07/13/17 05:40 PT 13.7 SECONDS (9.4-12.5) H 07/08/17 13:00 INR 1.24 (0.93-1.08) H 07/08/17 13:00 APTT 30.9 Seconds (25.1-36.5) 07/08/17 13:00 - Head Exam Head Exam: ATRAUMATIC, NORMAL INSPECTION, NORMOCEPHALIC - Eye Exam Eye Exam: EOMI, Normal appearance, PERRL. absent: Periorbital tenderness Pupil Exam: NORMAL ACCOMODATION, PERRL. absent: Irregular, Unequal - ENT Exam ENT Exam: Mucous Membranes Moist, Normal Exam, Normal Oropharynx - Neck Exam Neck Exam: Normal Inspection. absent: Lymphadenopathy, Thyromegaly - Respiratory Exam Respiratory Exam: Clear to Ausculation Bilateral, NORMAL BREATHING PATTERN. absent: Chest Wall Tenderness, Prolonged Expiratory Phase, Respiratory Distress - Cardiovascular Exam Cardiovascular Exam: REGULAR RHYTHM, RRR, +S1, +S2. absent: Gallop, Rubs - GI/Abdominal Exam GI & Abdominal Exam: Soft, Normal Bowel Sounds. absent: Tenderness, Hyperactive Bowel Sounds - Extremities Exam Extremities Exam: Joint Swelling. absent: Full ROM, Pedal Edema - Back Exam Back Exam: NORMAL INSPECTION. absent: CVA tenderness (L), CVA tenderness (R), paraspinal tenderness - Neurological Exam Neurological Exam: Alert, Awake, Normal Gait, Oriented x3 - Psychiatric Exam Psychiatric exam: Normal Affect, Normal Mood. absent: Depressed - Skin Skin Exam: Dry Additional comments: Sacral ulcer just superior to kaylee cleft. Assessment and Plan - Assessment and Plan (Free Text) Assessment: 57 year old with a multiple myeloma who presents with intractable pain, immobility, and fever Plan: 1. Intractable pain secondary to Multiple Myeloma Imaging: - Left shoulder X-ray shows old healed fracture deformities in the distal and proximal shaft left humerus and degenerative changes in both shoulder girdles and multiple small lucencies throughout the osseous structures consistent with history multiple myeloma. -Lumbar spine CT showed inumerable lytic lesions consistent with multiple myeloma. lesion in the right S2 sacral area with cortical destruction with no neural foraminal encroachment, lytic lesion of posterior aspect of T11, and atypical expansile lesion on the left side of L1 associated with cortical destruction. -Continue pain management. -Throracic spine Ct showed lytic lesions throughout thoracic spine, confluent large, expansile lytic lesions at T8-T9 with encroachment upon central spinal canal, and incidental 1.6mm mass in the left lower lobe found. -Lumbar spine MRI showed multiple myelomatous infiltration, large lytic lesions , central bony canal and exit foramina adequate, spondylosis at L4-L5, and heterogenous signal changes throughout lumboscaral segments -Thoracic MRI: mild diffuse infiltration changes throughout wall of thoracic and vertebral body, and 2 large infiltration lesions in left lateral margins of T8-T9. -Bone density showed diffuse lytic lesions throughout all osseous structures of the axial and appendicular skeleton. -Chest abdomen and pelvis CT: showed destructive bony lesion of T8 &t9 and involves the adjacent ribs, small lesion on left side of L1, and large lesion of left ilac bone. - Orthopedic consult, Dr. Varghese. Rec's appreciated. - Hematology/Oncology consult, Dr. Lafleur. Rec's appreciated. -Russ consulted. Rec's appreciated. - Dr. Larsen consulted. Rec's appreciated. -Palliative care consulted. Rec's appreciated. -Patient had Port cath yesterday. Patient had radiation mapping done today. Scheduled to start chemotherapy today or tomorrow. 2) Fever secondary likely due to sacral ulcer. -SIRS upon admission.Resolved. - Blood culture (-)x4 hours, Urine culture negative. - Urine Analysis negative. -Rapid flu negative - Continue Tylenol 650 mg PRN for fever greater than 100.4 F - Infectious disease consulted. Rec's appreciated. 3) Anxiety - Continue Xanax 0.25 mg BID 4) Diabetes Type 2 - Insulin sliding scale Lispro (low). Accuchecks. - Diabetic diet. 5) Decubitus Ulcer - Wound culture grew Strep Agalactiae Group B and Corneybacterium species. - Infectious disease consulted. Recommendations appreciated. - Continue Zinc, Vitamin C 6) Lower extremity swelling - Duplex US of bilateral lower extremities negative. 7) Hypothyroidism -continue Levothyroxine 25mg Daily. DVT/GI prophylaxis - Lovenox 40 mg SC qday - pepcid 20 mg IVP daily <Cristhian Mustafa - Last Filed: 07/14/17 13:41> Objective - Vital Signs/Intake and Output Vital Signs (last 24 hours): Temp Pulse Resp BP Pulse Ox 98.0 F 95 H 20 101/59 L 95 07/14/17 06:00 07/14/17 06:00 07/14/17 06:00 07/14/17 06:00 07/14/17 06:00 Intake and Output: 07/14/17 07/14/17 06:59 18:59 Intake Total 2500 Output Total 450 Balance 2050 - Medications Medications: Current Medications Acetaminophen (Tylenol 325mg Tab) 650 mg PO Q6H PRN PRN Reason: Fever >100.4 F Last Admin: 07/14/17 09:41 Dose: 650 mg Acyclovir (Zovirax) 400 mg PO BID [facility] PRN Reason: Protocol Last Admin: 07/14/17 09:41 Dose: 400 mg Allopurinol (Zyloprim) 100 mg PO Q8 [facility] Last Admin: 07/14/17 05:22 Dose: 100 mg Alprazolam (Xanax) 0.25 mg PO BID PRN; Protocol PRN Reason: Anxiety Stop: 07/15/17 18:22 Last Admin: 07/14/17 01:51 Dose: 0.25 mg Ascorbic Acid (Vitamin C 500 Mg Tab) 500 mg PO DAILY [facility] Last Admin: 07/14/17 09:41 Dose: 500 mg Diphenhydramine HCl (Benadryl) 25 mg PO Q6H PRN PRN Reason: Itching / Pruritus Last Admin: 07/12/17 02:55 Dose: 25 mg Docusate Sodium (Colace) 100 mg PO Q12 [facility] Last Admin: 07/14/17 09:41 Dose: 100 mg Enoxaparin Sodium (Lovenox) 40 mg SC DAILY [facility] PRN Reason: Protocol Last Admin: 07/14/17 09:40 Dose: 40 mg Sodium Chloride (Sodium Chloride 0.9%) 1,000 mls @ 100 mls/hr IV .Q10H [facility] Stop: 07/16/17 14:31 Last Admin: 07/14/17 09:43 Dose: 100 mls/hr Insulin Human Lispro (Humalog Low) 0 units SC ACHS [facility] PRN Reason: Protocol Last Admin: 07/14/17 11:30 Dose: Not Given Levothyroxine Sodium (Synthroid) 25 mcg PO 0600 [facility] Last Admin: 07/14/17 05:22 Dose: 25 mcg Morphine Sulfate (Morphine) 4 mg IVP Q4H PRN PRN Reason: Pain, severe (8-10) Last Admin: 07/14/17 02:57 Dose: 4 mg Ondansetron HCl (Zofran Inj) 4 mg IVP Q4H PRN PRN Reason: Nausea/Vomiting Pantoprazole Sodium (Protonix Inj) 40 mg IVP DAILY [facility] Last Admin: 07/14/17 09:40 Dose: 40 mg Trimethoprim/Sulfamethoxazole (Bactrim Ds Tab) 1 tab PO MWF@1000 [facility] PRN Reason: Protocol Last Admin: 07/13/17 14:01 Dose: 1 tab Zinc Sulfate (Zinc Sulfate 220 Mg Cap) 220 mg PO DAILY [facility] Last Admin: 07/14/17 09:45 Dose: 220 mg Zolpidem Tartrate (Ambien) 10 mg PO HS [facility] PRN Reason: Protocol Last Admin: 07/13/17 21:43 Dose: 10 mg - Labs Labs: 07/14/17 06:45 07/14/17 06:45 PT 13.7 SECONDS (9.4-12.5) H 07/08/17 13:00 INR 1.24 (0.93-1.08) H 07/08/17 13:00 APTT 30.9 Seconds (25.1-36.5) 07/08/17 13:00 Attending/Attestation - Attestation I have personally seen and examined this patient.: Yes I have fully participated in the care of the patient.: Yes I have reviewed all pertinent clinical information, including history, physical exam and plan: Yes Notes (Text): 07/14/17 13:34 attending note; Patient seen and examined With resident. Patient is a 57 year old with a past medical history of multiple myeloma with pathologic fractures, bilateral knee surgery, left arm pathological fracture, and right hip fracture, multiple lytic lesions in thoracic and lumbar spine, expansile withlytic lesion with mild encroachment at T8 and T9 level is admitted with intractable back pain. MRI of the thoracic and lumbar spine showed multiple myelomatous lesions. No compression. Acute fracture. Neurosurgery evaluation appreciated. Patient was offered surgery. Patient refused neurosurgery. Patient decided to get chemotherapy and radiation therapy now. Patient had Port-A-Cath placement. Continue chemotherapy as per Dr. Lafleur. Patient already got IV Aredia 1 dose.Started on allopurinol. Continue Bactrim. radiation oncology evaluation appreciated. Continue radiation therapy as per Dr. Gray. sacral decubitus ulcer; patient had debridement done as outpatient. Patient uses Wound vac as outpatient. currently followed up by surgery/Wound Care. Patient and family educated about how to avoid falls in order to prevent pathological fractures. Patient was also educated about alarming symptoms of cord compression and advised to alert nursing staff of any new symptoms. Patient is at high risk for pathological fracture. Continue IV morphine for pain control. Continue Duragesic patch. Patient will get back brace per neurosurgery. Continue PT with extreme caution. Case discussed with gearcase assembler in detail. Possible transfer to TCU pending insurance authorization and bed availability. Upon discharge patient will follow-up with PMD of choice.
--- NOTE | 2017-07-13 15:21 | CP.PCM.PN ---
Subjective - Date & Time of Evaluation Date of Evaluation: 07/13/17 Time of Evaluation: 03:15 - Subjective Subjective: Mr Ward is known to our department. we have reviewed his CT scan findings from his chest, abdomen and pelvis to ascertain the extent of his disease and plan his radiation treatment. We will be treating his left humeral pathologic fracture as well as right hip/femur and left iliac bone. We simulated him this morning and will begin treatment tomorrow. Objective - Vital Signs/Intake and Output Vital Signs (last 24 hours): Temp Pulse Resp BP Pulse Ox 98.7 F 97 H 18 113/77 95 07/13/17 06:00 07/13/17 06:00 07/13/17 06:00 07/13/17 06:00 07/13/17 06:00 Intake and Output: 07/13/17 07/13/17 06:59 18:59 Intake Total 1320 1200 Output Total 2100 4000 Balance -780 -2800 - Medications Medications: Current Medications Acetaminophen (Tylenol 325mg Tab) 650 mg PO Q6H PRN PRN Reason: Fever >100.4 F Last Admin: 07/13/17 14:01 Dose: 650 mg Acyclovir (Zovirax) 400 mg PO BID [facility] PRN Reason: Protocol Allopurinol (Zyloprim) 100 mg PO Q8 [facility] Last Admin: 07/13/17 14:46 Dose: 100 mg Alprazolam (Xanax) 0.25 mg PO BID PRN; Protocol PRN Reason: Anxiety Stop: 07/15/17 18:22 Last Admin: 07/12/17 00:56 Dose: 0.25 mg Ascorbic Acid (Vitamin C 500 Mg Tab) 500 mg PO DAILY [facility] Last Admin: 07/13/17 10:25 Dose: 500 mg Diphenhydramine HCl (Benadryl) 25 mg PO Q6H PRN PRN Reason: Itching / Pruritus Last Admin: 07/12/17 02:55 Dose: 25 mg Docusate Sodium (Colace) 100 mg PO Q12 [facility] Last Admin: 07/13/17 10:25 Dose: 100 mg Enoxaparin Sodium (Lovenox) 40 mg SC DAILY [facility] PRN Reason: Protocol Last Admin: 07/13/17 10:26 Dose: 40 mg Sodium Chloride (Sodium Chloride 0.9%) 1,000 mls @ 100 mls/hr IV .Q10H [facility] Stop: 07/16/17 14:31 Last Admin: 07/13/17 14:39 Dose: 100 mls/hr Insulin Human Lispro (Humalog High) 0 units SC ACHS [facility] PRN Reason: Protocol Levothyroxine Sodium (Synthroid) 25 mcg PO 0600 [facility] Last Admin: 07/13/17 05:23 Dose: 25 mcg Morphine Sulfate (Morphine) 2 mg IVP Q4H PRN PRN Reason: Pain, severe (8-10) Last Admin: 07/13/17 14:54 Dose: 2 mg Ondansetron HCl (Zofran Inj) 4 mg IVP Q4H PRN PRN Reason: Nausea/Vomiting Pantoprazole Sodium (Protonix Inj) 40 mg IVP DAILY [facility] Trimethoprim/Sulfamethoxazole (Bactrim Ds Tab) 1 tab PO MWF@1000 [facility] PRN Reason: Protocol Last Admin: 07/13/17 14:01 Dose: 1 tab Zinc Sulfate (Zinc Sulfate 220 Mg Cap) 220 mg PO DAILY [facility] Last Admin: 07/13/17 10:25 Dose: 220 mg Zolpidem Tartrate (Ambien) 10 mg PO HS [facility] PRN Reason: Protocol Last Admin: 07/12/17 23:30 Dose: 10 mg - Labs Labs: 07/13/17 05:40 07/13/17 05:40 PT 13.7 SECONDS (9.4-12.5) H 07/08/17 13:00 INR 1.24 (0.93-1.08) H 07/08/17 13:00 APTT 30.9 Seconds (25.1-36.5) 07/08/17 13:00
[2017-07-13] MEDS ORDERED: Insulin Lispro (HUMAlog) HIGH Coverage SC SCH (16:30)
[2017-07-13] MEDS ORDERED: Morphine 4 mg/ml ISec IVP PRN (17:25)
[2017-07-13] MEDS ORDERED: Morphine 4 mg/ml ISec IVP STA (17:25)
[2017-07-13] MEDS ORDERED: Morphine 2 mg/ml ISec IVP PRN (22:05)
[2017-07-14 00:59] LABS: KAPPA/LAMBDA FREE RATIO 4.59 (0.26-1.65)
[2017-07-14] MEDS: Morphine 5 MG/ML SYRINGE IVP PRN ×4 (02:57→21:49)
[2017-07-14] MEDS: Sodium Chloride 0.9% 1,000 ML IV SCH ×3 (05:02→20:31)
[2017-07-14] MEDS: Levothyroxine 25 MCG TAB PO SCH (05:22)
[2017-07-14 05:56] LABS: CREATININE, 24 HOUR URINE 1.49 g/24 h (0.63-2.50)
--- NOTE | 2017-07-14 06:45 | CP.PCM.PN ---
Subjective - Date & Time of Evaluation Date of Evaluation: 07/14/17 Time of Evaluation: 07:30 - Subjective Subjective: Heme/Onc progress note for Dr Lafleur Patient had chemo yesterday with no reaction. Patient c/o hot flashes today. Slept well. Denies fever or chills. No nausea, vomiting or diarrhea. Voiding well. Patient is scheduled for radiation today. Objective - Vital Signs/Intake and Output Vital Signs (last 24 hours): Temp Pulse Resp BP Pulse Ox 97.9 F 105 H 20 113/82 97 07/14/17 00:00 07/14/17 00:00 07/14/17 00:00 07/14/17 00:00 07/14/17 00:00 Intake and Output: 07/13/17 07/14/17 18:59 06:59 Intake Total 1200 2500 Output Total 4000 450 Balance -2800 2050 - Medications Medications: Current Medications Acetaminophen (Tylenol 325mg Tab) 650 mg PO Q6H PRN PRN Reason: Fever >100.4 F Last Admin: 07/13/17 14:01 Dose: 650 mg Acyclovir (Zovirax) 400 mg PO BID [facility] PRN Reason: Protocol Last Admin: 07/13/17 18:20 Dose: 400 mg Allopurinol (Zyloprim) 100 mg PO Q8 [facility] Last Admin: 07/14/17 05:22 Dose: 100 mg Alprazolam (Xanax) 0.25 mg PO BID PRN; Protocol PRN Reason: Anxiety Stop: 07/15/17 18:22 Last Admin: 07/14/17 01:51 Dose: 0.25 mg Ascorbic Acid (Vitamin C 500 Mg Tab) 500 mg PO DAILY [facility] Last Admin: 07/13/17 10:25 Dose: 500 mg Diphenhydramine HCl (Benadryl) 25 mg PO Q6H PRN PRN Reason: Itching / Pruritus Last Admin: 07/12/17 02:55 Dose: 25 mg Docusate Sodium (Colace) 100 mg PO Q12 [facility] Last Admin: 07/13/17 21:40 Dose: 100 mg Enoxaparin Sodium (Lovenox) 40 mg SC DAILY [facility] PRN Reason: Protocol Last Admin: 07/13/17 10:26 Dose: 40 mg Sodium Chloride (Sodium Chloride 0.9%) 1,000 mls @ 100 mls/hr IV .Q10H [facility] Stop: 07/16/17 14:31 Last Admin: 07/14/17 05:02 Dose: 100 mls/hr Insulin Human Lispro (Humalog Low) 0 units SC ACHS [facility] PRN Reason: Protocol Levothyroxine Sodium (Synthroid) 25 mcg PO 0600 [facility] Last Admin: 07/14/17 05:22 Dose: 25 mcg Morphine Sulfate (Morphine) 4 mg IVP Q4H PRN PRN Reason: Pain, severe (8-10) Last Admin: 07/14/17 02:57 Dose: 4 mg Ondansetron HCl (Zofran Inj) 4 mg IVP Q4H PRN PRN Reason: Nausea/Vomiting Pantoprazole Sodium (Protonix Inj) 40 mg IVP DAILY [facility] Trimethoprim/Sulfamethoxazole (Bactrim Ds Tab) 1 tab PO MWF@1000 [facility] PRN Reason: Protocol Last Admin: 07/13/17 14:01 Dose: 1 tab Zinc Sulfate (Zinc Sulfate 220 Mg Cap) 220 mg PO DAILY [facility] Last Admin: 07/13/17 10:25 Dose: 220 mg Zolpidem Tartrate (Ambien) 10 mg PO HS [facility] PRN Reason: Protocol Last Admin: 07/13/17 21:43 Dose: 10 mg - Labs Labs: 07/13/17 05:40 07/13/17 05:40 PT 13.7 SECONDS (9.4-12.5) H 07/08/17 13:00 INR 1.24 (0.93-1.08) H 07/08/17 13:00 APTT 30.9 Seconds (25.1-36.5) 07/08/17 13:00 - Constitutional Appears: No Acute Distress, Older Than Stated Age, Chronically Ill - Head Exam Head Exam: ATRAUMATIC, NORMAL INSPECTION, NORMOCEPHALIC - Eye Exam Eye Exam: Normal appearance, PERRL. absent: Scleral icterus - ENT Exam ENT Exam: Mucous Membranes Moist - Neck Exam Neck Exam: Normal Inspection - Respiratory Exam Respiratory Exam: Clear to Ausculation Bilateral, NORMAL BREATHING PATTERN. absent: Rales, Rhonchi, Wheezes, Respiratory Distress, Stridor - Cardiovascular Exam Cardiovascular Exam: REGULAR RHYTHM, RRR, +S1, +S2 - GI/Abdominal Exam GI & Abdominal Exam: Soft, Normal Bowel Sounds. absent: Distended, Firm, Guarding, Rigid, Tenderness - Extremities Exam Extremities Exam: Pedal Edema - Back Exam Back Exam: NORMAL INSPECTION - Neurological Exam Neurological Exam: Alert, Awake, Oriented x3 - Psychiatric Exam Psychiatric exam: Normal Affect, Normal Mood - Skin Skin Exam: Dry, Intact, Normal Color, Warm Additional comments: Right sided chemo port in place, no signs of infection, no erythema or edema. Assessment and Plan - Assessment and Plan (Free Text) Assessment: Patient is a 57 y/o with pmh of progressive multiple myeloma, hypothyroidism, anxiety, multiple lytic lesions of the spine, with fractures of the bilateral knees s/p sherrell knee replacement, with spontaneous fractures of the left humerus and right hip while getting physical therapy. Patient had extensive work up while at [facility] and was found to have paraspinal mass extending from T7-19 region along with lytic lesions on the ribs, was on velcade and dexamethasone, which was discontinued due to development of rash from the chemo. Patient also had radiation while at [facility]. During hospitalization, patient developed large sacral decubitus ulcers requiring antibiotics. Patient also had replacement of his right hip. Patient saw Dr Lafleur in the office for the first time on 07/06/17 to establish care. Patient presented with worsening pain and is currently admitted with failure to thrive, gait instability and worsening of the pain. On admission, patient underwent extensive work up, including x-rays, CT and MRI which were consistent with sherrell knees replacement and right hip replacement, left humeral fractures, Innumerable lytic lesions throughout the lumbar spine consistent with known multiple myeloma, in addition to lesions in the thoracic spine and mass in the S2 region. Patient was evaluated by neurosurgery, recommended patient have surgery to repair the bony destruction at the thoracic spine, however patient opted not to have surgery at this moment to avoid delaying his chemo. Spoke to neurosurgeron Dr Solano on Tuesday, recommended although the best plan for the patient is to have surgery, its ok for the patient to get TLSO brace. Patient was also seen by ID due to transient SIRS, patient had antibiotics for brief period of time which was discontinued. Patient was seen by surgery for sacral decubitus wound care, recommended no wound vac, and to continue routine wound care. Patient was evaluated by radiation oncologist, recommended radiation to the left humerus, right femur and pelvis starting today, last dose will be July 28. Patient had chemo yesterday based on velcade injection and cytoxan infusion, with dexamethasone, zofran, Benadryl and Tylenol pre-medication. Next chemo dose will be next Tuesday07/20/17. Plan: - Labs reviewed, CBC, chem, liver and renal profile seems stable, uric acid low and normal LDH. - Will continue to monitor for tumor lysis syndrome. Nephro consulted. - Continue with IV hydration for 2 more days - Continue with allopurinol 100 mg tid. - Continue with glucose monitoring, on insulin sliding scale, endo consulted . - Continue with IV protonix. - On fentanyl patch, and morphine prn for pain - On prophylaxis against HSV and pcp with acyclovir 400 mg bid, and Bactrim 1 tab M,W,F. - Plan for tcu versus discharge home tomorrow. Patient seen, examined and case discussed with Dr Lafleur.
[2017-07-14 07:22] LABS: GRAN # 2.65 (1.4-6.5); GRAN % 81.1 % (50.0-68.0); HEMATOCRIT 32.7 % (42.0-52.0); LYMPH # 0.4 (1.2-3.4); LYMPH % 11.6 % (22.0-35.0); MEAN CELL VOLUME 89.1 fl (80.0-105.0); MEAN CORPUSCULAR HEMOGLOBIN 28.3 pg (25.0-35.0); MEAN CORPUSCULAR HGB CONC 31.8 g/dl (31.0-37.0); MEAN PLATELET VOLUME 10.9 fl (7.0-11.0); MONO # 0.2 (0.1-0.6); MONO % 7.3 % (1.0-6.0); RED CELL DISTRIBUTION WIDTH 15.4 % (11.5-14.5); WHITE BLOOD COUNT 3.3 10^3/ul (4.5-11.0)
--- NOTE | 2017-07-14 07:33 | CP.PCM.PN ---
<Vincent Canales - Last Filed: 07/14/17 14:53> Subjective - Date & Time of Evaluation Date of Evaluation: 07/14/17 Time of Evaluation: 06:50 - Subjective Subjective: General Surgery- Dr. William Patient seen and examined at bedside this AM. No acute events overnight. tolerating current diet. self caring for sacral wound. Denies current pain, nausea, vomiting, diarrhea, chest pain, shortness of breath Objective - Vital Signs/Intake and Output Vital Signs (last 24 hours): Temp Pulse Resp BP Pulse Ox 97.9 F 105 H 20 113/82 97 07/14/17 00:00 07/14/17 00:00 07/14/17 00:00 07/14/17 00:00 07/14/17 00:00 Intake and Output: 07/14/17 07/14/17 06:59 18:59 Intake Total 2500 Output Total 450 Balance 2050 - Medications Medications: Current Medications Acetaminophen (Tylenol 325mg Tab) 650 mg PO Q6H PRN PRN Reason: Fever >100.4 F Last Admin: 07/13/17 14:01 Dose: 650 mg Acyclovir (Zovirax) 400 mg PO BID [facility] PRN Reason: Protocol Last Admin: 07/13/17 18:20 Dose: 400 mg Allopurinol (Zyloprim) 100 mg PO Q8 [facility] Last Admin: 07/14/17 05:22 Dose: 100 mg Alprazolam (Xanax) 0.25 mg PO BID PRN; Protocol PRN Reason: Anxiety Stop: 07/15/17 18:22 Last Admin: 07/14/17 01:51 Dose: 0.25 mg Ascorbic Acid (Vitamin C 500 Mg Tab) 500 mg PO DAILY [facility] Last Admin: 07/13/17 10:25 Dose: 500 mg Diphenhydramine HCl (Benadryl) 25 mg PO Q6H PRN PRN Reason: Itching / Pruritus Last Admin: 07/12/17 02:55 Dose: 25 mg Docusate Sodium (Colace) 100 mg PO Q12 [facility] Last Admin: 07/13/17 21:40 Dose: 100 mg Enoxaparin Sodium (Lovenox) 40 mg SC DAILY [facility] PRN Reason: Protocol Last Admin: 07/13/17 10:26 Dose: 40 mg Sodium Chloride (Sodium Chloride 0.9%) 1,000 mls @ 100 mls/hr IV .Q10H [facility] Stop: 07/16/17 14:31 Last Admin: 07/14/17 05:02 Dose: 100 mls/hr Insulin Human Lispro (Humalog Low) 0 units SC ACHS [facility] PRN Reason: Protocol Levothyroxine Sodium (Synthroid) 25 mcg PO 0600 [facility] Last Admin: 07/14/17 05:22 Dose: 25 mcg Morphine Sulfate (Morphine) 4 mg IVP Q4H PRN PRN Reason: Pain, severe (8-10) Last Admin: 07/14/17 02:57 Dose: 4 mg Ondansetron HCl (Zofran Inj) 4 mg IVP Q4H PRN PRN Reason: Nausea/Vomiting Pantoprazole Sodium (Protonix Inj) 40 mg IVP DAILY [facility] Trimethoprim/Sulfamethoxazole (Bactrim Ds Tab) 1 tab PO MWF@1000 [facility] PRN Reason: Protocol Last Admin: 07/13/17 14:01 Dose: 1 tab Zinc Sulfate (Zinc Sulfate 220 Mg Cap) 220 mg PO DAILY [facility] Last Admin: 07/13/17 10:25 Dose: 220 mg Zolpidem Tartrate (Ambien) 10 mg PO HS [facility] PRN Reason: Protocol Last Admin: 07/13/17 21:43 Dose: 10 mg - Labs Labs: 07/14/17 06:45 07/13/17 05:40 PT 13.7 SECONDS (9.4-12.5) H 07/08/17 13:00 INR 1.24 (0.93-1.08) H 07/08/17 13:00 APTT 30.9 Seconds (25.1-36.5) 07/08/17 13:00 - Constitutional Appears: Non-toxic, No Acute Distress - Head Exam Head Exam: ATRAUMATIC - Eye Exam Eye Exam: EOMI. absent: Scleral icterus - ENT Exam ENT Exam: Mucous Membranes Moist - Respiratory Exam Respiratory Exam: NORMAL BREATHING PATTERN. absent: Accessory Muscle Use, Respiratory Distress - Cardiovascular Exam Cardiovascular Exam: +S1, +S2. absent: Bradycardia, Tachycardia - GI/Abdominal Exam GI & Abdominal Exam: Soft. absent: Distended, Firm, Guarding, Rigid, Tenderness - Extremities Exam Extremities Exam: Normal Inspection. absent: Calf Tenderness Additional comments: ambulates w/ walker - Back Exam Additional comments: sacral decub ulcer. wet to dry dressing. pt caring for it - Neurological Exam Neurological Exam: Alert, Awake, Oriented x3 - Psychiatric Exam Psychiatric exam: Normal Affect - Skin Skin Exam: Warm Assessment and Plan - Assessment and Plan (Free Text) Assessment: 57M w/ stage 4 sacral decub ulcer Plan: - patient does not wish for surgery to debride the wound any further - wound care and patient self caring for the wound wet to dry w/ NS - no need for surgical intervention - patient to receive palliative chemotherapy. ok to do so from surgical standpoint. will decrease the time for wound healing. - discussed with Dr. William surgical attending Vincent Canales PGY1 <Clay William - Last Filed: 07/14/17 22:58> Objective - Vital Signs/Intake and Output Vital Signs (last 24 hours): Temp Pulse Resp BP Pulse Ox 97.9 F 92 H 20 137/88 95 07/14/17 18:00 07/14/17 18:00 07/14/17 18:00 07/14/17 22:26 07/14/17 06:00 Intake and Output: 07/14/17 07/15/17 18:59 06:59 Intake Total 975 720 Output Total 1475 Balance 975 -755 - Medications Medications: Current Medications Acetaminophen (Tylenol 325mg Tab) 650 mg PO Q6H PRN PRN Reason: Fever >100.4 F Last Admin: 07/14/17 09:41 Dose: 650 mg Acyclovir (Zovirax) 400 mg PO BID [facility] PRN Reason: Protocol Last Admin: 07/14/17 18:17 Dose: 400 mg Allopurinol (Zyloprim) 100 mg PO Q8 [facility] Last Admin: 07/14/17 21:43 Dose: 100 mg Alprazolam (Xanax) 0.25 mg PO BID PRN; Protocol PRN Reason: Anxiety Stop: 07/15/17 18:22 Last Admin: 07/14/17 01:51 Dose: 0.25 mg Ascorbic Acid (Vitamin C 500 Mg Tab) 500 mg PO DAILY [facility] Last Admin: 07/14/17 09:41 Dose: 500 mg Diphenhydramine HCl (Benadryl) 25 mg PO Q6H PRN PRN Reason: Itching / Pruritus Last Admin: 07/12/17 02:55 Dose: 25 mg Docusate Sodium (Colace) 100 mg PO Q12 [facility] Last Admin: 07/14/17 21:43 Dose: 100 mg Enoxaparin Sodium (Lovenox) 40 mg SC DAILY [facility] PRN Reason: Protocol Last Admin: 07/14/17 09:40 Dose: 40 mg Fentanyl (Duragesic) 1 patch TD Q72H [facility] Last Admin: 07/14/17 16:36 Dose: 1 patch Sodium Chloride (Sodium Chloride 0.9%) 1,000 mls @ 60 mls/hr IV .[id number] [facility] Stop: 07/15/17 14:57 Insulin Detemir (Levemir) 6 unit SC HS [facility] Last Admin: 07/14/17 21:49 Dose: 6 unit Insulin Human Lispro (Humalog Low) 0 units SC ACHS [facility] PRN Reason: Protocol Last Admin: 07/14/17 22:25 Dose: Not Given Levothyroxine Sodium (Synthroid) 25 mcg PO 0600 [facility] Last Admin: 07/14/17 05:22 Dose: 25 mcg Morphine Sulfate (Morphine) 4 mg IVP Q4H PRN PRN Reason: Pain, severe (8-10) Last Admin: 07/14/17 21:49 Dose: 4 mg Ondansetron HCl (Zofran Inj) 4 mg IVP Q4H PRN PRN Reason: Nausea/Vomiting Pantoprazole Sodium (Protonix Inj) 40 mg IVP DAILY [facility] Last Admin: 07/14/17 09:40 Dose: 40 mg Trimethoprim/Sulfamethoxazole (Bactrim Ds Tab) 1 tab PO MWF@1000 [facility] PRN Reason: Protocol Last Admin: 07/13/17 14:01 Dose: 1 tab Zinc Sulfate (Zinc Sulfate 220 Mg Cap) 220 mg PO DAILY [facility] Last Admin: 07/14/17 09:45 Dose: 220 mg Zolpidem Tartrate (Ambien) 10 mg PO HS [facility] PRN Reason: Protocol Last Admin: 07/14/17 21:48 Dose: 10 mg - Labs Labs: 07/14/17 06:45 07/14/17 06:45 PT 13.7 SECONDS (9.4-12.5) H 07/08/17 13:00 INR 1.24 (0.93-1.08) H 07/08/17 13:00 APTT 30.9 Seconds (25.1-36.5) 07/08/17 13:00 Assessment and Plan - Assessment and Plan (Free Text) Plan: Patient was seen and examined by me. I agree with assessment and plan as per resident's note.
[2017-07-14 07:46] LABS: ALB/GLOB RATIO 0.9 (1.1-1.8); ALKALINE PHOSPHATASE 90 U/L (38-126); ALT/SGPT 24 U/L (7-56); AST/SGOT 27 U/L (17-59); BILIRUBIN,TOTAL 0.3 mg/dL (0.2-1.3); BLOOD UREA NITROGEN 8 mg/dL (7-21); CALCIUM 8.2 mg/dL (8.4-10.5); CARBON DIOXIDE 23 mmol/L (21-33); CHLORIDE 103 mmol/L (98-107); GFR AFRICAN-AMERICAN > 60; GLUCOSE,RANDOM 280 mg/dL (70-110); POTASSIUM 4.3 mmol/L (3.6-5.0); SODIUM 137 mmol/L (132-148); TOTAL PROTEIN 7.6 g/dL (5.8-8.3); URIC ACID 3.2 mg/dL (3.5-8.5)
[2017-07-14 07:50] LABS: FREE T4 0.66 ng/dL (0.78-2.19); T4 8.1 ug/dL (5.5-11.0)
[2017-07-14 08:03] LABS: THYROID STIMULATING HORMONE 1.67 mIU/mL (0.46-4.68)
[2017-07-14] MEDS: Insulin Lispro (humaLOG) LOW Coverage SC SCH ×4 (08:45→22:25)
[2017-07-14] MEDS: Enoxaparin 40 mg Syringe SC SCH (09:40)
--- NOTE | 2017-07-14 11:51 | CP.PCM.PN ---
<Ron Hong - Last Filed: 07/15/17 16:05> Subjective - Date & Time of Evaluation Date of Evaluation: 07/14/17 Time of Evaluation: 08:49 - Subjective Subjective: Patient seen and examined at bedside. Per nursing no acute events occurred overnight .The patient still reports some lower back pain and bilateral knee pain. The patient denies any chest pain, lightheadedness, dizziness, fevers, chills, nausea, vomiting, abdominal pain, syncopal episodes, dizziness, or any other complaints. Objective - Vital Signs/Intake and Output Vital Signs (last 24 hours): Temp Pulse Resp BP Pulse Ox 98.0 F 95 H 20 101/59 L 95 07/14/17 06:00 07/14/17 06:00 07/14/17 06:00 07/14/17 06:00 07/14/17 06:00 Intake and Output: 07/14/17 07/14/17 06:59 18:59 Intake Total 2500 Output Total 450 Balance 2050 - Medications Medications: Current Medications Acetaminophen (Tylenol 325mg Tab) 650 mg PO Q6H PRN PRN Reason: Fever >100.4 F Last Admin: 07/14/17 09:41 Dose: 650 mg Acyclovir (Zovirax) 400 mg PO BID [facility] PRN Reason: Protocol Last Admin: 07/14/17 09:41 Dose: 400 mg Allopurinol (Zyloprim) 100 mg PO Q8 [facility] Last Admin: 07/14/17 05:22 Dose: 100 mg Alprazolam (Xanax) 0.25 mg PO BID PRN; Protocol PRN Reason: Anxiety Stop: 07/15/17 18:22 Last Admin: 07/14/17 01:51 Dose: 0.25 mg Ascorbic Acid (Vitamin C 500 Mg Tab) 500 mg PO DAILY [facility] Last Admin: 07/14/17 09:41 Dose: 500 mg Diphenhydramine HCl (Benadryl) 25 mg PO Q6H PRN PRN Reason: Itching / Pruritus Last Admin: 07/12/17 02:55 Dose: 25 mg Docusate Sodium (Colace) 100 mg PO Q12 [facility] Last Admin: 07/14/17 09:41 Dose: 100 mg Enoxaparin Sodium (Lovenox) 40 mg SC DAILY [facility] PRN Reason: Protocol Last Admin: 07/14/17 09:40 Dose: 40 mg Sodium Chloride (Sodium Chloride 0.9%) 1,000 mls @ 100 mls/hr IV .Q10H [facility] Stop: 07/16/17 14:31 Last Admin: 07/14/17 09:43 Dose: 100 mls/hr Insulin Human Lispro (Humalog Low) 0 units SC ACHS [facility] PRN Reason: Protocol Last Admin: 07/14/17 08:45 Dose: Not Given Levothyroxine Sodium (Synthroid) 25 mcg PO 0600 [facility] Last Admin: 07/14/17 05:22 Dose: 25 mcg Morphine Sulfate (Morphine) 4 mg IVP Q4H PRN PRN Reason: Pain, severe (8-10) Last Admin: 07/14/17 02:57 Dose: 4 mg Ondansetron HCl (Zofran Inj) 4 mg IVP Q4H PRN PRN Reason: Nausea/Vomiting Pantoprazole Sodium (Protonix Inj) 40 mg IVP DAILY [facility] Last Admin: 07/14/17 09:40 Dose: 40 mg Trimethoprim/Sulfamethoxazole (Bactrim Ds Tab) 1 tab PO MWF@1000 [facility] PRN Reason: Protocol Last Admin: 07/13/17 14:01 Dose: 1 tab Zinc Sulfate (Zinc Sulfate 220 Mg Cap) 220 mg PO DAILY [facility] Last Admin: 07/14/17 09:45 Dose: 220 mg Zolpidem Tartrate (Ambien) 10 mg PO HS [facility] PRN Reason: Protocol Last Admin: 07/13/17 21:43 Dose: 10 mg - Labs Labs: 07/14/17 06:45 07/14/17 06:45 PT 13.7 SECONDS (9.4-12.5) H 07/08/17 13:00 INR 1.24 (0.93-1.08) H 07/08/17 13:00 APTT 30.9 Seconds (25.1-36.5) 07/08/17 13:00 - Head Exam Head Exam: ATRAUMATIC, NORMAL INSPECTION, NORMOCEPHALIC - Eye Exam Eye Exam: EOMI, Normal appearance, PERRL. absent: Periorbital tenderness Pupil Exam: NORMAL ACCOMODATION, PERRL. absent: Irregular, Unequal - ENT Exam ENT Exam: Mucous Membranes Moist, Normal Exam, Normal Oropharynx - Neck Exam Neck Exam: absent: Lymphadenopathy, Thyromegaly - Respiratory Exam Respiratory Exam: Clear to Ausculation Bilateral, NORMAL BREATHING PATTERN. absent: Chest Wall Tenderness, Prolonged Expiratory Phase, Respiratory Distress - Cardiovascular Exam Cardiovascular Exam: REGULAR RHYTHM, RRR, +S1, +S2. absent: Gallop, Rubs - GI/Abdominal Exam GI & Abdominal Exam: Soft, Normal Bowel Sounds. absent: Hyperactive Bowel Sounds - Back Exam Back Exam: NORMAL INSPECTION. absent: CVA tenderness (L), CVA tenderness (R), paraspinal tenderness - Neurological Exam Neurological Exam: Alert, Awake, Normal Gait, Oriented x3 - Psychiatric Exam Psychiatric exam: Normal Affect, Normal Mood. absent: Anxious, Depressed - Skin Skin Exam: Dry, Intact, Normal Color Assessment and Plan - Assessment and Plan (Free Text) Assessment: 57 year old with a multiple myeloma who presents with intractable pain, immobility, and fever Plan: 1. Intractable pain secondary to Multiple Myeloma Imaging: - Left shoulder X-ray shows old healed fracture deformities in the distal and proximal shaft left humerus and degenerative changes in both shoulder girdles and multiple small lucencies throughout the osseous structures consistent with history multiple myeloma. -Lumbar spine CT showed inumerable lytic lesions consistent with multiple myeloma. lesion in the right S2 sacral area with cortical destruction with no neural foraminal encroachment, lytic lesion of posterior aspect of T11, and atypical expansile lesion on the left side of L1 associated with cortical destruction. -Continue pain management. -Throracic spine Ct showed lytic lesions throughout thoracic spine, confluent large, expansile lytic lesions at T8-T9 with encroachment upon central spinal canal, and incidental 1.6mm mass in the left lower lobe found. -Lumbar spine MRI showed multiple myelomatous infiltration, large lytic lesions , central bony canal and exit foramina adequate, spondylosis at L4-L5, and heterogenous signal changes throughout lumboscaral segments -Thoracic MRI: mild diffuse infiltration changes throughout wall of thoracic and vertebral body, and 2 large infiltration lesions in left lateral margins of T8-T9. -Bone density showed diffuse lytic lesions throughout all osseous structures of the axial and appendicular skeleton. -Chest abdomen and pelvis CT: showed destructive bony lesion of T8 &t9 and involves the adjacent ribs, small lesion on left side of L1, and large lesion of left ilac bone. - Orthopedic consult, Dr. Varghese. Rec's appreciated. - Hematology/Oncology consult, Dr. Lafleur. Rec's appreciated. -Russ consulted. Rec's appreciated. - Dr. Larsen consulted. Rec's appreciated. -Palliative care consulted. Rec's appreciated. -Patient had chemotherapy yesterday. Scheduled to start radiation therapy today. 2) Fever secondary likely due to sacral ulcer. -SIRS upon admission.Resolved. - Blood culture (-)x4 hours, Urine culture negative. - Urine Analysis negative. -Rapid flu negative - Continue Tylenol 650 mg PRN for fever greater than 100.4 F - Infectious disease consulted. Rec's appreciated. 3) Anxiety - Continue Xanax 0.25 mg BID 4) Diabetes Type 2 - Insulin sliding scale Lispro (low). Accuchecks. - Diabetic diet. 5) Decubitus Ulcer - Wound culture grew Strep Agalactiae Group B and Corneybacterium species. - Infectious disease consulted. Recommendations appreciated. - Continue Zinc, Vitamin C 6) Lower extremity swelling - Duplex US of bilateral lower extremities negative. 7) Hypothyroidism -continue Levothyroxine 25mg Daily. DVT/GI prophylaxis - Lovenox 40 mg SC qday - pepcid 20 mg IVP daily <Cristhian Mustafa - Last Filed: 07/15/17 17:02> Objective - Vital Signs/Intake and Output Vital Signs (last 24 hours): Temp Pulse Resp BP Pulse Ox 98.3 F 89 18 106/71 96 07/15/17 06:00 07/15/17 06:00 07/15/17 06:00 07/15/17 14:12 07/15/17 06:00 Intake and Output: 07/15/17 07/15/17 06:59 18:59 Intake Total 1720 600 Output Total 4550 3 Balance -2830 597 - Labs Labs: 07/15/17 06:00 07/15/17 06:00 PT 13.7 SECONDS (9.4-12.5) H 07/08/17 13:00 INR 1.24 (0.93-1.08) H 07/08/17 13:00 APTT 30.9 Seconds (25.1-36.5) 07/08/17 13:00 Attending/Attestation - Attestation I have personally seen and examined this patient.: Yes I have fully participated in the care of the patient.: Yes I have reviewed all pertinent clinical information, including history, physical exam and plan: Yes Notes (Text): 07/15/17 16:52 attending note; Patient seen and examined With resident. Patient is a 57 year old with a past medical history of multiple myeloma with pathologic fractures, bilateral knee surgery, left arm pathological fracture, and right hip fracture, multiple lytic lesions in thoracic and lumbar spine, expansile with lytic lesion with mild encroachment at T8 and T9 level is admitted with intractable back pain. MRI of the thoracic and lumbar spine showed multiple myelomatous lesions. No compression. Acute fracture. Neurosurgery evaluation appreciated. Patient was offered surgery. Patient refused neurosurgery. Patient got chemotherapy with IV cyclophosphamide and Velcade . Patient already got IV Aredia 1 dose.Started on allopurinol. Continue Bactrim. radiation oncology evaluation appreciated. Continue radiation therapy as per Dr. Gray. sacral decubitus ulcer; continue local wound care. Patient and family educated about how to avoid falls in order to prevent pathological fractures. Patient was also educated about alarming symptoms of cord compression and advised to alert nursing staff of any new symptoms. Patient is at high risk for pathological fracture. Continue IV morphine for pain control. Continue Duragesic patch. Case discussed with case picker in detail. Possible transfer to TCU pending insurance authorization and bed availability. Upon discharge patient will follow-up with PMD of choice. 07/15/17 16:53
--- NOTE | 2017-07-14 14:10 | CP.PCM.PN ---
Subjective - Date & Time of Evaluation Date of Evaluation: 07/14/17 Time of Evaluation: 14:00 - Subjective Subjective: Awake, ambulating with some assistance. Offers no complaints Objective - Vital Signs/Intake and Output Vital Signs (last 24 hours): Temp Pulse Resp BP Pulse Ox 98.0 F 95 H 20 101/59 L 95 07/14/17 06:00 07/14/17 06:00 07/14/17 06:00 07/14/17 06:00 07/14/17 06:00 Intake and Output: 07/14/17 07/14/17 06:59 18:59 Intake Total 2500 Output Total 450 Balance 2050 - Medications Medications: Current Medications Acetaminophen (Tylenol 325mg Tab) 650 mg PO Q6H PRN PRN Reason: Fever >100.4 F Last Admin: 07/14/17 09:41 Dose: 650 mg Acyclovir (Zovirax) 400 mg PO BID [facility] PRN Reason: Protocol Last Admin: 07/14/17 09:41 Dose: 400 mg Allopurinol (Zyloprim) 100 mg PO Q8 [facility] Last Admin: 07/14/17 05:22 Dose: 100 mg Alprazolam (Xanax) 0.25 mg PO BID PRN; Protocol PRN Reason: Anxiety Stop: 07/15/17 18:22 Last Admin: 07/14/17 01:51 Dose: 0.25 mg Ascorbic Acid (Vitamin C 500 Mg Tab) 500 mg PO DAILY [facility] Last Admin: 07/14/17 09:41 Dose: 500 mg Diphenhydramine HCl (Benadryl) 25 mg PO Q6H PRN PRN Reason: Itching / Pruritus Last Admin: 07/12/17 02:55 Dose: 25 mg Docusate Sodium (Colace) 100 mg PO Q12 [facility] Last Admin: 07/14/17 09:41 Dose: 100 mg Enoxaparin Sodium (Lovenox) 40 mg SC DAILY [facility] PRN Reason: Protocol Last Admin: 07/14/17 09:40 Dose: 40 mg Sodium Chloride (Sodium Chloride 0.9%) 1,000 mls @ 100 mls/hr IV .Q10H [facility] Stop: 07/16/17 14:31 Last Admin: 07/14/17 09:43 Dose: 100 mls/hr Insulin Detemir (Levemir) 6 unit SC HS [facility] Insulin Human Lispro (Humalog Low) 0 units SC ACHS [facility] PRN Reason: Protocol Last Admin: 07/14/17 11:30 Dose: Not Given Levothyroxine Sodium (Synthroid) 25 mcg PO 0600 [facility] Last Admin: 07/14/17 05:22 Dose: 25 mcg Morphine Sulfate (Morphine) 4 mg IVP Q4H PRN PRN Reason: Pain, severe (8-10) Last Admin: 07/14/17 02:57 Dose: 4 mg Ondansetron HCl (Zofran Inj) 4 mg IVP Q4H PRN PRN Reason: Nausea/Vomiting Pantoprazole Sodium (Protonix Inj) 40 mg IVP DAILY [facility] Last Admin: 07/14/17 09:40 Dose: 40 mg Trimethoprim/Sulfamethoxazole (Bactrim Ds Tab) 1 tab PO MWF@1000 [facility] PRN Reason: Protocol Last Admin: 07/13/17 14:01 Dose: 1 tab Zinc Sulfate (Zinc Sulfate 220 Mg Cap) 220 mg PO DAILY [facility] Last Admin: 07/14/17 09:45 Dose: 220 mg Zolpidem Tartrate (Ambien) 10 mg PO [facility] PRN Reason: Protocol Last Admin: 07/13/17 21:43 Dose: 10 mg - Labs Labs: 07/14/17 06:45 07/14/17 06:45 PT 13.7 SECONDS (9.4-12.5) H 07/08/17 13:00 INR 1.24 (0.93-1.08) H 07/08/17 13:00 APTT 30.9 Seconds (25.1-36.5) 07/08/17 13:00 - Constitutional Appears: No Acute Distress - Head Exam Head Exam: NORMOCEPHALIC - Eye Exam Eye Exam: Normal appearance, PERRL - ENT Exam ENT Exam: Mucous Membranes Moist - Respiratory Exam Respiratory Exam: Clear to Ausculation Bilateral, NORMAL BREATHING PATTERN - GI/Abdominal Exam GI & Abdominal Exam: Soft, Normal Bowel Sounds - Extremities Exam Extremities Exam: Pedal Edema - Neurological Exam Neurological Exam: Alert, Oriented x3 - Skin Skin Exam: Dry, Warm Assessment and Plan - Assessment and Plan (Free Text) Assessment: 57 year old male with history of progressive multiple myeloma, pathological fracture of right hip and left humerus s/p ORIF's who was admitted with pain, weakness and pain. The patient has started palliative radiation therapy to left humerus and right iliac bone. He has discomfort in both knee when pain when ambulating secondary to bilateral knee replacement which were done this past April. The patient prefers to avoid conversation regarding goals of care and advance care planning. He states that he is going for treatment and will see "what happens". He is annoyed that multiple medical team members visit him through out the day. I explained that each of us have a different role and that we are all working towards treating his illness and providing him with support he may need. I explained that I will continue to visit him through out his stay in order to continue to provide support. Plan: Palliative support
[2017-07-14 14:16] LABS: PH,URINE 6.5 (4.7-8.0); URINE BILIRUBIN NEGATIVE (NEGATIVE); URINE BLOOD NEGATIVE (NEGATIVE); URINE GLUCOSE (UA) NEGATIVE (NEGATIVE); URINE KETONE NEGATIVE (NEGATIVE); URINE LEUKOCYTE ESTERASE NEGATIVE Leu/uL (NEGATIVE); URINE PROTEIN NEGATIVE mg/dL (<30 mg/dL); URINE UROBILINOGEN 0.2 E.U./dL (<1 E.U./dL)
[2017-07-14 14:17] LABS: URINE APPEARANCE CLEAR (CLEAR); URINE COLOR YELLOW (YELLOW)
--- NOTE | 2017-07-14 14:48 | CON ---
DATE: 07/13/2017 ENDOCRINOLOGY CONSULT LOCATION: Room 369. HISTORY OF PRESENT ILLNESS: This is a 57-year-old male with recent diagnosis of multiple myeloma with supervening pathologic fractures and currently bed-bound with intractable diffuse bony and joint pain, and is being referred now for diabetic evaluation related to intercurrent steroid therapy as given. PAST MEDICAL HISTORY: As mentioned above, history of recent diagnosis of multiple myeloma and received palliative radiation therapy and chemotherapy, history of hypertension and dyslipidemia, history of generalized anxiety and insomnia with intractable pain and currently on fentanyl patch given as 75 mcg every 72 hours with Xanax 0.25 b.i.d. No recent intake of any diabetic medications at this time, history of hypothyroidism, currently on levothyroxine given as 25 mcg daily. He underwent a recent bilateral knee replacement with supervening left arm fracture and right hip fracture as noted and underwent a right hip and left shoulder open reduction and internal fixation procedure as noted. FAMILY HISTORY: Positive for hypertension and heart disease. 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 No known substance use, otherwise. REVIEW OF SYSTEMS: As mentioned above, admits to generalized body weakness with easy fatigability and tiredness and suboptimal energy level with increasing hypersomnolence and lethargy with recent insomnia, and has been on Ambien therapy as given. No chest pains or palpitations, but admits to progressive shortness of breath with minimal exertion. His oral intake has been variable and suboptimal with nausea, dyspepsia, and episodic abdominal pain with no recent alterations of bowel and urinary patterns, otherwise. He admits to episodic fever and chills and rigors with polyarthralgias and myalgias and intractable bone pain in the lower back and also lower extremities. PHYSICAL EXAMINATION: GENERAL/VITAL SIGNS: This is an average-built male, in no apparent distress with a blood pressure of 140/80, pulse of 70 beats per minute and regular, temperature 98, respirations 20, height is 5 feet 7 inches, weight is 253 pounds. HEENT: Head normocephalic. Eyes anicteric with pink conjunctivae. Funduscopy not possible at this time. Ears, nose, and throat are otherwise normal. NECK: Supple. Thyroid gland is normal in size. No carotid bruits or cervical adenopathy. CARDIOPULMONARY: Adynamic precordium. S1, S2 is rapid and regular. LUNGS: Clear to auscultation. ABDOMEN: Flat, soft with positive bowel sounds. EXTREMITIES: No peripheral edema. Pulses are +2 bilaterally. He has also sacral decubiti as noted. LABORATORY DATA: WBC 4.2, hemoglobin of 10, hematocrit of 32, MCV 89, platelets 236. His chemistry showed a BUN of 5, sodium 138, potassium 3.9, chloride 102, CO2 of 30, glucose is 120, and creatinine 0.6. His glucose levels have ranged from 146 to 246 mg/dL. ASSESSMENT: This is a 57-year-old male with recent diagnosis of multiple myeloma and received radiation and chemotherapy and also intermittent boluses of steroids with supervening hyperglycemic accelerations and secondary diabetes as noted. PLAN OF MANAGEMENT: We will modify his coverage scale to a low dose algorithm because of the very variable and suboptimal meal portions as noted, and as hyperglycemic fluctuations supervene, then we will start him on a basal and bolus insulin regimen as indicated to optimize metabolic control. We will also obtain thyroid studies and adjust his levothyroxine dose accordingly. Serial chemistries will be obtained, and we will supplement accordingly as needed, and in the meantime, continue the IV hydration as ordered. We will follow with you. Zuleyka Foreman MD
--- NOTE | 2017-07-14 15:15 | PN ---
DATE: ENDOCRINOLOGY FOLLOWUP NOTE LOCATION: Room 369. SUBJECTIVE: This is a 57-year-old male with multiple myeloma and received radiation and chemotherapy prior to admission and currently on a monthly bolus doses of steroids with recent hyperglycemic accelerations as noted thereof. His glycemic levels are fluctuating and today's levels have ranged from 225-246 mg/dl. His A1c is 6.7%. LABORATORY DATA: The latest chemistry showed a BUN of 8, sodium 137, potassium 4.3, chloride 103, CO2 23, glucose 280 and creatinine 0.6. T4 is 8.1 with a TSH of 1.67 and a free T4 of 0.66 indicative of an optimal dosing of his thyroid medication at this time with superimposed component of acute sick euthyroid syndrome. PLAN: So at this time, we will add basal insulin with Levemir to be given as 6 units subcu at bedtime daily to start tonight. We will continue the low-dose correction scale using Humalog insulin as ordered. We will titrate incrementally as indicated to optimize metabolic control. We will obtain serial chemistries and supplement accordingly as needed. We will follow. Zuleyka Foreman MD
--- NOTE | 2017-07-14 15:22 | PN ---
DATE: 07/14/2017 SUBJECTIVE: The patient is seen sitting in bed. He is awake, he is alert. He is complaining of some swelling of his feet. PHYSICAL EXAMINATION: GENERAL: Obese young male sitting in bed. VITAL SIGNS: Blood pressure 101/59, heart rate 95, respiratory rate 20, and temperature 98. HEENT: Normocephalic, atraumatic. NECK: Supple, no JVD. LUNGS: Bilateral equal air entry, no rales. CARDIAC: S1 and S2, regular rate and rhythm, no murmur, no rub. ABDOMEN: Obese, distended, soft, and nontender, bowel sounds present. EXTREMITIES: Trace lower extremity edema. INTAKE AND OUTPUT: 3700/4450. LABORATORY DATA: WBC 3.3, hemoglobin 10, hematocrit 32.7, and platelets 254. Sodium 137, potassium 4.3, chloride 103, CO2 23, BUN 8, creatinine 0.6, glucose 280, and calcium 8.2. Uric acid 3.2. A1c 6.7. Phosphorus 3.3 yesterday, albumin 3.6. TSH 1.6. Urine creatinine 0.33. CURRENT MEDICATIONS: Ambien, Bactrim, Benadryl, Colace, insulin, Lovenox, morphine, Protonix, normal saline, Synthroid, Tylenol, Xanax, Zofran, Zovirax, and allopurinol. ASSESSMENT: 1. Advanced multiple myeloma with multiple lytic lesions. 2. Anemia. 3. Status post chemotherapy. 4. Hyperglycemia. PLAN: 1. No evidence of tumor lysis at this time. 2. Continue IV fluids, okay to discontinue after current bag. 3. Normal renal function. Nisha Talamantes MD
--- NOTE | 2017-07-14 18:30 | PN ---
DATE: 07/14/2017 SUBJECTIVE: The patient is in bed, in no acute distress. Nontoxic. No fevers. The patient was seen early this morning. PHYSICAL EXAMINATION: VITAL SIGNS: On exam, temperature is 98, blood pressure is 112/70, respiratory rate of 16. HEENT: Examination of the HEENT is unremarkable. NECK: Supple. LUNGS: Have decreased breath sounds. HEART: Exam normal S1, S2. ABDOMEN: Emanation is soft, nontender. LABORATORY EXAMINATION: Reveals a white count of 3.3, hemoglobin of 10, and chemistries are noted. Immunology is reviewed. Review of orders reveal that the patient to be on no antibiotics, and the patient is on p.o. Bactrim for prophylaxis and on p.o. acyclovir as discussed with the Oncology service yesterday. ASSESSMENT AND PLAN: This is a 57-year-old male with morbid obesity with BMI of 40 with SIRS (systemic inflammatory response syndrome) with multiple myeloma, diabetes mellitus, hypertension, obesity, status post bilateral knee replacement, and decubitus ulcer. Currently off of antibiotics, afebrile, and the patient is at risk for developing nosocomial infections. Wilfredo Caraballo MD
[2017-07-14] MEDS ORDERED: Insulin Detemir 100 units/ml Vial (Levemir) SC SCH (22:00)
[2017-07-14] MEDS ORDERED: Sodium Chloride 0.9% 1,000 ML IV STA (22:18)
--- NOTE | 2017-07-14 23:47 | CON ---
DATE: 07/13/2017 REASON FOR CONSULTATION: Multiple myeloma, chemotherapy to be started, monitor for tumor lysis. HISTORY OF PRESENT ILLNESS: A 57-year-old male, previously unknown to me, admitted on 07/08/2017. The patient was sent to the emergency room by Dr. Lafleur because of advanced progressive multiple myeloma with multiple lytic lesions in the long bones. The patient gave a history of being operated for a hip fracture and a total hip arthroplasty of the right hip early in June at [facility]. He was also found to have a huge paraspinal mass in the T7 and T9 region. The patient is scheduled to start chemotherapy today. He seems to have a huge tumor burden. PAST MEDICAL AND SURGICAL HISTORY: Bilateral knee replacement on 04/11/2017, left arm fracture, right hip fracture requiring arthroplasty, multiple lytic lesions in the bones. History of Revlimid, Velcade, and Decadron, 3 cycles radiation. Decubitus ulcer in the sacral area. FAMILY HISTORY: Noncontributory. SOCIAL HISTORY: Ex-smoker, ex-alcohol user, no drug use. ALLERGIES: AMRIX. CURRENT MEDICATIONS: Ambien, Bactrim 1 tablet Tuesday, Tuesday, Tuesday, Benadryl, Colace, insulin, Lovenox, morphine p.r.n., Protonix, normal saline to be started this afternoon, Synthroid, Tylenol, vitamin C, Xanax, zinc sulfate, Zofran, Zovirax, allopurinol 100 q.8 h. REVIEW OF SYSTEMS: The patient complains of severe pain in the lower back, he complains of pain in his right hip. He complains of pain in his left shoulder. He denies any chest pain. Denies any palpitations. Denies any abdominal pain, nausea, vomiting. All other systems are reviewed and are unremarkable. PHYSICAL EXAMINATION: GENERAL: Obese, middle-aged male, sitting in chair. VITAL SIGNS: Blood pressure 101/59, heart rate 95, respiratory rate 20, temperature 98. HEENT: Normocephalic, atraumatic, positive pallor, no icterus. NECK: Supple, no JVD. LUNGS: Bilateral equal air entry, bilateral equal expansion, no rales, no rhonchi. CARDIAC: S1, S2, regular rate and rhythm, no murmur, no rub. ABDOMEN: Obese, distended, soft, nontender, bowel sounds present. EXTREMITIES: 1+ pitting edema of the lower extremities. INTAKE AND OUTPUT: 2435/2300. LABORATORY DATA: WBC 4, hemoglobin 10, hematocrit 33, platelets 236. Sodium 138, potassium 3.9, chloride 102, CO2 30, BUN 5, creatinine 0.6, glucose 120, calcium 8.4, AST 27, ALT 24, albumin 3.5. Urinalysis: No protein, no leukocyte esterase. Serum IgG 2240, IgA 61, IgM less than 25. MRI of the thoracic spine, diffuse infiltration changes seen throughout the wall of the thoracic vertebral body segments consistent with multiple myeloma, multilevel DJD, no evidence of definitive epidural tumor extension. MRI of the lumbar spine, significant heterogenous signal changes throughout the lumbosacral segments consistent with myelomatous infiltration. ASSESSMENT: 1. Multiple myeloma with extensive bony and lytic lesions. 2. Severe degenerative joint disease. 3. History of bilateral knee replacement, right hip replacement, left shoulder fracture. 4. Hyperglycemia. 5. The patient to start chemotherapy today. PLAN: 1. Check uric acid and phosphorus levels. 2. Agree with plan for hydration with normal saline. 3. Follow up 24-hour urine. 4. Repeat urinalysis. 5. *------* urine as needed. Thank you for the courtesy of this consultation. We will follow this patient with you. Nisha Talamantes MD
[2017-07-15] MEDS: Morphine 5 MG/ML SYRINGE IVP PRN ×3 (01:55→09:52)
[2017-07-15] MEDS: Levothyroxine 25 MCG TAB PO SCH (05:40)
[2017-07-15] MEDS ORDERED: Benzocaine/Menthol (Cepacol) Lozenge MT PRN (06:24)
--- NOTE | 2017-07-15 06:29 | CP.PCM.PN ---
Subjective - Date & Time of Evaluation Date of Evaluation: 07/15/17 Time of Evaluation: 06:25 - Subjective Subjective: Mr. Ward was seen and examined at the bedside. He is alert, oriented in all spheres. He denies any headache, dizziness, lightheadedness, nause, or vomiting. He states of experiencing swollen lower extremities last night. Lasix was given and had a large urine output. He further claims of having the back brace for physical therapy and pain medications are being given to him as needed. At present, the lower extremities still with mild edema, encouraged patient to elevate as often, verbalizes understanding. Objective - Vital Signs/Intake and Output Vital Signs (last 24 hours): Temp Pulse Resp BP Pulse Ox 97.9 F 92 H 20 137/88 95 07/14/17 18:00 07/14/17 18:00 07/14/17 18:00 07/14/17 22:26 07/14/17 06:00 Intake and Output: 07/14/17 07/15/17 18:59 06:59 Intake Total 975 720 Output Total 1475 Balance 975 -755 - Medications Medications: Current Medications Acetaminophen (Tylenol 325mg Tab) 650 mg PO Q6H PRN PRN Reason: Fever >100.4 F Last Admin: 07/14/17 09:41 Dose: 650 mg Acyclovir (Zovirax) 400 mg PO BID [facility] PRN Reason: Protocol Last Admin: 07/14/17 18:17 Dose: 400 mg Allopurinol (Zyloprim) 100 mg PO Q8 [facility] Last Admin: 07/15/17 05:40 Dose: 100 mg Alprazolam (Xanax) 0.25 mg PO BID PRN; Protocol PRN Reason: Anxiety Stop: 07/15/17 18:22 Last Admin: 07/14/17 01:51 Dose: 0.25 mg Ascorbic Acid (Vitamin C 500 Mg Tab) 500 mg PO DAILY [facility] Last Admin: 07/14/17 09:41 Dose: 500 mg Diphenhydramine HCl (Benadryl) 25 mg PO Q6H PRN PRN Reason: Itching / Pruritus Last Admin: 07/12/17 02:55 Dose: 25 mg Docusate Sodium (Colace) 100 mg PO Q12 [facility] Last Admin: 07/14/17 21:43 Dose: 100 mg Enoxaparin Sodium (Lovenox) 40 mg SC DAILY [facility] PRN Reason: Protocol Last Admin: 07/14/17 09:40 Dose: 40 mg Fentanyl (Duragesic) 1 patch TD Q72H [facility] Last Admin: 07/14/17 16:36 Dose: 1 patch Sodium Chloride (Sodium Chloride 0.9%) 1,000 mls @ 60 mls/hr IV .[id number] STA Stop: 07/15/17 14:57 Last Admin: 07/14/17 22:50 Dose: 60 mls/hr Insulin Detemir (Levemir) 6 unit SC HS [facility] Last Admin: 07/14/17 21:49 Dose: 6 unit Insulin Human Lispro (Humalog Low) 0 units SC [facility] PRN Reason: Protocol Last Admin: 07/14/17 22:25 Dose: Not Given Levothyroxine Sodium (Synthroid) 25 mcg PO 0600 [facility] Last Admin: 07/15/17 05:40 Dose: 25 mcg Morphine Sulfate (Morphine) 4 mg IVP Q4H PRN PRN Reason: Pain, severe (8-10) Last Admin: 07/15/17 05:52 Dose: 4 mg Ondansetron HCl (Zofran Inj) 4 mg IVP Q4H PRN PRN Reason: Nausea/Vomiting Pantoprazole Sodium (Protonix Inj) 40 mg IVP DAILY [facility] Last Admin: 07/14/17 09:40 Dose: 40 mg Trimethoprim/Sulfamethoxazole (Bactrim Ds Tab) 1 tab PO MWF@1000 [facility] PRN Reason: Protocol Last Admin: 07/13/17 14:01 Dose: 1 tab Zinc Sulfate (Zinc Sulfate 220 Mg Cap) 220 mg PO DAILY [facility] Last Admin: 07/14/17 09:45 Dose: 220 mg Zolpidem Tartrate (Ambien) 10 mg PO HS [facility] PRN Reason: Protocol Last Admin: 07/14/17 21:48 Dose: 10 mg - Labs Labs: 07/14/17 06:45 07/14/17 06:45 PT 13.7 SECONDS (9.4-12.5) H 07/08/17 13:00 INR 1.24 (0.93-1.08) H 07/08/17 13:00 APTT 30.9 Seconds (25.1-36.5) 07/08/17 13:00 - Constitutional Appears: No Acute Distress - Head Exam Head Exam: ATRAUMATIC - Neurological Exam Neurological Exam: Alert, Awake, CN II-XII Intact, Oriented x3 Neuro motor strength exam: Left Upper Extremity: 5, Right Upper Extremity: 5, Left Lower Extremity: 4, Right Lower Extremity: 4 Additional comments: Neurological unchnaged from previous examination. Assessment and Plan (1) Spinal disease Assessment & Plan: Case discussed with Dr. Carroll, continue all current medical, physical, and occupational therapies. There is no new recommendations from neurology. Status: Acute
[2017-07-15 07:13] LABS: BASO # 0.01 K/mm3 (0.0-2.0); BASO % 0.2 % (0.0-3.0); EOS # 0.1 (0.0-0.7); EOS % 0.9 % (1.5-5.0); GRAN # 4.18 (1.4-6.5); GRAN % 76.5 % (50.0-68.0); HEMATOCRIT 33.5 % (42.0-52.0); LYMPH # 0.7 (1.2-3.4); LYMPH % 12.2 % (22.0-35.0); MEAN CELL VOLUME 89.6 fl (80.0-105.0); MEAN CORPUSCULAR HEMOGLOBIN 28.1 pg (25.0-35.0); MEAN CORPUSCULAR HGB CONC 31.3 g/dl (31.0-37.0); MEAN PLATELET VOLUME 10.5 fl (7.0-11.0); MONO # 0.6 (0.1-0.6); MONO % 10.2 % (1.0-6.0); RED CELL DISTRIBUTION WIDTH 15.9 % (11.5-14.5); WHITE BLOOD COUNT 5.5 10^3/ul (4.5-11.0)
--- NOTE | 2017-07-15 07:25 | CP.PCM.PN ---
Subjective - Date & Time of Evaluation Date of Evaluation: 07/15/17 Time of Evaluation: 07:05 - Subjective Subjective: Heme/onc progress note for Dr Lafleur's service Patient complained of worsening of lower extremities edema. Patient was giving laxis, with some improvement in the swelling. Patient requesting the IVF be discontinued. Patient admits to intermittent hot flashes. Denies fever, chills, nausea, vomiting or diarrhea. Objective - Vital Signs/Intake and Output Vital Signs (last 24 hours): Temp Pulse Resp BP Pulse Ox 97.9 F 92 H 20 137/88 95 07/14/17 18:00 07/14/17 18:00 07/14/17 18:00 07/14/17 22:26 07/14/17 06:00 Intake and Output: 07/15/17 07/15/17 06:59 18:59 Intake Total 1720 Output Total 4550 Balance -2830 - Medications Medications: Current Medications Acetaminophen (Tylenol 325mg Tab) 650 mg PO Q6H PRN PRN Reason: Fever >100.4 F Last Admin: 07/14/17 09:41 Dose: 650 mg Acyclovir (Zovirax) 400 mg PO BID [facility] PRN Reason: Protocol Last Admin: 07/14/17 18:17 Dose: 400 mg Allopurinol (Zyloprim) 100 mg PO Q8 [facility] Last Admin: 07/15/17 05:40 Dose: 100 mg Alprazolam (Xanax) 0.25 mg PO BID PRN; Protocol PRN Reason: Anxiety Stop: 07/15/17 18:22 Last Admin: 07/14/17 01:51 Dose: 0.25 mg Ascorbic Acid (Vitamin C 500 Mg Tab) 500 mg PO DAILY [facility] Last Admin: 07/14/17 09:41 Dose: 500 mg Benzocaine/Menthol (Cepacol Sore Throat) 1 avelino MT Q2H PRN PRN Reason: Sore Throat Last Admin: 07/15/17 07:02 Dose: 1 avelino Diphenhydramine HCl (Benadryl) 25 mg PO Q6H PRN PRN Reason: Itching / Pruritus Last Admin: 07/12/17 02:55 Dose: 25 mg Docusate Sodium (Colace) 100 mg PO Q12 [facility] Last Admin: 07/14/17 21:43 Dose: 100 mg Enoxaparin Sodium (Lovenox) 40 mg SC DAILY [facility] PRN Reason: Protocol Last Admin: 07/14/17 09:40 Dose: 40 mg Fentanyl (Duragesic) 1 patch TD Q72H [facility] Last Admin: 07/14/17 16:36 Dose: 1 patch Sodium Chloride (Sodium Chloride 0.9%) 1,000 mls @ 60 mls/hr IV .[id number] STA Stop: 07/15/17 14:57 Last Admin: 07/14/17 22:50 Dose: 60 mls/hr Insulin Detemir (Levemir) 6 unit SC HS [facility] Last Admin: 07/14/17 21:49 Dose: 6 unit Insulin Human Lispro (Humalog Low) 0 units SC [facility] PRN Reason: Protocol Last Admin: 07/14/17 22:25 Dose: Not Given Levothyroxine Sodium (Synthroid) 25 mcg PO 0600 [facility] Last Admin: 07/15/17 05:40 Dose: 25 mcg Morphine Sulfate (Morphine) 4 mg IVP Q4H PRN PRN Reason: Pain, severe (8-10) Last Admin: 07/15/17 05:52 Dose: 4 mg Ondansetron HCl (Zofran Inj) 4 mg IVP Q4H PRN PRN Reason: Nausea/Vomiting Pantoprazole Sodium (Protonix Inj) 40 mg IVP DAILY [facility] Last Admin: 07/14/17 09:40 Dose: 40 mg Trimethoprim/Sulfamethoxazole (Bactrim Ds Tab) 1 tab PO MWF@1000 [facility] PRN Reason: Protocol Last Admin: 07/13/17 14:01 Dose: 1 tab Zinc Sulfate (Zinc Sulfate 220 Mg Cap) 220 mg PO DAILY [facility] Last Admin: 07/14/17 09:45 Dose: 220 mg Zolpidem Tartrate (Ambien) 10 mg PO HS [facility] PRN Reason: Protocol Last Admin: 07/14/17 21:48 Dose: 10 mg - Labs Labs: 07/15/17 06:00 07/14/17 06:45 PT 13.7 SECONDS (9.4-12.5) H 07/08/17 13:00 INR 1.24 (0.93-1.08) H 07/08/17 13:00 APTT 30.9 Seconds (25.1-36.5) 07/08/17 13:00 - Constitutional Appears: No Acute Distress, Older Than Stated Age, Chronically Ill - Head Exam Head Exam: ATRAUMATIC, NORMAL INSPECTION, NORMOCEPHALIC - Eye Exam Eye Exam: Normal appearance. absent: Scleral icterus Pupil Exam: NORMAL ACCOMODATION - ENT Exam ENT Exam: Mucous Membranes Moist - Neck Exam Neck Exam: Normal Inspection - Respiratory Exam Respiratory Exam: Clear to Ausculation Bilateral, NORMAL BREATHING PATTERN. absent: Prolonged Expiratory Phase, Rales, Rhonchi, Wheezes, Respiratory Distress, Stridor - Cardiovascular Exam Cardiovascular Exam: REGULAR RHYTHM, RRR, +S1, +S2 - GI/Abdominal Exam GI & Abdominal Exam: Soft, Normal Bowel Sounds. absent: Distended, Firm, Guarding, Rigid, Tenderness - Extremities Exam Extremities Exam: Pedal Edema (+3). absent: Tenderness - Back Exam Back Exam: NORMAL INSPECTION - Neurological Exam Neurological Exam: Alert, Awake, Oriented x3 - Psychiatric Exam Psychiatric exam: Normal Affect, Normal Mood - Skin Skin Exam: Dry, Rash (1 erythematous rash on the right medial thigh, no prurutric. ), Warm Assessment and Plan - Assessment and Plan (Free Text) Assessment: Patient is a 57 y/o with pmh of progressive multiple myeloma, hypothyroidism, anxiety, multiple lytic lesions of the spine, with fractures of the bilateral knees s/p sherrell knee replacement, with spontaneous fractures of the left humerus and right hip while getting physical therapy. Patient had extensive work up while at [facility] and was found to have paraspinal mass extending from T7-19 region along with lytic lesions on the ribs, was on velcade and dexamethasone, which was discontinued due to development of rash from the chemo. Patient also had radiation while at [facility]. During hospitalization, patient developed large sacral decubitus ulcers requiring antibiotics. Patient also had replacement of his right hip. Patient saw Dr Lafleur in the office for the first time on 07/06/17 to establish care. Patient presented with worsening pain and is currently admitted with failure to thrive, gait instability and worsening of the pain. On admission, patient underwent extensive work up, including x-rays, CT and MRI which were consistent with sherrell knees replacement and right hip replacement, left humeral fractures, Innumerable lytic lesions throughout the lumbar spine consistent with known multiple myeloma, in addition to lesions in the thoracic spine and mass in the S2 region. Patient was evaluated by neurosurgery, recommended patient have surgery to repair the bony destruction at the thoracic spine, however patient opted not to have surgery at this moment to avoid delaying his chemo. Spoke to neurosurgeron Dr Solano on Tuesday, recommended although the best plan for the patient is to have surgery, its ok for the patient to get TLSO brace. Patient was also seen by ID due to transient SIRS, patient had antibiotics for brief period of time which was discontinued. Patient was seen by surgery for sacral decubitus wound care. Patient was evaluated by radiation oncologist, recommended radiation to the left humerus, right femur and pelvis starting today, last dose will be July 28. Patient had chemo on Tuesday based on velcade injection and cytoxan infusion, with dexamethasone, zofran, Benadryl and Tylenol pre-medication. Next chemo dose will be next Tuesday07/20/17. Patient c/o worsening of the lower extremities edema, lower extremities ultrasound on 07/08/17 with no DVT. Patient to be transferred to TCU for rehab and monitoring for tumor lysis syndrome. Plan: - Labs reviewed, CBC, chem, liver and renal profile, uric acid and LDH all seem stable. - Will discontinue IVF due to worsening in lower extremities edema - Keep legs elevated, compression stocking. - Will continue to monitor for tumor lysis syndrome - Continue with allopurinol 100 mg tid. - Continue with glucose monitoring, on insulin sliding scale, and basal insulin. Endocrinology on the case. - Continue with IV protonix. - On fentanyl patch, and morphine prn for pain - On prophylaxis against HSV and pcp with acyclovir 400 mg bid, and Bactrim 1 tab M,W,F. - Patient to be transferred to TCU today. - Lovenox was discontinued, re-started on home dose eliquis for DVT prevention. Patient seen, examined and case discussed with Dr Lafleur.
[2017-07-15 08:01] LABS: ALB/GLOB RATIO 0.9 (1.1-1.8); ALKALINE PHOSPHATASE 94 U/L (38-126); ALT/SGPT 40 U/L (7-56); AST/SGOT 36 U/L (17-59); BILIRUBIN,TOTAL 0.5 mg/dL (0.2-1.3); BLOOD UREA NITROGEN 9 mg/dL (7-21); CALCIUM 8.2 mg/dL (8.4-10.5); CARBON DIOXIDE 25 mmol/L (21-33); CHLORIDE 104 mmol/L (98-107); GFR AFRICAN-AMERICAN > 60; GLUCOSE,RANDOM 110 mg/dL (70-110); SODIUM 139 mmol/L (132-148); TOTAL PROTEIN 7.9 g/dL (5.8-8.3); URIC ACID 3.3 mg/dL (3.5-8.5)
[2017-07-15] MEDS: Insulin Lispro (humaLOG) LOW Coverage SC SCH ×2 (08:16→12:30)
[2017-07-15 08:57] VITALS: BP 106/71; PULSE 89; RESP 18; TEMP 98.3; O2SAT 96
--- NOTE | 2017-07-15 12:00 | PN ---
DATE: 07/15/2017 SUBJECTIVE: The patient is in bed, in no acute distress, and nontoxic. PHYSICAL EXAMINATION: VITAL SIGNS: Temperature is 98, blood pressure is 130/80, respiratory rate of 20, and heart rate of 92. HEENT: Examination of HEENT is unremarkable. NECK: Supple. LUNGS: Have decreased breath sounds. HEART: Normal S1 and S2. ABDOMEN: Soft. LABORATORY DATA: Laboratory examination reveals a white count of 5.5, hemoglobin of 10,and platelets of 257. BUN of 9, creatinine of 0.7 and procalcitonin is 0.05. The urinalysis is noted. ASSESSMENT AND PLAN: This is a 57-year-old male with morbid obesity and a body mass index of 40 with SIRS (systemic inflammatory response syndrome), multiple myeloma, diabetes, hypertension, obesity, status post bilateral knee replacement, decubitus ulcer, currently off of antibiotics, and afebrile. The patient is on Eliquis and we will follow with you. Wilfredo Caraballo MD
[2017-07-15] MEDS: Tmp-Smz 800 mg-160 mg DS Tab PO SCH (12:15)
--- NOTE | 2017-07-15 13:54 | CP.PCM.PN ---
<Adonis Bernabe Rolando - Last Filed: 07/15/17 13:50> Subjective - Date & Time of Evaluation Date of Evaluation: 07/15/17 Time of Evaluation: 13:51 - Subjective Subjective: Patient seen and examined at bedside. Patient states that he was not able to sleep all night because of pain, and that he is also in pain right now. Objective - Vital Signs/Intake and Output Vital Signs (last 24 hours): Temp Pulse Resp BP Pulse Ox 98.3 F 89 18 106/71 96 07/15/17 06:00 07/15/17 06:00 07/15/17 06:00 07/15/17 06:00 07/15/17 06:00 Intake and Output: 07/15/17 07/15/17 06:59 18:59 Intake Total 1720 Output Total 4550 Balance -2830 - Medications Medications: Current Medications Acetaminophen (Tylenol 325mg Tab) 650 mg PO Q6H PRN PRN Reason: Fever >100.4 F Last Admin: 07/14/17 09:41 Dose: 650 mg Acyclovir (Zovirax) 400 mg PO BID GOGO PRN Reason: Protocol Last Admin: 07/15/17 12:16 Dose: 400 mg Allopurinol (Zyloprim) 100 mg PO Q8 GOGO Last Admin: 07/15/17 05:40 Dose: 100 mg Alprazolam (Xanax) 0.25 mg PO BID PRN; Protocol PRN Reason: Anxiety Stop: 07/15/17 18:22 Last Admin: 07/14/17 01:51 Dose: 0.25 mg Apixaban (Eliquis) 2.5 mg PO BID GOGO PRN Reason: Protocol Last Admin: 07/15/17 12:16 Dose: 2.5 mg Ascorbic Acid (Vitamin C 500 Mg Tab) 500 mg PO DAILY GOGO Last Admin: 07/15/17 12:16 Dose: 500 mg Benzocaine/Menthol (Cepacol Sore Throat) 1 avelino MT Q2H PRN PRN Reason: Sore Throat Last Admin: 07/15/17 07:02 Dose: 1 avelino Diphenhydramine HCl (Benadryl) 25 mg PO Q6H PRN PRN Reason: Itching / Pruritus Last Admin: 07/12/17 02:55 Dose: 25 mg Docusate Sodium (Colace) 100 mg PO Q12 [facility] Last Admin: 07/14/17 21:43 Dose: 100 mg Fentanyl (Duragesic) 1 patch TD Q72H [facility] Last Admin: 07/14/17 16:36 Dose: 1 patch Furosemide (Lasix) 40 mg PO DAILY [facility] Hydromorphone HCl (Dilaudid) 2 mg PO Q6 PRN PRN Reason: Pain, severe (8-10) Insulin Detemir (Levemir) 6 unit SC HS [facility] Last Admin: 07/14/17 21:49 Dose: 6 unit Insulin Human Lispro (Humalog Low) 0 units SC ACHS [facility] PRN Reason: Protocol Last Admin: 07/15/17 12:30 Dose: Not Given Levothyroxine Sodium (Synthroid) 25 mcg PO 0600 [facility] Last Admin: 07/15/17 05:40 Dose: 25 mcg Morphine Sulfate (Morphine) 4 mg IVP Q4H PRN PRN Reason: Pain, severe (8-10) Last Admin: 07/15/17 09:52 Dose: 4 mg Ondansetron HCl (Zofran Inj) 4 mg IVP Q4H PRN PRN Reason: Nausea/Vomiting Pantoprazole Sodium (Protonix Inj) 40 mg IVP DAILY [facility] Last Admin: 07/15/17 12:16 Dose: 40 mg Trimethoprim/Sulfamethoxazole (Bactrim Ds Tab) 1 tab PO MWF@1000 [facility] PRN Reason: Protocol Last Admin: 07/15/17 12:15 Dose: 1 tab Zinc Sulfate (Zinc Sulfate 220 Mg Cap) 220 mg PO DAILY [facility] Last Admin: 07/15/17 12:16 Dose: 220 mg Zolpidem Tartrate (Ambien) 10 mg PO HS [facility] PRN Reason: Protocol Last Admin: 07/14/17 21:48 Dose: 10 mg - Labs Labs: 07/15/17 06:00 07/15/17 06:00 PT 13.7 SECONDS (9.4-12.5) H 07/08/17 13:00 INR 1.24 (0.93-1.08) H 07/08/17 13:00 APTT 30.9 Seconds (25.1-36.5) 07/08/17 13:00 - Constitutional Appears: Well - Head Exam Head Exam: ATRAUMATIC, NORMAL INSPECTION, NORMOCEPHALIC - Eye Exam Eye Exam: EOMI, Normal appearance, PERRL Pupil Exam: NORMAL ACCOMODATION, PERRL - ENT Exam ENT Exam: Mucous Membranes Moist, Normal Exam - Neck Exam Neck Exam: Full ROM, Normal Inspection. absent: Lymphadenopathy - Respiratory Exam Respiratory Exam: Clear to Ausculation Bilateral, NORMAL BREATHING PATTERN - Cardiovascular Exam Cardiovascular Exam: REGULAR RHYTHM, +S1, +S2. absent: Murmur - GI/Abdominal Exam GI & Abdominal Exam: Soft, Normal Bowel Sounds. absent: Tenderness - Rectal Exam Rectal Exam: NORMAL INSPECTION - Extremities Exam Extremities Exam: Full ROM, Normal Capillary Refill, Normal Inspection. absent : Joint Swelling, Pedal Edema - Back Exam Back Exam: NORMAL INSPECTION - Neurological Exam Neurological Exam: Alert, Awake, CN II-XII Intact, Normal Gait, Oriented x3 - Psychiatric Exam Psychiatric exam: Normal Affect, Normal Mood - Skin Skin Exam: Dry, Intact, Normal Color, Warm Assessment and Plan - Assessment and Plan (Free Text) Assessment: A/P 57 year old male with past medical history of Anxiety, Diabetes Type 2, Decubitus Ulcer, LE swelling, and Hypothyroidism, as well as multiple myeloma, presented with intractible pain, immobility, and a fever. Intractable pain secondary to Multiple Myeloma Imaging: - Left shoulder X-ray shows old healed fracture deformities in the distal and proximal shaft left humerus and degenerative changes in both shoulder girdles and multiple small lucencies throughout the osseous structures consistent with history multiple myeloma. - Lumbar spine CT showed inumerable lytic lesions consistent with multiple myeloma. lesion in the right S2 sacral area with cortical destruction with no neural foraminal encroachment, lytic lesion of posterior aspect of T11, and atypical expansile lesion on the left side of L1 associated with cortical destruction. - Continue pain management. - Throracic spine Ct showed lytic lesions throughout thoracic spine, confluent large, expansile lytic lesions at T8-T9 with encroachment upon central spinal canal, and incidental 1.6mm mass in the left lower lobe found. - Lumbar spine MRI showed multiple myelomatous infiltration, large lytic lesions , central bony canal and exit foramina adequate, spondylosis at L4-L5, and heterogenous signal changes throughout lumboscaral segments - Thoracic MRI: mild diffuse infiltration changes throughout wall of thoracic and vertebral body, and 2 large infiltration lesions in left lateral margins of T8-T9. - Bone density showed diffuse lytic lesions throughout all osseous structures of the axial and appendicular skeleton. - Chest abdomen and pelvis CT: showed destructive bony lesion of T8 &t9 and involves the adjacent ribs, small lesion on left side of L1, and large lesion of left ilac bone. - Orthopedic consult, Dr. Varghese. Rec's appreciated. - Hematology/Oncology consult, Dr. Lafleur. Rec's appreciated. * Patient should be started on bisphosphonate therapy as soon as is feasible. Will need intensive therapy to get rid of tumor initially before moving on to regimen such as Revlimid, Velcade, and Dexamethasone * Patient may have developed a rash secondary to Velcade and Antibiotics interaction. Dr. Lafleur would like to re-challenge the patient at some point * Patient also needs a much stronger regimen such as TCEP - Spine Surgery: Dr. Solano consulted. Rec's appreciated. * Patient has grossly unstable thoracic metastasis with overt spinal cord compression - strongly recommended decompression fixation and fusion * Recommended an MRI: showed multilevel degenerative spondylosis in L4-L5. No acute compression fracture or retropulsed fragments. Canal and exit foramina were adequate throughout - Palliative care consulted. Rec's appreciated. * Patient has started palliative radiation therapy to left humerus and right iliac bone - Patient had chemotherapy Tuesday. Scheduled for radiation therapy today. Fever likely secondary to sacral ulcer. - SIRS Resolved; Blood culture negative x 48 hours, Urine culture negative, but Sacral wound culture positive for Corynebacterium and Strep Agalactiae Group B, sensitive to ampicillin, clindamycin, penicillin, and vancomycin - UA negative; Rapid flu negative - Continue Tylenol 650 mg PRN for fever greater than 100.4 F - Infectious disease consulted. Rec's appreciated. * Currently off of antibiotics Anxiety - Continue Xanax 0.25 mg BID Diabetes Type 2 - Insulin sliding scale Lispro (low). Accuchecks. - Diabetic diet. Decubitus Ulcer - Wound culture grew Strep Agalactiae Group B and Corneybacterium species: Surgery and Infectious disease consulted. ID as above - Continue Zinc, Vitamin C - Surgery: Dr. Larsen consulted. Rec's appreciated * Patient does not wish for debridement at this time * No further surgical intervention right now Lower extremity swelling - Duplex US of bilateral lower extremities negative - ECHO: shows EF of 51.7%; LV is borderline dilated; Moderate AR; Mild Pulmonary hypertension Hypothyroidism - Continue Levothyroxine 25mg Daily. DVT/GI prophylaxis: Lovenox 40 mg SC qday; Pepcid 20 mg IVP daily <Cristhian Mustafa - Last Filed: 07/15/17 17:06> Objective - Vital Signs/Intake and Output Vital Signs (last 24 hours): Temp Pulse Resp BP Pulse Ox 98.3 F 89 18 106/71 96 07/15/17 06:00 07/15/17 06:00 07/15/17 06:00 07/15/17 14:12 07/15/17 06:00 Intake and Output: 07/15/17 07/15/17 06:59 18:59 Intake Total 1720 600 Output Total 4550 3 Balance -2830 597 - Labs Labs: 07/15/17 06:00 07/15/17 06:00 PT 13.7 SECONDS (9.4-12.5) H 07/08/17 13:00 INR 1.24 (0.93-1.08) H 07/08/17 13:00 APTT 30.9 Seconds (25.1-36.5) 07/08/17 13:00 Attending/Attestation - Attestation I have personally seen and examined this patient.: Yes I have fully participated in the care of the patient.: Yes I have reviewed all pertinent clinical information, including history, physical exam and plan: Yes Notes (Text): 07/15/17 17:02 attending note; Patient seen and examined With resident. Patient is a 57 year old with a past medical history of multiple myeloma with pathologic fractures, bilateral knee surgery, left arm pathological fracture, and right hip fracture, multiple lytic lesions in thoracic and lumbar spine, expansile with lytic lesion with mild encroachment at T8 and T9 level is admitted with intractable back pain. MRI of the thoracic and lumbar spine showed multiple myelomatous lesions. No compression. Acute fracture. Neurosurgery evaluation appreciated. Patient was offered surgery. Patient refused neurosurgery. Patient got chemotherapy with IV cyclophosphamide and Velcade. Treated with IVF to avoid tumor lysis syndrome. Nephrology evaluation appreciated. Patient is concerned about leg swelling. Leg edema secondary to post surgery/dependent edema/IV fluid hydration. Started on Lasix. Recent Doppler is negative for DVT. Patient already got IV Aredia 1 dose.Started on allopurinol. Continue Bactrim. radiation oncology evaluation appreciated. Continue radiation therapy as per Dr. Gray. sacral decubitus ulcer; continue local wound care. Continue IV morphine for pain control. Continue Duragesic patch. transfer to TCU today. Upon discharge patient will follow-up with PMD of choice. diagnosis; Advanced multiple myeloma status post Palliative chemotherapy. Status post palliative radiation Chronic leg edema Post bilateral knee surgery Post right hip surgery Sacral decubitus Expansile lytic lesion at T8-T9
--- NOTE | 2017-07-15 15:07 | PN ---
DATE: 07/15/2017 SUBJECTIVE: The patient is seen lying in recliner. He complains of severe back pain. He complains of lot of discomfort. He complains of swelling of his legs. PHYSICAL EXAMINATION: GENERAL: Obese, middle-aged male lying in recliner. VITAL SIGNS: Blood pressure 106/71, heart rate 89, respiratory rate 18, temperature 98.3. HEENT: Normocephalic, atraumatic, positive pallor. NECK: Supple, no JVD. LUNGS: Bilateral equal air entry, no rales. CARDIAC: S1, S2, regular rate and rhythm, no murmur, no rub. ABDOMEN: Obese, distended, soft, nontender, bowel sounds present. EXTREMITIES: 2+ pitting edema of the lower extremities. INTAKE AND OUTPUT: 2695/4550. LABORATORY DATA: WBC 5.5, hemoglobin 10.5, hematocrit 34, platelets 257. Sodium 139, potassium 4.0, chloride 104, CO2 25, BUN 9, creatinine 0.7, glucose 110, calcium 8.2, albumin 3.7, corrected calcium is at 8.3, uric acid 3.3. Urinalysis; pH 6.5, specific less than 1.005. CURRENT MEDICATIONS: Ambien, Bactrim, Benadryl, Cepacol, Colace 100 q. 12 h., Dilaudid, Duragesic, Eliquis 2.5 b.i.d., insulin, morphine, Protonix, Synthroid, Tylenol, vitamin C, Xanax, Zofran, Lasix 40 mg given IV push yesterday. ASSESSMENT: 1. Multiple myeloma with multiple bony lytic lesions. 2. Pathological fractures of left arm, right hip. 3. History of bilateral knee replacements. 4. Anemia. 5. Status post chemotherapy on 07/13/2017. 6. Edema. PLAN: 1. Currently, no evidence of tumor lysis syndrome. 2. Start Lasix 40 mg p.o. daily. 3. Continue radiation. 4. Continue chemotherapy as per Oncology. Nisha Talamantes MD
--- NOTE | 2017-07-15 17:33 | CP.PCM.DIS ---
Provider - Provider Date of Admission: 07/08/17 16:44 Attending physician: Cristhian Mustafa MD Primary care physician: Lonny Sandhu DO Consults: Dr. Lafleur - Heme/Onc Dr. Foreman - Endo Dr. Talamantes - Nephro Ms. Paramonte - Palliative Dr. Castillo - Surgery Dr. Taylorromonaco - Ortho Dr. Magallanes - ID Dr. Solano - Brain/Spine Dr. Carroll - Neuro Dr. Atkins - IR Dr. Gray - Rad/Onc Time Spent in preparation of Discharge (in minutes): 45 Hospital Course - Lab Results Lab Results: Micro Results 07/08/17 19:17 Blood-Venous Blood Culture - Final NO GROWTH AFTER 5 DAYS 07/08/17 19:17 Blood-Venous Gram Stain - Final TEST NOT PERFORMED 07/08/17 19:17 Blood-Venous Blood Culture - Final NO GROWTH AFTER 5 DAYS 07/08/17 19:17 Blood-Venous Gram Stain - Final TEST NOT PERFORMED 07/08/17 18:30 Sacral Gram Stain - Final 07/08/17 18:30 Sacral Wound Culture - Final Strep Agalactiae Group B Corynebacterium Species 07/08/17 19:10 Urine,Clean Catch Urine Culture - Final No Growth (<1,000 CFU/ML) Most Recent Lab Values WBC 5.5 10^3/ul (4.5-11.0) D 07/15/17 06:00 RBC 3.74 10^6/uL (3.5-6.1) 07/15/17 06:00 Hgb 10.5 g/dL (14.0-18.0) L 07/15/17 06:00 Hct 33.5 % (42.0-52.0) L 07/15/17 06:00 MCV 89.6 fl (80.0-105.0) 07/15/17 06:00 MCH 28.1 pg (25.0-35.0) 07/15/17 06:00 MCHC 31.3 g/dl (31.0-37.0) 07/15/17 06:00 RDW 15.9 % (11.5-14.5) H 07/15/17 06:00 Plt Count 257 10^3/uL (120.0-450.0) 07/15/17 06:00 MPV 10.5 fl (7.0-11.0) 07/15/17 06:00 Gran % 76.5 % (50.0-68.0) H 07/15/17 06:00 Lymph % (Auto) 12.2 % (22.0-35.0) L 07/15/17 06:00 Hale % (Auto) 10.2 % (1.0-6.0) H 07/15/17 06:00 Eos % (Auto) 0.9 % (1.5-5.0) L 07/15/17 06:00 Baso % (Auto) 0.2 % (0.0-3.0) 07/15/17 06:00 Gran # 4.18 (1.4-6.5) 07/15/17 06:00 Lymph # 0.7 (1.2-3.4) L 07/15/17 06:00 Hale # 0.6 (0.1-0.6) 07/15/17 06:00 Eos # 0.1 (0.0-0.7) 07/15/17 06:00 Baso # 0.01 K/mm3 (0.0-2.0) 07/15/17 06:00 PT 13.7 SECONDS (9.4-12.5) H 07/08/17 13:00 INR 1.24 (0.93-1.08) H 07/08/17 13:00 APTT 30.9 Seconds (25.1-36.5) 07/08/17 13:00 Sodium 139 mmol/L (132-148) 07/15/17 06:00 Potassium 4.0 mmol/L (3.6-5.0) 07/15/17 06:00 Chloride 104 mmol/L (98-107) 07/15/17 06:00 Carbon Dioxide 25 mmol/L (21-33) 07/15/17 06:00 Anion Gap 14 (10-20) 07/15/17 06:00 BUN 9 mg/dL (7-21) 07/15/17 06:00 Creatinine 0.7 mg/dl (0.8-1.5) L 07/15/17 06:00 Est GFR ( Amer) > 60 07/15/17 06:00 Est GFR (Non-Af Amer) > 60 07/15/17 06:00 POC Glucose (mg/dL) 124 mg/dL (65-110) H 07/15/17 15:58 Random Glucose 110 mg/dL (70-110) 07/15/17 06:00 Hemoglobin A1c 6.7 % (4.2-6.5) H 07/14/17 06:45 Uric Acid 3.3 mg/dL (3.5-8.5) L 07/15/17 06:00 Calcium 8.2 mg/dL (8.4-10.5) L 07/15/17 06:00 Phosphorus 3.3 mg/dL (2.5-4.5) 07/13/17 13:19 Magnesium 1.8 mg/dL (1.7-2.2) 07/09/17 07:30 Total Bilirubin 0.5 mg/dL (0.2-1.3) 07/15/17 06:00 AST 36 U/L (17-59) 07/15/17 06:00 ALT 40 U/L (7-56) 07/15/17 06:00 Alkaline Phosphatase 94 U/L (38-126) 07/15/17 06:00 Lactate Dehydrogenase 503 U/L (333-699) 07/15/17 06:00 Total Creatine Kinase 30 U/L (35-230) L 07/08/17 13:00 Troponin I < 0.01 ng/mL 07/08/17 13:00 Total Protein 7.9 g/dL (5.8-8.3) 07/15/17 06:00 Total Protein (PEP) 7.3 g/dL (6.1-8.1) 07/08/17 19:17 Albumin 3.7 g/dL (3.0-4.8) 07/15/17 06:00 Albumin (PEP) 2.9 g/dL (3.8-4.8) L 07/08/17 19:17 Globulin 4.2 gm/dL 07/15/17 06:00 Albumin/Globulin Ratio 0.9 (1.1-1.8) L 07/15/17 06:00 Tnqxn-7-Foirslllm 4.7 Relative % 07/13/17 15:00 Gjmia-7-Mrugyhhet 11.1 Relative % 07/13/17 15:00 Beta Globulins 57.2 Relative % 07/13/17 15:00 Xpnf-6-Uoaamzfz 0.4 g/dL (0.4-0.6) 07/08/17 19: Lqyb-9-Solnvdbk 1.9 g/dL (0.2-0.5) H 07/08/17 19:17 Ypdn-1-Kdxsxqonkgpnh 3.81 mg/L (<or= 2.51) H 07/11/17 06:00 Gamma Globulins 7.0 Relative % 07/13/17 15:00 Abnorm Protein Band 1 1.66 g/dL (None Detected) H 07/08/17 19:17 Abnorm Protein Band 2 TEST NOT PERFORMED 07/08/17 19: Abnorm Protein Band 3 TEST NOT PERFORMED 07/08/17 19:17 Triglycerides 84 mg/dL (35-160) 07/09/17 07:30 Cholesterol 136 mg/dL (130-200) 07/09/17 07:30 LDL Cholesterol Direct 83 mg/dL (0-129) 07/09/17 07:30 HDL Cholesterol 33 mg/dL (29-60) 07/09/17 07:30 Procalcitonin < 0.05 NG/ML (0.19-0.49) L 07/09/17 12:43 Free T4 0.66 ng/dL (0.78-2.19) L 07/14/17 06:45 Thyroxine (T4) 8.1 ug/dL (5.5-11.0) 07/14/17 06:45 TSH 3rd Generation 1.67 mIU/mL (0.46-4.68) 07/14/17 06:45 Urine Color Yellow (YELLOW) 07/14/17 13:55 Urine Appearance Clear (CLEAR) 07/14/17 13:55 Urine pH 6.5 (4.7-8.0) 07/14/17 13:55 Ur Specific [place] <= 1.005 (1.005-1.035) 07/14/17 13:55 Urine Protein Negative mg/dL (<30 mg/dL) 07/14/17 13:55 Urine Glucose (UA) Negative mg/dL (NEGATIVE) 07/14/17 13:55 Urine Ketones Negative mg/dL (NEGATIVE) 07/14/17 13:55 Urine Blood Negative (NEGATIVE) 07/14/17 13:55 Urine Nitrate Negative (NEGATIVE) 07/14/17 13:55 Urine Bilirubin Negative (NEGATIVE) 07/14/17 13:55 Urine Urobilinogen 0.2 E.U./dL (<1 E.U./dL) 07/14/17 13:55 Ur Leukocyte Esterase Negative Dave/uL (NEGATIVE) 07/14/17 13:55 Urine Creatinine 0.33 g/L 07/13/17 15:00 Ur Creatinine 24 Hour 1.49 g/24 h (0.63-2.50) 07/13/17 15:00 Ur Total Protein 24 Hr 338 mg/24 h (<150) H 07/13/17 15:00 Protein/Creat Ratio 24h 227 mg/g creat (</=84) H 07/13/17 15:00 Urine Total Protein 74 mg/L (50-250) 07/13/17 15:00 Urine Albumin (PEP) 20.0 Relative % 07/13/17 15:00 Ur Protein Fractions See note 07/13/17 15:00 IgG 2242.1 mg/dL (700.0-1600.0) H 07/12/17 07:00 IgA 61.7 mg/dL (70.0-400.0) L 07/12/17 07:00 IgM < 25.0 mg/dL (40.0-230.0) L 07/12/17 07:00 WHITNEY & SPEP Interp See note 07/08/17 19:17 Free [place] Light Chains 54.9 mg/L (3.3-19.4) H 07/12/17 06:49 Free Lambda Light Chain 13.3 mg/L (5.7-26.3) 07/11/17 06:00 Free [place]/Lambda Ratio 4.59 (0.26-1.65) H 07/11/17 06:00 Influenza Typ A,B (EIA) Negative for flu a/b (NEGATIVE) 07/11/17 13:32 WB Flow Cytometry Reference test 07/12/17 07:00 - Hospital Course Hospital Course: 57 year old male with a past medical history of tinnitus, new-onset diabetes was admitted because he was recentlly diagnosed with multiple myeloma and presented with pathological fractures and immobility. He was diagnosed with Multiple Myeloma and in th the past three months underwent orthopedic surgery for the right hip, left shoulder, and for debridement of a decubitus ulcer in his back with wound vacuum placement. He underwent 10 rounds of palliative radiation therapy and 3 round of chemotherapy. He has been living at home, bed- bound, since June 07 and requires assistance for nearly all of activities of daily living. He presents to [facility] for intractable pain in below the knees, bilaterally, left shoulder and right hip. He admits to chills and fever, but denies, weight, loss, nausea, vomiting, diarrhea, weight loss, easy brusing or bleeding, night sweats or dyspnea on admission. He denies having any complications from his chemoradiation such as loss incontinence, diarrhea, changes in taste, dry mouth, etc. While here, he was seen by several consultants, all who agreed that palliative radiation would be the best course of action for his care. The following was the assessment and plan for this patient the day of discharge to TCU: A/P 57 year old male with past medical history of Anxiety, Diabetes Type 2, Decubitus Ulcer, LE swelling, and Hypothyroidism, as well as multiple myeloma, presented with intractible pain, immobility, and a fever. Intractable pain secondary to Multiple Myeloma Imaging: - Left shoulder X-ray shows old healed fracture deformities in the distal and proximal shaft left humerus and degenerative changes in both shoulder girdles and multiple small lucencies throughout the osseous structures consistent with history multiple myeloma. - Lumbar spine CT showed inumerable lytic lesions consistent with multiple myeloma. lesion in the right S2 sacral area with cortical destruction with no neural foraminal encroachment, lytic lesion of posterior aspect of T11, and atypical expansile lesion on the left side of L1 associated with cortical destruction. - Continue pain management. - Throracic spine Ct showed lytic lesions throughout thoracic spine, confluent large, expansile lytic lesions at T8-T9 with encroachment upon central spinal canal, and incidental 1.6mm mass in the left lower lobe found. - Lumbar spine MRI showed multiple myelomatous infiltration, large lytic lesions , central bony canal and exit foramina adequate, spondylosis at L4-L5, and heterogenous signal changes throughout lumboscaral segments - Thoracic MRI: mild diffuse infiltration changes throughout wall of thoracic and vertebral body, and 2 large infiltration lesions in left lateral margins of T8-T9. - Bone density showed diffuse lytic lesions throughout all osseous structures of the axial and appendicular skeleton. - Chest abdomen and pelvis CT: showed destructive bony lesion of T8 &t9 and involves the adjacent ribs, small lesion on left side of L1, and large lesion of left ilac bone. - Orthopedic consult, Dr. Varghese. Rec's appreciated. - Hematology/Oncology consult, Dr. Lafleur. Rec's appreciated. * Patient should be started on bisphosphonate therapy as soon as is feasible. Will need intensive therapy to get rid of tumor initially before moving on to regimen such as Revlimid, Velcade, and Dexamethasone * Patient may have developed a rash secondary to Velcade and Antibiotics interaction. Dr. Lafleur would like to re-challenge the patient at some point * Patient also needs a much stronger regimen such as TCEP - Spine Surgery: Dr. Solano consulted. Rec's appreciated. * Patient has grossly unstable thoracic metastasis with overt spinal cord compression - strongly recommended decompression fixation and fusion * Recommended an MRI: showed multilevel degenerative spondylosis in L4-L5. No acute compression fracture or retropulsed fragments. Canal and exit foramina were adequate throughout - Palliative care consulted. Rec's appreciated. * Patient has started palliative radiation therapy to left humerus and right iliac bone - Patient had chemotherapy Tuesday. Scheduled for radiation therapy today. Fever likely secondary to sacral ulcer. - SIRS Resolved; Blood culture negative x 48 hours, Urine culture negative, but Sacral wound culture positive for Corynebacterium and Strep Agalactiae Group B, sensitive to ampicillin, clindamycin, penicillin, and vancomycin - UA negative; Rapid flu negative - Continue Tylenol 650 mg PRN for fever greater than 100.4 F - Infectious disease consulted. Rec's appreciated. * Currently off of antibiotics Anxiety - Continue Xanax 0.25 mg BID Diabetes Type 2 - Insulin sliding scale Lispro (low). Accuchecks. - Diabetic diet. Decubitus Ulcer - Wound culture grew Strep Agalactiae Group B and Corneybacterium species: Surgery and Infectious disease consulted. ID as above - Continue Zinc, Vitamin C - Surgery: Dr. Larsen consulted. Rec's appreciated * Patient does not wish for debridement at this time * No further surgical intervention right now Lower extremity swelling - Duplex US of bilateral lower extremities negative - ECHO: shows EF of 51.7%; LV is borderline dilated; Moderate AR; Mild Pulmonary hypertension Hypothyroidism - Continue Levothyroxine 25mg Daily. DVT/GI prophylaxis: Lovenox 40 mg SC qday; Pepcid 20 mg IVP daily Discharge Exam - Head Exam Head Exam: ATRAUMATIC, NORMAL INSPECTION, NORMOCEPHALIC - Eye Exam Eye Exam: EOMI, Normal appearance, PERRL Pupil Exam: NORMAL ACCOMODATION, PERRL - ENT Exam ENT Exam: Mucous Membranes Moist, Normal Exam, Normal External Ear Exam, Normal Oropharynx - Neck Exam Neck exam: Full Rom, Normal Inspection - Respiratory Exam Respiratory Exam: Clear to PA & Lateral, NORMAL BREATHING PATTERN, UNREMARKABLE - Cardiovascular Exam Cardiovascular Exam: REGULAR RHYTHM, +S1, +S2. absent: Tachycardia, Systolic Murmur - GI/Abdominal Exam GI & Abdominal Exam: Normal Bowel Sounds - Extremities Exam Extremities exam: full ROM, normal capillary refill, normal inspection - Back Exam Back exam: FULL ROM, NORMAL INSPECTION. absent: CVA tenderness (L), CVA tenderness (R) - Neurological Exam Neurological exam: Alert, CN II-XII Intact, Normal Gait, Oriented x3, Reflexes Normal - Psychiatric Exam Psychiatric exam: Normal Affect, Normal Mood - Skin Skin Exam: Dry, Intact, Normal Color, Warm Discharge Plan - Discharge Medications Prescriptions: Furosemide [Lasix] 40 mg PO DAILY #10 tab HYDROmorphone [Dilaudid 2 mg Tab] 2 mg PO Q4 #30 tab - Follow Up Plan Condition: GOOD Disposition: TRANSF TO SNF Instructions: Intravenous Chemotherapy (DC), Eating During Cancer Treatment (DC ), External Radiation Therapy (DC) Additional Instructions: Patient going to TRCU. Primary care physician to follow.
[2017-07-16 07:53] LABS: COLLECTION TIME 24 Hours
== END 2017-07-15 16:43 | DRG 840 ==
LOC: ED 11:55 → ERH 16:44 → 5RSO 18:26 → 3RNO 07-12 12:09
PROVIDERS: ADMIT Hospitalist; ATTEND Internal Medicine
PROC: 0JH63WZ Insertion of Totally Implantable Vascular Access Device into Chest Subcutaneous Tissue and Fascia, Percutaneous Approach (ICD-10-PCS; principal; 2017-07-12)
PROC: 3E03305 Introduction of Other Antineoplastic into Peripheral Vein, Percutaneous Approach (ICD-10-PCS; 2017-07-13)
PROC: 3E033GC Introduction of Other Therapeutic Substance into Peripheral Vein, Percutaneous Approach (ICD-10-PCS; 2017-07-13)
PROC: 3E0333Z Introduction of Anti-inflammatory into Peripheral Vein, Percutaneous Approach (ICD-10-PCS; 2017-07-13)
DX: C90.00 Multiple myeloma not having achieved remission (principal); G89.3 Neoplasm related pain (acute) (chronic); L89.154 Pressure ulcer of sacral region, stage 4; I27.20 Pulmonary hypertension, unspecified; E66.01 Morbid (severe) obesity due to excess calories; R65.10 Systemic inflammatory response syndrome (SIRS) of non-infectious origin without acute organ dysfunction; E11.65 Type 2 diabetes mellitus with hyperglycemia; Z68.41 Body mass index [BMI] 40.0-44.9, adult; I10 Essential (primary) hypertension; E03.9 Hypothyroidism, unspecified; G47.00 Insomnia, unspecified; E78.5 Hyperlipidemia, unspecified; R62.7 Adult failure to thrive; M47.816 Spondylosis without myelopathy or radiculopathy, lumbar region; D64.9 Anemia, unspecified; R60.0 Localized edema; H93.19 Tinnitus, unspecified ear; F41.1 Generalized anxiety disorder; Z91.81 History of falling; Z74.01 Bed confinement status; Z96.641 Presence of right artificial hip joint; Z96.653 Presence of artificial knee joint, bilateral; Z92.3 Personal history of irradiation; Z87.81 Personal history of (healed) traumatic fracture; Z87.891 Personal history of nicotine dependence

== ENCOUNTER 2017-07-15 16:27 | Inpatient (IN) | payer BC ==
[2017-07-15 17:38] VITALS: BMI 40.5
[2017-07-15] MEDS ORDERED: Morphine 5 MG/ML SYRINGE IVP PRN (17:38)
[2017-07-15] MEDS ORDERED: Benzocaine/Menthol (Cepacol) Lozenge MT PRN (17:38)
[2017-07-15] MEDS: Insulin Lispro (humaLOG) LOW Coverage SC SCH (21:55)
[2017-07-15] MEDS: Insulin Detemir 100 units/ml Vial (Levemir) SC SCH (22:10)
--- NOTE | 2017-07-16 00:43 | PN ---
DATE: ENDOCRINOLOGY FOLLOWUP NOTE LOCATION: Room 369. SUBJECTIVE: This is a 57-year-old male with known history of multiple myeloma and recent chemo and radiation therapy, now admitted for closer evaluation and management and is also being followed closely for metabolic management because of recent hyperglycemic accelerations with the initiation of steroid therapy as given. His glycemic levels are fluctuating but improved and the latest glucose values have ranged from 106 to 114 and 130 mg/dL. LABORATORY DATA: The latest chemistry showed a BUN of 9, sodium 139, potassium 4.0, chloride 104, CO2 of 25, glucose 110, and creatinine 0.7. ASSESSMENT AND PLAN: So at this time, we will continue the basal insulin given as Levemir at 6 units subcu at bedtime daily as ordered. We will also continue the Humalog low-dose correction coverage to obviate hypoglycemia, and detailed orders have been given. We will hold off any kind of oral hypoglycemic therapy for now as his oral intake is quite variable and suboptimal as per the nursing staff. We will obtain serial chemistries and supplement accordingly as needed. We will follow with you. Zuleyka Foreman MD
--- NOTE | 2017-07-16 02:06 | CP.PCM.HP ---
<FlorecitaAdonis - Last Filed: 07/16/17 02:11> History of Present Illness - History of Present Illness History of Present Illness: History and Physical 07/15/17 - Adonis Bernabe, Jahaira 57 year old with a past medical history of tinnitus, new-onset diabetes mellitus , recently diagnosed multiple myeloma with pathologic fractures and immobility. On April 11, 2017 he underwent a bilateral knee replacement surgery that was followed by a left arm fracture, and right hip fracture, all within the span of a month. He was diagnosed with Multiple Myeloma and in the past three months underwent orthopedic surgery for the right hip, left shoulder, and for debridement of a decubitus ulcer in his back with wound vacuum placement. He underwent 10 rounds of palliative radiation therapy and 3 round of chemotherapy. He has been living at home, bed-bound, since June 07 and requires assistance for nearly all of activities of daily living. He presented to [facility] for intractable pain in below the knees, bilaterally, left shoulder and right hip on 07/08/17. He admitted to chills and fever, but denies, weight, loss, nausea, vomiting, diarrhea, weight loss, easy brusing or bleeding, night sweats or dyspnea on admission. He denies having any complications from his chemoradiation such as loss incontinence, diarrhea, changes in taste, dry mouth , etc. While he was at [facility], he was started on palliative care therapy for his multiple myeloma. Sent to TCU due to his multiple fractures and pain control. Patient currently only complains of pain, and states that the pain kept him up all night. Received a dose of palliative radiation today (07/15/17). PMD: Listed as Dr. 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 Family History: Unremarkable ROS: 12 point review of systems negative except for HPI. Present on Admission - Present on Admission Any Indicators Present on Admission: No Past Patient History - Past Social History Smoking Status: Never Smoked - CARDIAC Hx Cardiac Disorders: No - PULMONARY Hx Respiratory Disorders: No - NEUROLOGICAL Hx Neurological Disorder: No - HEENT Hx HEENT Problems: No - RENAL Hx Chronic Kidney Disease: No - ENDOCRINE/METABOLIC Hx Diabetes Mellitus Type 2: Yes (borderline) Hx Hypothyroidism: Yes - HEMATOLOGICAL/ONCOLOGICAL Hx Blood Disorders: No Hx Cancer: Yes (Multiple Myeloma Diagnosed April 2017) - INTEGUMENTARY Hx Dermatological Problems: Yes Hx Melanoma: Yes Other/Comment: Multiple Melanoma Diagnosed April 2017 - MUSCULOSKELETAL/RHEUMATOLOGICAL Hx Falls: No - GASTROINTESTINAL Hx Gastrointestinal Disorders: No - GENITOURINARY/GYNECOLOGICAL Hx Reproductive Disorders: No - PSYCHIATRIC Hx Psychophysiologic Disorder: No - SURGICAL HISTORY Hx Orthopedic Surgery: Yes Other/Comment: Bilateral knee replacement, R hip replacement - ANESTHESIA Hx Anesthesia: Yes Meds Allergies/Adverse Reactions: Allergies Allergy/AdvReac Type Severity Reaction Status Date / Time No Known Allergies Allergy Verified 07/15/17 17:38 Physical Exam - Constitutional Appears: Non-toxic, Chronically Ill - Head Exam Head Exam: ATRAUMATIC, NORMAL INSPECTION, NORMOCEPHALIC - Eye Exam Eye Exam: EOMI, Normal appearance, PERRL Pupil Exam: NORMAL ACCOMODATION, PERRL - ENT Exam ENT Exam: Mucous Membranes Moist, Normal Exam - Neck Exam Neck exam: Positive for: Normal Inspection - Respiratory Exam Respiratory Exam: Clear to Auscultation Bilateral, NORMAL BREATHING PATTERN - Cardiovascular Exam Cardiovascular Exam: REGULAR RHYTHM - GI/Abdominal Exam GI & Abdominal Exam: Normal Bowel Sounds, Soft. absent: Distended, Rebound, Rigid, Tenderness - Extremities Exam Extremities exam: Positive for: full ROM, pedal edema. Negative for: calf tenderness - Back Exam Back exam: NORMAL INSPECTION, paraspinal tenderness. absent: CVA tenderness (L) , CVA tenderness (R), FULL ROM - Neurological Exam Neurological exam: Alert, CN II-XII Intact, Normal Gait, Oriented x3, Reflexes Normal - Psychiatric Exam Psychiatric exam: Normal Affect, Normal Mood - Skin Skin Exam: Dry, Intact, Normal Color, Warm Results - Vital Signs Recent Vital Signs: Last Vital Signs Temp 98.8 F 07/15/17 20:06 Pulse 107 H 07/15/17 20:06 Resp 18 07/15/17 20:06 BP 95/63 L 07/15/17 20:06 Pulse Ox 96 07/15/17 20:06 - Labs Labs: Laboratory Results - last 24 hr 07/15/17 21:48 POC Glucose (mg/dL) 166 H Assessment & Plan - Assessment and Plan (Free Text) Assessment: A/P 57 year old male with past medical history of Anxiety, Diabetes Type 2, Decubitus Ulcer, LE swelling, and Hypothyroidism, as well as multiple myeloma, presented with intractible pain, immobility, and a fever. In TCU due to multiple fractures, pain control, and access to palliative chemo/radiation Imaging: - Left shoulder X-ray shows old healed fracture deformities in the distal and proximal shaft left humerus and degenerative changes in both shoulder girdles and multiple small lucencies throughout the osseous structures consistent with history multiple myeloma. - Lumbar spine CT showed inumerable lytic lesions consistent with multiple myeloma. lesion in the right S2 sacral area with cortical destruction with no neural foraminal encroachment, lytic lesion of posterior aspect of T11, and atypical expansile lesion on the left side of L1 associated with cortical destruction. - Continue pain management. - Throracic spine Ct showed lytic lesions throughout thoracic spine, confluent large, expansile lytic lesions at T8-T9 with encroachment upon central spinal canal, and incidental 1.6mm mass in the left lower lobe found. - Lumbar spine MRI showed multiple myelomatous infiltration, large lytic lesions , central bony canal and exit foramina adequate, spondylosis at L4-L5, and heterogenous signal changes throughout lumboscaral segments - Thoracic MRI: mild diffuse infiltration changes throughout wall of thoracic and vertebral body, and 2 large infiltration lesions in left lateral margins of T8-T9. - Bone density showed diffuse lytic lesions throughout all osseous structures of the axial and appendicular skeleton. - Chest abdomen and pelvis CT: showed destructive bony lesion of T8 &t9 and involves the adjacent ribs, small lesion on left side of L1, and large lesion of left ilac bone. Multiple Myeloma - Orthopedic consult, Dr. Varghese. Rec's appreciated. - Hematology/Oncology consult, Dr. Lafleur. Rec's appreciated. * Patient should be started on bisphosphonate therapy as soon as is feasible. Will need intensive therapy to get rid of tumor initially before moving on to regimen such as Revlimid, Velcade, and Dexamethasone * Patient may have developed a rash secondary to Velcade and Antibiotics interaction. Dr. Lafleur would like to re-challenge the patient at some point * Patient also needs a much stronger regimen such as TCEP - Spine Surgery: Dr. Solano consulted. Rec's appreciated. * Patient has grossly unstable thoracic metastasis with overt spinal cord compression - strongly recommended decompression fixation and fusion * Recommended an MRI: showed multilevel degenerative spondylosis in L4-L5. No acute compression fracture or retropulsed fragments. Canal and exit foramina were adequate throughout - Palliative care consulted. Rec's appreciated. * Patient has started palliative radiation therapy to left humerus and right iliac bone - Patient had chemotherapy Tuesday. Scheduled for radiation therapy today. Intractible Pain secondary to Multiple Myeloma - Pain control as above Fever likely secondary to sacral ulcer: Resolved - SIRS Resolved; Blood culture negative x 48 hours, Urine culture negative, but Sacral wound culture positive for Corynebacterium and Strep Agalactiae Group B, sensitive to ampicillin, clindamycin, penicillin, and vancomycin - UA negative; Rapid flu negative - Continue Tylenol 650 mg PRN for fever greater than 100.4 F - Infectious disease consulted. Rec's appreciated. * Currently off of antibiotics Anxiety - Continue Xanax 0.25 mg BID Diabetes Type 2 - Insulin sliding scale Lispro (low). Accuchecks. - Diabetic diet. Decubitus Ulcer - Wound culture grew Strep Agalactiae Group B and Corneybacterium species: Surgery and Infectious disease consulted. ID as above - Continue Zinc, Vitamin C - Surgery: Dr. Larsen consulted. Rec's appreciated * Patient does not wish for debridement at this time * No further surgical intervention right now Lower extremity swelling - Duplex US of bilateral lower extremities negative - ECHO: shows EF of 51.7%; LV is borderline dilated; Moderate AR; Mild Pulmonary hypertension Hypothyroidism - Continue Levothyroxine 25mg Daily. DVT/GI prophylaxis: Lovenox 40 mg SC qday; Pepcid 20 mg IVP daily <Cristhian Mustafa - Last Filed: 07/19/17 14:58> Results - Vital Signs Recent Vital Signs: Last Vital Signs Temp 98 F 07/18/17 17:59 Pulse 107 H 07/18/17 17:59 Resp 20 07/18/17 17:59 BP 96/60 L 07/18/17 17:59 Pulse Ox 97 07/18/17 17:59 - Labs Result Diagrams: 07/19/17 10:00 07/18/17 06:30 Labs: Laboratory Results - last 24 hr 1207/18/17 07/19/17 16:23 21:25 04:50 WBC RBC Hgb Hct MCV MCH MCHC RDW Plt Count MPV Gran % Lymph % (Auto) Villalba % (Auto) Eos % (Auto) Baso % (Auto) Gran # Lymph # Villalba # Eos # Baso # POC Glucose (mg/dL) 160 H 159 H 121 H 07/19/17 07/19/17 10:00 11:18 WBC 5.3 RBC 3.76 Hgb 10.6 L Hct 33.8 L MCV 89.9 MCH 28.2 MCHC 31.4 RDW 16.4 H Plt Count 246 MPV 9.8 Gran % 78.3 H Lymph % (Auto) 9.5 L Villalba % (Auto) 7.6 H Eos % (Auto) 4.4 Baso % (Auto) 0.2 Gran # 4.13 Lymph # 0.5 L Villalba # 0.4 Eos # 0.2 Baso # 0.01 POC Glucose (mg/dL) 155 H Attending/Attestation - Attestation I have personally seen and examined this patient.: Yes I have fully participated in the care of the patient.: Yes I have reviewed all pertinent clinical information: Yes Notes (Text): 07/19/17 14:57 attending note; Patient seen and examined With resident. Patient is a 57 year old with a past medical history of multiple myeloma with pathologic fractures, bilateral knee surgery, left arm pathological fracture, and right hip fracture, multiple lytic lesions in thoracic and lumbar spine, expansile with lytic lesion with mild encroachment at T8 and T9 level is admitted with intractable back pain. MRI of the thoracic and lumbar spine showed multiple myelomatous lesions. No compression. Acute fracture. Neurosurgery evaluation appreciated. Patient was offered surgery. Patient refused neurosurgery. Patient got chemotherapy with IV cyclophosphamide and Velcade. Treated with IVF to avoid tumor lysis syndrome. Nephrology evaluation appreciated. Patient is concerned about leg swelling. Leg edema secondary to post surgery/dependent edema/IV fluid hydration. Started on Lasix. Recent Doppler is negative for DVT. Patient already got IV Aredia 1 dose.Started on allopurinol. Continue Bactrim. radiation oncology evaluation appreciated. Continue radiation therapy as per Dr. Gray. sacral decubitus ulcer; continue local wound care. Continue IV morphine for pain control. Continue Duragesic patch. Transferred to TCU today. patient will be followed in TCU closely.
[2017-07-16] MEDS: Levothyroxine 25 MCG TAB PO SCH (05:29)
[2017-07-16] MEDS ORDERED: Levothyroxine 25 MCG TAB PO SCH (06:00)
[2017-07-16] MEDS: Insulin Lispro (humaLOG) LOW Coverage SC SCH ×4 (06:30→22:34)
[2017-07-16 10:24] LABS: BASO # 0.01 K/mm3 (0.0-2.0); BASO % 0.2 % (0.0-3.0); EOS # 0.1 (0.0-0.7); EOS % 1.5 % (1.5-5.0); GRAN # 4.64 (1.4-6.5); GRAN % 77.1 % (50.0-68.0); HEMATOCRIT 34.3 % (42.0-52.0); LYMPH # 0.7 (1.2-3.4); MEAN CELL VOLUME 89.3 fl (80.0-105.0); MEAN CORPUSCULAR HEMOGLOBIN 27.9 pg (25.0-35.0); MEAN CORPUSCULAR HGB CONC 31.2 g/dl (31.0-37.0); MEAN PLATELET VOLUME 9.8 fl (7.0-11.0); MONO # 0.6 (0.1-0.6); MONO % 9.2 % (1.0-6.0); RED CELL DISTRIBUTION WIDTH 15.9 % (11.5-14.5)
[2017-07-16 10:35] LABS: ALB/GLOB RATIO 0.9 (1.1-1.8); ALKALINE PHOSPHATASE 99 U/L (38-126); ALT/SGPT 34 U/L (7-56); AST/SGOT 32 U/L (17-59); BILIRUBIN,TOTAL 0.5 mg/dL (0.2-1.3); BLOOD UREA NITROGEN 10 mg/dL (7-21); CALCIUM 8.5 mg/dL (8.4-10.5); CARBON DIOXIDE 26 mmol/L (21-33); CHLORIDE 101 mmol/L (98-107); GFR AFRICAN-AMERICAN > 60; GLUCOSE,RANDOM 139 mg/dL (70-110); POTASSIUM 4.3 mmol/L (3.6-5.0); SODIUM 137 mmol/L (132-148); TOTAL PROTEIN 7.8 g/dL (5.8-8.3)
--- NOTE | 2017-07-16 15:28 | CARD ---
APPROVED REPORT EKG Measurement Heart [id number] ID [id number] <Conclusion> Normal sinus rhythm Prolonged QT Abnormal ECG
[2017-07-16] MEDS ORDERED: Pantoprazole 40 mg EC Tab PO ONE (16:00)
[2017-07-16] MEDS: Insulin Detemir 100 units/ml Vial (Levemir) SC SCH (22:28)
[2017-07-17] MEDS: Pantoprazole 40 mg EC Tab PO SCH (06:22)
[2017-07-17] MEDS: Levothyroxine 25 MCG TAB PO SCH (06:22)
[2017-07-17] MEDS: Insulin Lispro (humaLOG) LOW Coverage SC SCH ×4 (06:35→21:38)
[2017-07-17 06:43] LABS: BASO # 0.01 K/mm3 (0.0-2.0); BASO % 0.3 % (0.0-3.0); EOS # 0.1 (0.0-0.7); EOS % 1.9 % (1.5-5.0); GRAN # 2.72 (1.4-6.5); GRAN % 72.2 % (50.0-68.0); HEMATOCRIT 32.1 % (42.0-52.0); LYMPH # 0.5 (1.2-3.4); LYMPH % 13.6 % (22.0-35.0); MEAN CELL VOLUME 88.4 fl (80.0-105.0); MEAN CORPUSCULAR HEMOGLOBIN 28.1 pg (25.0-35.0); MEAN CORPUSCULAR HGB CONC 31.8 g/dl (31.0-37.0); MEAN PLATELET VOLUME 10.1 fl (7.0-11.0); MONO # 0.5 (0.1-0.6); RED CELL DISTRIBUTION WIDTH 15.8 % (11.5-14.5); WHITE BLOOD COUNT 3.8 10^3/ul (4.5-11.0)
[2017-07-17 06:48] LABS: ALB/GLOB RATIO 0.9 (1.1-1.8); ALKALINE PHOSPHATASE 90 U/L (38-126); ALT/SGPT 35 U/L (7-56); AST/SGOT 30 U/L (17-59); BILIRUBIN,TOTAL 0.5 mg/dL (0.2-1.3); BLOOD UREA NITROGEN 10 mg/dL (7-21); CALCIUM 8.5 mg/dL (8.4-10.5); CARBON DIOXIDE 27 mmol/L (21-33); CHLORIDE 104 mmol/L (98-107); GFR AFRICAN-AMERICAN > 60; GLUCOSE,RANDOM 116 mg/dL (70-110); SODIUM 140 mmol/L (132-148); TOTAL PROTEIN 7.2 g/dL (5.8-8.3)
--- NOTE | 2017-07-17 11:00 | CON ---
DATE: 07/16/2017 The patient is in [facility], room 302, bed 1. HISTORY OF PRESENT ILLNESS: This is a 57-year-old male, was in the acute site for the treatment of advanced multiple myeloma who is now transferred to the [facility] site for deconditioning, rehabing while continuing his treatment for his multiple myeloma. The patient is a 57-year-old with a history of tinnitus, diabetes mellitus, recently diagnosed to have extensive myeloma. Then he had bilateral knee replacements, subsequent to that developed fracture of his left humerus, fracture of his right hip, had to have right hip arthroplasty. In the past, has had extensive workups done, found to have extensive disease with T7, T9, has had spinal masses, left hip lesion, left iliac limb lesion, extensive disease in the left femur as well along with other extensive lytic changes throughout the mid spine and scalp for which the patient had received just 2 doses of Velcade and dexamethasone while he was in [facility] and then from there, he received additional treatments, was discharged, has been home since 06/06/2017. Came to the hospital after seeing me on 07/06/2017. Had rapid reassessment of all the areas in question with various imaging, found to have extensive disease of the thoracic spine. Neurosurgical and neurologic consultation was obtained. on which the active testing is based on is very fragile. Concern for spontaneous fracture was of significant concern. Surgery was offered. The patient was reluctant as he already had 3 major procedures done in less than 2 months. Conservative measures were approached. The patient already had radiation palliatively for the spine, so back brace was recommended. The patient then was initiated on systemic chemotherapy consisting of Cytoxan, dexamethasone, and Velcade, which he is going to get on day 1, 8, 15, 22 on a 28-day cycle, and I had his first treatment last week along with the radiation being initiated. Pain in the lower limb, which was in a scale of 0 to 10, at least 9 has improved, but his current persistent problems are pain in the lower back, the lumbosacral area, sacral decubitus ulcer, which is still persistent but is not infected, is being managed conservatively by the wound services and the surgical team here. Along with this, the patient has been feeling better and has been ambulating now with a walker, using the back brace with the help of therapist. The patient admits to chills and fever but denies any nausea, vomiting, diarrhea, or weight loss. He says he had lot of night sweats last night, but overall, the patient is feeling better. REVIEW OF SYSTEMS: Except for the lower back pain, discomfort in the sacral decubitus for which he is getting dressing changes done almost daily, using a donut ____. He is ambulating using both the walker and the back brace. The patient overall is feeling better. Still complains of tightness in his legs, swelling of his legs along with tingling and numbness which get to worse when he stands on his feet for longer periods of time, but he is able to move. 12 system review was done. Everything is negative except for what is mentioned in the HPI. PHYSICAL EXAMINATION: GENERAL: The patient is awake, alert, and oriented, in no acute distress. VITAL SIGNS: Stable. T-max is 98.4. Pulse is 107. Respirations are 18. Blood pressure is 95/63. Pulse ox is 96%. HEENT: Head is normocephalic, atraumatic. Conjunctivae pale. Sclerae anicteric. Pupils are equally reactive to light and accommodation. Examination of oropharynx reveals no oropharyngeal lesion. NECK: Supple. There is no adenopathy. No jugular venous distention noted. LUNGS: Clear to percussion and auscultation. HEART: Examination of the heart reveals PMI in the fifth intercostal space, inside the midclavicular line. S1 and S2 are normal. No gallop or murmur is heard. ABDOMEN: Soft, protuberant. No masses are felt. EXTREMITIES: The patient is able to raise both his arms above the shoulder on the right side, limitation of movement, range of movements on the left side, with a palpable callus in the left humerus. Right femur pain appears to be less, especially in the lower aspect above the knee. Still has persistent swelling of both lower extremities and complaining of pain in the hodge and the tibia of both lower extremities. NEUROLOGIC: Higher functions are normal. No focal deficits are noted. /RECTAL: Deferred. The patient has a large sacral decubitus, which is being dressed and followed by the wound services. DVT studies, venous Doppler have been negative done recently when he was in the acute site. The patient's medications were reviewed and no new changes have occurred from the time when he was in the acute medical floor. The patient is on Ambien, Bactrim DS 1 tablet 3 times a week, Benadryl 25 mg q.6 h. p.r.n, he is on Cepacol lozenges, Colace 100 mg q.12 hours, he is on Dilaudid 2 mg p.o. q.6 hours for severe pain. He is on fentanyl patch 50 mcg q.72 hours. He is on Eliquis 2.5 mg b.i.d. for clot prevention. Insulin coverage. He is on Levemir 6 units subcu at bedtime daily. He is on morphine 12 mg IV q.4 h. p.r.n. He is on Protonix 40 mg daily, Synthroid 25 mcg daily, Tylenol p.r.n., ascorbic acid 500 mg p.o. daily, Xanax 0.25 mg b.i.d., zinc sulfate 220 mg daily, acyclovir 400 mg b.i.d., allopurinol 100 mg p.o. q.8 hours. LABORATORY DATA: From today reveal a white count of 6, hemoglobin 10.7, hematocrit 34, platelet count is 258,000. Sugars are within normal limits. Sodium is 134, potassium is 4.3, chloride is 101, CO2 is 26, BUN is 10, creatinine is 0.6. ALT and AST are within normal limits. Alkaline phosphatase is 99. We will continue to monitor his calcium post treatment to make sure it does not go down, as the patient just gave a re-draw last Tuesday. Routine post-examine instructions have been given to the patient. Details discussed with the patient and his [id number] regarding the future treatment plan. The patient is due for another cycle of his chemotherapy with the same doses of Velcade, Cytoxan, and dexamethasone, which is due on Tuesday. We will continue to push him for physical therapy twice a day while he is in the TCU for his deconditioning and help him get better. May need to add a drug like Lyrica if needed for the lower extremity pain in addition to the narcotics that he is on. His sacral decubitus ulcer needs to be monitored and the more he is up and walking around, stronger he will feel. Arrangements have been made for him to come back and forth once he goes out as he still needs chemotherapy on day 15, day 22 of the treatment cycles, and I told him long-term plan will be to give several rounds of chemotherapy, assessing ____ at the same time, have him go and see the folks at [place] to get another opinion as far as evaluation and assessment for an autologous marrow transplant and vaccine therapy once he is more stable. At this point in time, our immediate concern is to tide him over the major issue here which is comprising the fracture issue that has been a major issue and impediment for his healing, specifically for the back, and I have encouraged him to be very careful and to let us know if he has any pain, any worsening symptoms neurologically to his lower extremity, likely thoracic spine, which will take some time to heal. The patient is going to be monitored very carefully. I am going to monitor his blood work on a daily basis for the next several days. Resume his radiation on Tuesday. Time spent with the patient, the [id number], and talking to his all put together about an hour. This is a critically ill patient, more than 80% of the time was spent in [id number] encounter and counseling and discussing the treatment-related sequelae, long-term prognosis, and overall goals of care. Seda Lafleur MD
--- NOTE | 2017-07-17 14:46 | CP.PCM.PN ---
<FlorecitaAdonis Marshall - Last Filed: 07/17/17 14:35> Subjective - Date & Time of Evaluation Date of Evaluation: 07/17/17 Time of Evaluation: 14:36 - Subjective Subjective: Patient seen and examined at bedside. Patient states that he feels a little better and that he is able to get around well. Patient has no acute complaints at this time, states that his pain is well controlled. Objective - Vital Signs/Intake and Output Vital Signs (last 24 hours): Temp Pulse Resp BP Pulse Ox 97.9 F 104 H 18 100/63 94 L 07/16/17 05:54 07/16/17 05:54 07/16/17 05:54 07/16/17 05:54 07/16/17 05:54 Intake and Output: 07/17/17 07/17/17 06:59 18:59 Intake Total 420 Balance 420 - Medications Medications: Current Medications Acetaminophen (Tylenol 325mg Tab) 650 mg PO Q6H PRN; Protocol PRN Reason: Fever >100.4 F Acyclovir (Zovirax) 400 mg PO BID [facility] PRN Reason: Protocol Last Admin: 07/17/17 10:12 Dose: 400 mg Allopurinol (Zyloprim) 100 mg PO Q8 [facility] PRN Reason: Protocol Last Admin: 07/17/17 13:20 Dose: 100 mg Alprazolam (Xanax) 0.25 mg PO BID PRN; Protocol PRN Reason: Anxiety Stop: 07/22/17 17:39 Apixaban (Eliquis) 2.5 mg PO BID [facility] PRN Reason: Protocol Last Admin: 07/17/17 10:11 Dose: 2.5 mg Ascorbic Acid (Vitamin C 500 Mg Tab) 500 mg PO DAILY [facility] PRN Reason: Protocol Last Admin: 07/17/17 10:11 Dose: 500 mg Benzocaine/Menthol (Cepacol Sore Throat) 1 avelino MT Q2H PRN; Protocol PRN Reason: Sore Throat Diphenhydramine HCl (Benadryl) 25 mg PO Q6H PRN; Protocol PRN Reason: Itching / Pruritus Docusate Sodium (Colace) 100 mg PO Q12 [facility] PRN Reason: Protocol Last Admin: 07/17/17 10:11 Dose: 100 mg Fentanyl (Duragesic) 1 patch TD Q72H [facility] PRN Reason: Protocol Hydromorphone HCl (Dilaudid) 2 mg PO Q6 PRN; Protocol PRN Reason: Pain, severe (8-10) Last Admin: 07/17/17 10:16 Dose: 2 mg Insulin Detemir (Levemir) 6 unit SC HS [facility] PRN Reason: Protocol Last Admin: 07/16/17 22:28 Dose: 6 unit Insulin Human Lispro (Humalog Low) 0 units SC [facility] PRN Reason: Protocol Last Admin: 07/17/17 12:30 Dose: Not Given Levothyroxine Sodium (Synthroid) 25 mcg PO 0600 [facility] PRN Reason: Protocol Last Admin: 07/17/17 06:22 Dose: 25 mcg Morphine Sulfate (Morphine) 4 mg IVP Q4H PRN; Protocol PRN Reason: Pain, severe (8-10) Pantoprazole Sodium (Protonix Ec Tab) 40 mg PO 0600 [facility] Last Admin: 07/17/17 06:22 Dose: 40 mg Trimethoprim/Sulfamethoxazole (Bactrim Ds Tab) 1 tab PO MWF@1000 [facility] PRN Reason: Protocol Zinc Sulfate (Zinc Sulfate 220 Mg Cap) 220 mg PO DAILY [facility] PRN Reason: Protocol Last Admin: 07/17/17 10:12 Dose: 220 mg Zolpidem Tartrate (Ambien) 10 mg PO HS [facility] PRN Reason: Protocol Last Admin: 07/16/17 23:44 Dose: 10 mg - Labs Labs: 07/17/17 06:30 07/17/17 06:30 - Constitutional Appears: Well - Head Exam Head Exam: ATRAUMATIC, NORMAL INSPECTION, NORMOCEPHALIC - Eye Exam Eye Exam: EOMI, Normal appearance, PERRL Pupil Exam: NORMAL ACCOMODATION, PERRL - ENT Exam ENT Exam: Mucous Membranes Moist, Normal Exam - Neck Exam Neck Exam: Full ROM, Normal Inspection. absent: Lymphadenopathy - Respiratory Exam Respiratory Exam: Clear to Ausculation Bilateral, NORMAL BREATHING PATTERN - Cardiovascular Exam Cardiovascular Exam: REGULAR RHYTHM, +S1, +S2. absent: Murmur - GI/Abdominal Exam GI & Abdominal Exam: Soft, Normal Bowel Sounds. absent: Tenderness - Rectal Exam Rectal Exam: NORMAL INSPECTION - Extremities Exam Extremities Exam: Full ROM, Normal Capillary Refill, Normal Inspection. absent : Joint Swelling, Pedal Edema - Back Exam Back Exam: NORMAL INSPECTION - Neurological Exam Neurological Exam: Alert, Awake, CN II-XII Intact, Normal Gait, Oriented x3 - Psychiatric Exam Psychiatric exam: Normal Affect, Normal Mood - Skin Skin Exam: Dry, Intact, Normal Color, Warm Assessment and Plan - Assessment and Plan (Free Text) Assessment: A/P 57 year old male with past medical history of Anxiety, Diabetes Type 2, Decubitus Ulcer, LE swelling, and Hypothyroidism, as well as multiple myeloma, presented with intractible pain, immobility, and a fever. In TCU due to multiple fractures, pain control, and access to palliative chemo/radiation Imaging: - Left shoulder X-ray shows old healed fracture deformities in the distal and proximal shaft left humerus and degenerative changes in both shoulder girdles and multiple small lucencies throughout the osseous structures consistent with history multiple myeloma. - Lumbar spine CT showed inumerable lytic lesions consistent with multiple myeloma. lesion in the right S2 sacral area with cortical destruction with no neural foraminal encroachment, lytic lesion of posterior aspect of T11, and atypical expansile lesion on the left side of L1 associated with cortical destruction. - Continue pain management. - Throracic spine Ct showed lytic lesions throughout thoracic spine, confluent large, expansile lytic lesions at T8-T9 with encroachment upon central spinal canal, and incidental 1.6mm mass in the left lower lobe found. - Lumbar spine MRI showed multiple myelomatous infiltration, large lytic lesions , central bony canal and exit foramina adequate, spondylosis at L4-L5, and heterogenous signal changes throughout lumboscaral segments - Thoracic MRI: mild diffuse infiltration changes throughout wall of thoracic and vertebral body, and 2 large infiltration lesions in left lateral margins of T8-T9. - Bone density showed diffuse lytic lesions throughout all osseous structures of the axial and appendicular skeleton. - Chest abdomen and pelvis CT: showed destructive bony lesion of T8 &t9 and involves the adjacent ribs, small lesion on left side of L1, and large lesion of left ilac bone. Multiple Myeloma - Orthopedic consult, Dr. Varghese. Rec's appreciated. - Hematology/Oncology consult, Dr. Lafleur. Rec's appreciated. * Patient should be started on bisphosphonate therapy as soon as is feasible. Will need intensive therapy to get rid of tumor initially before moving on to regimen such as Revlimid, Velcade, and Dexamethasone * Patient may have developed a rash secondary to Velcade and Antibiotics interaction. Dr. Lafleur would like to re-challenge the patient at some point * Patient also needs a much stronger regimen such as TCEP * Another dose of chemo with same doses of Velcade, Cytoxan, and Dexamethasone due on Tuesday * PT BID while in TCU * May add lyrica if lower extremity pain continues even despite opioid treatment * Needs Chemotherapy on da 15, day 22 of treatment cycles. * Perhaps send to [facility] to get another opinion for aautologous marrow transplant and vaccine therapy - Spine Surgery: Dr. Solano consulted. Rec's appreciated. * Patient has grossly unstable thoracic metastasis with overt spinal cord compression - strongly recommended decompression fixation and fusion * Recommended an MRI: showed multilevel degenerative spondylosis in L4-L5. No acute compression fracture or retropulsed fragments. Canal and exit foramina were adequate throughout - Palliative care consulted. Rec's appreciated. * Patient has started palliative radiation therapy to left humerus and right iliac bone Tachycardia, likely secondary to Pain - Patient has been going in and out of tachycardia both in the acute setting and in TCU - Repeat EKG showed no changes from previous EKG, except the QT interval had gotten even longer - Removed Zofran from medications. If patient really needs something for nausea , do not give more than Zofran 4 q12 - Dr. Tomlinson brought on consult 07/16/17, follow up recommendations Intractible Pain secondary to Multiple Myeloma - Pain control as above Fever likely secondary to sacral ulcer: Resolved - SIRS Resolved; Blood culture (-) x 48 hours, Urine culture negative, but Sacral wound culture positive for Corynebacterium and Strep Agalactiae Group B, sensitive to ampicillin, clindamycin, penicillin, and vancomycin - UA negative; Rapid flu negative - Continue Tylenol 650 mg PRN for fever greater than 100.4 F - Infectious disease consulted. Rec's appreciated. * Currently off of antibiotics Anxiety - Continue Xanax 0.25 mg BID Diabetes Type 2 - Insulin sliding scale Lispro (low). Accuchecks. - Diabetic diet. Decubitus Ulcer - Wound culture grew Strep Agalactiae Group B and Corneybacterium species: Surgery and Infectious disease consulted. ID as above - Continue Zinc, Vitamin C - Surgery: Dr. Larsen consulted. Rec's appreciated * Patient does not wish for debridement at this time * No further surgical intervention right now Lower extremity swelling - Duplex US of bilateral lower extremities negative - ECHO: shows EF of 51.7%; LV is borderline dilated; Moderate AR; Mild Pulmonary hypertension Hypothyroidism - Continue Levothyroxine 25mg Daily. DVT/GI prophylaxis: Eliquis 2.5 BID; Pepcid 20 mg IVP daily <Jake Smith - Last Filed: 07/17/17 18:39> Objective - Vital Signs/Intake and Output Vital Signs (last 24 hours): Temp Pulse Resp BP Pulse Ox 97.9 F 104 H 18 100/63 94 L 07/16/17 05:54 07/16/17 05:54 07/16/17 05:54 07/16/17 05:54 07/16/17 05:54 Intake and Output: 07/17/17 07/17/17 06:59 18:59 Intake Total 420 Balance 420 - Medications Medications: Current Medications Acetaminophen (Tylenol 325mg Tab) 650 mg PO Q6H PRN; Protocol PRN Reason: Fever >100.4 F Acyclovir (Zovirax) 400 mg PO BID [facility] PRN Reason: Protocol Last Admin: 07/17/17 17:25 Dose: 400 mg Allopurinol (Zyloprim) 100 mg PO Q8 [facility] PRN Reason: Protocol Last Admin: 07/17/17 13:20 Dose: 100 mg Alprazolam (Xanax) 0.25 mg PO BID PRN; Protocol PRN Reason: Anxiety Stop: 07/22/17 17:39 Apixaban (Eliquis) 2.5 mg PO BID [facility] PRN Reason: Protocol Last Admin: 07/17/17 17:25 Dose: 2.5 mg Ascorbic Acid (Vitamin C 500 Mg Tab) 500 mg PO DAILY [facility] PRN Reason: Protocol Last Admin: 07/17/17 10:11 Dose: 500 mg Benzocaine/Menthol (Cepacol Sore Throat) 1 avelino MT Q2H PRN; Protocol PRN Reason: Sore Throat Diphenhydramine HCl (Benadryl) 25 mg PO Q6H PRN; Protocol PRN Reason: Itching / Pruritus Docusate Sodium (Colace) 100 mg PO Q12 [facility] PRN Reason: Protocol Last Admin: 07/17/17 10:11 Dose: 100 mg Fentanyl (Duragesic) 1 patch TD Q72H [facility] PRN Reason: Protocol Last Admin: 07/17/17 17:21 Dose: 1 patch Hydromorphone HCl (Dilaudid) 2 mg PO Q6 PRN; Protocol PRN Reason: Pain, severe (8-10) Last Admin: 07/17/17 16:48 Dose: 2 mg Insulin Detemir (Levemir) 6 unit SC HS [facility] PRN Reason: Protocol Last Admin: 07/16/17 22:28 Dose: 6 unit Insulin Human Lispro (Humalog Low) 0 units SC ACHS [facility] PRN Reason: Protocol Last Admin: 07/17/17 17:24 Dose: Not Given Levothyroxine Sodium (Synthroid) 25 mcg PO 0600 [facility] PRN Reason: Protocol Last Admin: 07/17/17 06:22 Dose: 25 mcg Morphine Sulfate (Morphine) 4 mg IVP Q4H PRN; Protocol PRN Reason: Pain, severe (8-10) Pantoprazole Sodium (Protonix Ec Tab) 40 mg PO 0600 [facility] Last Admin: 07/17/17 06:22 Dose: 40 mg Trimethoprim/Sulfamethoxazole (Bactrim Ds Tab) 1 tab PO MWF@1000 [facility] PRN Reason: Protocol Zinc Sulfate (Zinc Sulfate 220 Mg Cap) 220 mg PO DAILY [facility] PRN Reason: Protocol Last Admin: 07/17/17 10:12 Dose: 220 mg Zolpidem Tartrate (Ambien) 10 mg PO HS [facility] PRN Reason: Protocol Last Admin: 07/16/17 23:44 Dose: 10 mg - Labs Labs: 07/17/17 06:30 07/17/17 06:30 Attending/Attestation - Attestation I have personally seen and examined this patient.: Yes I have fully participated in the care of the patient.: Yes I have reviewed all pertinent clinical information, including history, physical exam and plan: Yes Notes (Text): 07/17/17 18:39 Patient seen on 07/16 and examined independently. Agree with the plan of care outlined by the resident.
--- NOTE | 2017-07-17 17:40 | CP.PCM.PN ---
Subjective - Date & Time of Evaluation Date of Evaluation: 07/17/17 Time of Evaluation: 17:00 - Subjective Subjective: Continues to work with rehab; 12 ROS negative Pain; denies Objective - Vital Signs/Intake and Output Vital Signs (last 24 hours): Temp Pulse Resp BP Pulse Ox 97.9 F 104 H 18 100/63 94 L 07/16/17 05:54 07/16/17 05:54 07/16/17 05:54 07/16/17 05:54 07/16/17 05:54 Intake and Output: 07/17/17 07/17/17 06:59 18:59 Intake Total 420 Balance 420 - Medications Medications: Current Medications Acetaminophen (Tylenol 325mg Tab) 650 mg PO Q6H PRN; Protocol PRN Reason: Fever >100.4 F Acyclovir (Zovirax) 400 mg PO BID [facility] PRN Reason: Protocol Last Admin: 07/17/17 17:25 Dose: 400 mg Allopurinol (Zyloprim) 100 mg PO Q8 [facility] PRN Reason: Protocol Last Admin: 07/17/17 13:20 Dose: 100 mg Alprazolam (Xanax) 0.25 mg PO BID PRN; Protocol PRN Reason: Anxiety Stop: 07/22/17 17:39 Apixaban (Eliquis) 2.5 mg PO BID [facility] PRN Reason: Protocol Last Admin: 07/17/17 17:25 Dose: 2.5 mg Ascorbic Acid (Vitamin C 500 Mg Tab) 500 mg PO DAILY [facility] PRN Reason: Protocol Last Admin: 07/17/17 10:11 Dose: 500 mg Benzocaine/Menthol (Cepacol Sore Throat) 1 avelino MT Q2H PRN; Protocol PRN Reason: Sore Throat Diphenhydramine HCl (Benadryl) 25 mg PO Q6H PRN; Protocol PRN Reason: Itching / Pruritus Docusate Sodium (Colace) 100 mg PO Q12 [facility] PRN Reason: Protocol Last Admin: 07/17/17 10:11 Dose: 100 mg Fentanyl (Duragesic) 1 patch TD Q72H [facility] PRN Reason: Protocol Last Admin: 07/17/17 17:21 Dose: 1 patch Hydromorphone HCl (Dilaudid) 2 mg PO Q6 PRN; Protocol PRN Reason: Pain, severe (8-10) Last Admin: 07/17/17 16:48 Dose: 2 mg Insulin Detemir (Levemir) 6 unit SC HS [facility] PRN Reason: Protocol Last Admin: 07/16/17 22:28 Dose: 6 unit Insulin Human Lispro (Humalog Low) 0 units SC ACHS [facility] PRN Reason: Protocol Last Admin: 07/17/17 17:24 Dose: Not Given Levothyroxine Sodium (Synthroid) 25 mcg PO 0600 [facility] PRN Reason: Protocol Last Admin: 07/17/17 06:22 Dose: 25 mcg Morphine Sulfate (Morphine) 4 mg IVP Q4H PRN; Protocol PRN Reason: Pain, severe (8-10) Pantoprazole Sodium (Protonix Ec Tab) 40 mg PO 0600 [facility] Last Admin: 07/17/17 06:22 Dose: 40 mg Trimethoprim/Sulfamethoxazole (Bactrim Ds Tab) 1 tab PO MWF@1000 [facility] PRN Reason: Protocol Zinc Sulfate (Zinc Sulfate 220 Mg Cap) 220 mg PO DAILY [facility] PRN Reason: Protocol Last Admin: 07/17/17 10:12 Dose: 220 mg Zolpidem Tartrate (Ambien) 10 mg PO HS [facility] PRN Reason: Protocol Last Admin: 07/16/17 23:44 Dose: 10 mg - Labs Labs: 07/17/17 06:30 07/17/17 06:30 - Constitutional Appears: Well - Respiratory Exam Respiratory Exam: Clear to Ausculation Bilateral, NORMAL BREATHING PATTERN - Cardiovascular Exam Cardiovascular Exam: REGULAR RHYTHM, +S1, +S2. absent: Murmur - GI/Abdominal Exam GI & Abdominal Exam: Soft, Normal Bowel Sounds. absent: Tenderness - Back Exam Back Exam: NORMAL INSPECTION Additional comments: so tenderness in T5 region and lateral ribs
[2017-07-17] MEDS: Insulin Detemir 100 units/ml Vial (Levemir) SC SCH (21:38)
--- NOTE | 2017-07-18 04:58 | CON ---
DATE: 07/17/2017 LOCATION: The patient is in room 303, bed 1. REASON FOR CONSULTATION: Edema on the legs. HISTORY OF PRESENT ILLNESS: The patient is a 57-year-old male, who recently found to have multiple myeloma, history of tinnitus, and recent new onset diabetes mellitus, states that he has been swelling of legs off and on for long time and when he lies in the bed and wakes up in the morning, the swelling is less. The patient recently had bilateral knee replacement done and then he also developed pathological fracture of right hip and left arm. These all happened within the period of 2 weeks, he was diagnosed multiple myeloma about 3 months, also he had debridement of a decubitus ulcer in his back with wound vacuum placement. He underwent 10 rounds of palliative radiation therapy and 3 rounds of chemotherapy. He has difficulty walking because of both knee surgeries and hip surgery. The patient denies chest pain on walking. He denies shortness of breath or palpitation. PAST MEDICAL HISTORY: Positive for tinnitus, diabetes, hypertension, and recently found to have multiple myeloma. PAST SURGICAL HISTORY: Bilateral knee replacement, right hip fracture surgery, left shoulder fracture surgery. MEDICATIONS AT HOME: Xanax 0.25 b.i.d., fentanyl patch 75 mcg per hour q. 72 hours. ALLERGIES: THE PATIENT DENIES ANY ALLERGIES. PERSONAL HISTORY: Denies smoking now, stopped many years ago. He used to drink long time ago, but now only drinks socially. FAMILY HISTORY: Not significant. REVIEW OF SYSTEMS: All the systems are reviewed, positives mentioned in the history, others are negative. PHYSICAL EXAMINATION: VITAL SIGNS: Blood pressure 100/63, respirations 18, pulse 104, temperature 97.9. HEENT: Head: Normocephalic. Eyes: Pupils normal. Conjunctivae, slightly pale. NECK: JVP low. Carotid equal. THORAX: AP diameter normal. LUNGS: Clear. CARDIOVASCULAR: S1 and S2. ABDOMEN: Protuberant. No organomegaly. EXTREMITIES: No clubbing. No cyanosis. The patient has edema in bilateral lower legs. LABORATORY DATA: WBC 3.8, hemoglobin 10.2, hematocrit 32.1, platelets 234. Sodium 140, potassium 4.0, BUN 10, creatinine 0.6. Glucose 110. AST and ALT normal. Total protein 7.2, albumin 3.3. EKG showed regular sinus rhythm, QT prolonged. Echocardiogram was done on 07/11/2017, it showed left ventricle borderline dilated and normal left ventricle wall thickness, left ventricle systolic function is lower limit of normal about 51%, RVSP 37 mmHg, suggestive of very minimal pulmonary hypertension. Transmitral Doppler flow pattern is grade I abnormal relaxation pattern, moderate aortic regurgitation. DIAGNOSES: The patient's swelling on the leg is venous stasis and also related to obesity, multiple myeloma, tinnitus, anemia, recently diagnosed diabetes mellitus. PLAN: The patient is getting Eliquis 2.5 b.i.d., Synthroid 25 mcg p.o. daily, Protonix 40 daily, Zovirax 400 mg b.i.d., Zyloprim 100 mg p.o. q. 8 hour. Advised the patient to lose weight. Keep the legs elevated when he sits up, also if elevated he can use elastic stockings in the daytime. We will follow with you. Elvis Tomlinson MD
[2017-07-18] MEDS: Levothyroxine 25 MCG TAB PO SCH (05:30)
[2017-07-18] MEDS: Pantoprazole 40 mg EC Tab PO SCH (05:30)
[2017-07-18] MEDS: Insulin Lispro (humaLOG) LOW Coverage SC SCH ×4 (06:34→21:43)
[2017-07-18 07:12] LABS: BASO # 0.01 K/mm3 (0.0-2.0); BASO % 0.2 % (0.0-3.0); EOS # 0.2 (0.0-0.7); EOS % 2.8 % (1.5-5.0); GRAN # 4.41 (1.4-6.5); HEMATOCRIT 34.2 % (42.0-52.0); LYMPH # 0.9 (1.2-3.4); LYMPH % 14.6 % (22.0-35.0); MEAN CELL VOLUME 89.1 fl (80.0-105.0); MEAN CORPUSCULAR HEMOGLOBIN 28.4 pg (25.0-35.0); MEAN CORPUSCULAR HGB CONC 31.9 g/dl (31.0-37.0); MONO # 0.6 (0.1-0.6); MONO % 9.4 % (1.0-6.0); RED CELL DISTRIBUTION WIDTH 16.2 % (11.5-14.5)
[2017-07-18 07:20] LABS: ALB/GLOB RATIO 0.9 (1.1-1.8); ALKALINE PHOSPHATASE 110 U/L (38-126); ALT/SGPT 36 U/L (7-56); AST/SGOT 29 U/L (17-59); BILIRUBIN,TOTAL 0.4 mg/dL (0.2-1.3); BLOOD UREA NITROGEN 9 mg/dL (7-21); CALCIUM 8.8 mg/dL (8.4-10.5); CARBON DIOXIDE 24 mmol/L (21-33); CHLORIDE 101 mmol/L (98-107); GFR AFRICAN-AMERICAN > 60; GLUCOSE,RANDOM 131 mg/dL (70-110); POTASSIUM 4.3 mmol/L (3.6-5.0); SODIUM 138 mmol/L (132-148)
[2017-07-18] MEDS: Tmp-Smz 800 mg-160 mg DS Tab PO SCH (10:27)
--- NOTE | 2017-07-18 14:32 | PN ---
DATE: 07/18/2017 The patient is in room 303, bed 1. REASON FOR CONSULTATION: Edema on the legs. SUBJECTIVE: The patient is sitting in chair without any chest pain, shortness of breath, or palpitation. PHYSICAL EXAMINATION: VITAL SIGNS: Blood pressure is 100/63, respirations 18, pulse 104, temperature 97.9. HEENT: Head: Normocephalic. Eyes: Pupils normal. Conjunctivae slightly pale. NECK: JVP low. Carotids equal. THORAX: AP diameter normal. LUNGS: Clear. CARDIOVASCULAR: S1 and S2. ABDOMEN: Soft. No tenderness. No organomegaly. EXTREMITIES: No clubbing. No cyanosis. The patient has edema in the lower legs because of venous stasis. LABORATORY DATA: WBC 6.0, hemoglobin 10.9, hematocrit 34.2, platelets 310. Sodium 138, potassium 4.3, BUN 9, creatinine 0.7. Sugar is 141. Random glucose 131. Calcium 8.8. AST and ALT normal. The patient had an echo done on 07/11/2017, which showed LV ejection fraction low normal at 51%, RVSP 37 mmHg, grade 1 diastolic dysfunction, moderate aortic regurg. DIAGNOSES: The patient's swelling of the leg is venous stasis and related to his being overweight. The patient had multiple myeloma. Denies anemia. Recent diagnosis of diabetes mellitus. PLAN: Continue Eliquis 2.5 b.i.d., Protonix 40 mg daily, Synthroid 25 mcg p.o. daily, Zovirax 400 mg b.i.d., Zyloprim 100 mg daily. Continue present therapy for multiple myeloma. We will follow. Elvis Tomlinson MD
[2017-07-18] MEDS: Insulin Detemir 100 units/ml Vial (Levemir) SC SCH (21:26)
[2017-07-19] MEDS: Pantoprazole 40 mg EC Tab PO SCH (05:01)
[2017-07-19] MEDS: Levothyroxine 25 MCG TAB PO SCH (05:01)
[2017-07-19] MEDS: Insulin Lispro (humaLOG) LOW Coverage SC SCH ×4 (07:39→22:27)
[2017-07-19 10:10] LABS: BASO # 0.01 K/mm3 (0.0-2.0); BASO % 0.2 % (0.0-3.0); EOS # 0.2 (0.0-0.7); EOS % 4.4 % (1.5-5.0); GRAN # 4.13 (1.4-6.5); GRAN % 78.3 % (50.0-68.0); HEMATOCRIT 33.8 % (42.0-52.0); LYMPH # 0.5 (1.2-3.4); LYMPH % 9.5 % (22.0-35.0); MEAN CELL VOLUME 89.9 fl (80.0-105.0); MEAN CORPUSCULAR HEMOGLOBIN 28.2 pg (25.0-35.0); MEAN CORPUSCULAR HGB CONC 31.4 g/dl (31.0-37.0); MEAN PLATELET VOLUME 9.8 fl (7.0-11.0); MONO # 0.4 (0.1-0.6); MONO % 7.6 % (1.0-6.0); RED CELL DISTRIBUTION WIDTH 16.4 % (11.5-14.5); WHITE BLOOD COUNT 5.3 10^3/ul (4.5-11.0)
--- NOTE | 2017-07-19 10:54 | PN ---
DATE: 07/18/2017 LOCATION: The patient is in room 303, bed 1. REASON FOR CONSULTATION: The patient has multiple myeloma status post chemotherapy with Velcade, Cytoxan and dexamethasone due for his next cycle on Tuesday. Currently, he is on radiation to two separate areas of his skeleton, one is the left humerus and the other one is the right femur. The area as far as the left iliac bone and sacral area is concerned, he still not yet been radiated. The patient is status post one dose of IDDS round. SUBJECTIVE: The patient is sitting in chair without any chest pain, shortness of breath, or palpation. He has been able to walk around with a brace on his back that has been procured for him while he is in the hospital, so we can do physical therapy. Tightness in the lower extremities is still present and overall he has been feeling better. PHYSICAL EXAMINATION VITAL SIGNS: Stable. Blood pressure 100/63, respirations 18, pulse of 114, T-max is 98.4. HEENT: Head is normocephalic, atraumatic. Conjunctivae pale. Sclerae anicteric. Pupils are equally reactive to light and accommodation. Examination of the oropharynx reveals no oropharyngeal lesions. No mucositis noted. NECK: Supple. There is no adenopathy. No jugular venous distention noted. Neck is bilaterally symmetrical. HEART: Reveals PMI to be in the fifth intercostal space inside the midclavicular line. S1 and S2 are normal. No gallop or murmur is heard. LUNGS: Clear to percussion and auscultation. ABDOMEN: Soft and protuberant. No evidence of any organomegaly is noted. No rebound, rigidity, or guarding is noted. Bowel sounds are present. EXTREMITIES: There is no cyanosis or clubbing. The patient still had edema in both lower extremities, combination of both venostasis and fluid retention from steroids. The patient is status post bilateral knee replacement. In addition to that he has had arthroplasty for the right hip. We also had multiple lytic lesions in the lower end of the left femur, which also is contributing to his instability and pain, which may be also causing him to have chronic lower extremity swelling. NEUROLOGIC: Higher function seems to be normal. No focal deficits are noted. AND RECTAL: Deferred. The patient has a large sacral decubitus 10 x 6 x 7.2 which is healing slowly at this point in time, being followed by surgical and wound services. LABORATORY DATA: Reveals of a white count of 6, hemoglobin 10.9, hematocrit 34, platelet count 310,000. Sodium is 138, K is 4.3, BUN is 9, creatinine 0.7. Sodium is 141, random sugar is 131. Calcium is 8.8, AST and ALT are within normal limits. The patient has an echo done on 07/01/2017 shows an LV fraction of 51% with a grade I diastolic dysfunction, moderate aortic regurgitation. ASSESSMENT AND PLAN: The patient has advanced multiple myeloma with multiple lytic changes in the left humerus, right femur, left femur; soft tissue lesion in the iliac vein, bone on the left side along with it the patient has a huge paraspinal mass at T7 and T9, status post radiation to that area. In addition to this, the patient has a lytic lesions. The patient has had several imaging studies while in the acute side of the hospital. The patient's clinical condition appears to be gradually improving after one course of therapy along with radiation and . PLAN: The patient to continue his Eliquis 2.5 b.i.d., Protonix 40 daily, Synthroid 25 mcg daily, Zovirax 400 b.i.d., Zyloprim 100 daily. The patient is also on Bactrim DS 1 tablet Tuesday, Tuesday, and Tuesday. We will continue current therapy. The patient is on physical therapy for deconditioning. We will continue to monitor his blood counts very closely and he will be due for his next cycle of chemotherapy with Velcade, Cytoxan and dexamethasone, it will be given on Tuesday. In the meantime, we will continue radiation to these specific areas before deciding when we should include the iliac vein and the lower end of the sacrum into the field . Time spent with the patient is at least [address]. [address] Lafleur dictating for this very complex patient with multiple comorbid medical issues. Seda Lafleur MD
--- NOTE | 2017-07-19 11:52 | CP.PCM.PN ---
<Shelbi Aguilera - Last Filed: 07/19/17 12:48> Subjective - Date & Time of Evaluation Date of Evaluation: 07/19/17 Time of Evaluation: 11:48 - Subjective Subjective: Pt has been seen and examined. No overnight events reported. Patient is resting comfortably, he states his pain is controlled. He still complains of mild back pain and leg pain/tightness. He denies any fever, chills, chest pain , SOB, abdominal pain, changes in bowel movements or urinary symptoms. Objective - Vital Signs/Intake and Output Vital Signs (last 24 hours): Temp Pulse Resp BP Pulse Ox 98 F 107 H 20 96/60 L 97 07/18/17 17:59 07/18/17 17:59 07/18/17 17:59 07/18/17 17:59 07/18/17 17:59 - Medications Medications: Current Medications Acetaminophen (Tylenol 325mg Tab) 650 mg PO Q6H PRN; Protocol PRN Reason: Fever >100.4 F Acyclovir (Zovirax) 400 mg PO BID GOGO PRN Reason: Protocol Last Admin: 07/19/17 10:10 Dose: 400 mg Allopurinol (Zyloprim) 100 mg PO Q8 GOGO PRN Reason: Protocol Last Admin: 07/19/17 05:01 Dose: 100 mg Alprazolam (Xanax) 0.25 mg PO BID PRN; Protocol PRN Reason: Anxiety Stop: 07/22/17 17:39 Apixaban (Eliquis) 2.5 mg PO BID GOGO PRN Reason: Protocol Last Admin: 07/19/17 10:11 Dose: 2.5 mg Ascorbic Acid (Vitamin C 500 Mg Tab) 500 mg PO DAILY GOGO PRN Reason: Protocol Last Admin: 07/19/17 10:11 Dose: 500 mg Benzocaine/Menthol (Cepacol Sore Throat) 1 avelino MT Q2H PRN; Protocol PRN Reason: Sore Throat Diphenhydramine HCl (Benadryl) 25 mg PO Q6H PRN; Protocol PRN Reason: Itching / Pruritus Docusate Sodium (Colace) 100 mg PO Q12 GOGO PRN Reason: Protocol Last Admin: 07/19/17 10:10 Dose: 100 mg Fentanyl (Duragesic) 1 patch TD Q72H GOGO PRN Reason: Protocol Last Admin: 07/17/17 17:21 Dose: 1 patch Hydromorphone HCl (Dilaudid) 2 mg PO Q6 PRN; Protocol PRN Reason: Pain, severe (8-10) Last Admin: 07/19/17 10:10 Dose: 2 mg Insulin Detemir (Levemir) 6 unit SC HS [facility] PRN Reason: Protocol Last Admin: 07/18/17 21:26 Dose: 6 unit Insulin Human Lispro (Humalog Low) 0 units SC ACHS [facility] PRN Reason: Protocol Last Admin: 07/19/17 07:39 Dose: Not Given Levothyroxine Sodium (Synthroid) 25 mcg PO 0600 [facility] PRN Reason: Protocol Last Admin: 07/19/17 05:01 Dose: 25 mcg Morphine Sulfate (Morphine) 4 mg IVP Q4H PRN; Protocol PRN Reason: Pain, severe (8-10) Pantoprazole Sodium (Protonix Ec Tab) 40 mg PO 0600 [facility] Last Admin: 07/19/17 05:01 Dose: 40 mg Trimethoprim/Sulfamethoxazole (Bactrim Ds Tab) 1 tab PO MWF@1000 [facility] PRN Reason: Protocol Last Admin: 07/18/17 10:27 Dose: 1 tab Zinc Sulfate (Zinc Sulfate 220 Mg Cap) 220 mg PO DAILY [facility] PRN Reason: Protocol Last Admin: 07/19/17 10:11 Dose: 220 mg Zolpidem Tartrate (Ambien) 10 mg PO HS [facility] PRN Reason: Protocol Last Admin: 07/18/17 21:01 Dose: 10 mg - Labs Labs: 07/19/17 10:00 07/18/17 06:30 - Additional Findings Additional findings: - Constitutional Appears: Well - Head Exam Head Exam: ATRAUMATIC, NORMAL INSPECTION, NORMOCEPHALIC - Eye Exam Eye Exam: EOMI, Normal appearance, PERRL Pupil Exam: NORMAL ACCOMODATION, PERRL - ENT Exam ENT Exam: Mucous Membranes Moist, Normal Exam - Neck Exam Neck Exam: Full ROM, Normal Inspection. absent: Lymphadenopathy - Respiratory Exam Respiratory Exam: Clear to Ausculation Bilateral, NORMAL BREATHING PATTERN - Cardiovascular Exam Cardiovascular Exam: REGULAR RHYTHM, +S1, +S2. absent: Murmur - GI/Abdominal Exam GI & Abdominal Exam: Soft, Normal Bowel Sounds. absent: Tenderness - Rectal Exam Rectal Exam: NORMAL INSPECTION - Extremities Exam Extremities Exam: +3 Pedal Edema (Improved) - Back Exam Back Exam: NORMAL INSPECTION - Neurological Exam Neurological Exam: Alert, Awake, CN II-XII Intact, Abnormal Gait, Oriented x3 - Psychiatric Exam Psychiatric exam: Normal Affect, Normal Mood - Skin Skin Exam: Dry, Intact, Normal Color, Warm Assessment and Plan - Assessment and Plan (Free Text) Assessment: 57 year old male with past medical history of Anxiety, Diabetes Type 2, Decubitus Ulcer, LE swelling, and Hypothyroidism, as well as multiple myeloma, presented with intractable pain, immobility, and a fever. In TCU due to multiple fractures, pain control, and access to palliative chemo/radiation Plan: Imaging: - Left shoulder X-ray shows old healed fracture deformities in the distal and proximal shaft left humerus and degenerative changes in both shoulder girdles and multiple small lucencies throughout the osseous structures consistent with history multiple myeloma. - Lumbar spine CT showed inumerable lytic lesions consistent with multiple myeloma. lesion in the right S2 sacral area with cortical destruction with no neural foraminal encroachment, lytic lesion of posterior aspect of T11, and atypical expansile lesion on the left side of L1 associated with cortical destruction. - Continue pain management. - Throracic spine Ct showed lytic lesions throughout thoracic spine, confluent large, expansile lytic lesions at T8-T9 with encroachment upon central spinal canal, and incidental 1.6mm mass in the left lower lobe found. - Lumbar spine MRI showed multiple myelomatous infiltration, large lytic lesions , central bony canal and exit foramina adequate, spondylosis at L4-L5, and heterogenous signal changes throughout lumboscaral segments - Thoracic MRI: mild diffuse infiltration changes throughout wall of thoracic and vertebral body, and 2 large infiltration lesions in left lateral margins of T8-T9. - Bone density showed diffuse lytic lesions throughout all osseous structures of the axial and appendicular skeleton. - Chest abdomen and pelvis CT: showed destructive bony lesion of T8 &t9 and involves the adjacent ribs, small lesion on left side of L1, and large lesion of left ilac bone. Multiple Myeloma - Orthopedic consult, Dr. Varghese. Rec's appreciated. - Hematology/Oncology consult, Dr. Lafleur. Rec's appreciated. * Patient should be started on bisphosphonate therapy as soon as is feasible. Will need intensive therapy to get rid of tumor initially before moving on to regimen such as Revlimid, Velcade, and Dexamethasone * Patient may have developed a rash secondary to Velcade and Antibiotics interaction. Dr. Lafleur would like to re-challenge the patient at some point * Patient also needs a much stronger regimen such as TCEP * Another dose of chemo with same doses of Velcade, Cytoxan, and Dexamethasone due on Tuesday * PT BID while in TCU * May add lyrica if lower extremity pain continues even despite opioid treatment * Needs Chemotherapy on da 15, day 22 of treatment cycles. * Perhaps send to [place] to get another opinion for aautologous marrow transplant and vaccine therapy - Spine Surgery: Dr. Solano consulted. Rec's appreciated. * Patient has grossly unstable thoracic metastasis with overt spinal cord compression - strongly recommended decompression fixation and fusion * Recommended an MRI: showed multilevel degenerative spondylosis in L4-L5. No acute compression fracture or retropulsed fragments. Canal and exit foramina were adequate throughout - Palliative care consulted. Rec's appreciated. * Patient has started palliative radiation therapy to left humerus and right iliac bone -Chemotherapy tomorrow Tachycardia, likely secondary to Pain - Patient has been going in and out of tachycardia both in the acute setting and in TCU - Repeat EKG showed no changes from previous EKG, except the QT interval had gotten even longer - Removed Zofran from medications. If patient really needs something for nausea , do not give more than Zofran 4 q12 - Dr. Tomlinson (Cardio) consulted - recs appreciated. Intractible Pain secondary to Multiple Myeloma - Pain control as above Fever likely secondary to sacral ulcer: Resolved - SIRS Resolved; Blood culture (-) x 48 hours, Urine culture negative, but Sacral wound culture positive for Corynebacterium and Strep Agalactiae Group B, sensitive to ampicillin, clindamycin, penicillin, and vancomycin - UA negative; Rapid flu negative - Continue Tylenol 650 mg PRN for fever greater than 100.4 F - Infectious disease consulted. Rec's appreciated. * Currently off of antibiotics Anxiety - Continue Xanax 0.25 mg BID Diabetes Type 2 - Insulin sliding scale Lispro (low). Accuchecks. - Diabetic diet. Decubitus Ulcer - Wound culture grew Strep Agalactiae Group B and Corneybacterium species: Surgery and Infectious disease consulted. ID as above - Continue Zinc, Vitamin C - Surgery: Dr. Larsen consulted. Rec's appreciated * Patient does not wish for debridement at this time * No further surgical intervention right now Lower extremity swelling - Duplex US of bilateral lower extremities negative - ECHO: shows EF of 51.7%; LV is borderline dilated; Moderate AR; Mild Pulmonary hypertension Hypothyroidism - Continue Levothyroxine 25mg Daily. DVT/GI prophylaxis: Eliquis 2.5 BID; Pepcid 20 mg IVP daily Dispo: Discussed with dependency case manager. Will begin discharge planning tomorrow. Patient is scheduled for radiation today and chemotherapy tomorrow per Dr. Lafleur's note. PT recommends home with services and continue PT. <Tu Salguero - Last Filed: 07/19/17 13:33> Objective - Vital Signs/Intake and Output Vital Signs (last 24 hours): Temp Pulse Resp BP Pulse Ox 98 F 107 H 20 96/60 L 97 07/18/17 17:59 07/18/17 17:59 07/18/17 17:59 07/18/17 17:59 07/18/17 17:59 - Medications Medications: Current Medications Acetaminophen (Tylenol 325mg Tab) 650 mg PO Q6H PRN; Protocol PRN Reason: Fever >100.4 F Acyclovir (Zovirax) 400 mg PO BID [facility] PRN Reason: Protocol Last Admin: 07/19/17 10:10 Dose: 400 mg Allopurinol (Zyloprim) 100 mg PO Q8 [facility] PRN Reason: Protocol Last Admin: 07/19/17 05:01 Dose: 100 mg Alprazolam (Xanax) 0.25 mg PO BID PRN; Protocol PRN Reason: Anxiety Stop: 07/22/17 17:39 Apixaban (Eliquis) 2.5 mg PO BID [facility] PRN Reason: Protocol Last Admin: 07/19/17 10:11 Dose: 2.5 mg Ascorbic Acid (Vitamin C 500 Mg Tab) 500 mg PO DAILY [facility] PRN Reason: Protocol Last Admin: 07/19/17 10:11 Dose: 500 mg Benzocaine/Menthol (Cepacol Sore Throat) 1 avelino MT Q2H PRN; Protocol PRN Reason: Sore Throat Diphenhydramine HCl (Benadryl) 25 mg PO Q6H PRN; Protocol PRN Reason: Itching / Pruritus Docusate Sodium (Colace) 100 mg PO Q12 [facility] PRN Reason: Protocol Last Admin: 07/19/17 10:10 Dose: 100 mg Fentanyl (Duragesic) 1 patch TD Q72H [facility] PRN Reason: Protocol Last Admin: 07/17/17 17:21 Dose: 1 patch Hydromorphone HCl (Dilaudid) 2 mg PO Q6 PRN; Protocol PRN Reason: Pain, severe (8-10) Last Admin: 07/19/17 10:10 Dose: 2 mg Insulin Detemir (Levemir) 6 unit SC HS [facility] PRN Reason: Protocol Last Admin: 07/18/17 21:26 Dose: 6 unit Insulin Human Lispro (Humalog Low) 0 units SC ACHS [facility] PRN Reason: Protocol Last Admin: 07/19/17 12:57 Dose: Not Given Levothyroxine Sodium (Synthroid) 25 mcg PO 0600 [facility] PRN Reason: Protocol Last Admin: 07/19/17 05:01 Dose: 25 mcg Morphine Sulfate (Morphine) 4 mg IVP Q4H PRN; Protocol PRN Reason: Pain, severe (8-10) Pantoprazole Sodium (Protonix Ec Tab) 40 mg PO 0600 [facility] Last Admin: 07/19/17 05:01 Dose: 40 mg Trimethoprim/Sulfamethoxazole (Bactrim Ds Tab) 1 tab PO MWF@1000 [facility] PRN Reason: Protocol Last Admin: 07/18/17 10:27 Dose: 1 tab Zinc Sulfate (Zinc Sulfate 220 Mg Cap) 220 mg PO DAILY [facility] PRN Reason: Protocol Last Admin: 07/19/17 10:11 Dose: 220 mg Zolpidem Tartrate (Ambien) 10 mg PO HS [facility] PRN Reason: Protocol Last Admin: 07/18/17 21:01 Dose: 10 mg - Labs Labs: 07/19/17 10:00 07/18/17 06:30 Attending/Attestation - Attestation I have personally seen and examined this patient.: Yes I have fully participated in the care of the patient.: Yes I have reviewed all pertinent clinical information, including history, physical exam and plan: Yes Notes (Text): 07/19/17 13:29 57 year old male with history of multiple myeloma who presented with intractable pain and immobility. He is being followed by multiple subspecialists including physical therapy while here in TCU. Continue with palliative radiation therapy and planned chemotherapy as per hematology/oncology. Tu Salguero MD Hospitalist.
--- NOTE | 2017-07-19 14:40 | PN ---
DATE: REASON FOR CONSULTATION: Edema of the leg. SUBJECTIVE: The patient is walking with a walker. Denies any chest pain. Family is at the bedside, not in apparent distress. PHYSICAL EXAMINATION: VITAL SIGNS: As follows: Temperature afebrile, heart rate 100, and blood pressure 90/60. HEENT: PERRLA. Extraocular muscles intact. NECK: Supple. CARDIOPULMONARY: No carotid bruits or thyromegaly. LUNGS: Clear to auscultation. HEART: S1 and S2. Regular. ABDOMEN: Soft. EXTREMITIES: Clubbing and cyanosis negative. LABORATORY DATA: WBC 5.3, hemoglobin 10.7, hematocrit 33.8, and platelet count 246. Chemistry shows sodium 138, potassium 4.3, chloride 101, and carbon dioxide 24. Last echo from 07/11/2017 shows an ejection fraction of 51%, RV systolic pressure of 37, moderate aortic regurgitation. ASSESSMENT: Swelling of the leg, most likely venous stasis, history of multiple myeloma, anemia, diabetes, gout, and hypothyroidism. RECOMMENDATIONS: Continue Eliquis. Continue Protonix. Continue treatment for multiple myeloma as per Hematology/Oncology. Continue Synthroid. CVS status is stable. We will follow with you. Thank you for providing me the opportunity in taking care of the patient, Lucas Harper. Elvis Padilla MD
[2017-07-19 15:44] LABS: ALB/GLOB RATIO 0.9 (1.1-1.8); ALKALINE PHOSPHATASE 135 U/L (38-126); ALT/SGPT 65 U/L (7-56); AST/SGOT 40 U/L (17-59); BILIRUBIN,TOTAL 0.4 mg/dL (0.2-1.3); GFR AFRICAN-AMERICAN > 60; TOTAL PROTEIN 7.6 g/dL (5.8-8.3)
[2017-07-19 15:55] LABS: POTASSIUM 4.2 mmol/L (3.6-5.0)
[2017-07-19 15:57] LABS: BLOOD UREA NITROGEN 9 mg/dL (7-21); CALCIUM 8.8 mg/dL (8.4-10.5); CARBON DIOXIDE 26 mmol/L (21-33); CHLORIDE 101 mmol/L (98-107); GLUCOSE,RANDOM 157 mg/dL (70-110); SODIUM 136 mmol/L (132-148)
[2017-07-19 16:24] VITALS: RESP 18
[2017-07-19] MEDS: Morphine 4 mg/ml ISec IVP PRN (19:58)
[2017-07-19] MEDS: Insulin Detemir 100 units/ml Vial (Levemir) SC SCH (22:27)
--- NOTE | 2017-07-19 23:08 | PN ---
DATE: 07/19/2017 This is [facility] visit on TCU. For Dr. Lafleur. SUBJECTIVE: The patient is a 57-year-old male seen sitting up in a chair on TCU after recent admission to the medical floor for treatment of his advanced multiple myeloma with multiple lytic lesions especially in the long bones, recently operated for hip fracture with total hip arthroplasty. Right hip noted to have paraspinal mass at T7, T9 area. He had palliative radiation with the biopsy done at the time in [facility] showing multiple myeloma. With this, the patient was not ambulatory initially with significant pain radiating to back and legs with Duragesic patches not helping his pain. With this, the patient is now status post treatment for his multiple myeloma now. Continue radiation with chemotherapy possible to start tomorrow, with the patient now ambulatory. Reporting he feels much much better than when initially admitted. OBJECTIVE: VITAL SIGNS: Temperature is 97.4, pulse 92, respirations 18, blood pressure 104/79, and pulse oximetry 94%. HEENT: Unremarkable. NECK: Supple. HEART: Tachy rate regular rhythm. LUNGS: Clear. ABDOMEN: Soft, protuberant, and nontender. EXTREMITIES: The patient has +1 edema in bilateral lower extremities, status post bilateral knee replacement arthroplasty of the right hip with weightbearing now achieved. NEUROLOGIC: Awake and alert with minimal decrease strength in lower extremities. SKIN: The patient has a large sacral decubitus approximately 10 x 6 cm, which is healing slowly followed by surgery. LABORATORY DATA: The patient's labs were done white blood cell count of 5.3, hemoglobin 10.6, hematocrit 33.8,and platelet count of 246,000 with a chem metabolic panel within normal limits except for non fasting glucose 157, alkaline phosphatase 135. 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 PLAN: Plan for this patient, after conversation with Dr. Lafleur is to continue his radiation as per Dr. Allyson Gray, with consideration for treatment with chemotherapy to begin tomorrow with Velcade, Cytoxan, dexamethasone with his radiation for two separate areas of in the left humerus and the right femur. We will monitor clinically and with labs. The prognosis for this patient is guarded. This is a complex patient with a comprehensive medically necessary and appropriate visit carried on excess 25 minutes [id number] time with the patient reassured and counseled for his malignancy. His intractable pain is now significantly improved. Juliocesar Heart MD
[2017-07-20] MEDS: Morphine 4 mg/ml ISec IVP PRN ×5 (01:02→20:24)
[2017-07-20] MEDS: Pantoprazole 40 mg EC Tab PO SCH (05:59)
[2017-07-20] MEDS: Levothyroxine 25 MCG TAB PO SCH (05:59)
[2017-07-20] MEDS: Insulin Lispro (humaLOG) LOW Coverage SC SCH ×4 (06:56→21:56)
[2017-07-20] MEDS: Tmp-Smz 800 mg-160 mg DS Tab PO SCH (09:36)
[2017-07-20 09:51] LABS: BASO # 0.01 K/mm3 (0.0-2.0); BASO % 0.2 % (0.0-3.0); EOS # 0.3 (0.0-0.7); EOS % 6.2 % (1.5-5.0); GRAN # 3.22 (1.4-6.5); GRAN % 74.3 % (50.0-68.0); HEMATOCRIT 32.4 % (42.0-52.0); LYMPH # 0.4 (1.2-3.4); LYMPH % 10.1 % (22.0-35.0); MEAN CELL VOLUME 89.5 fl (80.0-105.0); MEAN CORPUSCULAR HEMOGLOBIN 28.2 pg (25.0-35.0); MEAN CORPUSCULAR HGB CONC 31.5 g/dl (31.0-37.0); MEAN PLATELET VOLUME 10.4 fl (7.0-11.0); MONO # 0.4 (0.1-0.6); MONO % 9.2 % (1.0-6.0); RED CELL DISTRIBUTION WIDTH 16.4 % (11.5-14.5); WHITE BLOOD COUNT 4.3 10^3/ul (4.5-11.0)
[2017-07-20 10:04] LABS: ALB/GLOB RATIO 0.9 (1.1-1.8); ALKALINE PHOSPHATASE 88 U/L (38-126); ALT/SGPT 36 U/L (7-56); AST/SGOT 30 U/L (17-59); BILIRUBIN,TOTAL 0.4 mg/dL (0.2-1.3); BLOOD UREA NITROGEN 8 mg/dL (7-21); CALCIUM 8.7 mg/dL (8.4-10.5); CARBON DIOXIDE 25 mmol/L (21-33); CHLORIDE 102 mmol/L (98-107); GFR AFRICAN-AMERICAN > 60; GLUCOSE,RANDOM 166 mg/dL (70-110); POTASSIUM 3.9 mmol/L (3.6-5.0); SODIUM 136 mmol/L (132-148); TOTAL PROTEIN 7.6 g/dL (5.8-8.3); URIC ACID 3.5 mg/dL (3.5-8.5)
--- NOTE | 2017-07-20 12:43 | PN ---
DATE: 07/20/2017 LOCATION: Room 303, bed 1 REASON FOR CONSULTATION: Edema of leg. SUBJECTIVE: The patient denies any chest pain or shortness of breath. He complains of pain in both knees and also complaining of some pain in the back. Denies any chest pain or palpitations. PHYSICAL EXAMINATION: VITAL SIGNS: Blood pressure 104/79, respirations 18, pulse 93, and temperature 99. HEENT: Head is normocephalic. Eyes pupils are normal. Conjunctivae slightly pale. NECK: JVP low. Carotids are equal. THORAX: AP diameter normal. LUNGS: Clear. CARDIOVASCULAR: S1 and S2. ABDOMEN: Protuberant. No organomegaly. EXTREMITIES: No clubbing or cyanosis. LABORATORY DATA: WBC 4.3, hemoglobin 10.2, hematocrit 32.4, platelet 242. Sodium 136, potassium 3.9, BUN 8, creatinine 0.7, random glucose 166, calcium 8.7, and bilirubin 0.4. AST 36 and ALT 88. DIAGNOSES: Swelling of legs probably likely venous stasis and also obesity, history of multiple myeloma, multiple bone marrow lesions, anemia, diabetes, gout, and hypothyroidism. PLAN: The patient is getting radiation therapy for multiple myeloma lesions. The patient is also on Eliquis, Protonix, and Synthroid. The patient is also getting physical therapy. The patient is asymptomatic from cardiac point of view and cardiac status seems to be stable at this point. So, we will continue present therapy. We will follow. Elvis Tomlinson MD
[2017-07-20] MEDS: Insulin Detemir 100 units/ml Vial (Levemir) SC SCH (21:55)
[2017-07-21] MEDS: Morphine 4 mg/ml ISec IVP PRN ×3 (01:05→12:27)
[2017-07-21] MEDS: Pantoprazole 40 mg EC Tab PO SCH (05:45)
[2017-07-21] MEDS: Levothyroxine 25 MCG TAB PO SCH (05:45)
[2017-07-21 06:27] VITALS: O2SAT 91
[2017-07-21] MEDS: Insulin Lispro (humaLOG) LOW Coverage SC SCH ×2 (06:56→12:31)
[2017-07-21 11:23] VITALS: BP 126/71; PULSE 100; TEMP 98.4
--- NOTE | 2017-07-21 13:46 | CP.PCM.DIS ---
<Shelbi Aguilera - Last Filed: 07/21/17 16:22> Provider - Provider Date of Admission: 07/15/17 16:27 Attending physician: Tu Salguero MD Primary care physician: Lonny Sandhu DO Consults: Heme/Onc - Dr. Lafleur/Dr. Heart Cardio - Dr. Tomlinson Time Spent in preparation of Discharge (in minutes): 35 Diagnosis - Discharge Diagnosis (1) Multiple myeloma Status: Acute Hospital Course - Lab Results Lab Results: Most Recent Lab Values WBC 4.3 10^3/ul (4.5-11.0) L 07/20/17 09:30 RBC 3.62 10^6/uL (3.5-6.1) 07/20/17 09:30 Hgb 10.2 g/dL (14.0-18.0) L 07/20/17 09:30 Hct 32.4 % (42.0-52.0) L 07/20/17 09:30 MCV 89.5 fl (80.0-105.0) 07/20/17 09:30 MCH 28.2 pg (25.0-35.0) 07/20/17 09:30 MCHC 31.5 g/dl (31.0-37.0) 07/20/17 09:30 RDW 16.4 % (11.5-14.5) H 07/20/17 09:30 Plt Count 242 10^3/uL (120.0-450.0) 07/20/17 09:30 MPV 10.4 fl (7.0-11.0) 07/20/17 09:30 Gran % 74.3 % (50.0-68.0) H 07/20/17 09:30 Lymph % (Auto) 10.1 % (22.0-35.0) L 07/20/17 09:30 [place] % (Auto) 9.2 % (1.0-6.0) H 07/20/17 09:30 Eos % (Auto) 6.2 % (1.5-5.0) H 07/20/17 09:30 Baso % (Auto) 0.2 % (0.0-3.0) 07/20/17 09:30 Gran # 3.22 (1.4-6.5) 12/20/17 09:30 Lymph # 0.4 (1.2-3.4) L 07/20/17 09:30 [place] # 0.4 (0.1-0.6) 07/20/17 09:30 Eos # 0.3 (0.0-0.7) 07/20/17 09:30 Baso # 0.01 K/mm3 (0.0-2.0) 07/20/17 09:30 Sodium 136 mmol/L (132-148) 07/20/17 09:30 Potassium 3.9 mmol/L (3.6-5.0) 07/20/17 09:30 Chloride 102 mmol/L (98-107) 07/20/17 09:30 Carbon Dioxide 25 mmol/L (21-33) 07/20/17 09:30 Anion Gap 13 (10-20) 07/20/17 09:30 BUN 8 mg/dL (7-21) 07/20/17 09:30 Creatinine 0.7 mg/dl (0.8-1.5) L 07/20/17 09:30 Est GFR ( Amer) > 60 07/20/17 09:30 Est GFR (Non-Af Amer) > 60 07/20/17 09:30 POC Glucose (mg/dL) 301 mg/dL (65-110) H 07/21/17 04:38 Random Glucose 166 mg/dL (70-110) H 07/20/17 09:30 Uric Acid 3.5 mg/dL (3.5-8.5) 07/20/17 09:30 Calcium 8.7 mg/dL (8.4-10.5) 07/20/17 09:30 Total Bilirubin 0.4 mg/dL (0.2-1.3) 07/20/17 09:30 AST 30 U/L (17-59) 07/20/17 09:30 ALT 36 U/L (7-56) 07/20/17 09:30 Alkaline Phosphatase 88 U/L (38-126) 07/20/17 09:30 Lactate Dehydrogenase 411 U/L (333-699) 07/20/17 09:30 Total Protein 7.6 g/dL (5.8-8.3) 07/20/17 09:30 Albumin 3.6 g/dL (3.0-4.8) 07/20/17 09:30 Globulin 4.0 gm/dL 07/20/17 09:30 Albumin/Globulin Ratio 0.9 (1.1-1.8) L 07/20/17 09:30 - Hospital Course Hospital Course: 57 year old male with past medical history of Anxiety, Diabetes Type 2, Decubitus Ulcer, LE swelling, and Hypothyroidism, as well as multiple myeloma, presented with intractible pain, immobility, and a fever. Admitted to TCU for multiple fractures, pain control, and access to palliative chemo/radiation. Imaging studies below. Orthopedic, spine surgery, Heme/Onc, and Palliative care were consulted on the case. Pain controlled with Dilaudid, Morphine, and fentanyl patch. Hospital course complicated by fever likely 2/2 to sacral decubitus ulcer. SIRS Resolved; Blood culture negative x 48 hours, Urine culture negative, but Sacral wound culture positive for Corynebacterium and Strep Agalactiae Group. Ulcer treated with Zinc, vitamin C, and wound care. Surgery Consulted. Patient refused debridement. Hospital course also complicated by Lower ext. swelling. Duplex US of bilateral lower extremities negative. ECHO showed EF of 51.7%; LV is borderline dilated; Moderate AR; Mild Pulmonary hypertension. Cardiology was consulted. Edema improved with increased activity. Endo consulted for hx of diabetes. Patient cleared by Heme /Onc for DC. Patient will go home with: Allopurinol, Eliquis, Dilaudid, Protonix, and Bactrim. He is to follow up with PMD, Heme/Onc (Dr. Lafleur on @ scheduled appt.). He is to also call radiation tomorrow to schedule appointment. Patient is agreeable to plan and medications. Imaging: - Left shoulder X-ray shows old healed fracture deformities in the distal and proximal shaft left humerus and degenerative changes in both shoulder girdles and multiple small lucencies throughout the osseous structures consistent with history multiple myeloma. - Lumbar spine CT showed inumerable lytic lesions consistent with multiple myeloma. lesion in the right S2 sacral area with cortical destruction with no neural foraminal encroachment, lytic lesion of posterior aspect of T11, and atypical expansile lesion on the left side of L1 associated with cortical destruction. - Continue pain management. - Throracic spine Ct showed lytic lesions throughout thoracic spine, confluent large, expansile lytic lesions at T8-T9 with encroachment upon central spinal canal, and incidental 1.6mm mass in the left lower lobe found. - Lumbar spine MRI showed multiple myelomatous infiltration, large lytic lesions , central bony canal and exit foramina adequate, spondylosis at L4-L5, and heterogenous signal changes throughout lumboscaral segments - Thoracic MRI: mild diffuse infiltration changes throughout wall of thoracic and vertebral body, and 2 large infiltration lesions in left lateral margins of T8-T9. - Bone density showed diffuse lytic lesions throughout all osseous structures of the axial and appendicular skeleton. - Chest abdomen and pelvis CT: showed destructive bony lesion of T8 &t9 and involves the adjacent ribs, small lesion on left side of L1, and large lesion of left ilac bone. - Date & Time of H&P Date of H&P: 07/21/17 Time of H&P: 13:30 Discharge Exam - Head Exam Head Exam: ATRAUMATIC, NORMAL INSPECTION, NORMOCEPHALIC - Additional Findings Additional findings: - Constitutional Appears: Well - Head Exam Head Exam: ATRAUMATIC, NORMAL INSPECTION, NORMOCEPHALIC - Eye Exam Eye Exam: EOMI, Normal appearance, PERRL Pupil Exam: NORMAL ACCOMODATION, PERRL - ENT Exam ENT Exam: Mucous Membranes Moist, Normal Exam - Neck Exam Neck Exam: Full ROM, Normal Inspection. absent: Lymphadenopathy - Respiratory Exam Respiratory Exam: Clear to Ausculation Bilateral, NORMAL BREATHING PATTERN - Cardiovascular Exam Cardiovascular Exam: REGULAR RHYTHM, +S1, +S2. absent: Murmur - GI/Abdominal Exam GI & Abdominal Exam: Soft, Normal Bowel Sounds. absent: Tenderness - Rectal Exam Rectal Exam: NORMAL INSPECTION - Extremities Exam Extremities Exam: +2 Pedal Edema (Improved), knee TTP B/L - Back Exam Back Exam: Healing Sacral decubitus ulcer. Dressing on it. Wound clean and dry. - Neurological Exam Neurological Exam: Alert, Awake, CN II-XII Intact, Abnormal Gait, Oriented x3 - Psychiatric Exam Psychiatric exam: Normal Affect, Normal Mood - Skin Skin Exam: Dry, Intact, Normal Color, Warm Discharge Plan - Follow Up Plan Condition: GOOD Disposition: HOME/ ROUTINE Instructions: Intravenous Chemotherapy (DC), Diabetes Mellitus Type 2 in Adults (DC), Chronic Wound Care (DC) Additional Instructions: follow up with Dr. Lafleur on tuesday07/26/17 call radiation tomorrow. continue medications as ordered. Referrals: Lonny Sandhu DO [Primary Care Provider] - <Tu Salguero - Last Filed: 07/22/17 07:47> Provider - Provider Date of Admission: 07/15/17 16:27 Attending physician: Tu Salguero MD Primary care physician: Lonny Sandhu DO Hospital Course - Lab Results Lab Results: Most Recent Lab Values WBC 4.3 10^3/ul (4.5-11.0) L 07/20/17 09:30 RBC 3.62 10^6/uL (3.5-6.1) 07/20/17 09:30 Hgb 10.2 g/dL (14.0-18.0) L 07/20/17 09:30 Hct 32.4 % (42.0-52.0) L 07/20/17 09:30 MCV 89.5 fl (80.0-105.0) 07/20/17 09:30 MCH 28.2 pg (25.0-35.0) 07/20/17 09:30 MCHC 31.5 g/dl (31.0-37.0) 07/20/17 09:30 RDW 16.4 % (11.5-14.5) H 07/20/17 09:30 Plt Count 242 10^3/uL (120.0-450.0) 07/20/17 09:30 MPV 10.4 fl (7.0-11.0) 07/20/17 09:30 Gran % 74.3 % (50.0-68.0) H 07/20/17 09:30 Lymph % (Auto) 10.1 % (22.0-35.0) L 07/20/17 09:30 [place] % (Auto) 9.2 % (1.0-6.0) H 07/20/17 09:30 Eos % (Auto) 6.2 % (1.5-5.0) H 07/20/17 09:30 Baso % (Auto) 0.2 % (0.0-3.0) 07/20/17 09:30 Gran # 3.22 (1.4-6.5) 07/20/17 09:30 Lymph # 0.4 (1.2-3.4) L 07/20/17 09:30 [place] # 0.4 (0.1-0.6) 07/20/17 09:30 Eos # 0.3 (0.0-0.7) 07/20/17 09:30 Baso # 0.01 K/mm3 (0.0-2.0) 07/20/17 09:30 Sodium 136 mmol/L (132-148) 07/20/17 09:30 Potassium 3.9 mmol/L (3.6-5.0) 07/20/17 09:30 Chloride 102 mmol/L (98-107) 07/20/17 09:30 Carbon Dioxide 25 mmol/L (21-33) 07/20/17 09:30 Anion Gap 13 (10-20) 07/20/17 09:30 BUN 8 mg/dL (7-21) 07/20/17 09:30 Creatinine 0.7 mg/dl (0.8-1.5) L 07/20/17 09:30 Est GFR ( Amer) > 60 07/20/17 09:30 Est GFR (Non-Af Amer) > 60 07/20/17 09:30 POC Glucose (mg/dL) 301 mg/dL (65-110) H 07/21/17 04:38 Random Glucose 166 mg/dL (70-110) H 07/20/17 09:30 Uric Acid 3.5 mg/dL (3.5-8.5) 07/20/17 09:30 Calcium 8.7 mg/dL (8.4-10.5) 07/20/17 09:30 Total Bilirubin 0.4 mg/dL (0.2-1.3) 07/20/17 09:30 AST 30 U/L (17-59) 07/20/17 09:30 ALT 36 U/L (7-56) 07/20/17 09:30 Alkaline Phosphatase 88 U/L (38-126) 07/20/17 09:30 Lactate Dehydrogenase 411 U/L (333-699) 07/20/17 09:30 Total Protein 7.6 g/dL (5.8-8.3) 07/20/17 09:30 Albumin 3.6 g/dL (3.0-4.8) 07/20/17 09:30 Globulin 4.0 gm/dL 07/20/17 09:30 Albumin/Globulin Ratio 0.9 (1.1-1.8) L 07/20/17 09:30 Attending/Attestation - Attestation I have personally seen and examined this patient.: Yes I have fully participated in the care of the patient.: Yes I have reviewed all pertinent clinical information, including history, physical exam and plan: Yes Notes (Text): 07/22/17 07:45 57 year old male with history of multiple myeloma who presented with intractable pain and immobility. He was seen by multiple subspecialists. He was started on palliative radiation and chemotherapy. He reports he has been doing well with physical therapy while in TCU and wants to go home today. Patient is discharged home to follow up with Dr. Sandhu or with pmd of choice. Follow up with radiation and with hematology/oncology Dr. Menchaca. Tu Salguero MD Hospitalist.
--- NOTE | 2017-07-21 23:02 | PN ---
DATE: 07/21/2017 LOCATION: The patient is in room 303, bed 1. SUBJECTIVE: The patient denies any chest pain or shortness of breath. He complains of pain in the back and pain in the knees. The patient is sitting in chair comfortably at this moment. PHYSICAL EXAMINATION: VITAL SIGNS: Blood pressure 126/71, respirations 18, pulse 100, temperature 98.4. HEENT: Head is normocephalic. Eyes, pupils normal and conjunctivae normal. Nose and throat, normal. NECK: JVP low. Carotid equal. THORAX: AP diameter normal. LUNGS: Clear. CARDIOVASCULAR: S1 and S2. ABDOMEN: Soft. No tenderness. No organomegaly. Bowel sounds normal. EXTREMITIES: No clubbing. No cyanosis. LABORATORY DATA: WBC 4.3, hemoglobin 10.2, hematocrit 32.4, platelet 242. Sodium 136, potassium 3.9, BUN 8, creatinine 0.7, random sugar 301. AST and ALT normal. Total protein 7.6, albumin 3.6. DIAGNOSES: Swelling of leg bones likely on the basis of venous stasis. There are no . History of multiple myeloma, multiple bone lytic lesions, anemia, diabetes, gout, hypothyroidism, obesity. PLAN: The patient is getting physical therapy, and he is also on Eliquis, Protonix, Synthroid, and he is also getting radiation therapy and chemotherapy as per Dr. Lafleur. So, we will continue physical therapy. We will follow with you. Elvis Tomlinson MD cc:
--- NOTE | 2017-07-22 15:53 | PN ---
DATE: 07/21/2017 This is [facility]'s hospital visit. He is to discharged today as per his primary doctor. SUBJECTIVE: The patient is a 57-year-old male for discharge today after radiation treatment done for his advanced multiple myeloma with multiple lytic lesions, revision hip fracture and humeral fracture. With the patient now feeling better, his narcotic analgesics were continued. The patient wearing a back brace and ambulating with a walker and assist. The patient will continue his radiation treatments with Dr. Allyson Gray, with Velcade, Cytoxan, and dexamethasone treatment given yesterday by Dr. Lafleur with good affect. He is anxious for discharge home today. OBJECTIVE: VITAL SIGNS: Temperature 98.4, pulse 100, respirations 18, blood pressure 126/71, and pulse ox 91%. HEENT: Unremarkable. NECK: Supple. HEART: Tachy rate, regular rhythm. LUNGS: Clear. ABDOMEN: Soft and nontender. EXTREMITIES: +1 edema to feet bilaterally with history of bilateral knee replacement, also status post arthroplasty for right hip with multiple lytic lesions in the lower end of the left femur, also status post fracture of his humerus. NEUROLOGIC: Awake and alert with weakness of his legs noted. SKIN: The patient does have a healing sacral decubitus, which is not inspected at this time; however, the patient reports it is getting smaller as days progress as he is not bed bound at this point and he is ambulatory and on admission, he was on a wheelchair and advised not to stand or weight bear until cleared by Oncology; however, this was then redo with the orthopedic surgeon and he has now progressed slowly. ASSESSMENT: For this patient is that of advanced multiple myeloma with bone lytic lesions in the left humerus status post fracture of the right femur, status post fracture of the left femur, paraspinal mass, decubitus ulcer of the sacrum, hypothyroidism, intractable pain, anxiety, insomnia, diabetes mellitus secondary to steroid? gastroesophageal reflux disease, and gait disturbance. PLAN: Plan for this patient after conversation with Dr. Lafleur is to continue his present medical regimen, to keep him on acyclovir and Bactrim prophylaxis. Home visiting nurses to follow him along with home physiotherapy with his back brace and leg support to continue. His medications are to include his narcotic analgesics, which include fentanyl 75 mcg every 3 days along with Dilaudid 2 mg q.6 hours, which he may double to 4 mg p.r.n. for severe pain. He is continue with Eliquis 2.5 mg twice a day, Ambien, Synthroid, allopurinol, Xanax and as mentioned above, Bactrim and acyclovir. He also takes Protonix as per Dr. Lafleur's recommendations. Plan for this patient is to follow up in 5 days time in the office with Dr. Lafleur and to continue his radiation with Dr. Allyson Gray on a daily basis Tuesday to Tuesday and also to follow up for chemotherapy in the outpatient clinic after evaluation with Dr. Lafleur again. This is a complex patient with comprehensive [id number] in excess of 1 hour time. Questions were answered to his satisfaction. Phone calls were made to Pharmacy. Prescriptions were written for his narcotic analgesics and for his other medications as indicated with arrangements made as described above in excess of 1 hour time. Juliocesar Heart MD
== END 2017-07-21 14:20 | disposition home or self-care (01) | DRG 841 ==
LOC: TRCU 16:27
PROVIDERS: ADMIT Hospitalist; ATTEND Internal Medicine
PROC: F07Z9FZ Gait Training/Functional Ambulation Treatment using Assistive, Adaptive, Supportive or Protective Equipment (ICD-10-PCS; principal; 2017-07-16)
PROC: F08Z4ZZ Home Management Treatment (ICD-10-PCS; 2017-07-16)
PROC: 3E03305 Introduction of Other Antineoplastic into Peripheral Vein, Percutaneous Approach (ICD-10-PCS; 2017-07-20)
PROC: DP081ZZ Beam Radiation of Pelvic Bones using Photons 1 - 10 MeV (ICD-10-PCS; 2017-07-20)
PROC: DP0 Radiation Therapy, Musculoskeletal System, Beam Radiation (ICD-10-PCS; 2017-07-20)
DX: C90.00 Multiple myeloma not having achieved remission (principal); M84.459A Pathological fracture, hip, unspecified, initial encounter for fracture; L89.159 Pressure ulcer of sacral region, unspecified stage; I27.20 Pulmonary hypertension, unspecified; M84.48XA Pathological fracture, other site, initial encounter for fracture; Z68.41 Body mass index [BMI] 40.0-44.9, adult; G89.3 Neoplasm related pain (acute) (chronic); D64.9 Anemia, unspecified; E09.9 Drug or chemical induced diabetes mellitus without complications; I87.2 Venous insufficiency (chronic) (peripheral); E03.9 Hypothyroidism, unspecified; E66.9 Obesity, unspecified; H93.19 Tinnitus, unspecified ear; I10 Essential (primary) hypertension; F41.9 Anxiety disorder, unspecified; M10.9 Gout, unspecified; G47.00 Insomnia, unspecified; K21.9 Gastro-esophageal reflux disease without esophagitis; Z74.01 Bed confinement status; Z96.653 Presence of artificial knee joint, bilateral; Z96.641 Presence of right artificial hip joint

== ENCOUNTER 2017-11-25 10:31 | Day surgery (SDC) | payer BC ==
[2017-11-23 12:58] VITALS: BMI 39.1
[2017-11-25 11:47] LABS: INR 1.08 (0.93-1.08); PARTIAL THROMBOPLASTIN TIME 36.2 Seconds (25.1-36.5); PROTHROMBIN TIME 12.4 SECONDS (9.4-12.5)
[2017-11-25] MEDS ORDERED: Lidocaine 1% Inj (20ml) ONE (14:21)
[2017-11-25] MEDS ORDERED: Midazolam 2 MG/2 ML VIAL ONE ×2 (14:21→15:16)
[2017-11-25] MEDS ORDERED: Oxycodone/Acetaminophen 5/325 mg Tab PO PRN (15:37)
[2017-11-25] MEDS ORDERED: Sodium Chloride 0.45% 1,000 ML IV SCH (15:45)
--- NOTE | 2017-11-25 15:58 | CT ---
PROCEDURE: CT guided bone marrow aspiration and biopsy HISTORY: Multiple myeloma. Restaging. PHYSICIAN(S): Bayron Atkins MD. TECHNIQUE: The relative risks and indications of the procedure were explained to the patient and consent obtained. The patient was placed prone on the CT scanner and preliminary images through the pelvis obtained. Conscious sedation and monitoring were provided throughout the procedure by a nurse. Lytic lesions are noted in the pelvis. The right posterior superior iliac spine was selected for biopsy.. A right posterior approach was selected and the area prepped and draped in the usual sterile fashion. 1% Xylocaine was used to anesthetize the skin and soft tissues. An on control bone biopsy needle was advanced to the right posterior superior iliac spine and its position confirmed with CT. The needle was advanced through the cortex. Bone marrow aspiration was performed. The slides were processed by Dr. Menchaca. A single large core biopsy was was then obtained with the on control needle. The patient tolerated the procedure well P IMPRESSION: 1. CT-guided bone marrow aspiration and biopsy as described above.
[2017-11-25 16:01] VITALS: PULSE 78
[2017-11-25 16:28] VITALS: RESP 18; TEMP 98.2
[2017-11-25 16:41] VITALS: BP 98/62; O2SAT 97
== END 2017-11-25 17:30 | disposition home or self-care (01) ==
LOC: SDS 10:31
PROVIDERS: ATTEND Radiology Vascular & Interventional Radiology
DX: C90.00 Multiple myeloma not having achieved remission (principal); E11.9 Type 2 diabetes mellitus without complications
CPT/HCPCS: 36415; 38221; 85610; 85730; 99152; 99153; J1642; J2250; J2405; J3010; J7030

== ENCOUNTER 2018-09-13 10:46 | Outpatient (CLI) | payer BC | END 2018-09-13 10:47 | disposition home or self-care (01) | LOC: RAD 10:46 ==

== ENCOUNTER 2018-09-18 07:08 | Day surgery (SDC) | payer BC ==
[2018-09-15 16:42] VITALS: BMI 43.0
[2018-09-18 07:46] LABS: BASO # 0.06 K/mm3 (0.0-2.0); BASO % 1.3 % (0.0-3.0); EOS # 0.2 (0.0-0.7); EOS % 3.2 % (1.5-5.0); HEMOGLOBIN 13.5 g/dL (14.0-18.0); LYMPH % 20.6 % (22.0-35.0); MEAN CELL VOLUME 89.9 fl (80.0-105.0); MEAN CORPUSCULAR HGB CONC 32.2 g/dl (31.0-37.0); MEAN PLATELET VOLUME 10.8 fl (7.0-11.0); MONO # 0.4 (0.1-0.6); MONO % 7.8 % (1.0-6.0); RBC 4.66 10^6/uL (3.5-6.1); RED CELL DISTRIBUTION WIDTH 14.5 % (11.5-14.5); WHITE BLOOD COUNT 4.6 10^3/uL (4.5-11.0)
[2018-09-18 07:54] LABS: BLOOD UREA NITROGEN 13 mg/dL (7-21); CALCIUM 9.5 mg/dL (8.4-10.5); GFR NON-AFRICAN AMERICAN > 60; INR 1.06; PARTIAL THROMBOPLASTIN TIME 38.3 Seconds (26.9-38.3)
[2018-09-18] MEDS ORDERED: Midazolam 2 MG/2 ML VIAL IVP ONE (08:30)
[2018-09-18] MEDS ORDERED: Midazolam 2 MG/2 ML VIAL ONE (08:32)
[2018-09-18] MEDS ORDERED: Lidocaine 1% Inj (20ml) ONE (08:32)
[2018-09-18] MEDS ORDERED: Oxycodone/Acetaminophen 5/325 mg Tab PO PRN (08:58)
[2018-09-18] MEDS ORDERED: Sodium Chloride 0.45% 1,000 ML IV SCH (09:00)
[2018-09-18 09:38] VITALS: PULSE 65
[2018-09-18 10:02] VITALS: RESP 20; TEMP 98.5; O2SAT 95
[2018-09-18 10:30] VITALS: BP 134/66
--- NOTE | 2018-09-19 10:04 | CT ---
PROCEDURE: CT guided parasacral biopsy. HISTORY: Multiple myeloma. Sacral pain. 4.3 cm posterior parasacral mass. Evaluate for recurrent myeloma PHYSICIAN(S): Bayron Atkins MD. TECHNIQUE: The relative risks and indications of the procedure were explained to the patient and consent obtained. The patient was placed prone on the CT scanner and preliminary images through the pelvis obtained. Conscious sedation and monitoring were provided throughout the procedure by a nurse. There is a infiltrative 4.3 cm soft tissue mass in the paraspinal sacral area posteriorly.. A posterior oblique approach was selected and the area prepped and draped in the usual sterile fashion. 1% Xylocaine was used to anesthetize the skin and soft tissues. A 17-gauge guiding needle was advanced into the 0.3 cm parasacral mass. Its position was confirmed with CT. Using coaxial technique, multiple core biopsies were obtained. The postprocedure images show no evidence of significant hemorrhage. IMPRESSION: 1. CT-guided parasacral biopsy as described above.
== END 2018-09-18 11:30 | disposition home or self-care (01) ==
LOC: SDS 07:08
PROVIDERS: ATTEND Radiology Vascular & Interventional Radiology
DX: L90.5 Scar conditions and fibrosis of skin (principal); C90.00 Multiple myeloma not having achieved remission; M53.3 Sacrococcygeal disorders, not elsewhere classified; E11.9 Type 2 diabetes mellitus without complications; E66.9 Obesity, unspecified; E07.9 Disorder of thyroid, unspecified; Z68.41 Body mass index [BMI] 40.0-44.9, adult
CPT/HCPCS: 36415; 49180; 77012; 80048; 85025; 85610; 85730; 88305; J1642; J2250; J2405; J3010; J7030

== ENCOUNTER → 2018-11-08 | Outpatient (CLI) | payer BC | LOC: RAD 10:47 ==

== ENCOUNTER 2018-11-20 05:57 | Outpatient (CLI) | payer BC | END 2018-11-20 05:58 | disposition home or self-care (01) | LOC: PET-BROA 05:57 ==